=== PATIENT | female | born 2005 | race Caucasian/White ===

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

== ENCOUNTER 2024-05-04 22:59 | Emergency (ER) | payer MEDICAID, SELFPAY ==
[2024-05-04 22:59] VITALS: BP 129/85; PULSE 77; RESP 16; TEMP 37.1; O2SAT 100; BMI 28.5
--- NOTE | 2024-05-04 23:13 | EX.ED.DYSGE1 ---
HPI History of Present Illness Chief Complaint: Wound Check Informant: patient Onset/Context/Timing Onset: Today Context: Sudden Onset Current Severity: Gone Maximum Severity: Mild Narrative Narrative: 19-year-old female history of depression and anxiety. Aerosols to tattoos about 6 hours ago. The first just above her left ankle medially and the other on her medial right thigh. Said later she developed some tremors and just did not feel well. But currently is feeling much better. She denies any recent illness. She denies any fever. No dysuria. No vomiting or diarrhea. No cough. Prior similar symptoms: No Recent Illness/Hospitalization: No PFSH PFSH Medical History Pulmonary infiltrate Single live Second degree perineal laceration (spontaneous vaginal delivery) Bipolar mood disorder Gestational HTN Headache in Depression Home Medications ?Medication ?Instructions ?Recorded ?Last Taken ?Type fluoxetine 40 mg capsule 40 mg PO DAILY 11/22/23 12/19/23 History azithromycin 250 mg tablet See Rx Instructions PO .COMPLEX #6 04/19/24 Unknown Rx tabs benzonatate 100 mg capsule 100 mg PO TID PRN cough #20 caps 04/19/24 Unknown Rx Allergy/AdvReac Type Severity Reaction Status Date / Time No Known Allergies Allergy Verified 05/04/24 22:59 Social History Smoking Status: Current every day smoker tobacco type: e-cigarettes ROS ROS ED ROS Narrative Denies recent illness. No fever. Constitutional Constitutional ED: Denies chills or fever(s) Eyes Eyes: Denies blurry vision ENT ENT ED: Denies ear pain Cardiovascular Cardiovascular: Denies chest pain Respiratory/Chest Respiratory/Chest: Denies cough or dyspnea Gastrointestinal Gastrointestinal: Denies abdominal pain Genitourinary Genitourinary ED: Denies dysuria or hematuria Musculoskeletal Musculoskeletal: Denies arthralgias Integumentary Denies abscess Neurologic Neurologic: Denies headache(s) Psychiatric Psychiatric: Denies anxiety Endocrine Endocrinology: Denies cold intolerance Hematologic/Lymphatic Hematologic/Lymphatic: Reports none Allergic/Immunologic Allergic/Immunologic ED: Denies mouth swelling, tongue swelling or urticaria EXAM Physical Exam Narrative Exam Narrative: Well-appearing 19-year-old female. Vital signs are stable afebrile. She is sitting upright in bed. No distress. No one else present in the room. Pulse ox 100% on room air no signs of hypoxia. H EENT exam unremarkable. Pupils round reactive light. No trauma. Moist with membranes. Neck nontender no JVD. No lymphadenopathy. Lungs clear to auscultation bilaterally. Heart regular rate and rhythm rate about 75 no murmur. Chest wall and ribs nontender. Abdomen soft nontender. Moving all 4 extremities. Nontender no edema no cords. No signs of infection. She has 2 new tattoos. 1 just above her left ankle medially. Does not look infected. There is no bleeding. The second tattoo is on her right medial proximal thigh. Again does not look infected. Both upper and lower extremities are neurovascularly intact. Normal range of motion. No swelling. No rash. Normal strength. Back nontender. Neurologically she is awake and alert. Answering questions and following commands. Acting appropriately. Has a very benign normal exam. Const Vital Signs: 05/04/24 22:59 Temperature 98.8 F Temperature Source Oral Pulse Rate 77 Respiratory Rate 16 Blood Pressure 129/85 H Blood Pressure Mean 99 Pulse Ox 100 Oxygen Delivery Method Room Air Positive well nourished and well developed; Negative for cachectic, contractures or unkempt General Appearance ED: well developed and NAD; Negative for unkempt, cachectic, contractures, cyanotic, diaphoretic or pallor Nutritional Appearance: Negative for cachectic HEENT Reports moist mucous membranes Negative for trauma or tenderness Eyes EOMs intact bilaterally General Eye ED: Negative for pale conjunctiva or scleral icterus Neck no lymphadenopathy, supple and no JVD Chest Wall inspection of chest normal and palpation of chest normal Resp normal respiratory effort and clear to auscultation bilaterally Effort and Inspection: Negative for retractions Auscultation: Negative for rales, rhonchi, wheezes or diminished lung sounds Cardio regular rate, regular rhythm, S1 normal heart sound, S2 normal heart sound and no murmurs Rate: Negative for bradycardia or tachycardic Rhythm: Negative for abnormal rhythm GI normal to inspection, nondistended, normoactive bowel sounds, non-tender, non-distended and no masses Palpation: soft; Negative for tender, guarding or rebound tenderness present Back/Spine no CVA tenderness General Back: Negative for CVA tenderness Cervical Spine: Negative for cervical spine tenderness Thoracic Spine / Upper Back: Negative for thoracic spinal tenderness or paraspinal muscle tenderness Lumbar Spine / Lower Back: Negative for lumbar spinal tenderness Extremity normal to inspection Extremity Narrative: New tattoo just above her left medial malleolus. Dry and clean. No infection. The tattoo is 444. There is another tattoo on her medial right thigh it is a knife. Again clean and dry no infection. No significant redness. General Extremety ED: Negative for edema or tenderness General Extremity: Negative for edema Neuro oriented x3 and CN's II-XII intact bilaterally Sensorium / Orientation: alert; Negative for orientation impaired, lethargic or stuporous Motor Exam: strength 5/5 throughout Psych mental status grossly normal Appearance: Negative for unkempt Attitude: No agitated Mood & Affect: Negative for depressed, anxious or tearful Skin no rashes or lesions noted, no wounds and skin turgor normal General Skin Exam: elasticity normal; Negative for jaundice or pallor Lesions: No lesion noted Rashes: No rashes noted Trauma: Negative for abrasion Wounds: Negative for wounds noted MDM MDM MDM Narrative Medical decision making narrative: Well-appearing 19-year-old. May have had a panic attack. Currently her exam is normal. Both of her new tattoos showed no signs of infection. Her vital signs are stable. Exam is benign. She will be discharged to home. She does not need any lab tests or imaging. Discharge Plan Triage Chief Complaint: Wound Check ED Provider: Prabhakar Toro Dx/Rx/DC Orders Clinical Impression: Visit for wound check, Anxiety Prescriptions: No Action azithromycin 250 mg tablet See Rx Instructions PO .COMPLEX Qty: 6 0RF Rx Instructions: For 250 mg dose pack: take 500 mg today (day 1), then 250 mg for 4 days (days 2-5) PO benzonatate 100 mg capsule 100 mg PO TID PRN (Reason: cough) Qty: 20 0RF fluoxetine 40 mg capsule 40 mg PO DAILY Primary Care Provider: Berenice Martin NP Referrals: Berenice Martin NP, RESIDENTIAL SALES EXECUTIVE-C [Primary Care Provider] - As Needed Activity Restrictions/Additional Instructions: Follow-up with your primary care provider as needed. Your tattoos look okay there is no signs of infection. Your exam is normal. I do not know exactly what happened. Is not going on currently. Your exam is normal and your vital signs are normal there is no other tests or anything we need to do at this time. This may have been an anxiety attack. Print Language: Kyrgyz Disposition Disposition: Home, Self Care
== END 2024-05-04 23:17 | disposition home or self-care (01) ==
LOC: ED 23:15
PROVIDERS: Emergency Provider Emergency Medicine; PCP Nurse Practitioner Family; Visit Provider Emergency Medicine
DX: Z51.89 Encounter for other specified aftercare (principal); F41.9 Anxiety disorder, unspecified; F32.A Depression, unspecified; F17.290 Nicotine dependence, other tobacco product, uncomplicated
CPT/HCPCS: 99282

== ENCOUNTER 2024-05-21 22:58 | Emergency (ER) | payer MEDICAID, SELFPAY ==
[2024-05-21 22:59] VITALS: BP 121/73; PULSE 83; RESP 18; TEMP 36.6; O2SAT 100; BMI 28.3
--- NOTE | 2024-05-22 00:10 | ED.VIS.DENTA ---
HPI History of Present Illness Chief Complaint: Dental Informant: patient and parent Narrative Narrative: 2 and half weeks worsening right lower dental pain. She has wisdom teeth, now on the lower there is a cavity in 1 of 1. She has been having hot and cold sensitivities. Pain is waxing waning. Using Motrin and Tylenol. Since 4 AM however symptoms has been worse. She does have a dentist staying with her insurance there is been difficult to get her into the oral surgeon. Denies fever chills or sweats. Using Orajel. Due to pain mother brought her here. She is currently on day 7 of Augmentin from treatment urgent care for sinusitis. Prior similar symptoms: Yes PFSH PFSH Medical History Pulmonary infiltrate Single live Second degree perineal laceration (spontaneous vaginal delivery) Bipolar mood disorder Gestational HTN Headache in Depression Home Medications ?Medication ?Instructions ?Recorded ?Last Taken ?Type fluoxetine 40 mg capsule 40 mg PO DAILY 11/22/23 12/19/23 History hydrocodone-acetaminophen 5-325mg 1 tab PO Q6H PRN PRN Pain 3 days 05/22/24 Unknown Rx 5mg-325mg #10 TABLETS Allergy/AdvReac Type Severity Reaction Status Date / Time No Known Allergies Allergy Verified 05/21/24 22:59 Social History Smoking Status: Current every day smoker tobacco type: e-cigarettes ROS ROS ED Constitutional Constitutional ED: Denies chills, fever(s) or sweats ENT ENT ED: Reports other Details: Dental pain with hot and cold sensitivities. ; Denies sore throat Cardiovascular Cardiovascular: Denies chest pain Respiratory/Chest Respiratory/Chest: Denies cough Gastrointestinal Gastrointestinal: Denies abdominal pain, diarrhea, nausea or vomiting Musculoskeletal Musculoskeletal: Denies back pain, extremity pain or neck pain Neurologic Neurologic: Denies headache(s) or paresthesias EXAM Physical Exam Const Vital Signs: 05/21/24 22:59 Temperature 97.8 F Temperature Source Temporal Pulse Rate 83 Respiratory Rate 18 Blood Pressure 121/73 H Blood Pressure Mean 89 Pulse Ox 100 Oxygen Delivery Method Room Air Positive well nourished and well developed General Appearance ED: well developed and NAD HEENT Reports moist mucous membranes HEENT Narrative: Dental exam: [place] teeth noted lower with cavity in the right lower. No sublingual edema. No fluctuance. No trismus. normocephalic and atraumatic Eyes General Eye ED: Yes normal appearance of both eyes Neck full ROM Chest Wall Chest: Negative for tenderness Resp normal respiratory effort and normal air movement Effort and Inspection: symmetric chest movement; Negative for respiratory distress Cardio regular rate, regular rhythm and no murmurs Peripheral Pulses: pulses 2+ throughout GI normal to inspection, nondistended, normoactive bowel sounds and non-tender Palpation: Negative for guarding or rebound tenderness present Extremity normal to inspection General Extremety ED: Negative for edema or tenderness General Extremity: Negative for edema Neuro oriented x3 and no sensory deficits noted Sensorium / Orientation: awake and alert Skin no rashes or lesions noted and no wounds MDM MDM MDM Narrative Medical decision making narrative: Interventions / MDM: Differential diagnosis: Dentalgia, dental carry Diagnosis considered but do not suspect: No dental abscess no signs of Yrn angina My EKG interpretation: N/A Imaging independently reviewed and interpreted by myself: N/A External documents reviewed: N/A Test considered but not ordered:N/A ED course: Vital stable nontoxic. Increasing dentalgia dental carry. She is currently on Augmentin day 7 of 10. She will continue this. Failing treatment with Motrin Tylenol reported at home using Orajel. Will write short course for [facility] for pain control she is given dental list to try to call around for dentist for definitive treatment. No signs of abscess. All questions were answered. Re-evaluation: stable Disposition discussed with patient/family/significant other: Patient and mother Case discussed with consulting clinician: N/A This note was generated with [employer] dictation software. It may contain incorrect words, spelling, and punctuation that were not noted in checking the note before signing. Discharge Plan Triage Chief Complaint: Dental ED Provider: Bobby Vazquez Dx/Rx/DC Orders Clinical Impression: Dentalgia, Dental cavities Instructions: ED Dental Pain, ED Dental Cavity Prescriptions: New hydrocodone-acetaminophen 5-325 mg tablet 1 tab PO Q6H PRN PRN (Reason: Pain) 3 Days Qty: 10 0RF No Action fluoxetine 40 mg capsule 40 mg PO DAILY Primary Care Provider: Berenice Martin NP Referrals: Berenice Martin NP, CONTRACT IMPLEMENTATION ANALYST-C [Primary Care Provider] - Activity Restrictions/Additional Instructions: Finish your antibiotic. Continue your ibuprofen and Tylenol. Take hydrocodone as needed. Call dental list to attempt to get into the dentist office for definitive treatment. Print Language: Cook Islander Disposition Disposition: Home, Self Care Discharge Date/Time: 05/22/24 00:27
[2024-05-22] MEDS: HYDROcodone Bitartrate/Apap 5/325 Tablet PO (00:24)
== END 2024-05-22 00:27 | disposition home or self-care (01) ==
PROVIDERS: Emergency Provider Emergency Medicine; PCP Nurse Practitioner Family; Visit Provider Emergency Medicine
DX: K08.89 Other specified disorders of teeth and supporting structures (principal); K02.9 Dental caries, unspecified; F17.290 Nicotine dependence, other tobacco product, uncomplicated
CPT/HCPCS: 99282

== ENCOUNTER 2024-07-09 00:42 | Emergency (ER) | payer MEDICAID, SELFPAY ==
[2024-07-09 00:43] VITALS: BP 159/84; PULSE 113; RESP 18; TEMP 36.3; O2SAT 98; BMI 28.8
[2024-07-09] MEDS: Diphth,Pertuss(Acell),Tet Vac 0.5 ML Vial IM (01:33)
[2024-07-09] MEDS: Lidocaine 1% (20 ml mdv) 20 ML Vial INFILT (01:33)
--- NOTE | 2024-07-09 01:45 | EDS_ITS ---
HPI History of Present Illness Chief Complaint: Laceration Informant: patient Narrative Narrative: Patient sustained an accidental laceration to her left forearm just prior to arrival. She states she was in a shed, the light suddenly went out and then she tripped in the dark and fell, thinking that she cut her arm in the process against some glass. She denies any numbness, weakness, loss of function. No other injuries. Tetanus Immunization: Unknown [facility] Medical History Pulmonary infiltrate Single live Second degree perineal laceration (spontaneous vaginal delivery) Bipolar mood disorder Gestational HTN Headache in Depression Home Medications ?Medication ?Instructions ?Recorded ?Last Taken ?Type fluoxetine 40 mg capsule 40 mg PO DAILY 11/22/2312/09 History hydrocodone-acetaminophen 5-325mg 1 tab PO Q6H PRN PRN Pain 3 days 05/22/24 Unknown Rx 5mg-325mg #10 TABLETS Allergy/AdvReac Type Severity Reaction Status Date / Time No Known Allergies Allergy Verified 07/09/24 00:45 Social History Smoking Status: Current every day smoker tobacco type: e-cigarettes ROS ROS ED Constitutional Constitutional ED: Denies chills or fever(s) Musculoskeletal Musculoskeletal: Reports extremity pain; Denies neck pain Integumentary Reports laceration; Denies Abrasions or rash Neurologic Neurologic: Denies paresthesias or weakness EXAM Physical Exam Const Vital Signs: 07/09/24 00:43 Temperature 97.3 F L Temperature Source Temporal Pulse Rate 113 H Respiratory Rate 18 Blood Pressure 159/84 H Blood Pressure Mean 109 Pulse Ox 98 Oxygen Delivery Method Room Air Positive well nourished and well developed General Appearance ED: well developed and NAD Neck full ROM and supple Back/Spine normal ROM and normal to inspection Extremity full ROM Extremity Narrative: 2 parallel full-thickness lacerations volar left mid forearm, clean appearing noncontaminated no active bleeding. The subcutaneous fat is exposed but not injured on both of them. There is a 5 cm laceration and a 3 cm laceration. All compartment soft and nondistended. Full range of motion all joints above and below including all FDS, FDP, extensor tendon function of all fingers. Neuro oriented x3, no focal motor deficits and no sensory deficits noted Sensorium / Orientation: alert Psych thought process normal Mood & Affect: anxious and tearful Skin Skin Narrative: Lacerations to the volar aspect of the left forearm as above. Rashes: no rashes MDM MDM MDM Narrative Medical decision making narrative: Lacerations were cleansed, repaired see the procedure note, her tetanus was updated. Given appropriate discharge instructions. Patient denies this being a suicidal gesture or self-inflicted injury, confirms it was an accident. Follow- up in 10-14 days for suture removal reevaluation. We discussed care. Procedures Lacerations left volar forearm: Length: 8 cm (total between 2 lacs) Depth: Sub Q Shape: Linear Prep: Sterile Conditions and Chlorhexadine Laceration repair: Irrigated, Lidocaine (1% lido x 12cc), Local and Skin sutures Irrigated (ml): 100 Number of Sutures/[place]: 10 Suture Information: Ethilon, Simple (x 2), Horizontal, Mattress (x 8) and 4-0 Discharge Plan Triage Chief Complaint: Laceration ED Provider: Milan Ackerman Dx/Rx/DC Orders Clinical Impression: Laceration of forearm, left, Immunization, tetanus-diphtheria Instructions: Tdap Vaccine, ED Laceration Extremity Prescriptions: No Action hydrocodone-acetaminophen 5-325 mg tablet 1 tab PO Q6H PRN PRN (Reason: Pain) 3 Days Qty: 10 0RF fluoxetine 40 mg capsule 40 mg PO DAILY Primary Care Provider: Berenice Martin MANAGER LATIN Referrals: Berenice Martin MANAGER LATIN, MANAGER LATIN-C [Primary Care Provider] - 10-14 Days suture removal Print Language: Portuguese Disposition Disposition: Home, Self Care
[2024-07-09 02:39] VITALS: BP 111/69; PULSE 76; RESP 16; TEMP 36.8; O2SAT 99
== END 2024-07-09 02:41 | disposition home or self-care (01) ==
PROVIDERS: Emergency Provider Emergency Medicine; PCP Nurse Practitioner Family; Visit Provider Emergency Medicine
DX: S51.812A Laceration without foreign body of left forearm, initial encounter (principal); F17.290 Nicotine dependence, other tobacco product, uncomplicated; W26.8XXA Contact with other sharp object(s), not elsewhere classified, initial encounter; Z23 Encounter for immunization
CPT/HCPCS: 12004; 90471; 90715; 99283

== ENCOUNTER 2024-10-03 16:40 | Emergency (ER) | payer MEDICAID, SELFPAY ==
[2024-10-03 16:41] VITALS: BP 145/75; PULSE 90; RESP 17; TEMP 36; O2SAT 99; BMI 29.3
--- NOTE | 2024-10-03 16:56 | RAD_ITS ---
PROCEDURE: FOOT MIN 3 VIEWS 10/03/2024 REASON FOR EXAM: PAIN TECHNIQUE: 3 views of the left foot. COMPARISON: None FINDINGS: Bones: No visible fracture. No suspicious bone lesion. Joints: Normal alignment. Soft tissues: Soft tissues are unremarkable. Other: RAD/Foot min 3 Views IMPRESSION: NO ACUTE FRACTURE OR DISLOCATION. Reading Location: [facility]
--- NOTE | 2024-10-03 16:57 | ED.VIS.LOWEX ---
HPI History of Present Illness Chief Complaint: Lower Extremity Injury Informant: patient Narrative Narrative: Walking today felt pain in her foot palpated felt a bump. No direct injuries. No new activities the last 2 days. No previous similar symptoms. Did not take any medications prior to arrival. No allergies. Prior similar symptoms: No PFSH PFSH Medical History Pulmonary infiltrate Single live Second degree perineal laceration (spontaneous vaginal delivery) Bipolar mood disorder Gestational HTN Headache in Depression Home Medications ?Medication ?Instructions ?Recorded ?Last Taken ?Type fluoxetine 40 mg capsule 40 mg PO DAILY 11/22/23 12/19/23 History hydrocodone-acetaminophen 5-325mg 1 tab PO Q6H PRN PRN Pain 3 days 05/22/24 Unknown Rx 5mg-325mg #10 TABLETS Allergy/AdvReac Type Severity Reaction Status Date / Time No Known Allergies Allergy Verified 10/03/24 16:40 Social History Smoking Status: Current every day smoker tobacco type: e-cigarettes ROS ROS ED Constitutional Constitutional ED: Denies fever(s) Cardiovascular Cardiovascular: Denies chest pain Respiratory/Chest Respiratory/Chest: Denies cough Gastrointestinal Gastrointestinal: Denies diarrhea or vomiting Musculoskeletal Musculoskeletal: Reports other Details: Left foot pain Integumentary Denies rash or wounds Neurologic Neurologic: Denies weakness EXAM Physical Exam Const Vital Signs: 10/03/24 16:41 Temperature 96.8 F L Temperature Source Temporal Pulse Rate 90 Respiratory Rate 17 Blood Pressure 145/75 H Blood Pressure Mean 98 Pulse Ox 99 Oxygen Delivery Method Room Air Positive well nourished and well developed General Appearance ED: well developed HEENT normocephalic and atraumatic Eyes General Eye ED: Yes normal appearance of both eyes Neck full ROM Resp normal respiratory effort and normal air movement Cardio regular rate and regular rhythm GI soft to palpation Extremity full ROM Extremity Narrative: Left lower extremity: No ankle tenderness. Left foot tenderness proximal fifth base there was a palpable bump more dorsal fifth metatarsal reproducible. No redness of skin. No swelling. Neuro oriented x3 Skin no rashes or lesions noted and no wounds MDM MDM MDM Narrative Medical decision making narrative: Interventions / MDM: Differential diagnosis: Foot pain, foot sprain, bony spur Diagnosis considered but do not suspect: Fracture however x-ray negative. Nonmovable nodule therefore lower concerns for ganglion cyst My EKG interpretation: N/A Imaging independently reviewed and interpreted by myself: Three-view x-ray left foot: No fracture noted. External documents reviewed: N/A Test considered but not ordered:N/A ED course: Patient pain proximal fifth base with a palpable bump. It was not movable for concerns of cyst. Treated with Motrin three-view x-ray foot for further evaluation. X-ray negative. Patient reassured on findings. Winston wrap postop shoe for comfort. She has ibuprofen at home to use. She is given referral to podiatry as she is concerned with the painful nodule above the foot. All questions were answered. Re-evaluation: stable Disposition discussed with patient/family/significant other: Patient Case discussed with consulting clinician: N/A This note was generated with [employer] software. It may contain incorrect words, spelling, and punctuation that were not noted in checking the note before signing. Radiography Diagnostic Testing: Clinical Impression(s) from Imaging Studies Foot X-Ray 10/03/24 16:56 IMPRESSION: NO ACUTE FRACTURE OR DISLOCATION. Reading Location: [facility] Discharge Plan Triage Chief Complaint: Lower Extremity Injury ED Provider: Bobby Vazquez Dx/Rx/DC Orders Clinical Impression: Foot pain, left Instructions: ED Foot Sprain Prescriptions: No Action hydrocodone-acetaminophen 5-325 mg tablet 1 tab PO Q6H PRN PRN (Reason: Pain) 3 Days Qty: 10 0RF fluoxetine 40 mg capsule 40 mg PO DAILY Primary Care Provider: Berenice Martin NP Referrals: Omar Ward DPM [Med Staff - Active Staff] - 1 Week Berenice Martin NP, BRICKLAYER-C [Primary Care Provider] - Activity Restrictions/Additional Instructions: X-ray foot negative for fracture. Palpable nodule above the proximal fifth base of your foot. Follow-up with podiatry. Continue Motrin up to 600 mg every 6 hours as needed. Winston wrap postop shoe for comfort. Print Language: Maltese Disposition Disposition: Home, Self Care
[2024-10-03] MEDS: Ibuprofen 600 MG Tablet PO (17:26)
[2024-10-03 18:12] VITALS: BP 145/75; PULSE 80; RESP 17; TEMP 36; O2SAT 99
== END 2024-10-03 18:20 | disposition home or self-care (01) ==
PROVIDERS: Emergency Provider Emergency Medicine; PCP Nurse Practitioner Family; Visit Provider Emergency Medicine
DX: M79.672 Pain in left foot (principal); F17.290 Nicotine dependence, other tobacco product, uncomplicated
CPT/HCPCS: 73630; 99283

== ENCOUNTER 2025-04-25 20:42 | Emergency (ER) | payer MEDICAID, SELFPAY ==
[2025-04-25 20:43] VITALS: BP 118/68; PULSE 97; RESP 18; TEMP 37.1; O2SAT 99
--- NOTE | 2025-04-25 21:01 | ED.RN ---
pt states she does not want to wait- will be heading to [facility].
--- OUTSIDE RECORDS SUMMARY | 2025-04-25 21:07 | XMS RPT_ITS | CCD ---
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 40.0 % AO Workflow SS MCH (RBC) [Entitic mass] 30.2 pg Normal 27. 0 - 33.0 pg AO Workflow SS MCHC 33.5 G/dL Normal 32.0 - 36.0 G/dL AO Workflow SS MCV (RBC) [Entitic vol] 90.2 fL Normal 80.0 - 99.0 fL AO Workflow SS Monocyte distribution width Auto (Bld) [Entitic vol] 19.72 1 Normal 0.00 - 20.00 AO Workflow SS Comment on above: Result Comment: For ED adult patients suspected of sepsis, MDW<=20.0 does not rule out sepsis or risk of sepsis Monocytes (Bld) [#/Vol] 0.7 103/mcL Normal 0.1 - 1.4 10^3/mcL AO Workflow SS Monocytes/100 WBC (Bld) 8.0 % Normal 2.0 - 13.0 % AO Workflow SS Neutrophils (Bld) [#/Vol] 5.4 103/mcL Normal 2. 3 - 8.1 10^3/mcL AO Workflow SS Neutrophils/100 WBC (Bld) 61.0 % Normal 50 .0 - 75.0 % AO Workflow SS Platelet mean volume (Bld) [Entitic vol] 9.0 fL Normal 6.6 - 10.5 fL AO Workflow SS Platelets (Bld) [#/Vol] 255 103/mcL Normal 150 - 450 10^3/mcL AO Workflow SS Potassium [Moles/Vol] 3.5 mmol/L Normal 3.5 - 5.1 mmol/L AO ADM SS Protein [Mass/Vol] 7.0 G/dL Normal 6.4 - 8.2 G/dL AO ADM SS PT Coag (PPP) [Time] 11.9 s Normal 9.0 - 1 4.4 seconds AO HemoHub SS RBC (Bld) [#/Vol] 4.18 106/mcL Normal 4.10 - 5.3 0 10^6/mcL AO Workflow SS Sodium [Moles/Vol] 138 mmol/L Normal 136 - 145 mmol/L AO ADM SS Urea nitrogen [Mass/Vol] 10 mg/dL Normal 7 - 18 mg/d L AO ADM SS Urea nitrogen/Creatinine [Mass ratio] 12 ratio Normal 7 - 27 ratio AO ADM SS WBC (Bld) [#/Vol] 8.8 103/mcL Normal 4.5 - 10.8 10^3/mcL AO Workflow SS PROon 03-17-2025 PT Coag (PPP) [Time] 11.9 s Normal 9.0-14.4 [facility] Comment on above: Performed By: #### C MP, CBC, ADIFF, ANEU, APTT, MDW, GFR, PRO #### [id number] [place], [place] [address] PT International Ratio 1.0 Normal [facility] Comment on above: Result Comment: [employer] (CHEST, 1992, 102:312S-25S) recommended therapeutic range for oral anticoagulant therapy is: LOW RISK: Prophylaxis of venous thrombosis INR: 2.0-3.0 Treatment of pulmonary embolism 2.0-3.0 Prevention of systemic embolism 2.0-3.0 HIGH RISK: Mechanical prosthetic valves 2.5-3.5 Performed By: #### C MP, CBC, ADIFF, ANEU, APTT, MDW, GFR, PRO #### [id number] [place], [place] [address] BACTERIAL VAGINOSIS NAATon 1 Lactobacillus crispatus+gasseri+jensenii + Gardnerella vaginalis + Atopobium vaginae rRNA YOHAN+probe Ql (Vag fld) Detected Abnormal Not detected [facility] Comment on above: Order Comment: Speci men Type: SWAB Ordering Facility: [facility] Address: [address] [place] [address] Performed By: #### B VAMP, 86460-7 #### [facility] CLIA [id number] [address] [place] [address] [place] C. trachomatis+N. gonorrhoea e DNA YOHAN+probe Ql (Unsp spec)on 02-23-2025 C. trachomatis rRNA YOHAN+probe Ql (Unsp spec) Not detected Normal Not detected [facility] Comment on above: Order Comment: Speci men Type: SWAB Ordering Facility: [facility] Address: [address] [place] [address] Performed By: #### B VAMP, 46008-6 #### [facility] CLIA [id number] [address] [place] [address] [place] N. gonorrhoeae rRNA YOHAN+probe Ql (Unsp spec) Not detected Normal Not detected [facility] Comment on above: Order Comment: Speci men Type: SWAB Ordering Facility: [facility] Address: [address] [place] [address] Performed By: #### B VAMP, 00771-2 #### [facility] CLIA [id number] [address] [place] [address] [place] LORIE/TRICHOMONAS NAATon 1 C. glabrata RNA YOHAN+probe Ql (Vag fld) Not detected Normal Not detected [facility] Comment on above: Order Comment: Speci men Type: SWABOrdering Facility: [facility] Address: [address] [place] [address] Performed By: #### C VTV ####[facility] [id number] [place] [address] [place] Lorie sp DNA YOHAN+probe Ql (Vag fld) Not detected Normal Not detected [facility] Comment on above: Order Comment: Speci men Type: SWABOrdering Facility: [facility] Address: [address] [place] [address] Performed By: #### C VTV ####[facility] [id number] [place] [address] [place] T. vaginalis DNA YOHAN+probe Ql (Unsp spec) Detected Abnormal Not detected [facility] Comment on above: Order Comment: Speci men Type: SWABOrdering Facility: [facility] Address: [address] [place] [address] Performed By: #### C VTV ####[facility] [id number] [address] [place] CNOVon 02-23-2025 CNOV Office Visit (OBGYWM ) MILES JIMENEZ ([id number]) 3 F T Date Time Provider Department 02/23/25 10:30 AM MEL HESTER OBDESIREEWLila During your visit today, we recorded the following information about you: Blood pressure Weight Last Period 118/76 83 kg 02/07/25 Mel Hester APRN.LUBRICATION SUPERVISOR 02/23/2025 12:40 PM Signed Char Puller offered: Patient declines. Miles Aroldo Jimenez is a 20 year old female who presents for vaginal discharge for 1 day. - Recently took Diflucan in November for a suspected yeast infection based on symptoms during a telehealth visit; no swab was done at that time. - Last STD testing was during with her daughter, who is now 2 years old. Vaginal discharge: large amount, thin, and yellow. Itching: No Dyspareunia: No Fever/chills: No Abdominal pain: Yes, RLQ pelvic pain this morning, after urinating, resolved after urinating Bladder: Negative for dysuria or frequency Bowel: No blood in stool, pain with BM, tarry stool, persitent diarrhea, endorses constipation x2 weeks, last BM 2 days ago, reports liquid formed stool Any new sexual partners or concern for STD exposure: No Any history of STDs: None Does your partner have any new complaints: No Are you currently taking any medications to treat vaginitis: No Do you use feminine sprays, douches or deodorants: No Menstrual cycle: cycles every 14 days and 5 days of heavy flow Contraception: IUD Paragard 09/2024 Last pap: never Past medical, surgical, social history, medications and allergies reviewed and updated. OBJECTIVE: SENSITIVE EXAM: The sensitive examination was discussed with the Patient or Patient's Authorized Suspender Maker. As applicable, any other physician, advance practice provider, medical student, or other health professional student that will be observing or involved in the sensitive examination for educational or training purposes was discussed with the Patient or Authorized Suspender Maker. The Patient or Authorized Suspender Maker has agreed to proceed with the sensitive examination. (Sensitive examination includes inspection and/or palpation of the breasts, pelvis, prostate and anorectal regions). BP 118/76 Wt 183 lb (83.0kg) LMP 02/07/2025 GENERAL: Well developed, well nourished in no apparent distress ABDOMEN: soft, non-tender, and no masses PELVIC: external genitalia normal, normal Bartholin's glands, urethra, [place]'s glands, no vulvar lesions, no cervical lesions, good vaginal support, yellow discharge present, normal appearing perineal body and perianal region, IUD string noted BIMANUAL: uterus normal size, shape and consistency, no adnexal masses, and non-tender. 1. Vaginal discharge (N89.8) 2. Screen for STD (sexually transmitted disease) (Z11.3) - Acute onset of yellow, thin, watery vaginal discharge with moderate volume, no associated pruritus or dysuria; history of recent infidelity by former partner. - Differential includes bacterial vaginosis, candidiasis, and sexually transmitted infections. - Obtained vaginal swabs for chlamydia, gonorrhea, BV, and yeast. - Ordered blood work for HIV, hepatitis B, hepatitis C, and syphilis. - Educated patient on normal vs. abnormal vaginal discharge, potential causes, and the importance of STD screening given recent partner infidelity. - Advised patient that test results are expected by tomorrow morning; will notify patient of results and send prescriptions as indicated. - LORIE/TRICHOMONAS NAAT - GONORRHEA/CHLAMYDIA NAAT - SYPHILIS TREPONEMAL W/REFLEX - HIV 1/2 COMBO WITH REFLEX TO DIFFERENTIATION - HEPATITIS C ANTIBODY IA WITH CONFIRMATION - HEPATITIS B SURFACE ANTIGEN Josie Bender NP Student TEACHING PROVIDER (Physician/PA/RESIDENTIAL FIELD MANAGER) NOTE OF PERSONAL INVOLVEMENT IN CARE: I have personally seen and examined the patient and performed the medical decision-making components. I have reviewed the Advanced Practice Registered Nurse (RESIDENTIAL FIELD MANAGER) Student's documentation and verified the findings in the note as written. Any additions or changes are noted in bold/italics. Signature: Mel Hester Date: 02/23/2025 Time: 12:39 PM Medical Decision Making: Problems: Moderate: New problem with uncertain prognosis Data: Unique test(s) ordered: 3+ Medical Decision Making Level: 4 - Moderate Allergies As of Date: 02/23/2025 (No Known Allergies) Date Reviewed: 02/23/2025 Reviewed by: Mel Hester APRN.LUBRICATION SUPERVISOR - Fully Assessed Reason for Visit: Vaginal Discharge [4161] Primary Visit Diagnosis:Vaginal discharge [N89.8] Other Visit Diagnosis:Screen for STD (sexually transmitted disease) [Z11.3] Order(s):LORIE/TRICH OMONAS NAAT [SQCVTV] Order #: [id number]. #:[id number] BACTERIAL VAGINOSIS NAAT [SQBVAMP] Order #: [id number]. #:[id number] GONORRHEA/CHLAMYDIA NAAT [SQGCCT] Order #: [id number]. #:[id number] (more content not included)... Normal [facility] HBV surface Ag Ser Qlon 02-08 HBV surface Ag Ql (S) Negative Normal Negative [facility] Comment on above: Order Comment: Speci men Type: BLOOD SPECIMEN Ordering Facility: [facility] Address: [address] [place] [address] Performed By: #### 2 704-9, 2319-8 #### [facility] CLIA [id number] [address] [place] [address] [place] HCV Ab Ser Qlon 02-23-2025 HCV Ab Ql (S) Negative Normal Negative [facility] Comment on above: Order Comment: Speci men Type: BLOOD SPECIMEN Ordering Facility: [facility] Address: [address] [place] [address] Result Comment: The result suggests no evidence of infection with Hepatitis C virus. Should recent infection be suspected, repeat testing may be considered 4-6 weeks after this draw. Performed By: #### 2 132-9, 2283-8 #### [facility] CLIA [id number] [address] [place] [address] [place] HIV 1+2 Ab IA Qlon HIV 1 and 2 Ab IA.rapid Nom (S/P/Bld) Normal [facility] Comment on above: Order Comment: Speci men Type: BLOOD SPECIMEN Ordering Facility: [facility] Address: [address] [place] [address] Result Comment: Test not indicated. Performed By: #### 2 132-9, 2283-8 #### [facility] CLIA [id number] [address] [place] [address] [place] HIV 1+2 Ab+HIV1 p24 Ag IA Ql Non-Reactive Normal Nonreactive [facility] Comment on above: Order Comment: Speci men Type: BLOOD SPECIMEN Ordering Facility: [facility] Address: [address] [place] [address] Performed By: #### 2 132-9, 2283-8 #### [facility] CLIA [id number] [address] [place] [address] [place] HIV immunoassay testing algorithm interpretation (S/P/Bld) [Interp] Normal [facility] Comment on above: Order Comment: Speci men Type: BLOOD SPECIMEN Ordering Facility: [facility] Address: [address] [place] [address] Result Comment: No e vidence of HIV-1 or HIV-2 infection. Should recent infection be suspected, repeat testing may be considered 2-3 weeks after this draw. Dent Rev. Code 3701.243(E): This information has been disclosed to you from confidential records protected from disclosure by state law. You shall make no further disclosure of this information without the specific, written, and informed release of the individual to whom it pertains or as otherwise permitted by state law. A general authorization for the release of medical or other information is not sufficient for the purpose of the release of HIV test results or diagnoses. Performed By: #### 2 132-9, 4-8 #### [facility] CLIA [id number] [address] [place] [address] [place] Reagin and Treponema pallidu m IgG and IgM [Interp]on 02-23-2025 T. pallidum IgG+IgM IA Ql (S) Non-Reactive Normal Nonreactive [facility] Comment on above: Order Comment: Speci men Type: BLOOD SPECIMEN Ordering Facility: [facility] Address: [address] [place] [address] Performed By: #### 2 132-9, 8 #### [facility] CLIA [id number] [address] [place] [address] [place] Reagin+T pallidum IgG+IgM Se rPl-Impon 02-23-2025 Reagin and Treponema pallidum IgG and IgM [Interp] Cannot exclude recent Treponemal infection if specimen collected within 7-10 days after appearance of suspect lesions or 2-3 weeks after an exposure. Clinical correlation is required. Normal [facility] Comment on above: Order Comment: Speci men Type: BLOOD SPECIMEN Ordering Facility: [facility] Address: [address] [place] [address] Performed By: #### 2 132-9, 4-8 #### [facility] CLIA [id number] [address] [place] [address] [place] CNCOon 01-19-2025 CNCO Letter Text Normal [facility] CNPAlba 01-19-2025 CNPN Telephone (AGFAMPLE) MILES JIMENEZ ([id number]) 3 F T Date Time Provider Department 01/19/25 BERENICE MARTIN During your visit today, we recorded the following information about you: Ramón Benitez 01/19/2025 12:51 PM Signed No Show Documentation Miles Jimenez no showed for an appointment on 01/19/2025 with Berenice Martin APRN.CNP at 11:20 am. She was scheduled for vaginal issues. I called and spoke with the patient regarding her missed appointment. Miles stated the reason that she missed her appointment was because she forgot she scheduled an appointment for today. Resources discussed/offered to patient: na No show determined to be fault of patient: Yes This is the patients first no show in the last 12 months. Patient was rescheduled for na. [facility] Is [facility] the Third or Fourth No Show? No Ramóntu Benitez January 19, 2025 12:50 PM Allergies As of Date: 01/19/2025 (No Known Allergies) Date Reviewed: 01/10/2025 Reviewed by: Liz Abernathy LPN - Fully Assessed Reason for Visit: Missed Appointment [1304] Cmt: 1st no show in 365 days (1st letter sent) Prescriptions as of 01/19/2025 - fluconazole (DIFLUCAN) 150 mg tablet Take one by mouth at the first sign of a yeast infection, repeat with another tablet in 3 days - metFORMIN ER (GLUCOPHAGE XR) 500 mg 24 hr tablet Take 1 tablet by mouth daily with breakfast. - copper (PARAGARD) 380 square mm intrauterine device 1 Intra Uterine Device by INTRAUTERINE route one time only for 1 dose. - lamoTRIgine (LAMICTAL) 25 mg tablet Take 1 tablet by mouth once daily. - FLUoxetine (PROZAC) 20 mg capsule Take 3 capsules by mouth once daily. - busPIRone (BUSPAR) 5 mg tablet TAKE 1 TABLET BY MOUTH 3 TIMES A DAY NEEDED - Cholecalciferol, Vitamin D3, 125 mcg (5,000 unit) cap Take 1 capsule by mouth once daily. Problem List As Of Date 01/19/2025 Noted Resolved Adjustment disorder with disturbance of [...] syncope [R55] 10/01/2022 Elevated glucose [R73.09] 10/16/2022 Palpitations [R00.2] 11/03/2023 Encounter Status:Closed by RAMÓN BENITEZ on 01/19/25 [facility] CNOVon 01-10-2025 CNOV Office Visit (WOUCA) MILES JIMENEZ ([id number]) 3 F T Date Time Provider Department 01/10/25 1:30 PM RAGHAVENDRA MARC During your visit today, we recorded the following information about you: Temperature Pulse Respiration Blood pressure 99.3 degrees 100/minute 16/minute 118/76 Weight 85.3 kg Raghavendra Marc APRN.LUBRICATION SUPERVISOR 01/10/2025 2:14 PM Signed [facility] Subjective Miles Jimenez is a 20 year old female. Patient presents with: Cough: Cough. ST, bodyaches, BOYCE and hurts to breath x 2 days HPI The patient is a 20-year-old female presenting with headache, myalgias, cough, and chest discomfort. Headache, Myalgias, Cough, and Chest Discomfort: - Headache, myalgias, and cough with associated chest discomfort. - Chest discomfort described as muscle pain. - Reports feeling short of breath similar to previous pneumonia episodes. - Experiencing alternating hot and cold sensations. - Requests viral testing. Review of Systems Constitutional: (+) fever, (+) chills, (+) body aches Head: (+) headache Ears/Nose/Mouth/Throat : (+) ear pain Cardiovascular: (+) chest pain Respiratory: (+) cough, (+) shortness of breath Musculoskeletal: (+) chest wall muscle pain Objective BP 118/76 Pulse 100 Temp 37.4 ?C (99.3 ?F) (Tympanic) Resp 16 Wt 85.3 kg (188 lb 0.8 oz) LMP 02/02/2024 (Approximate) SpO2 99% BMI 29.45 kg/m? Physical Exam General: No acute distress. HEENT: Tympanic membranes normal, oropharynx normal. Resp: Lungs clear to auscultation. { 1. Acute cough (R05.1) 2. URI, acute (J06.9) - Symptoms include headache, myalgias, cough with chest discomfort, and alternating hot and cold sensations. - Lungs clear on auscultation; ears and throat normal on exam. - Chest X-ray negative; etiology believed to be viral. - Viral testing ordered per patient request. - Supportive care recommended; parent advised that acetaminophen is appropriate for symptom relief. - Patient and parent agreeable to care plan. and Recording using ambient AI software for draft documentation of the visit was discussed with the patient/authorized healthcare sales representative; all questions welcomed and answered. Patient/authorized healthcare sales representative agreed to proceed MDM Procedures Allergies As of Date: 01/10/2025 (No Known Allergies) Date Reviewed: 01/10/2025 Reviewed by: Liz Abernathy LPN - Fully Assessed Reason for Visit: Cough [28] Cmt: Cough. ST, bodyaches, BOYCE and hurts to breath x 2 days Primary Visit Diagnosis:Acute cough [R05.1] Other Visit Diagnosis:URI, acute [J06.9] Order(s):COVID AND INFLUENZA A/B AND RSV PCR, ROUTINE [SQCVFLRS] Order #: [id number]. #:[id number] XR CHEST 2V FRONTAL/LAT [[id number]] Order #: [id number] FUTURE Prescriptions as of 01/10/2025 - fluconazole (DIFLUCAN) 150 mg tablet Take one by mouth at the first sign of a yeast infection, repeat with another tablet in 3 days - metFORMIN ER (GLUCOPHAGE XR) 500 mg 24 hr tablet Take 1 tablet by mouth daily with breakfast. - copper (PARAGARD) 380 square mm intrauterine device 1 Intra Uterine Device by INTRAUTERINE route one time only for 1 dose. - lamoTRIgine (LAMICTAL) 25 mg tablet Take 1 tablet by mouth once daily. - FLUoxetine (PROZAC) 20 mg capsule Take 3 capsules by mouth once daily. - busPIRone (BUSPAR) 5 mg tablet TAKE 1 TABLET BY MOUTH 3 TIMES A DAY NEEDED - Cholecalciferol, Vitamin D3, 125 mcg (5,000 unit) cap Take 1 capsule by mouth once daily. Problem List As Of Date 01/10/2025 Noted Resolved Adjustment disorder with disturbance of [...] syncope [R55] 10/01/2022 Elevated glucose [R73.09] 10/16/2022 Palpitations [R00.2] 11/03/2023 Letter Text Encounter Status:Closed by RAGHAVENDRA MARC on 01/10/25 Normal [facility] COVID & INFLUENZA A/B & RSV PCR, ROUTINEon 01-10-2025 FLUAV RNA YOHAN+probe Ql (Unsp spec) Not detected Not Detected [facility] FLUBV RNA YOHAN+probe Ql (Unsp spec) Not detected Not Detected [facility] Interpretation and review of laboratory results Normal [facility] RSV A RNA YOHAN+probe Ql (Unsp spec) Not detected Not Detected [facility] SARS-CoV-2 (COVID-19) RNA YOHAN+probe Ql (Unsp spec) Not detected See comment [facility] Reference Range (the expected result in uninfected individuals): Not detected [facility] XR CHEST 2V FRONTAL/LATon XR CHEST 2V FRONTAL/LAT * * *Final Repor t* * * DATE OF EXAM: Jan 10 2025 1:45PM WOX 5291 - XR CHEST 2V FRONTAL/LAT / PROCEDURE REASON: Acute cough * * * * Physician Interpretation * * * * EXAMINATION: CHEST RADIOGRAPH (2 VIEW FRONTAL and LATERAL) CLINICAL HISTORY: Acute cough MQ: XC2_6 EXAM DATE/TIME: 01/10/2025 1:45 PM COMPARISON: Chest x-ray dated 02/28/2019 RESULT: Lines, tubes, and devices: None. Lungs and pleura: Azygos fissure, a normal anatomic variants. No consolidation. No lung mass. No pleural effusion. No pneumothorax. Cardiomediastinal silhouette: Normal cardiomediastinal silhouette. Bones and soft tissues: Unremarkable. IMPRESSION: No acute radiographic abnormality. [employer] Transcribe Date/Time: Jan 10 2025 1:46P Dictated by : LAYO AREVALO MD This examination was interpreted and the report reviewed and electronically signed by: LAYO AREVALO MD on Jan 10 2025 1:46PM EST [id number] Normal [facility] XR Chest PA and Lateralon Radiology Study observation (narrative) [facility] IMPRESSION: No acute radiographic abnormality. [employer]ing [employer]: [facility] Transcribe Date/Time: Jan 10 2025 1:46P Dictated by : LAYO AREVALO MD This examination was interpreted and the report reviewed and electronically signed by: LAYO AREVALO MD on Jan 10 2025 1:46PM EST DIVISION OF RADIOLOGY * * *Final Report* * * DATE OF EXAM: Jan 10 2025 1:45PM WOX 5291 - XR CHEST 2V FRONTAL/LAT / PROCEDURE REASON: Acute cough * * * * Physician Interpretation * * * * EXAMINATION: CHEST RADIOGRAPH (2 VIEW FRONTAL & LATERAL) CLINICAL HISTORY: Acute cough MQ: XC2_6 EXAM DATE/TIME: 01/10/2025 1:45 PM COMPARISON: Chest x-ray dated 02/28/2019 RESULT: Lines, tubes, and devices: None. Lungs and pleura: Azygos fissure, a normal anatomic variants. No consolidation. No lung mass. No pleural effusion. No pneumothorax. Cardiomediastinal silhouette: Normal cardiomediastinal silhouette. Bones and soft tissues: Unremarkable. DIVISION OF RADIOLOGY Provider, Barbara Davenport - 01/10/2025 * * *Final Report* * * DATE OF EXAM: Jan 10 2025 1:45PM WOX 5291 - XR CHEST 2V FRONTAL/LAT / PROCEDURE REASON: Acute cough * * * * Physician Interpretation * * * * EXAMINATION: CHEST RADIOGRAPH (2 VIEW FRONTAL & LATERAL) CLINICAL HISTORY: Acute cough MQ: XC2_6 EXAM DATE/TIME: 01/10/2025 1:45 PM COMPARISON: Chest x-ray dated 02/28/2019 RESULT: Lines, tubes, and devices: None. Lungs and pleura: Azygos fissure, a normal anatomic variants. No consolidation. No lung mass. No pleural effusion. No pneumothorax. Cardiomediastinal silhouette: Normal cardiomediastinal silhouette. Bones and soft tissues: Unremarkable. IMPRESSION IMPRESSION: No acute radiographic abnormality. [employer]: [employer] Transcribe Date/Time: Jan 10 2025 1:46P Dictated by : LAYO AREVALO MD This examination was interpreted and the report reviewed and electronically signed by: LAYO AREVALO MD on Jan 10 2025 1:46PM EST [facility] XR Chest PA and LateralOrder ed By: [facility] Provider on 01-10-2025 [facility] CNOVon 12-01-2024 CNOV Office Visit ([facility]) MILES JIMENEZ ([id number]) 3 F T Date Time Provider Department 12/01/24 5:30 PM OMAR COLVIN During your visit today, we recorded the following information about you: Temperature Pulse Respiration Blood pressure 99.5 degrees 92/minute 18/minute 121/61 Weight 83.2 kg Omar Colvin APRN.GRAZYNA 12/01/2024 6:33 PM Signed [facility] Subjective Miles Jimenez is a 19 year old female. Patient presents with: Sore Throat: BOYCE, fever x4 days HPI Nontoxic-appearing 19-year-old female presents urgent care chief complaint fever sore throat headache. Duration of symptoms 4 days. Associate symptoms listed above. Most prominent symptom today is pharyngitis. Presents today for evaluation. OTC medications none recently. No difficulty swallowing inspiration decreased range of motion of neck or trismus. Past medical history prescription medications allergies reviewed. Review of Systems Constitutional: Positive for fever. Negative for chills, diaphoresis and fatigue. HENT: Positive for sore throat. Negative for congestion, drooling, ear discharge, ear pain, rhinorrhea, sinus pressure, sinus pain, sneezing and trouble swallowing. Eyes: Negative for pain, discharge, redness, itching and visual disturbance. Respiratory: Negative for cough, chest tightness, shortness of breath and wheezing. Cardiovascular: Negative for chest pain. Gastrointestinal: Negative for abdominal distention, abdominal pain, blood in stool, constipation, diarrhea, nausea and vomiting. Genitourinary: Negative for difficulty urinating and dysuria. Musculoskeletal: Negative for arthralgias, joint swelling, neck pain and neck stiffness. Skin: Negative for rash. Neurological: Positive for headaches. Negative for dizziness, weakness and numbness. Objective BP 121/61 Pulse 92 Temp 37.5 ?C (99.5 ?F) Resp 18 Wt 83.2 kg (183 lb 6.8 oz) LMP 02/02/2024 (Approximate) SpO2 96% BMI 28.73 kg/m? Physical Exam Constitutional: Appearance: Normal appearance. HENT: Head: Normocephalic. Jaw: No trismus, tenderness, swelling or pain on movement. Nose: No congestion. Mouth/Throat: Mouth: Mucous membranes are moist. Pharynx: Oropharynx is clear. Uvula midline. Posterior oropharyngeal erythema present. No oropharyngeal exudate. Tonsils: No tonsillar exudate or tonsillar abscesses. 1+ on the right. 1+ on the left. Eyes: Conjunctiva/sclera: Conjunctivae normal. Cardiovascular: Rate and Rhythm: Normal rate.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 Joints: Normal alignment. Soft tissues: Soft tissues are unremarkable. Other: RAD/Foot min 3 Views IMPRESSION: NO ACUTE FRACTURE OR DISLOCATION. Reading Location: [facility] CC: KAYLEIGH Martin; Dr. Bobby Vazquez DO [employer]: Signed [facility] CNOVon 09-26-2024 CNOV Office Visit (UCWSTR ) MILES [id number]) 3 F CHT Date Time Provider Department 09/26/24 9:45 AM GILL RENTERIA [facility] During your visit today, we recorded the following information about you: Temperature Pulse Respiration Blood pressure 97.4 degrees 100/minute 16/minute 124/72 Weight 85 kg Gill Renteria APRN.[facility] 09/26/2024 11:12 AM Signed [facility] Subjective Miles Jimenez is a 19 year old female. Patient presents with: Derm Problem: ? insect bite on back of right thigh x 2 days HPI Patient is a 19-year-old female with no major medical history she states that she noticed about 2 days ago what she thought was a cyst on the right back of her leg she did try to pop it. She is now concerned that it does look like a bull's-eye and maybe she had a tick previously she is not sure if she had a tick bite or not. She denies any fevers, body aches, joint pain or other symptoms. Review of Systems Constitutional: Negative for fatigue and fever. HENT: Negative for congestion. Respiratory: Negative for shortness of breath. Cardiovascular: Negative for chest pain. Gastrointestinal: Negative for constipation, nausea and vomiting. Musculoskeletal: Negative for joint swelling and myalgias. Skin: Positive for wound. Negative for rash. Neurological: Negative for headaches. Objective BP 124/72 Pulse 100 Temp 36.3 ?C (97.4 ?F) Resp 16 Wt 85 kg (187 lb 6.3 oz) LMP 02/02/2024 (Approximate) SpO2 97% BMI 29.35 kg/m? 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 Anemia Attention deficit hyperactivity disorder Bipolar 1 disorder (HCC) Episodic mood disorder 04/28/2012 Fracture of nasal bone 10/01/2022 Oppositional disorder of childhood or adolescence 08/11/2012 Periapical abscess without sinus 10/06/2012 Right hand pain PAST SURGICAL HISTORY Procedure Laterality Date NEXPLANON INSERTION 2019 removed ALLERGIES Patient has no known allergies. MEDICATIONS copper (PARAGARD) 380 square mm intrauterine device 1 Intra Uterine Device by INTRAUTERINE route one time only for 1 dose. lamoTRIgine (LAMICTAL) 25 mg tablet Take 1 tablet by mouth once daily. FLUoxetine (PROZAC) 20 mg capsule Take 3 capsules by mouth once daily. busPIRone (BUSPAR) 5 mg tablet TAKE 1 TABLET BY MOUTH 3 TIMES A DAY NEEDED Cholecalciferol, Vitamin D3, 125 mcg (5,000 unit) cap Take 1 capsule by mouth once daily. doxycycline (VIBRA-TABS) 100 mg tablet Take 1 tablet by mouth two times a day for 10 days. FAMILY HISTORY Problem Relation Age of Onset No Known Problems Mother No Known Problems Father Asthma Brother Cervical Cancer Maternal Grandmother Bipolar disorder Maternal Grandfather Heart Maternal Grandfather No Known Problems Paternal Grandmother Cancer Paternal Grandfather Social History Tobacco Use Smoking status: Never Smokeless tobacco: Never Tobacco comments: former Vape Vaping Use Vaping status: Former Quit date: 05/09/2022 Substances: Nicotine, Flavoring Substance Use Topics Alcohol use: No Drug use: No Physical Exam Vitals and nursing note reviewed. Constitutional: Appearance: Normal appearance. Cardiovascular: Rate and Rhythm: Normal rate and regular rhythm. Pulses: Normal pulses. Heart sounds: Normal heart sounds. Pulmonary: Effort: Pulmonary effort is normal. Breath sounds: Normal breath sounds. Lymphadenopathy: Cervical: No cervical adenopathy. Skin: Comments: 2cm erythremic non indurated lesion, no erythremic lymphatic streaking Neurological: Mental Status: She is alert. {ASSESSMENT/PLAN: 1. Skin infection - ICD9: 686.9, ICD10: L08.9 - Begin treatment with Doxycycline - No lymphangetic streaking, this was defined for patient to watch for and to seek medical care immediately if appears - Area of cellulitis defined with pen, seek further attention if this area continues to enlarge - Follow up for recheck in three days - Tylenol and Ibuprofen - DOXYCYCLINE HYCLATE 100 MG TABLET Gill Renteria APRN.LUBRICATION SUPERVISOR History and Record Review External record(s) reviewed: prior outpatient record. Findings from review of outpatient records: Previous medical history Disposition The patient was discharged. OTC Medications were advised: Tylenol and Ibuprofen Patient well-appearing nontoxic 19-year-old female presents with most likely infected hair follicle, patient concerned due to the area of possible erythema migrans. Based on presentation today we will treat on doxycycline that was likely secondary cellulitis due to folliculitis. No concerns of lymphatic streaking, abscess, or any neurovascular deficits. Patient started on doxycycline continue warm compresses Tylenol ibuprofen as needed and follow-up with primary care provider patient verbalized understanding and ag (more content not included)... Normal [facility] CNOVon 09-13-2024 CNOV Office Visit (OBGYWM ) MILES JIMENEZ ([id number]) 3 F CHT Date Time Provider Department 09/13/24 2:50 PM DANIA MARC OBDESIREEWLila During your visit today, we recorded the following information about you: Blood pressure Weight 118/80 83.6 kg Dania Marc MD 09/13/2024 3:10 PM Signed Char Puller offered: Patient accepts, visit chaperoned by Jyoti Linda MA. Miles presents today for IUD insertion for contraception. Patient's last menstrual period was 02/02/2024 (approximate). GC/chlamydia: Not done: no risk factors and/or patient declines screening test: negative Side effects including irregular bleeding were discussed with the patient. The patient understands that it should be removed in 10 years or sooner if the patient desires a . IUD source: office provided IUD lot #: [id number] Exp date: 12/08/2026 [facility]: [id number] UNIVERSAL PROTOCOL / SAFETY CHECKLIST Procedure to be Performed: Paragard IUD Insertion Sign In: A Moment of CARE was completed. Appropriate PPE (Personal Protective Equipment) worn by all providers involved with the procedure. Special equipment not required. Patient/Surrogate Stated/Verified: Patient name, Date of , Relevant allergies, and The intended procedure Time Out: Relevant labs, photos, and/or imaging studies are not applicable. Intended patient and procedure match the source document(s) (e.g. consent, HANDP, associated studies [imaging, pathology]) match the intended patient and procedure. Consent obtained and matches the intended procedure. Yes. Correct side/site is not applicable. Medications required for this procedure are not applicable. Fire risk assessed and is not applicable. Implants: Correct implant(s) confirmed including size and side. Expiration date(s) reviewed. Sign Out: Specimens not collected. All instruments, equipment, possible retained foreign bodies are accounted for. Yes. The post-procedure plan of care has been communicated to the patient or surrogate. The cervix was prepped with betadine. The uterus sounded to 8 cm and the uterus is Midposition.. Using sterile technique, the ParaGard IUD was inserted without difficulty and the string was cut to 4cm from the external os of the cervix. Patient tolerated procedure well. PLAN: Patient was advised to observe for signs and symptoms of infection including but not limited to fever, malodorous vaginal discharge and/or pain. The patient was told to check the string monthly for accurate placement. Bleeding expectations were reviewed. Follow up for next annual exam or sooner as needed. Dania Marc MD [place], [place] 09/13/2024 2:40 PM Signed POST IUD INSTRUCTIONS You may have irregular bleeding during the first 3 months of use. You may have mild-severe cramping for the next 48 hours. You may use over the counter medication (Motrin, Tylenol) as needed. Your IUD must be removed or replaced based on the following table: IUD Type Removed or replaced within: Maria Ines 3 years Kyleena 5 years Mirena 8 years Liletta 8 years Paragard 10 years Call the office for signs/symptoms of infection such as severe cramping, fever, or unusual bleeding. Check for string placement as instructed by your doctor. If you have any additional questions, please contact the office. Referring Provider: DANIA MARC [[id number]] Allergies As of Date: 09/13/2024 (No Known Allergies) Date Reviewed: 09/13/2024 Reviewed by: Dania Marc MD - Fully Assessed Reason for Visit: Insertion Of IUD [291] Primary Visit Diagnosis:Encounter for IUD insertion [Z30.430] Order(s):UA DIP,URINE HCG (POC) [[id number]] Order #: [id number]. #:[id number] INTRAUTERINE DEVICE [[id number]] Order #: [id number] [] copper intrauterine device 380 square mm (PARAGARD)Disp: Rfl: copper (PARAGARD) 380 square mm intrauterine device1 Intra Uterine Device by INTRAUTERINE route one time only for 1 dose.Disp: 1 eachRfl: 0 Prescriptions as of 09/13/2024 - copper (PARAGARD) 380 square mm intrauterine device 1 Intra Uterine Device by INTRAUTERINE route one time only for 1 dose. - lamoTRIgine (LAMICTAL) 25 mg tablet Take 1 tablet by mouth once daily. - FLUoxetine (PROZAC) 20 mg capsule Take 3 capsules by mouth once daily. - busPIRone (BUSPAR) 5 mg tablet TAKE 1 TABLET BY MOUTH 3 TIMES A DAY NEEDED - Cholecalciferol, Vitamin D3, 125 mcg (5,000 unit) cap Take 1 capsule by mouth once daily. Problem List As Of Date 09/13/2024 Noted Resolved Adjustment disorder with disturbance of conduct*11/29/2012 Bipolar disorder, unspecified (HCC) [F31.9] 10/19/2015 Attention-deficit hyperactivity disorder, unspe*10/19/2015 Major depressive disorder, single episode [F32.*01/27/2017 Oppositional defiant disorder [F91.3] 08/11/2012 Suicidal ideations [R45.851] 01/27/2017 (more content not included)... Normal [facility] UA DIP,URINE HCG (POC)on Beta HCG ( test) Ql (U) Negative Negative [facility] Comment on above: Location:[facility], [address], [place], [address] Outplacement Consultant (POCT) Internal [facility] Location:[facility], [address], [place], [address] [facility] POINT OF CARE [facility] CNOVon 09-08-2024 CNOV Office Visit (OBGYWM ) MILES JIMENEZ ([id number]) 3 F CHT Date Time Provider Department 09/08/24 9:00 AM DANIA MARC OBGYWM During your visit today, we recorded the following information about you: Blood pressure Weight 110/74 83.6 kg Dania Marc MD 09/08/2024 9:14 AM Signed Miles is a 19 year old who presents for Nexplanon removal for contraception change. UNIVERSAL PROTOCOL / SAFETY CHECKLIST Procedure to be Performed: Nexplanon Removal Sign In: A Moment of CARE was completed. Appropriate PPE (Personal Protective Equipment) worn by all providers involved with the procedure. Special equipment not required. Patient/Surrogate Stated/Verified: Patient name, Date of , Relevant allergies, and The intended procedure Time Out: Relevant labs, photos, and/or imaging studies are not applicable. Intended patient and procedure match the source document(s) (e.g. consent, HANDP, associated studies [imaging, pathology]) match the intended patient and procedure. Consent obtained and matches the intended procedure. Yes. Correct side/site has been marked and visible. Medications required for this procedure are verified. Fire risk assessed and is not applicable. Implants: are not applicable. Sign Out: Specimens not collected. All instruments, equipment, possible retained foreign bodies are accounted for. Yes. The post-procedure plan of care has been communicated to the patient or surrogate. TECHNIQUE: Patient placed in supine position with left arm bent at the elbow and placed over the head. Skin cleansed with betadine. 3mL of 1% lidocaine with epi injected subQ along insertion site. Scalpel used to made a 5mm stab incision superficially at distal end of Nexplanon. Device removed under sterile technique with a small hemostat. Sterile pressure dressing applied. AANDP: 19 year old here for Nexplanon removal Nexplanon removed intact without difficulty. The patient was instructed to remove the dressing after 24 hours. Contraceptive plans Paragard IUD Dania Marc MD Referring Provider: DANIA MARC [[id number]] Allergies As of Date: 09/08/2024 (No Known Allergies) Date Reviewed: 09/08/2024 Reviewed by: Dania Marc MD - Fully Assessed Reason for Visit: nexplanon removal [Other] Primary Visit Diagnosis:Encounter for IUD insertion [Z30.430] Other Visit Diagnosis:Nexplanon removal [Z30.46] Order(s):INSERT INTRAUTERINE DEVICE [[id number]] Order #: [id number] Prescriptions as of 09/08/2024 - lamoTRIgine (LAMICTAL) 25 mg tablet Take 1 tablet by mouth once daily. - FLUoxetine (PROZAC) 20 mg capsule Take 3 capsules by mouth once daily. - busPIRone (BUSPAR) 5 mg tablet TAKE 1 TABLET BY MOUTH 3 TIMES A DAY NEEDED - Cholecalciferol, Vitamin D3, 125 mcg (5,000 unit) cap Take 1 capsule by mouth once daily. - etonogestrel (NEXPLANON) subdermal implant 68 mg 1 Each by SUBDERMAL route as directed. - albuterol HFA (PROVENTIL HFA, VENTOLIN HFA) 90 mcg/actuation inhaler Inhale 2 Puffs as instructed every 4 hours as needed for wheezing/shortness of breath. Problem List As Of Date 09/08/2024 Noted Resolved Adjustment disorder with disturbance of [...] syncope [R55] 10/01/2022 Elevated glucose [R73.09] 10/16/2022 Palpitations [R00.2] 11/03/2023 Encounter Status:Closed by DANIA MARC on 09/08/24 Normal [facility] CNOVon 07-20-2024 CNOV Office Visit (UCWSTR ) MILES JIMENEZ ([id number]) 3 F CHT Date Time Provider Department 07/20/24 1:30 PM YAHIR JONES [facility] During your visit today, we recorded the following information about you: Temperature Pulse Respiration Blood pressure 98 degrees 88/minute 16/minute 120/68 Weight 80.4 kg Yahir Jones APRN.LUBRICATION SUPERVISOR 07/20/2024 4:56 PM Signed [facility] Subjective Miles R Joeydylon is a 19 year old female. HPI Miles Jimenez is a 19 year old female who presents today for CC of left arm suture removal, placed 12 days ago in ER, sutures. Denies redness/warmth. Is a little itchy. 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 MEDICATIONS FLUoxetine (PROZAC) 20 mg capsule Take 3 capsules by mouth once daily. busPIRone (BUSPAR) 5 mg tablet TAKE 1 TABLET BY MOUTH 3 TIMES A DAY NEEDED Cholecalciferol, Vitamin D3, 125 mcg (5,000 unit) cap Take 1 capsule by mouth once daily. etonogestrel (NEXPLANON) subdermal implant 68 mg 1 Each by SUBDERMAL route as directed. albuterol HFA (PROVENTIL HFA, VENTOLIN HFA) 90 mcg/actuation inhaler Inhale 2 Puffs as instructed every 4 hours as needed for wheezing/shortness of breath. (Patient not taking: Reported on 05/15/2024) FAMILY HISTORY Problem Relation Age of Onset No Known Problems Mother No Known Problems Father Asthma Brother Cervical Cancer Maternal Grandmother Bipolar disorder Maternal Grandfather Heart Maternal Grandfather No Known Problems Paternal Grandmother Cancer Paternal Grandfather Social History Tobacco Use Smoking status: Never Smokeless tobacco: Never Tobacco comments: former Vape Vaping Use Vaping status: Former Quit date: 05/09/2022 Substances: Nicotine, Flavoring Substance Use Topics Alcohol use: No Drug use: No Patient presents with: Suture Removal: left forearm [address] 07/09 HPI Review of Systems Objective BP 120/68 Pulse 88 Temp 36.7 ?C (98 ?F) Resp 16 Wt 80.4 kg (177 lb 4 oz) LMP 02/02/2024 (Approximate) SpO2 99% BMI 27.76 kg/m? Physical Exam Constitutional: General: She is not in acute distress. Appearance: She is not toxic-appearing or diaphoretic. HENT: Head: Normocephalic and atraumatic. Pulmonary: Effort: Pulmonary effort is normal. No accessory muscle usage or respiratory distress. Musculoskeletal: Arms: Neurological: Mental Status: She is alert and oriented to person, place, and time. ASSESSMENT/PLAN: 1. Visit for suture removal - ICD9: V58.32, ICD10: Z48.02 10 sutures removed intacxt Wound edges remain well approximated F/u for s/s infection. Yahir Jones APRN.LUBRICATION SUPERVISOR MDM Procedures Allergies As of Date: 07/20/2024 (No Known Allergies) Date Reviewed: 07/20/2024 Reviewed by: Alexsander Manley MA - Fully Assessed Reason for Visit: Suture Removal [105] Cmt: left forearm [address] 07/09 Primary Visit Diagnosis:Visit for suture removal [Z48.02] Prescriptions as of 07/20/2024 - FLUoxetine (PROZAC) 20 mg capsule Take 3 capsules by mouth once daily. - busPIRone (BUSPAR) 5 mg tablet TAKE 1 TABLET BY MOUTH 3 TIMES A DAY NEEDED - Cholecalciferol, Vitamin D3, 125 mcg (5,000 unit) cap Take 1 capsule by mouth once daily. - etonogestrel (NEXPLANON) subdermal implant 68 mg 1 Each by SUBDERMAL route as directed. - albuterol HFA (PROVENTIL HFA, VENTOLIN HFA) 90 mcg/actuation inhaler Inhale 2 Puffs as instructed every 4 hours as needed for wheezing/shortness of breath. Problem List As Of Date 07/20/2024 Noted Resolved Adjustment disorder with disturbance of [...] UTI (urinary tract infection) in , ant*06/10/2022 H (more content not included)... Normal [facility] Flex 07-19-2024 NORBERTO Telephone (OBGYWM) MILES JIMENEZ ([id number]) 3 F CHT Date Time Provider Department 07/19/24 DANIA MARC During your visit today, we recorded the following information about you: Marcela To RN 07/19/2024 2:54 PM Signed ----- Message from Meghan Miranda sent at 07/19/2024 2:23 PM EDT ----- Regarding: Nexplanon Removal - Dania Marc MD Patient has been identified by name and Date of : Yes Patient: Miles Jimenez Date of : 2005 Provider for this encounter : Berenice Martin APRN.CNP Reason for call: Order Request Was an appointment scheduled: No Reason for requesting visit (RFV/signs and symptoms/diagnosis) : Nexplanon Removal Person calling: self Return call to: self Call patient at: at home [phone] (ncle) Payor: [facility] / Plan: [facility] [employer] / Product Type: Medicaid / Meghan Marcela Lo RN 07/19/2024 2:55 PM Signed Please file order. Patient requesting appt to remove Nexplanon. JORDIN Peralta Karmon, MD 07/19/2024 3:10 PM Signed Filed MD Art López Trisha, RN 07/19/2024 3:14 PM Signed Please contact patient to schedule Nexplanon removal. JORDIN Peralta Veronica 07/19/2024 4:26 PM Signed Called pt LVM to call back to reschedule Nexplonon removal Allergies As of Date: 07/19/2024 (No Known Allergies) Date Reviewed: 07/11/2024 Reviewed by: Liz Abernathy LPN - Fully Assessed Reason for Visit: Orders [681] Primary Visit Diagnosis:Nexplanon removal [Z30.46] Order(s):NEXPLANON REMOVAL [[id number]] Order #: [id number] Prescriptions as of 07/19/2024 - FLUoxetine (PROZAC) 20 mg capsule Take 3 capsules by mouth once daily. - busPIRone (BUSPAR) 5 mg tablet TAKE 1 TABLET BY MOUTH 3 TIMES A DAY NEEDED - Cholecalciferol, Vitamin D3, 125 mcg (5,000 unit) cap Take 1 capsule by mouth once daily. - etonogestrel (NEXPLANON) subdermal implant 68 mg 1 Each by SUBDERMAL route as directed. - albuterol HFA (PROVENTIL HFA, VENTOLIN HFA) 90 mcg/actuation inhaler Inhale 2 Puffs as instructed every 4 hours as needed for wheezing/shortness of breath. Problem List As Of Date 07/19/2024 Noted Resolved Adjustment disorder with disturbance of [...] syncope [R55] 10/01/2022 Elevated glucose [R73.09] 10/16/2022 Palpitations [R00.2] 11/03/2023 Encounter Status:Closed by MARCELA TO on 07/19/24 Normal [facility] No Panel InformationOrdered By: Sandro Lundberg on 07-12-2024 Influenza Types A,B Rapid (Clinic) Negative [facility] POC SARS CoV-2 Antigen Negative [facility] Urgent Care Visit Reporton 0 07-12-2024 Urgent Care Visit Report [facility] [address], [address] [place] [address] OFFICE VISIT Date of Service: 07/12/24 MR#: [id number] Acct: [id number] Name: MILES JIMENEZ Rep #: [id number] : 2005 Provider: ISAIAH Cordero Age/Sex: 19/F Location: [facility] Status: Signed Intake Vital Signs 07/09/24 00:43 07/12/24 12:27 Height 5 ft 7 in 5 ft 7 in BP 96/60 Blood Pressure Location Lt brachial Position Sitting Respiration 16 Pulse 106 H Pulse Source Auscultation Temp 100.0 F H Temp Source Oral Pulse Oximetry (%) 99 Oxygen Delivery Method room air Intake Visit Reasons: ST, RN, CONGEST, COUGH Chief Complaint: cough, sore throat, headache Dancing Teacher Required: No Accompanied by: Self Is patient in pain?: Yes Pain scale (1-10): 7 Allergies No Known Allergies Allergy (Verified 07/12/24 12:18) Medications ???Medication ???Instructions ???Recorded ???Confirmed ???Type fluoxetine 40 mg capsule 40 mg PO DAILY 11/22/23 07/12/24 H istory hydrocodone-acetaminop hen 5-325mg 1 tab PO Q6H PRN PRN Pain 3 days 05/22/24 07/12/24 Rx 5mg-325mg #10 TABLETS PFSH Medical History Pulmonary infiltrate Single live Second degree perineal laceration (spontaneous vaginal delivery) Bipolar mood disorder Gestational HTN Headache in Depression Social History Smoking Status: Current every day smoker tobacco type: e-cigarettes HPI HPI Chief Complaint: cough, sore throat, headache Details: MILES JIMENEZ, is a 19 F who presents to the office today for initial evaluation in the [facility] for approximately 3 day history of persistent chills, cough, BOYCE, myalgias, fatigue, congestion/ ru nny nose, and sore throat. Patient notes no complaints of chest pain or shortness of breath or dyspnea on exertion. Several close contacts recently dx???d w/ similar URI complaints. No [id number]-pattddp taken to assist. No other associated symptoms and no other alleviating/aggravatin g factors. ROS Const Constitutional: No other (As above) Exam Const General: cooperative, healthy appearing and no acute distress Orientation: alert, awake and oriented x3 HENMT Head: normal to inspection Ears: hearing grossly normal bilaterally, external ears normal, TM's normal bilaterally and EAC's normal Nose: external nose normal, nares normal, septum normal and clear nasal discharge Face and sinus: normal facial exam, sinuses nontender and face symmetric Mouth: oral mucosae normal, lip normal, tongue normal and oropharynx normal Throat: posterior oropharynx normal, tonsils normal, uvula midline and no postnasal drainage Eyes General: appearance normal, both eyes and all related structures Neck Neck: normal visual inspection, full ROM, no lymphadenopathy, no meningeal signs and supple Neck mass: No Thyroid: thyroid normal Lymphatic: no lymphadenopathy noted Chest Chest palpation inspection: normal inspection of the chest Resp Effort Inspection: normal respiratory effort, able to speak in complete sentences and cough Quality of cough: wet (nonproductive in office today) Auscultation: Bilateral: Clear to Auscultation Cardio Palpation: normal PMI Rate: tachycardic Rhythm: regular rhythm Heart Sounds: S1 normal, S2 normal, no gallops, no murmurs and no rubs Pulses: radial pulses present Skin General: no rashes or lesions noted Neuro General: patient alert, patient awake and patient oriented x3 Cognition: normal cognition Speech: speech normal Psych Appearance: grossly normal Mental Status: mental status grossly normal Mood: congruent mood Affect: normal affect Speech and Movement: speech and movement normal Attitude: cooperative Diagnoses Contact with or exposure to other viral diseases Z20.828 URI (upper respiratory infection) J06.9 Assessment and Plan Assessment and Plan (1) Contact with or exposure to other viral diseases: Status: Acute (2) URI (upper respiratory infection): Status: Acute Plan: See POC results. Medrol and Benzonatate as prescribed today. Work excuse provided. Supportive measures as instructed today. Follow-up with PCP in 5 to 7 days should symptoms not improve, ED sooner should symptoms worsen or any other concerns develop. Pt states acknowledging understanding all the above Results POC SARS AG POC SARS AG Negative Last Edit by Chichi Hines on 07/12/24 12:44 POC FLU A B Office Flu A B Negative FLU A B Last Edit by Chichi Hines on 07/12/24 12:45 Coding Level of Care Code Off vis,est,level 3 Assessment and Plan Assessment and Plan Orders: Orders POC Rapid SARS Antigen Today POC FLU A B Today R0 (more content not included)... [facility] ) MILES JIMENEZ ([id number]) 3 F T Date Time Provider Department 07/11/24 12:30 PM YAHIR JONES [facility] During your visit today, we recorded the following information about you: Temperature Pulse Respiration Blood pressure 97.8 degrees 94/minute 18/minute 122/72 Weight 80.8 kg Yahir Jones APRN.LUBRICATION SUPERVISOR 07/11/2024 2:10 PM Signed Subjective HPI HPI Miles Jimenez is a 19 year old female who presents today for CC of cough, st, runny nose. This started 3 days ago. Has tried otc medication for relief. Symptoms are worsened by nothing. Risk factors sick exposures at home. 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 MEDICATIONS FLUoxetine (PROZAC) 20 mg capsule TAKE 3 CAPSULES BY MOUTH EVERY DAY busPIRone (BUSPAR) 5 mg tablet TAKE 1 TABLET BY MOUTH 3 TIMES A DAY NEEDED Cholecalciferol, Vitamin D3, 125 mcg (5,000 unit) cap Take 1 capsule by mouth once daily. etonogestrel (NEXPLANON) subdermal implant 68 mg 1 Each by SUBDERMAL route as directed. albuterol HFA (PROVENTIL HFA, VENTOLIN HFA) 90 mcg/actuation inhaler Inhale 2 Puffs as instructed every 4 hours as needed for wheezing/shortness of breath. (Patient not taking: Reported on 05/15/2024) FAMILY HISTORY Problem Relation Age of Onset No Known Problems Mother No Known Problems Father Asthma Brother Cervical Cancer Maternal Grandmother Bipolar disorder Maternal Grandfather Heart Maternal Grandfather No Known Problems Paternal Grandmother Cancer Paternal Grandfather Social History Tobacco Use Smoking status: Never Smokeless tobacco: Never Tobacco comments: former Vape Vaping Use Vaping status: Former Quit date: 05/09/2022 Substances: Nicotine, Flavoring Substance Use Topics Alcohol use: No Drug use: No Review of Systems Constitutional: Negative for fever. HENT: Positive for congestion and sore throat. Negative for ear pain and nosebleeds. Respiratory: Positive for cough. Negative for shortness of breath and wheezing. Musculoskeletal: Negative for neck pain. Skin: Negative for itching and rash. Objective Blood pressure 122/72, pulse 94, temperature 36.6 ?C (97.8 ?F), temperature source Tympanic, resp. rate 18, weight 80.8 kg (178 lb 2.1 oz), last menstrual period 02/02/2024, SpO2 97%, not currently . Physical Exam Constitutional: General: She is not [...] of motion and neck supple. Lymphadenopathy: Cervical: No cervical adenopathy. Right cervical: No superficial cervical adenopathy. Left cervical: No superficial cervical adenopathy. Skin: Findings: No rash. Neurological: Mental Status: She is alert and oriented to person, place, and time. ASSESSMENT/PLAN: 1. URI, acute - ICD9: 465.9, ICD10: J06.9 - Discussed viral etiology and rationale for treatment. - Symptomatic treatment with prn analgesia - Supportive care with fluids and rest - Follow up in 3-5 days if symptoms persist or sooner if worsening of symptoms Yahir Jones APRN.LUBRICATION SUPERVISOR Allergies As of Date: 07/11/2024 (No Known Allergies) Date Reviewed: 07/11/2024 Reviewed by: Liz Abernathy LPN - Fully Assessed Reason for Visit: Cough [28] Cmt: Cough, ST and runny nose x 3 days Primary Visit Diagnosis:URI, acute [J06.9] Prescriptions as of 07/11/2024 - FLUoxetine (PROZAC) 20 mg capsule TAKE 3 CAPSULES BY MOUTH EVERY DAY - busPIRone (BUSPAR) 5 mg tablet TAKE 1 TABLET BY MOUTH 3 TIME (more content not included)... Normal [facility] Emergency Department Summary on 07-09-2024 Emergency Department Summary [facility] Medical Records Department [address] [place] [address] Emergency Department Summary 07/09/24 MR#: [id number] Acct: [id number] Name: MILES JIMENEZ Rep #: [id number] : 2005 19 From: Milan Ackerman MD PCP: Berenice Queden, LOSS CONTROL ENGINEER-C Status:REG ER Location: ED HPI History of Present Illness Chief Complaint: Laceration Informant: patient Narrative Narrative: Patient sustained an accidental laceration to her left forearm just prior to arrival. She states she was in a shed, the light suddenly went out and then she tripped in the dark and fell, thinking that she cut her arm in the process against some glass. She denies any numbness, weakness, loss of function. No other injuries. Tetanus Immunization: Unknown [facility] Medical History Pulmonary infiltrate Single live Second degree perineal laceration (spontaneous vaginal delivery) Bipolar mood disorder Gestational HTN Headache in Depression Home Medications ???Medication ???Instructions ???Recorded ???Last Taken ???Type fluoxetine 40 mg capsule 40 mg PO DAILY 11/22/23 0824 H istory hydrocodone-acetaminop hen 5-325mg 1 tab PO Q6H PRN PRN Pain 3 days 05/22/24 Unknown Rx 5mg-325mg #10 TABLETS Allergy/AdvReac Type Severity Reaction Status Date / Time No Known Allergies Allergy Verified 07/09/24 00:45 Social History Smoking Status: Current every day smoker tobacco type: e-cigarettes ROS ROS ED Constitutional Constitutional ED: Denies chills or fever(s) Musculoskeletal Musculoskeletal: Reports extremity pain; Denies neck pain Integumentary Reports laceration; Denies Abrasions or rash Neurologic Neurologic: Denies paresthesias or weakness EXAM Physical Exam Const Vital Signs: 07/09/24 00:43 Temperature 97.3 F L Temperature Source Temporal Pulse Rate 113 H Respiratory Rate 18 Blood Pressure 159/84 H Blood Pressure Mean 109 Pulse Ox 98 Oxygen Delivery Method Room Air Positive well nourished and well developed General Appearance ED: well developed and NAD Neck full ROM and supple Back/Spine normal ROM and normal to inspection Extremity full ROM Extremity Narrative: 2 parallel full-thickness lacerations volar left mid forearm, clean appearing noncontaminated no active bleeding. The subcutaneous fat is exposed but not injured on both of them. There is a 5 cm laceration and a 3 cm laceration. All compartment soft and nondistended. Full range of motion all joints above and below including all FDS, FDP, extensor tendon function of all fingers. Neuro oriented x3, no focal motor deficits and no sensory deficits noted Sensorium / Orientation: alert Psych thought process normal Mood Affect: anxious and tearful Skin Skin Narrative: Lacerations to the volar aspect of the left forearm as above. Rashes: no rashes MDM MDM MDM Narrative Medical decision making narrative: Lacerations were cleansed, repaired see the procedure note, her tetanus was updated. Given appropriate discharge instructions. Patient denies this being a suicidal gesture or self-inflicted injury, confirms it was an accident. Follow-up in 10-14 days for suture removal reevaluation. We discussed care. Procedures Lacerations left volar forearm: Length: 8 cm (total between 2 lacs) Depth: Sub Q Shape: Linear Prep: Sterile Conditions and Chlorhexadine Laceration repair: Irrigated, Lidocaine (1% lido x 12cc), Local and Skin sutures Irrigated (ml): 100 Number of Sutures/Tiana: 10 Suture Information: Ethilon, Simple (x 2), Horizontal, Mattress (x 8) and 4-0 Discharge Plan Triage Chief Complaint: Laceration ED Provider: Milan Ackerman Dx/Rx/DC Orders Clinical Impression: Laceration of forearm, left, Immunization, tetanus-diphtheria Instructions: Tdap Vaccine, ED Laceration Extremity Prescriptions: No Action hydrocodone-acetaminop hen 5-325 mg tablet 1 tab PO Q6H PRN PRN (Reason: Pain) 3 Days Qty: 10 0RF fluoxetine 40 mg capsule 40 mg PO DAILY Primary Care Provider: Berenice Martin NP Referrals: Berenice Martin NP, LOSS CONTROL ENGINEER-C [Primary Care Provider] - 10-14 Days suture removal Print Language: Georgian Disposition Disposition: Home, Self Care What to do if you have Problems For any increased pain, shortness of breath, bleeding, nausea or vomiting, chest pain, or any unexpected problems, contact your Primary Care Provider. Call [facility] ([phone]) or report to the closest Emergency Room. Call 911 if necessary. 07/09/24 9144 Cosigner Signature (if applicable): CC: KAYLEIGH Martin Signed Normal [facility] Emergency Department Summary on 05-22-2024 Emergency Department Summary [facility] Medical Records Department [address] [place] [address] Emergency Department Summary 05/22/24 MR#: [id number] Acct: [id number] Name: MILES JIMENEZ Rep #: [id number] : 2005 19 From: Bobby Mondragon PCP: KAYLEIGH Newman Status:DEP ER Location: ED HPI History of Present Illness Chief Complaint: Dental Informant: patient and parent Narrative Narrative: 2 and half weeks worsening right lower dental pain. She has wisdom teeth, now on the lower there is a cavity in 1 of 1. She has been having hot and cold sensitivities. Pain is waxing waning. Using Motrin and Tylenol. Since 4 AM however symptoms has been worse. She does have a dentist staying with her insurance there is been difficult to get her into the oral surgeon. Denies fever chills or sweats. Using Orajel. Due to pain mother brought her here. She is currently on day 7 of Augmentin from treatment urgent care for sinusitis. Prior similar symptoms: Yes PFSH PFSH Medical History Pulmonary infiltrate Single live Second degree perineal laceration (spontaneous vaginal delivery) Bipolar mood disorder Gestational HTN Headache in Depression Home Medications ???Medication ???Instructions ???Recorded ???Last Taken ???Type fluoxetine 40 mg capsule 40 mg PO DAILY 11/22/23 12/19/23 History hydrocodone-acetaminop hen 5-325mg 1 tab PO Q6H PRN PRN Pain 3 days 05/22/24 Unknown Rx 5mg-325mg #10 TABLETS Allergy/AdvReac Type Severity Reaction Status Date / Time No Known Allergies Allergy Verified 05/21/24 22:59 Social History Smoking Status: Current every day smoker tobacco type: e-cigarettes ROS ROS ED Constitutional Constitutional ED: Denies chills, fever(s) or sweats ENT ENT ED: Reports other Details: Dental pain with hot and cold sensitivities. ; Denies sore throat Cardiovascular Cardiovascular: Denies chest pain Respiratory/Chest Respiratory/Chest: Denies cough Gastrointestinal Gastrointestinal: Denies abdominal pain, diarrhea, nausea or vomiting Musculoskeletal Musculoskeletal: Denies back pain, extremity pain or neck pain Neurologic Neurologic: Denies headache(s) or paresthesias EXAM Physical Exam Const Vital Signs: 05/21/24 22:59 Temperature 97.8 F Temperature Source Temporal Pulse Rate 83 Respiratory Rate 18 Blood Pressure 121/73 H Blood Pressure Mean 89 Pulse Ox 100 Oxygen Delivery Method Room Air Positive well nourished and well developed General Appearance ED: well developed and NAD HEENT Reports moist mucous membranes HEENT Narrative: Dental exam: Barclay teeth noted lower with cavity in the right lower. No sublingual edema. No fluctuance. No trismus. normocephalic and atraumatic Eyes General Eye ED: Yes normal appearance of both eyes Neck full ROM Chest Wall Chest: Negative for tenderness Resp normal respiratory effort and normal air movement Effort and Inspection: symmetric chest movement; Negative for respiratory distress Cardio regular rate, regular rhythm and no murmurs Peripheral Pulses: pulses 2+ throughout GI normal to inspection, nondistended, normoactive bowel sounds and non-tender Palpation: Negative for guarding or rebound tenderness present Extremity normal to inspection General Extremety ED: Negative for edema or tenderness General Extremity: Negative for edema Neuro oriented x3 and no sensory deficits noted Sensorium / Orientation: awake and alert Skin no rashes or lesions noted and no wounds MDM MDM MDM Narrative Medical decision making narrative: Interventions / MDM: Differential diagnosis: Dentalgia, dental carry Diagnosis considered but do not suspect: No dental abscess no signs of Yrn angina My EKG interpretation: N/A Imaging independently reviewed and interpreted by myself: N/A External documents reviewed: N/A Test considered but not ordered:N/A ED course: Vital stable nontoxic. Increasing dentalgia dental carry. She is currently on Augmentin day 7 of 10. She will continue this. Failing treatment with Motrin Tylenol reported at home using Orajel. Will write short course for [place] for pain control she is given dental list to try to call around for dentist for definitive treatment. No signs of abscess. All questions were answered. Re-evaluation: stable Disposition discussed with patient/family/signifi elder other: Patient and mother Case discussed with consulting clinician: N/A This note was generated with [employer] dictation software. It may contain incorrect words, spelling, and punctuation that were not noted in checking the note before signing. Discharge Plan Triage Chief Complaint: Dental ED Provider (more content not included)... Normal [facility] CNOVon 05-15-2024 CNOV Office Visit (UCWSTR ) MILES JIMENEZ ([id number]) 3 F CHT Date Time Provider Department 05/15/24 12:15 PM NAVID MENDIETA WSTR During your visit today, we recorded the following information about you: Temperature Pulse Respiration Blood pressure 98.3 degrees 86/minute 16/minute 120/74 Weight 80.9 kg Navid Mendieta, BERNIE.LUBRICATION SUPERVISOR 05/15/2024 12:36 PM Signed Subjective Sore Throat Associated symptoms include congestion, coughing, headaches and shortness of breath. Pertinent negatives include no diarrhea, ear pain or vomiting. Miles Jimenez is a 19 year old female who presents with sore throat and chest congestion for one week. She has had a productive cough for 2 wekks. Her daughter tested positive for RSV. Review of Systems Constitutional: Negative for chills, fever and malaise/fatigue. HENT: Positive for congestion and sore throat. Negative for ear pain. Respiratory: Positive for cough, sputum production and shortness of breath. Cardiovascular: Positive for chest pain (with cough). Gastrointestinal: Negative for diarrhea, nausea and vomiting. Musculoskeletal: Negative for myalgias. Neurological: Positive for headaches. BP 120/74 Pulse 86 Temp 36.8 ?C (98.3 ?F) Resp 16 Wt 80.9 kg (178 lb 5.6 oz) LMP 02/02/2024 (Approximate) SpO2 97% BMI 27.93 kg/m? 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 Anemia Attention deficit hyperactivity disorder Bipolar 1 disorder (HCC) Episodic mood disorder (HCC) 04/28/2012 Fracture of nasal bone 10/01/2022 Oppositional disorder of childhood or adolescence 08/11/2012 Periapical abscess without sinus 10/06/2012 Right hand pain PAST SURGICAL HISTORY Procedure Laterality Date NEXPLANON INSERTION 2019 removed ALLERGIES Patient has no known allergies. MEDICATIONS FLUoxetine (PROZAC) 20 mg capsule TAKE 3 CAPSULES BY MOUTH EVERY DAY busPIRone (BUSPAR) 5 mg tablet TAKE 1 TABLET BY MOUTH 3 TIMES A DAY NEEDED Cholecalciferol, Vitamin D3, 125 mcg (5,000 unit) cap Take 1 capsule by mouth once daily. etonogestrel (NEXPLANON) subdermal implant 68 mg 1 Each by SUBDERMAL route as directed. albuterol HFA (PROVENTIL HFA, VENTOLIN HFA) 90 mcg/actuation inhaler Inhale 2 Puffs as instructed every 4 hours as needed for wheezing/shortness of breath. (Patient not taking: Reported on 05/15/2024) FAMILY HISTORY Problem Relation Age of Onset No Known Problems Mother No Known Problems Father Asthma Brother Cervical Cancer Maternal Grandmother Bipolar disorder Maternal Grandfather Heart Maternal Grandfather No Known Problems Paternal Grandmother Cancer Paternal Grandfather Social History Tobacco Use Smoking status: Never Smokeless tobacco: Never Tobacco comments: former Vape Vaping Use Vaping status: Former Quit date: 05/09/2022 Substances: Nicotine, Flavoring Substance Use Topics Alcohol use: No Drug use: No Objective Physical Exam Vitals and nursing note reviewed. HENT: Right Ear: Tympanic membrane, ear canal and external ear normal. Left Ear: Tympanic membrane, ear canal and external ear normal. Nose: Mucosal edema, congestion and rhinorrhea present. Mouth/Throat: Mouth: Mucous membranes are moist. Pharynx: Oropharynx is clear. Uvula midline. No oropharyngeal exudate or posterior oropharyngeal erythema. Cardiovascular: Rate and Rhythm: Normal rate and regular rhythm. Heart sounds: Normal heart sounds. Pulmonary: Effort: Pulmonary effort is normal. No respiratory distress. Breath sounds: Wheezing (few, scattered) present. No rales. Musculoskeletal: Cervical back: Neck supple. Lymphadenopathy: Cervical: No cervical adenopathy. Skin: General: Skin is warm and dry. Findings: No erythema or rash. Neurological: Mental Status: She is alert. ASSESSMENT/PLAN: 1. Sore throat - ICD9: 462, ICD10: J02.9 (primary diagnosis) - suspect viral - Group A strep molecular testing negative - Discussed supportive care treatment with fluids, rest and analgesia. - STREP A MOLECULAR (POC) 2. Sinobronchitis - ICD9: 473.9, 490, ICD10: J32.9, J40 - Will begin treatment with as per antibiotic as written, see orders - Supportive care with plenty of fluids, rest, and analgesia prn. - AMOXICILLIN 875 MG-POTASSIUM CLAVULANATE 125 MG TABLET - PREDNISONE 20 MG TABLET - Follow-up with your PCP in 3-5 days if symptoms have not improved or sooner if symptoms worsen - Discussed red flags and need for immediate medical evaluation if any occur. - Discussed supportive care treatment with fluids, rest and analgesia. - Discussed expected course of illness RAGHAVENDRA Dove Kathy, APRN.CNP 05/15/2024 12:35 PM Signed ASSESSMENT/PLAN: 1. Sore throat - ICD9: 462, ICD10: J02.9 (primary diagnosis) - suspect viral - Group A strep (more content not included)... Normal [facility] STREP A MOLECULAR (POC)on Procedural Control Valid [facility] Strep A (POCT) Negative Negative [facility] Emergency Department Summary on 05-04-2024 Emergency Department Summary [facility] Medical Records Department [address] [place] [id number] Emergency Department Summary 05/04/24 MR#: [id number] Acct: [id number] Name: MILES JIMENEZ Rep #: [id number] : 2005 19 From: Prabhakar Toro MD PCP: KAYLEIGH Newman Status:DEP ER Location: ED HPI History of Present Illness Chief Complaint: Wound Check Informant: patient Onset/Context/Timing Onset: Today Context: Sudden Onset Current Severity: Gone Maximum Severity: Mild Narrative Narrative: 19-year-old female history of depression and anxiety. Aerosols to tattoos about 6 hours ago. The first just above her left ankle medially and the other on her medial right thigh. Said later she developed some tremors and just did not feel well. But currently is feeling much better. She denies any recent illness. She denies any fever. No dysuria. No vomiting or diarrhea. No cough. Prior similar symptoms: No Recent Illness/Hospitalizatio n: No PFSH PFSH Medical History Pulmonary infiltrate Single live Second degree perineal laceration (spontaneous vaginal delivery) Bipolar mood disorder Gestational HTN Headache in Depression Home Medications ???Medication ???Instructions ???Recorded ???Last Taken ???Type fluoxetine 40 mg capsule 40 mg PO DAILY 11/22/23 12/19/23 History azithromycin 250 mg tablet See Rx Instructions PO .COMPLEX #6 04/19/24 Unknown Rx tabs benzonatate 100 mg capsule 100 mg PO TID PRN cough #20 caps 04/19/24 Unknown Rx Allergy/AdvReac Type Severity Reaction Status Date / Time No Known Allergies Allergy Verified 05/04/24 22:59 Social History Smoking Status: Current every day smoker tobacco type: e-cigarettes ROS ROS ED ROS Narrative Denies recent illness. No fever. Constitutional Constitutional ED: Denies chills or fever(s) Eyes Eyes: Denies blurry vision ENT ENT ED: Denies ear pain Cardiovascular Cardiovascular: Denies chest pain Respiratory/Chest Respiratory/Chest: Denies cough or dyspnea Gastrointestinal Gastrointestinal: Denies abdominal pain Genitourinary Genitourinary ED: Denies dysuria or hematuria Musculoskeletal Musculoskeletal: Denies arthralgias Integumentary Denies abscess Neurologic Neurologic: Denies headache(s) Psychiatric Psychiatric: Denies anxiety Endocrine Endocrinology: Denies cold intolerance Hematologic/Lymphatic Hematologic/Lymphatic: Reports none Allergic/Immunologic Allergic/Immunologic ED: Denies mouth swelling, tongue swelling or urticaria EXAM Physical Exam Narrative Exam Narrative: Well-appearing 19-year-old female. Vital signs are stable afebrile. She is sitting upright in bed. No distress. No one else present in the room. Pulse ox 100% on room air no signs of hypoxia. H EENT exam unremarkable. Pupils round reactive light. No trauma. Moist with membranes. Neck nontender no JVD. No lymphadenopathy. Lungs clear to auscultation bilaterally. Heart regular rate and rhythm rate about 75 no murmur. Chest wall and ribs nontender. Abdomen soft nontender. Moving all 4 extremities. Nontender no edema no cords. No signs of infection. She has 2 new tattoos. 1 just above her left ankle medially. Does not look infected. There is no bleeding. The second tattoo is on her right medial proximal thigh. Again does not look infected. Both upper and lower extremities are neurovascularly intact. Normal range of motion. No swelling. No rash. Normal strength. Back nontender. Neurologically she is awake and alert. Answering questions and following commands. Acting appropriately. Has a very benign normal exam. Const Vital Signs: 05/04/24 22:59 Temperature 98.8 F Temperature Source Oral Pulse Rate 77 Respiratory Rate 16 Blood Pressure 129/85 H Blood Pressure Mean 99 Pulse Ox 100 Oxygen Delivery Method Room Air Positive well nourished and well developed; Negative for cachectic, contractures or unkempt General Appearance ED: well developed and NAD; Negative for unkempt, cachectic, contractures, cyanotic, diaphoretic or pallor Nutritional Appearance: Negative for cachectic HEENT Reports moist mucous membranes Negative for trauma or tenderness Eyes EOMs intact bilaterally General Eye ED: Negative for pale conjunctiva or scleral icterus Neck no lymphadenopathy, supple and no JVD Chest Wall inspection of chest normal and palpation of chest normal Resp normal respiratory effort and clear to auscultation bilaterally Effort and Inspection: Negative for retractions Auscultation: Negative for rales, rhonchi, wheezes or diminished lung sounds Cardio regular rate, regular rhythm, S1 normal heart sound, S2 normal heart sound and no murmurs Ra (more content not included)... Normal [facility] Urgent Care Visit Reporton 1 06-20-2023 Urgent Care Visit Report [facility] [address], [address] [place] [address] OFFICE VISIT Date of Service: 04/19/24 MR#: [id number] Acct: [id number] Name: MILES JIMENEZ Rep #: [id number] : 2005 Provider: ISAIAH Cordero Age/Sex: 19/F Location: [facility] Status: Signed Intake Vital Signs 12/19/23 22:05 04/19/24 12:01 Height 5 ft 7 in 5 ft 7 in Weight: 181 lb 2 oz BMI 28.3 BP 120/80 Position Sitting Pulse 109 H Temp 98.9 F Temp Source Oral Pulse Oximetry (%) 98 Oxygen Delivery Method room air Intake Visit Reasons: CHEST CONGESTION/SINUS COMPLAINT Accompanied by: Self Allergies No Known Allergies Allergy (Verified 04/19/24 12:02) Medications ???Medication ???Instructions ???Recorded ???Confirmed ???Type fluoxetine 40 mg capsule 40 mg PO DAILY 11/22/23 04/19/24 History azithromycin 250 mg tablet See Rx Instructions PO .COMPLEX #6 04/19/24 04/19/24 Rx tabs benzonatate 100 mg capsule 100 mg PO TID PRN cough #20 caps 04/19/24 04/19/24 Rx Nurse's Note: Patient has chest congestion and migraine, ST this all started this morning. Patient has been having a RN the last couple days. Patient was exposed to Pneumonia. Patient states hurts to breath. Patient did a at home covid test and it was negative. [facility] Medical History (Updated 04/19/24 @ 12:46 by Sandro COLON, PA) Pulmonary infiltrate Single live Second degree perineal laceration (spontaneous vaginal delivery) Bipolar mood disorder Gestational HTN Headache in Depression Social History Smoking Status: Current every day smoker tobacco type: e-cigarettes HPI HPI Details: MILES JIMENEZ, is a 19 F who presents to the office today for initial evaluation of the [facility] for approximately 2 days moist nonproductive cough - worse now w/ fatigue over the last 12 to 24 hours. Several close contacts with similar URI complaints including pneumonia exposure. Non- smoker. No cafv-[id number] products taken to assist. No complaints of chest pressure with shortness of breath or dyspnea on exertion. Requesting POC screening for influenza but not COVID- 19. No other associated symptoms and no other alleviating/aggravatin g factors. ROS Const Constitutional: No other (As above) Exam Const General: cooperative, healthy appearing and no acute distress Nutritional Appearance: average body habitus Orientation: alert and awake [facility] Head: normal to inspection Ears: hearing grossly normal bilaterally, external ears normal, TM's normal bilaterally and EAC's normal Nose: external nose normal, nares normal, septum normal and no nasal discharge Face and sinus: normal facial exam, sinuses nontender and face symmetric Mouth: oral mucosae normal, lip normal, tongue normal, oropharynx normal and moist mucous membranes Throat: posterior oropharynx normal, tonsils normal, uvula midline and postnasal drainage Eyes General: appearance normal, both eyes and all related structures Neck Neck: normal visual inspection, full ROM, no lymphadenopathy, no meningeal signs and supple Neck mass: No Thyroid: thyroid normal Lymphatic: no lymphadenopathy noted Chest Chest palpation inspection: normal inspection of the chest Resp Effort Inspection: normal respiratory effort and able to speak in complete sentences Auscultation: Left: Rhonchi and Right: Clear to Auscultation Cardio Palpation: normal PMI Rate: regular rate Rhythm: regular rhythm Heart Sounds: S1 normal, S2 normal, no gallops, no murmurs and no rubs Pulses: radial pulses present GI Inspection: normal to inspection Skin General: no rashes or lesions noted Neuro General: patient alert, patient awake and patient oriented x3 Cognition: normal cognition Speech: speech normal Psych Appearance: grossly normal Mental Status: mental status grossly normal Mood: congruent mood Affect: normal affect Speech and Movement: speech and movement normal Attitude: cooperative Results POC FLU A B Office Flu A B Negative FLU A B Last Edit by Crissy Harris MA on 04/19/24 12:40 Coding Level of Care Code Off vis,new,level 3 Diagnoses Pulmonary infiltrate R91.8 Assessment and Plan Assessment and Plan (1) Pulmonary infiltrate: Status: Acute Plan: - on exam Azithromycin and benzonatate as prescribed today. Work excuse provided. Supportive measures as instructed today. Follow-up with PCP in 3 to 5 days should symptoms not improve, ED sooner should symptoms worsen or any other concerns develop. Patient states acknowledging understanding all the above. This note was generated with [employer]og[employer] dictation software. It may contain incorrect words, spelling, and punctuation that were not noted in [facility] (more content not included)... Normal [facility] STREP A MOLECULAR (POC)on Procedural Control Valid [facility] Strep A (POCT) Negative Negative [facility]20[facility] MILES JIMENEZ ([id number]) 3 F T Date Time Provider Department 02/02/24 IDA CHAVEZ During your visit today, we recorded the following information about you: Jessica Talbert 02/23/2024 10:19 AM Addendum Called to schedule appointment from the Internal Referral and [facility] Jessica Talbert February 02, 2024 10:02 AM Called to schedule new patient appointment, [facility] Jessica Talbert February 23, 2024 10:19 AM Jessica Talbert 02/08/2024 2:09 PM Signed Awaiting approval from Jessica Talbert February 08, 2024 2:09 PM Allergies As of Date: 02/02/2024 (No Known Allergies) Date Reviewed: 02/01/2024 Reviewed by: Berenice Martin APRN.LUBRICATION SUPERVISOR - Fully Assessed Reason for Visit: Appointment [186] Cmt: Called to schedule appointment from the [facility] Prescriptions as of 02/23/2024 - busPIRone (BUSPAR) 5 mg tablet Take 1 tablet by mouth three times a day as needed. - FLUoxetine (PROZAC) 20 mg capsule Take 3 capsules by mouth once daily. - Cholecalciferol, Vitamin D3, 125 mcg (5,000 unit) cap Take 1 capsule by mouth once daily. - etonogestrel (NEXPLANON) subdermal implant 68 mg 1 Each by SUBDERMAL route as directed. - albuterol HFA (PROVENTIL HFA, VENTOLIN HFA) 90 mcg/actuation inhaler Inhale 2 Puffs as instructed every 4 hours as needed for wheezing/shortness of breath. Problem List As Of Date 02/02/2024 Noted Resolved Adjustment disorder with disturbance of [...] syncope [R55] 10/01/2022 Elevated glucose [R73.09] 10/16/2022 Palpitations [R00.2] 11/03/2023 Encounter Status:Closed by JESSICA TALBERT on 02/02/24 Normal [facility] Alcohol, Blood (Medical)-Ser [facility] 12-19-2023 SERUM ETOH < 3.0 Normal [facility] Comment on above: Result Comment: The serum:whole blood ethanol ratio is approximately 1.14 and varies slightly with hematocrit. Medical Alcohol reference interval and critical value in non-tolerant individuals; 50 - 100 Impairment 100 Intoxication 100 - 250 Severe Poisoning 250 - 400 Deep/possible fatal coma Performed By: #### L 505.5000, L100.0100, L700.6800, L501.9100, L500.2500 #### [facility] [address] [place], [address] Basic Metabolic Profile (BMP )on 12-19-2023 BUN/CRE 11.9 RATIO Normal - [facility] Comment on above: Performed By: #### L 505.5000, L100.0100, L700.6800, L501.9100, L500.2500 #### [facility] [address] [place], [address] CA,Total 9.7 mg/dL Normal 8.5-10.1 [facility] Comment on above: Performed By: #### L 505.5000, L100.0100, L700.6800, L501.9100, L500.2500 #### [facility] [address] [place], [address] Chloride [Moles/Vol] 108 mmol/L High 98-107 [facility] Comment on above: Performed By: #### L 505.5000, L100.0100, L700.6800, L501.9100, L500.2500 #### [facility] [address] [place], [address] CO2 [Moles/Vol] 27.0 mmol/L Normal 21.0-32.0 [facility] Comment on above: Performed By: #### L 505.5000, L100.0100, L700.6800, L501.9100, L500.2500 #### [facility] [address] [place], [address] Creatinine [Mass/Vol] 0.93 mg/dL Normal 0.55-1.02 [facility] Comment on above: Result Comment: The validity of the calculated GFR GFRAA in patients over 70 years has not been determined. Clinical correlation is essential. Performed By: #### L 505.5000, L100.0100, L700.6800, L501.9100, L500.2500 #### [facility] [address] [place], [address] ECRCL 106.99 ml/min Normal [facility] Comment on above: Performed By: #### L 505.5000, L100.0100, L700.6800, L501.9100, L500.2500 #### [facility] [address] [place], [address] EST GFR - AA 99 mL/min Normal >60 [facility] Comment on above: Result Comment: Afri can Nauruan GFR Calc Performed By: #### L 505.5000, L100.0100, L700.6800, L501.9100, L500.2500 #### [facility] [address] [place], [address] GAP 6 Normal 5-15 [facility] Comment on above: Performed By: #### L 505.5000, L100.0100, L700.6800, L501.9100, L500.2500 #### [facility] [address] [place], [address] GFR/1.73 sq M.predicted among non-blacks MDRD (S/P/Bld) [Vol rate/Area] 82 mL/min/{1.73_m2} Normal >60 [facility] Comment on above: Result Comment: Non- GFR Calc Performed By: #### L 505.5000, L100.0100, L700.6800, L501.9100, L500.2500 #### [facility] [address] [place], [address] Glucose [Mass/Vol] 85 mg/dL Normal 74-106 [facility] Comment on above: Performed By: #### L 505.5000, L100.0100, L700.6800, L501.9100, L500.2500 #### [facility] [address] [place], [address] Potassium [Moles/Vol] 3.7 mmol/L Normal 3.5-5.1 [facility] Comment on above: Performed By: #### L 505.5000, L100.0100, L700.6800, L501.9100, L500.2500 #### [facility] [address] [place], [address] Sodium [Moles/Vol] 141 mmol/L Normal 136-145 [facility] Comment on above: Performed By: #### L 505.5000, L100.0100, L700.6800, L501.9100, L500.2500 #### [facility] [address] [place], [address] Urea nitrogen [Mass/Vol] 11 mg/dL Normal 7-18 [facility] Comment on above: Performed By: #### L 505.5000, L100.0100, L700.6800, L501.9100, L500.2500 #### [facility] [address] [place], [address] CBC W/Diff, Automatedon 12-09 0-2023 Absolute Lymph 2.12 X10 3/uL Normal 0.83-4.51 [facility] Comment on above: Performed By: #### L 505.5000, L100.0100, L700.6800, L501.9100, L500.2500 #### [facility] [address] [place], [address] Absolute Neut 8.7 X10 3/uL High 2.0-7.7 [facility] Comment on above: Performed By: #### L 505.5000, L100.0100, L700.6800, L501.9100, L500.2500 #### [facility] [address] [place], [address] Basophils/100 WBC (Bld) 0.4 % Normal 0-1 [facility] Comment on above: Performed By: #### L 505.5000, L100.0100, L700.6800, L501.9100, L500.2500 #### [facility] [address] [place], [address] Eosinophils/100 WBC (Bld) 0.6 % Normal 0-5 [facility] Comment on above: Performed By: #### L 505.5000, L100.0100, L700.6800, L501.9100, L500.2500 #### [facility] [address] [place], [address] Erythrocyte distribution width (RBC) [Ratio] 12.2 % Normal 11.6-14.6 [facility] Comment on above: Performed By: #### L 505.5000, L100.0100, L700.6800, L501.9100, L500.2500 #### [facility] [address] [place], [address] Hematocrit (Bld) [Volume fraction] 43.1 % Normal 37-47 [facility] Comment on above: Performed By: #### L 505.5000, L100.0100, L700.6800, L501.9100, L500.2500 #### [facility] [address] [place], [address] Hemoglobin (Bld) [Mass/Vol] 14.3 g/dL Normal 12.0-15.0 [facility] Comment on above: Performed By: #### L 505.5000, L100.0100, L700.6800, L501.9100, L500.2500 #### [facility] [address] [place], [address] IG% 0.300 Normal 0.0-0.9 [facility] Comment on above: Result Comment: IG% - Immature Granulocytes (promyelocytes, myelocytes and metamyelocytes) > 1% indicates that a LEFT SHIFT is Present. Performed By: #### L 505.5000, L100.0100, L700.6800, L501.9100, L500.2500 #### [facility] [address] [place], [address] Lymphocytes/100 WBC (Bld) 17.8 % Low 19-41 [facility] Comment on above: Performed By: #### L 505.5000, L100.0100, L700.6800, L501.9100, L500.2500 #### [facility] [address] [place], [address] MCH (RBC) [Entitic mass] 29.9 pg Normal 27.0-32.0 [facility] Comment on above: Performed By: #### L 505.5000, L100.0100, L700.6800, L501.9100, L500.2500 #### [facility] [address] [place], [address] MCHC (RBC) [Mass/Vol] 33.2 g/dL Normal 32-36 [facility] Comment on above: Performed By: #### L 505.5000, L100.0100, L700.6800, L501.9100, L500.2500 #### [facility] [address] [place], [address] MCV (RBC) [Entitic vol] 90.0 fL Normal 81-[address] [facility] Comment on above: Performed By: #### L 505.5000, L100.0100, L700.6800, L501.9100, L500.2500 #### [facility] [address] [place], [address] Monocytes/100 WBC (Bld) 7.7 % Normal 0-[address] [facility] Comment on above: Performed By: #### L 505.5000, L100.0100, L700.6800, L501.9100, L500.2500 #### [facility] [address] [place], [address] Neutrophils/100 WBC (Bld) 73.2 % High 47-70 [facility] Comment on above: Performed By: #### L 505.5000, L100.0100, L700.6800, L501.9100, L500.2500 #### [facility] [address] [place], [address] Nucleated RBC (Bld) [#/Vol] 0 10*3/uL Normal 0-5 [facility] Comment on above: Performed By: #### L 505.5000, L100.0100, L700.6800, L501.9100, L500.2500 #### [facility] [address] [place], [address] Platelet mean volume (Bld) [Entitic vol] 11.1 fL Normal 6.2-12.0 [facility] Comment on above: Performed By: #### L 505.5000, L100.0100, L700.6800, L501.9100, L500.2500 #### [facility] [address] [place], [address] Platelets (Bld) [#/Vol] 298 10*3/uL Normal 150-450 [facility] Comment on above: Performed By: #### L 505.5000, L100.0100, L700.6800, L501.9100, L500.2500 #### [facility] [address] [place], [address] RBC (Bld) [#/Vol] 4.79 10*6/uL Normal 4.2-5.4 [facility] Comment on above: Performed By: #### L 505.5000, L100.0100, L700.6800, L501.9100, L500.2500 #### [facility] [address] [place], [address] RDW SD 40.0 fl Normal 35.1-43.9 [facility] Comment on above: Performed By: #### L 505.5000, L100.0100, L700.6800, L501.9100, L500.2500 #### [facility] [address] [place], [address] WBC (Bld) [#/Vol] 11.9 10*3/uL High 4.4-11.0 [facility] Comment on above: Performed By: #### L 505.5000, L100.0100, L700.6800, L501.9100, L500.2500 #### [facility] [address] [place], [address] Emergency Department Summary on 12-19-2023 Emergency Department Summary [facility] Medical Records Department [address] [place] [address] Emergency Department Summary 12/19/23 MR#: [id number] Acct: [id number] Name: MILES JIMENEZ Rep #: [id number] : 2005 18 From: Florian Simmons DO PCP: KAYLEIGH Newman Status:REG ER Location: ED HPI HPI - Psych History of Present Illness Chief Complaint: Mental Health PFSH PFS Medical History Single live Second degree perineal laceration (spontaneous vaginal delivery) Bipolar mood disorder Gestational HTN Headache in Depression Home Medications ???Medication ???Instructions ???Recorded ???Last Taken ???Type fluoxetine 40 mg capsule 40 mg PO DAILY 11/22/23 Unknown History Allergy/AdvReac Type Severity Reaction Status Date / Time No Known Allergies Allergy Verified 12/19/23 22:06 Social History Smoking Status: Current every day smoker tobacco type: e-cigarettes EXAM Physical Exam Const Vital Signs: 12/19/23 22:05 12/19/23 23:15 12/20/23 00:05 Temperature 98.2 F Temperature Source Temporal Pulse Rate 106 H Respiratory Rate 20 H 16 Blood Pressure 146/78 H 131/67 H Blood Pressure Mean 100 88 Pulse Ox 98 Oxygen Delivery Method Room Air MDM MDM MDM Narrative Medical decision making narrative: HISTORY OF PRESENT ILLNESS: 18-year-old female with past medical history significant for bipolar disorder, depression presents with I was told I needed to go myself again 90s 104 better. Patient denies any suicidal ideation at this time. Denies auditory or visual hallucinations. States she just wants to go home to be with her baby. Per pink slip patient endorsed plan to hang her self in the renee. Per pink slip patient sent a video to board her friend with a belt around her neck. REVIEW OF SYSTEMS: Pertinent positives: Suicidal ideation Pertinent negatives: Homicidal ideation, auditory visual hallucination PHYSICAL EXAM: Nursing triage notes reviewed, Vital signs reviewed Constitutional: please see mdm HENT: MMM Eyes: Pupils equal round and reactive to light, Extraocular muscles intact Neck: No stridor, no JVD, full neck ROM, ligature portillo Lungs: Clear to auscultation, No wheezing or rales. No increased work of breathing, no conversational dyspnea, no accessory muscle use, no nasal flaring. No respiratory distress noted Heart: Regular rate and rhythm, No murmurs, No rubs and No gallops, 2+ distal pulses (radial, femoral, posterior tibial) in all extremities Abdomen: Soft, there is no tenderness, rigidity, rebound or guarding, no obvious peritoneal signs, no palpable pulsatile abdominal masses, no auscultated abdominal bruit : No CVAT Extremities: No edema Neuro: No focal neurological deficits, cranial nerves II through XII intact, 5/5 strength in all extremities. Intact sensation to light touch in all extremities, 2+ reflexes bilateral patella tendons. Normal gait. No ataxia. Skin: No rash or lesions noted Psych: Normal affect, goal-directed thought process, does not appear to be responding to internal stimuli MEDICAL DECISION MAKING: Chief Complaint: Suicidal ideation External records reviewed: Reviewed recent crisis evaluation. Patient was evaluate by crisis on 12/16/2023. At this point in time the patient was felt to be safe for discharge with care plan. Factors affecting care: Bipolar disorder, depression Social determinants of health: History mental health disorder MDM Narrative: Patient was initially hemodynamically stable, afebrile and nontoxic-appearing. Patient is at appear psychotic or manic. I obtain medical clearance labs for further behavioral health evaluation. Patient is medically cleared after laboratory analysis showed slight leukocytosis but no anemia, no thrombocytopenia No signs of electrolyte disturbances Urine test was negative Urine drug screen was negative Show alcohol is negative Patient is awaiting crisis evaluation for final disposition. Per crisis evaluation patient will require inpatient mission given multiple recent visits and concerning plan and communication with boyfriend. Awaiting final disposition per crisis. The patient and/or family, caregivers express understanding. The patient and/or family, caregivers agrees with the plan. Shared decision making: I will have a discussion with the patient and or visitors regarding risk/benefits of further testing or admission. They will be made aware of of the risk/benefits inherent in this decision they will be given the opportunity to voice understanding. Total critical care time today provided was at least 0 minutes. This excludes separately billable procedu (more content not included)... Normal [facility] ,Serum,hCG Quali.on 12-19-2023 HCG, SERUM QUAL Negative Normal [facility] Comment on above: Performed By: #### L 505.5000, L100.0100, L700.6800, L501.9100, L500.2500 #### [facility] [address] [place] [address] Urine Drug Screen (VISTA)on 12-19-2023 AMPHETAMINES Negative Normal <1000 ng/mL [facility] Comment on above: Performed By: #### L 505.5000, L100.0100, L700.6800, L501.9100, L500.2500 #### [facility] [address] [place] [address] BARBITIURATES Negative Normal < 200 ng/mL [facility] Comment on above: Performed By: #### L 505.5000, L100.0100, L700.6800, L501.9100, L500.2500 #### [facility] [address] [facility] [address] BENZODIAZIPINE Negative Normal < 200 ng/mL [facility] Comment on above: Performed By: #### L 505.5000, L100.0100, L700.6800, L501.9100, L500.2500 #### [facility] [address] [facility] [address] COCAINE Negative Normal < 300 ng/mL [facility] Comment on above: Performed By: #### L 505.5000, L100.0100, L700.6800, L501.9100, L500.2500 #### [facility] [address] [place], [address] ECSTACY Negative Normal < 500 ng/mL [facility] Comment on above: Performed By: #### L 505.5000, L100.0100, L700.6800, L501.9100, L500.2500 #### [facility] [address] [place], [address] METHADONE Negative Normal < 300 ng/mL [facility] Comment on above: Performed By: #### L 505.5000, L100.0100, L700.6800, L501.9100, L500.2500 #### [facility] [address] [place], [place], [facility] OPIATES Negative Normal < 300 ng/mL [facility] Comment on above: Performed By: #### L 505.5000, L100.0100, L700.6800, L501.9100, L500.2500 #### [facility] [address] [place], [address] PCP Negative Normal < 25 ng/mL [facility] Comment on above: Performed By: #### L 505.5000, L100.0100, L700.6800, L501.9100, L500.2500 #### [facility] [address] [place], [address] THC Negative Normal < 50 ng/mL [facility] Comment on above: Performed By: #### L 505.5000, L100.0100, L700.6800, L501.9100, L500.2500 #### [facility] [address] [place], [address] VISTA UDS PH 5 Normal [facility] Comment on above: Performed By: #### L 505.5000, L100.0100, L700.6800, L501.9100, L500.2500 #### [facility] [address] [place], [address] Alcohol, Blood (Medical)-Ser umon 12-15-2023 SERUM ETOH < 3.0 Normal [facility] Comment on above: Result Comment: The serum:whole blood ethanol ratio is approximately 1.14 and varies slightly with hematocrit. Medical Alcohol reference interval and critical value in non-tolerant individuals; 50 - 100 Impairment 100 Intoxication 100 - 250 Severe Poisoning 250 - 400 Deep/possible fatal coma Performed By: #### L 505.5000, L100.0100, L700.6800, L501.9100, L500.2500 #### [facility] [address] [place], [address] Basic Metabolic Profile (BMP )on 12-15-2023 BUN/CRE 14.1 RATIO Normal 10-20 [facility] Comment on above: Performed By: #### L 505.5000, L100.0100, L700.6800, L501.9100, L500.2500 #### [facility] [address] [place], [address] CA,Total 9.9 mg/dL Normal 8.5-10.1 [facility] Comment on above: Performed By: #### L 505.5000, L100.0100, L700.6800, L501.9100, L500.2500 #### [facility] [address] [place], [address] Chloride [Moles/Vol] 105 mmol/L Normal 98-107 [facility] Comment on above: Performed By: #### L 505.5000, L100.0100, L700.6800, L501.9100, L500.2500 #### [facility] [address] [place], [address] CO2 [Moles/Vol] 25.0 mmol/L Normal 21.0-32.0 [facility] Comment on above: Performed By: #### L 505.5000, L100.0100, L700.6800, L501.9100, L500.2500 #### [facility] [address] [place], [address] Creatinine [Mass/Vol] 0.92 mg/dL Normal 0.55-1.02 [facility] Comment on above: Result Comment: The validity of the calculated GFR GFRAA in patients over 70 years has not been determined. Clinical correlation is essential. Performed By: #### L 505.5000, L100.0100, L700.6800, L501.9100, L500.2500 #### [facility] [address] [place], [address] ECRCL 93.75 ml/min Normal [facility] Comment on above: Performed By: #### L 505.5000, L100.0100, L700.6800, L501.9100, L500.2500 #### [facility] [address] [place], [address] EST GFR - AA 100 mL/min Normal >60 [facility] Comment on above: Result Comment: Afri can Nauruan GFR Calc Performed By: #### L 505.5000, L100.0100, L700.6800, L501.9100, L500.2500 #### [facility] [address] [place], [address] GAP 9 Normal 5-15 [facility] Comment on above: Performed By: #### L 505.5000, L100.0100, L700.6800, L501.9100, L500.2500 #### [facility] [address] [place], [address] GFR/1.73 sq M.predicted among non-blacks MDRD (S/P/Bld) [Vol rate/Area] 83 mL/min/{1.73_m2} Normal >60 [facility] Comment on above: Result Comment: Non- GFR Calc Performed By: #### L 505.5000, L100.0100, L700.6800, L501.9100, L500.2500 #### [facility] [address] [place], [address] Glucose [Mass/Vol] 97 mg/dL Normal 74-106 [facility] Comment on above: Performed By: #### L 505.5000, L100.0100, L700.6800, L501.9100, L500.2500 #### [facility] [address] [place], [address] Potassium [Moles/Vol] 3.9 mmol/L Normal 3.5-5.1 [facility] Comment on above: Performed By: #### L 505.5000, L100.0100, L700.6800, L501.9100, L500.2500 #### [facility] [address] [place], [address] Sodium [Moles/Vol] 139 mmol/L Normal 136-145 [facility] Comment on above: Performed By: #### L 505.5000, L100.0100, L700.6800, L501.9100, L500.2500 #### [facility] [address] [place], [address] Urea nitrogen [Mass/Vol] 13 mg/dL Normal 7-18 [facility] Comment on above: Performed By: #### L 505.5000, L100.0100, L700.6800, L501.9100, L500.2500 #### [facility] [address] [place], [address] CBC W/Diff, Automatedon 08-0 SMEAR COMMENT SCANNED Normal [facility] Comment on above: Performed By: #### L 505.5000, L100.0100, L700.6800, L501.9100, L500.2500 #### [facility] [address] [place], [address] Emergency Department Summary on 12-15-2023 Emergency Department Summary [facility] Medical Records Department [address] [place] [address] Emergency Department Summary 12/15/23 MR#: [id number] Acct: [id number] Name: MILES JIMENEZ Rep #: [id number] : 2005 18 From: Charles Cardona DO PCP: KAYLEIGH Newman Status:REG ER Location: ED ADDENDUM by Hardeep Panchal DO on 12/16/23 at 0418 Patient was signed out to me while awaiting evaluation by crisis center. Crisis center evaluated the patient in the ER and feel that she is appropriate for safety plan as she reports that she only made the gesture out of frustration and anger and has no intent on harming herself as she has a child and needs to take care of her. Therefore at this time as patient is no longer endorsing suicidal ideations and has been evaluated by crisis and they feel she is safe for outpatient treatment should be discharged and can follow-up on an outpatient basis 12/16/23 0418 Cosigner Signature (if applicable): cc: LOSS CONTROL ENGINEER-C Berenice Martin * Signed HPI History of Present Illness Chief Complaint: Mental Health Narrative Narrative: Patient is a 18-year-old female past medical history of bipolar disorder, hypertension, depression who presents to the emergency department with a chief complaint of depression. Patient states that earlier this evening she noted that she lost her boyfriend secondary to accusations of her cheating on him via another family member. She states that she became very depressed and noted that she held a drawing box tender up to her neck and threatened to kill herself although upon arrival here to the emergency department she states that she does not want to she did not want to kill herself. She states that she wants to be alive for her child and care for her daughter. Patient states that she has not tried to harm herself in the past. [facility] Medical History Single live Second degree perineal laceration (spontaneous vaginal delivery) Bipolar mood disorder Gestational HTN Headache in Depression Home Medications ???Medication ???Instructions ???Recorded ???Last Taken ???Type fluoxetine 40 mg capsule 40 mg PO DAILY 11/22/23 Unknown History Allergy/AdvReac Type Severity Reaction Status Date / Time No Known Allergies Allergy Verified 12/15/23 21:04 Social History Smoking Status: Current every day smoker tobacco type: e-cigarettes ROS ROS ED ROS Narrative Constitutional: Denies any fevers, chills, headaches, lightheadedness, dizziness Eyes: Denies double vision blurry vision changes vision Cardiovascular: Denies chest pain or palpitations Respiratory: Denies coughing wheezing shortness of breath Abdomen: Denies abdominal pain nausea vomit diarrhea : Denies urinary symptoms Neurological: Denies numbness, weakness, tingling Musculoskeletal: Denies back pain Skin: Denies rashes or lesions EXAM Physical Exam Narrative Exam Narrative: General: Patient lying in bed rest comfortably did not appear to be in acute distress Head: Atraumatic, normocephalic Eyes: PERRL bilaterally, EOMI bilaterally, no conjunctival injection noted Neck: Soft, supple, trach midline Cardiovascular: Regular rate and rhythm no murmurs gallops rubs noted Respiratory: Clear to auscultation bilaterally Abdomen: Soft, nondistended, nontender to palpation Extremities: +5/5 strength noted in the bilateral upper and lower extremities Neurological: Patient following commands and that she is a [facility] years 2023 Psychiatric: Patient is cooperative during exam Skin: Warm, dry, intact Const Vital Signs: 12/15/23 21:04 Temperature 98.5 F Temperature Source Temporal Pulse Rate 108 H Respiratory Rate 18 Blood Pressure 130/84 H Blood Pressure Mean 99 Pulse Ox 96 Oxygen Delivery Method Room Air MDM MDM MDM Narrative Medical decision making narrative: Patient is a 18-year-old female who presents to the emergency department via police after threatening to kill himself with a drawing box tender by slitting her throat. Patient will work performed here and then be reevaluated. Differential diagnose includes but limited to depression, suicidal ideation. Patient CBC showed a white blood cell count 11,000, hemoglobin is 14.2, platelet count was normal at 178. Patient's sodium normal 139, potassium normal at 3.9, creatinine normal at 0.92. Patient's test was negative, urinalysis did not reveal any evidence infection. Patient drug screen was negative, alcohol level less than 3. Patient will be medically cleared. She will be evaluated by crisis. Patient case will be signed out to oncoming provider to make ultimate disposition when she is advised by crisis see his (more content not included)... Normal [facility] ,Serum,hCG Quali.on 12-15-2023 HCG, SERUM QUAL Negative Normal [facility] Comment on above: Performed By: #### L 505.5000, L100.0100, L700.6800, L501.9100, L500.2500 #### [facility] [address] [place], [address] Urinalysis, Completeon 12-14 BACTERIA 1+ /hpf Normal None Seen [facility] Comment on above: Order Comment: CLEAN CATCH Result Comment: AMENDED REPORT 12/15/23 2242 BACTERIA previously reported as: 0 SEEN /hpf Performed By: #### L 400.0001 #### [facility] [address] [place], [address] Urine Drug Screen (VISTA)on 12-15-2023 AMPHETAMINES Negative Normal <1000 ng/mL [facility] Comment on above: Performed By: #### L 505.5000, L100.0100, L700.6800, L501.9100, L500.2500 #### [facility] [address] [place], [address] BARBITIURATES Negative Normal < 200 ng/mL [facility] Comment on above: Performed By: #### L 505.5000, L100.0100, L700.6800, L501.9100, L500.2500 #### [facility] [address] [place], [address] BENZODIAZIPINE Negative Normal < 200 ng/mL [facility] Comment on above: Performed By: #### L 505.5000, L100.0100, L700.6800, L501.9100, L500.2500 #### [facility] [address] [place], [address] COCAINE Negative Normal < 300 ng/mL [facility] Comment on above: Performed By: #### L 505.5000, L100.0100, L700.6800, L501.9100, L500.2500 #### [facility] [address] [place], [place], [facility] ECSTACY Negative Normal < 500 ng/mL [facility] Comment on above: Performed By: #### L 505.5000, L100.0100, L700.6800, L501.9100, L500.2500 #### [facility] [address] [place], [place], [facility] METHADONE Negative Normal < 300 ng/mL [facility] Comment on above: Performed By: #### L 505.5000, L100.0100, L700.6800, L501.9100, L500.2500 #### [facility] [address] [place], [place], [facility] OPIATES Negative Normal < 300 ng/mL [facility] Comment on above: Performed By: #### L 505.5000, L100.0100, L700.6800, L501.9100, L500.2500 #### [facility] [address] [place], [place], [facility] PCP Negative Normal < 25 ng/mL [facility] Comment on above: Performed By: #### L 505.5000, L100.0100, L700.6800, L501.9100, L500.2500 #### [facility] [address] [place], [place], [facility] THC Negative Normal < 50 ng/mL [facility] Comment on above: Performed By: #### L 505.5000, L100.0100, L700.6800, L501.9100, L500.2500 #### [facility] [address] [place], [address] VISTA UDS PH 5 Normal [facility] Comment on above: Performed By: #### L 505.5000, L100.0100, L700.6800, L501.9100, L500.2500 #### [facility] [address] [place], [address] Abdomen/Pelvis W IV Cont ONL Yon 11-22-2023 Abdomen/Pelvis W IV Cont ONLY [facility] Imaging Services [address] [place] [address] Abdomen/Pelvis W IV Cont ONLY MR#: [id number] Acct: [id number] Name: MILES JIMENEZ Rep #: [id number] : 2005 F 18 From: Bharat Domingo MD PCP: KAYLEIGH Newman Status: REG ER Study: Abdomen/Pelvis W IV Cont ONLY Date of Exam: Exam# [id number] Ordering Dr: Dm Yoon [id number] INDICATION: lower abdominal pain EXAMINATION: CT ABDOMEN AND PELVIS WITH CONTRAST - CT Abdomen And Pelvis W/ Contrast Injection TECHNIQUE: Helically acquired images were obtained of the abdomen and pelvis following IV contrast. A radiation dose optimization technique was used for this scan. IV Contrast dosage and agent: 100 cc Isovue-370 Oral contrast: None. COMPARISON: 02/16/2023 FINDINGS: LOWER CHEST: Lung bases are clear. No cardiomegaly or pericardial effusion. LIVER: Homogeneous. No focal mass. GALLBLADDER AND BILIARY TREE: No calcified gallstones. Gallbladder contracted. No intra- or extrahepatic biliary ductal dilation. PANCREAS: No focal cystic or solid mass. SPLEEN: Normal size without focal cystic or solid mass. ADRENAL GLANDS: No nodules. KIDNEYS AND URETERS: Normal renal size and position. No hydronephrosis. PERITONEUM: No ascites or free air. BOWEL: Normal appendix. No stomach or bowel distension. Diffuse increased colonic fecal burden to the rectum. LYMPH NODES: No enlarged mesenteric or retroperitoneal lymph nodes. VESSELS: Aorta is non-dilated. URINARY BLADDER: Minimally distended. REPRODUCTIVE ORGANS: No pelvic masses. 2.5 cm left ovarian cyst. ABDOMINAL WALL: No discrete abdominal or pelvic wall hernia. BONES: Unremarkable. CT/Abdomen/Pelvis W IV Cont ONLY IMPRESSION: No acute findings in the abdomen or pelvis. Colonic fecal burden consistent with clinical constipation. 2.5 cm left ovarian cyst. Electronically Signed: Bharat Domingo MD at 21:56 EDT , CC: KAYLEIGH Martin; KAYLEIGH Yoon [employer]: Signed Normal [facility] CBC W/Diff, Automatedon 11-08 Absolute Lymph 2.93 X10 3/uL Normal 0.83-4.51 [facility] Comment on above: Performed By: #### L 505.5000, L100.0100, L700.6800, L501.9100, L500.2500 #### [facility] [address] [place], [address] Absolute Neut 6.5 X10 3/uL Normal 2.0-7.7 [facility] Comment on above: Performed By: #### L 505.5000, L100.0100, L700.6800, L501.9100, L500.2500 #### [facility] [address] [place], [address] Basophils/100 WBC (Bld) 0.4 % Normal 0-1 [facility] Comment on above: Performed By: #### L 505.5000, L100.0100, L700.6800, L501.9100, L500.2500 #### [facility] [address] [place], [address] Eosinophils/100 WBC (Bld) 1.4 % Normal 0-5 [facility] Comment on above: Performed By: #### L 505.5000, L100.0100, L700.6800, L501.9100, L500.2500 #### [facility] [address] [place], [address] Erythrocyte distribution width (RBC) [Ratio] 12.4 % Normal 11.6-14.6 [facility] Comment on above: Performed By: #### L 505.5000, L100.0100, L700.6800, L501.9100, L500.2500 #### [facility] [address] [place], [place], [facility] Hematocrit (Bld) [Volume fraction] 39.3 % Normal 37-47 [facility] Comment on above: Performed By: #### L 505.5000, L100.0100, L700.6800, L501.9100, L500.2500 #### [facility] [address] [place], [address] Hemoglobin (Bld) [Mass/Vol] 13.1 g/dL Normal 12.0-15.0 [facility] Comment on above: Performed By: #### L 505.5000, L100.0100, L700.6800, L501.9100, L500.2500 #### [facility] [address] [place], [address] IG% 0.300 Normal 0.0-0.9 [facility] Comment on above: Result Comment: IG% - Immature Granulocytes (promyelocytes, myelocytes and metamyelocytes) > 1% indicates that a LEFT SHIFT is Present. Performed By: #### L 505.5000, L100.0100, L700.6800, L501.9100, L500.2500 #### [facility] [address] [place], [address] Lymphocytes/100 WBC (Bld) 28.0 % Normal 19-41 [facility] Comment on above: Performed By: #### L 505.5000, L100.0100, L700.6800, L501.9100, L500.2500 #### [facility] [address] [place], [address] MCH (RBC) [Entitic mass] 29.8 pg Normal 27.0-32.0 [facility] Comment on above: Performed By: #### L 505.5000, L100.0100, L700.6800, L501.9100, L500.2500 #### [facility] [address] [place], [address] MCHC (RBC) [Mass/Vol] 33.3 g/dL Normal 32-36 [facility] Comment on above: Performed By: #### L 505.5000, L100.0100, L700.6800, L501.9100, L500.2500 #### [facility] [address] [place], [address] MCV (RBC) [Entitic vol] 89.5 fL Normal 81-99 [facility] Comment on above: Performed By: #### L 505.5000, L100.0100, L700.6800, L501.9100, L500.2500 #### [facility] [address] [place], [address] Monocytes/100 WBC (Bld) 8.2 % Normal 0-10 [facility] Comment on above: Performed By: #### L 505.5000, L100.0100, L700.6800, L501.9100, L500.2500 #### [facility] [address] [place], [address] Neutrophils/100 WBC (Bld) 61.7 % Normal 47-70 [facility] Comment on above: Performed By: #### L 505.5000, L100.0100, L700.6800, L501.9100, L500.2500 #### [facility] [address] [place], [address] Nucleated RBC (Bld) [#/Vol] 0 10*3/uL Normal 0-5 [facility] Comment on above: Performed By: #### L 505.5000, L100.0100, L700.6800, L501.9100, L500.2500 #### [facility] [address] [place], [address] Platelet mean volume (Bld) [Entitic vol] 11.0 fL Normal 6.2-12.0 [facility] Comment on above: Performed By: #### L 505.5000, L100.0100, L700.6800, L501.9100, L500.2500 #### [facility] [address] [place], [address] Platelets (Bld) [#/Vol] 238 10*3/uL Normal 150-450 [facility] Comment on above: Performed By: #### L 505.5000, L100.0100, L700.6800, L501.9100, L500.2500 #### [facility] [address] [place], [address] RBC (Bld) [#/Vol] 4.39 10*6/uL Normal 4.2-5.4 [facility] Comment on above: Performed By: #### L 505.5000, L100.0100, L700.6800, L501.9100, L500.2500 #### [facility] [address] [place], [address] RDW SD 40.4 fl Normal 35.1-43.9 [facility] Comment on above: Performed By: #### L 505.5000, L100.0100, L700.6800, L501.9100, L500.2500 #### [facility] [address] [place], [address] WBC (Bld) [#/Vol] 10.5 10*3/uL Normal 4.4-11.0 [facility] Comment on above: Performed By: #### L 505.5000, L100.0100, L700.6800, L501.9100, L500.2500 #### [facility] [address] [place], [address] Comprehensive Metabolic Prof [facility] 11-22-2023 Albumin [Mass/Vol] 3.5 g/dL Normal 3.2-5.0 [facility] Comment on above: Performed By: #### L 505.5000, L100.0100, L700.6800, L501.9100, L500.2500 #### [facility] [address] [place], [address] Albumin/Globulin [Mass ratio] 1.0 {ratio} Normal 0.9-2.4 [facility] Comment on above: Performed By: #### L 505.5000, L100.0100, L700.6800, L501.9100, L500.2500 #### [facility] [address] [place], [address] ALK P 81 U/L Normal 45-117 [facility] Comment on above: Performed By: #### L 505.5000, L100.0100, L700.6800, L501.9100, L500.2500 #### [facility] [address] [place], [address] ALT [Catalytic activity/Vol] 21 U/L Normal 13-56 [facility] Comment on above: Performed By: #### L 505.5000, L100.0100, L700.6800, L501.9100, L500.2500 #### [facility] [address] [place], [address] AST [Catalytic activity/Vol] 17 U/L Normal 15-37 [facility] Comment on above: Performed By: #### L 505.5000, L100.0100, L700.6800, L501.9100, L500.2500 #### [facility] [address] [place], [address] Bilirubin [Mass/Vol] 0.20 mg/dL Normal 0.20-1.00 [facility] Comment on above: Result Comment: For patients on eltrombopag therapy, use of Dimension Ulman TBIL is not recommended. Performed By: #### L 505.5000, L100.0100, L700.6800, L501.9100, L500.2500 #### [facility] [address] [place], [address] BUN/CRE 14.1 RATIO Normal 10-20 [facility] Comment on above: Performed By: #### L 505.5000, L100.0100, L700.6800, L501.9100, L500.2500 #### [facility] [address] [place], [address] CA,Total 9.2 mg/dL Normal 8.5-10.1 [facility] Comment on above: Performed By: #### L 505.5000, L100.0100, L700.6800, L501.9100, L500.2500 #### [facility] [address] [place], [address] Chloride [Moles/Vol] 106 mmol/L Normal 98-107 [facility] Comment on above: Performed By: #### L 505.5000, L100.0100, L700.6800, L501.9100, L500.2500 #### [facility] [address] [place], [address] CO2 [Moles/Vol] 30.0 mmol/L Normal 21.0-32.0 [facility] Comment on above: Performed By: #### L 505.5000, L100.0100, L700.6800, L501.9100, L500.2500 #### [facility] [address] [place], [address] Creatinine [Mass/Vol] 0.92 mg/dL Normal 0.55-1.02 [facility] Comment on above: Result Comment: The validity of the calculated GFR GFRAA in patients over 70 years has not been determined. Clinical correlation is essential. Performed By: #### L 505.5000, L100.0100, L700.6800, L501.9100, L500.2500 #### [facility] [address] [place], [address] ECRCL 110.91 ml/min Normal [facility] Comment on above: Performed By: #### L 505.5000, L100.0100, L700.6800, L501.9100, L500.2500 #### [facility] [address] [place], [address] EST GFR - AA 100 mL/min Normal >60 [facility] Comment on above: Result Comment: Afri can Nauruan GFR Calc Performed By: #### L 505.5000, L100.0100, L700.6800, L501.9100, L500.2500 #### [facility] [address] [place], [address] GAP 2 Low 5-15 [facility] Comment on above: Performed By: #### L 505.5000, L100.0100, L700.6800, L501.9100, L500.2500 #### [facility] [address] [place], [address] GFR/1.73 sq M.predicted among non-blacks MDRD (S/P/Bld) [Vol rate/Area] 83 mL/min/{1.73_m2} Normal >60 [facility] Comment on above: Result Comment: Non- GFR Calc Performed By: #### L 505.5000, L100.0100, L700.6800, L501.9100, L500.2500 #### [facility] [address] [place], [address] Globulin (S) [Mass/Vol] 3.6 g/dL Normal 2.2-4.[address] [facility] Comment on above: Performed By: #### L 505.5000, L100.0100, L700.6800, L501.9100, L500.2500 #### [facility] [address] [place], [address] Glucose [Mass/Vol] 90 mg/dL Normal 74-106 [facility] Comment on above: Performed By: #### L 505.5000, L100.0100, L700.6800, L501.9100, L500.2500 #### [facility] [address] [place], [address] Potassium [Moles/Vol] 3.7 mmol/L Normal 3.5-5.1 [facility] Comment on above: Performed By: #### L 505.5000, L100.0100, L700.6800, L501.9100, L500.2500 #### [facility] [address] [place], [address] Sodium [Moles/Vol] 138 mmol/L Normal 136-145 [facility] Comment on above: Performed By: #### L 505.5000, L100.0100, L700.6800, L501.9100, L500.2500 #### [facility] [address] [place], [address] T PROT 7.1 g/dL Normal 6.4-8.2 [facility] Comment on above: Performed By: #### L 505.5000, L100.0100, L700.6800, L501.9100, L500.2500 #### [facility] [address] [place], [address] Urea nitrogen [Mass/Vol] 13 mg/dL Normal 7-18 [facility] Comment on above: Performed By: #### L 505.5000, L100.0100, L700.6800, L501.9100, L500.2500 #### [facility] [address] [place], [address] Emergency Department Summary on 11-22-2023 Emergency Department Summary [facility] Medical Records Department [address] [place] [address] Emergency Department Summary 11/22/23 MR#: [id number] Acct: [id number] Name: MILES JIMENEZ Rep #: [id number] : 2005 18 From: Dm VICTOR PCP: KAYLEIGH Newman Status:DEP ER Location: ED I have personally performed a face to face assessment of the patient and have reviewed the DEAN Note. Patient presents secondary to lower abdominal pain and spotting. She reports lower abdominal pain which she localizes more to the right lower quadrant. She also noted some spotting in her underwear today. She has not noted any blood with urination or wiping. Last menstrual cycle was 2 weeks ago. She did take a home test that was negative. Patient lying in bed in no acute distress. Head and neck examination unremarkable. Heart is regular rate and rhythm. Lung sounds are clear. Abdomen is soft with lower abdominal tenderness, worse in the midline and left lower quadrant. No guarding or rebound. CBC was normal white count at 10.5 with normal differential. Chemistry studies, LFTs, and lipase are normal. test is negative. Urinalysis does reveal 1+ bacteria, however no other signs of infection and patient has no concerning symptoms for UTI. CT scan abdomen pelvis is obtained that reveals evidence of chronic constipation. She also is a 2.5 cm left ovarian cyst. Test results were discussed with patient and family at bedside. She does feel improved after medication and fluids here. She will be given MiraLAX for home. Return instructions provided. HPI History of Present Illness Chief Complaint: Abd Pain Narrative Narrative: Patient a 18-year-old female that has a history of anxiety, depression that is on Prozac who presents to the emergency department for generalized abdominal pain, vaginal spotting. Patient states her last menstrual cycle was 2 weeks ago, she states she sometimes is irregular. Patient states that she has been having pain to her right lower abdomen, is rating around her right side, she is also been spotting which is abnormal for her. She did take a home test which was negative. She denies any fever chills nausea or vomiting. She is here with her mother. [facility] Medical History Bipolar mood disorder Depression Gestational HTN Headache in Second degree perineal laceration Single live (spontaneous vaginal delivery) Home Medications ???Medication ???Instructions ???Recorded ???Last Taken ???Type naproxen 500 mg tablet 500 mg PO BID PRN #20 tabs 04/03/23 Unknown Rx fluoxetine 40 mg capsule 40 mg PO DAILY 11/22/23 Unknown History polyethylene glycol 3350 17 17 g PO TID #238 grams 11/22/23 Unknown Rx gram/dose oral powder (ClearLax) Allergy/AdvReac Type Severity Reaction Status Date / Time No Known Allergies Allergy Verified 11/22/23 20:05 Social History Smoking Status: Current every day smoker tobacco type: e-cigarettes ROS ROS ED ROS Narrative Constitutional: Negative for fever, chills, weight loss, weakness Eyes: Negative for vision loss, vision change, double vision ENT: Negative for any sore throat, ear pain, congestion Cardiovascular: Negative for any chest pain, tightness, palpitations Respiratory: Negative for any cough, sputum production, hemoptysis, dyspnea, dyspnea on exertion, orthopnea Gastrointestinal: Negative for any nausea, vomiting, diarrhea, constipation, blood in stool, blood in vomit. Positive for abdominal pain : Negative for any urinary frequency, dysuria, retention, blood in urine. Positive for spotting Muscle skeletal: Negative for any neck pain, back pain Neurological: Negative for any headache, syncope. Positive for dizziness Skin: Negative for any rashes, itching, abrasions, lacerations Psychiatric: Negative for any depression, anxiety, stress, suicidal ideation, homicidal ideation Hematologic: Negative for any excessive bruising, easy bleeding EXAM Physical Exam Narrative Exam Narrative: Vital signs reviewed. HEET: Head normocephalic atraumatic, TMs clear bilaterally. Posterior pharynx is clear, moist mucous membranes. Nares clear bilaterally. Neck: Supple with no lymphadenopathy or tenderness. No signs of meningismus. Cardiac: Regular rate and rhythm no murmurs gallops or rubs, equal peripheral pulses bilaterally. Respiratory: Lungs clear to auscultation bilaterally. No chest tenderness. Abdomen: nondistended. No abdominal bruit or pulsatile masses. No hepatosplenomegaly. Patient's abdomen is soft, patient did have pain to the left lower quadrant, suprapubic area as well as right suprapubic area. Patient had no CVA tenderness. Extremities: No peripheral edema, no s (more content not included)... Normal [facility] Lipaseon 11-22-2023 Lipase [Catalytic activity/Vol] 27 U/L Normal 13-75 [facility] Comment on above: Result Comment: Rex holloway note: LIPASE revised reference range effective 22. New Lipase methodology. Expected to produce lower values than the previous assay method. NEW Reference Range: 13 - 75 U/L Performed By: #### L 505.5000, L100.0100, L700.6800, L501.9100, L500.2500 #### [facility] [address] [place], [place], [id number] ,Serum,hCG Quali.on 11-22-2023 HCG, SERUM QUAL Negative Normal [facility] Comment on above: Performed By: #### L 700.6800 #### [facility] [address] [place], [place], [id number] Urinalysis, Completeon 11-21 BACTERIA 1+ /hpf Normal None Seen [facility] Comment on above: Order Comment: COLLE CTOR TO SPECIFY Performed By: #### L 400.0001 #### [facility] [address] [place], [address] EPI,SQUAMOUS 0-5 SEEN Normal 5-10 [facility] Comment on above: Order Comment: COLLE CTOR TO SPECIFY Performed By: #### L 400.0001 #### [facility] [address] [place], [address] RBC 0-5 SEEN Normal 0-5 [facility] Comment on above: Order Comment: COLLE CTOR TO SPECIFY Performed By: #### L 400.0001 #### [facility] [address] [place], [address] WBC 0-5 SEEN Normal 0-5 [facility] Comment on above: Order Comment: COLLE CTOR TO SPECIFY Performed By: #### L 400.0001 #### [facility] [address] [place], [address] Mucus Ql (Urine sed) 0 SEEN Normal [facility] Comment on above: Order Comment: LUIS CTOR TO SPECIFY Performed By: #### L 400.0001 #### [facility] [address] [place], [address] Basophil percentageOrdered B y: Abdiaziz Soriano on 06-26-2023 Basophil percentage 0 SEEN /hpf 0-5 [facility] Bilirubin Test strip Ql (U)O rdered By: Remus Bo on 06-26-2023 Bilirubin Ql (U) Negative Negative [facility] Hyaline casts LM.LPF (Urine sed) [#/Area]Ordered By: Remus Ungjohnie on 06-26-2023 Hyaline casts (Urine sed) [#/Area] 0 /[LPF] 0-5 [facility] Ketones Test strip Ql (U)Ord ered By: Remus Bo on 06-26-2023 Ketones Ql (U) 5 mg/dl Negative [facility] - Chemistry and C hemistry - challengeOrdered By: Abdiaziz Soriano on 06-26-2023 HCG ( test) Ql (U) Negative [facility] Comment on above: Very dilute urine sp ecimens, as indicated by a low specificgravity, may not contain healthcare sales representative levels of hCG. If is still suspected, a first morning urinespecimen should be collected 48 hours later and tested. Mucus LM Ql (Urine sed)Order ed By: Remus Soriano on 06-26-2023 Mucus Ql (Urine sed) 0 SEEN /hpf [facility] Nitrite Test strip Ql (U)Ord ered By: Remus Ungjohnie on 06-26-2023 Nitrite Ql (U) Negative Negative [facility] No Panel InformationOrdered By: Rem Ungjohnie on 06-26-2023 Urine RBC 5-10 SEEN /hpf 0-5 [facility] Comment on above: Previous reported re sult: 0 SEEN /hpfEdited by: LYNSEY on 06/26/23:0401 AMENDED REPORT 06/26/23 0401 RBC-UA previously reported as: 0 SEEN /hpf Protein Test strip Ql (U)Ord ered By: Rem Ungjohnie on 06-26-2023 Protein Ql (U) 100 mg/dl Negative [facility] Squamous epithelial cells de tection in urine sediment by light microscopyOrdered By: Remus Soriano on 06-26-2023 Epithelial cells.squamous LM Ql (Urine sed) 10-25 SEEN /hpf 5-10 [facility] Comment on above: Previous reported re sult: 0 SEEN /hpfEdited by: LYNSEY on 06/26/23:0401 AMENDED REPORT 06/26/23 0401 SQUAM EPI previously reported as: 0 SEEN /hpf Urine blood detectionOrdered By: Remus Ungjohnie on 06-26-2023 RBC Ql (U) 25 /ul Negative [facility] Urine clarityOrdered By: Rem us Ungjohnie on 06-26-2023 Clarity (U) Sl. Cloudy Clear [facility] Urine color determinationOrd ered By: Remus Ungjohnie on 06-26-2023 Color (U) Yellow Yellow [facility] Urine glucose detectionOrder ed By: Remus Ungjohnie on 06-26-2023 Glucose Ql (U) Normal mg/dl Normal [facility] Urine leukocyte esterase det ection by dipstickOrdered By: Remus Ungjohnie on 06-26-2023 Leukocyte esterase Test strip Ql (U) Negative Negative [facility] Urine pHOrdered By: Abdiaziz Un gur on 06-26-2023 pH (U) 5.0 [pH] 5.0 - 8.0 [facility] Urine sediment bacteria coun t by microscopy (number/high power field)Ordered By: Abdiaziz Soriano on 06-26-2023 Bacteria LM.HPF (Urine sed) [#/Area] 2 /[HPF] None Seen [facility] Comment on above: Previous reported re sult: 0 SEEN /hpfEdited by: LYNSEY on 06/26/23:2 AMENDED REPORT 06/26/23401 BACTERIA previously reported as: 0 SEEN /hpf Urine specific gravity measu rementOrdered By: Abdiaziz Soriano on 06-26-2023 Specific gravity (U) [Rel density] 1.025 1.002-1.030 [facility] Urine urobilinogen measureme ntOrdered By: Abdiaziz Soriano on 06-26-2023 Urobilinogen Ql (U) Normal mg/dl Normal [facility] Influenza virus A and B and SARS-CoV-2 (COVID-19) Ag panel - Upper respiratory specimOrdered By: Rupa Schultz on 03-10-2023 SARS-CoV-2 (COVID-19) RNA YOHAN+probe Ql (Resp) [facility] SARS-CoV-2 (COVID-19) RNA YOHAN+probe Ql (Resp) [facility] Throat Streptococcus pyogene s antigen detection by immunofluorescenceOrdered By: Rupa Schultz on 03-10-2023 S. pyogenes Ag IF Ql (Throat) [facility] Upper respiratory specimen i nfluenza A virus, influenza B virus, and severe acute resOrdered By: Rupa Schultz on 03-10-2023 Upper respiratory specimen influenza A virus, influenza B virus, and severe acute res [facility] Absolute lymphocyte countOrd ered By: Nicholas Lee on 02-16-2023 Lymphocytes Auto (Unsp spec) [#/Vol] 2.80 10*3/uL 0.83-4.51 [facility] Basophil percentageOrdered B y: Nicholas Lee on 02-16-2023 Basophil percentage 0-5 SEEN /hpf 0-5 [facility] Basophils/100 WBC (Bld) 0.3 % 0-[address] [facility] Bilirubin [Mass/Vol] 0.30 mg/dL 0.20-1.00 [facility] Comment on above: For patients on eltr ombopag therapy, use of Dimension Ulman TBIL is not recommended. Chloride [Moles/Vol] 107 mmol/L 98-107 [facility] Eosinophils/100 WBC (Bld) 1.9 % 0-5 [facility] Glucose [Mass/Vol] 97 mg/dL 74-106 [facility] Neutrophils (Bld) [#/Vol] 5.0 10*3/uL 2.0-7.7 [facility] Neutrophils/100 WBC (Bld) 55.9 % 47-70 [facility] Potassium [Moles/Vol] 3.8 mmol/L 3.5-5.1 [facility] Protein [Mass/Vol] 6.8 g/dL 6.4-8.2 [facility] Sodium [Moles/Vol] 139 mmol/L 136-145 [facility] WBC (Bld) [#/Vol] 8.9 10*3/uL 4.4-11.0 [facility] Bilirubin Test strip Ql (U)O rdered By: Nicholas Lee on 02-16-2023 Bilirubin Ql (U) Negative Negative [facility] Blood erythrocytes count (nu mber/volume)Ordered By: Nicholas Lee on 02-16-2023 RBC (Bld) [#/Vol] 4.00 10*6/uL 4.2-5.4 [facility] Blood hemoglobin measurement (mass/volume)Ordered By: Nicholas Lee on 02-16-2023 Hemoglobin (Bld) [Mass/Vol] 13.0 g/dL 12.0-15.0 [facility] Blood lymphocytes/100 leukoc ytesOrdered By: Nicholas Lee on 02-16-2023 Lymphocytes/100 WBC (Bld) 31.6 % 19-41 [facility] Blood monocytes/100 leukocyt esOrdered By: Nicholas Lee on 02-16-2023 Monocytes/100 WBC (Bld) 10.2 % 0-[address] [facility] Blood platelet mean volumeOr dered By: Nicholas Lee on 02-16-2023 Platelet mean volume (Bld) [Entitic vol] 10.8 fL 6.2-12.0 [facility] Determination of erythrocyte mean corpuscular volume (MCV)Ordered By: Nicholas Lee on 02-16-2023 MCV (RBC) [Entitic vol] 95.0 fL 81-99 [facility] Hematocrit Auto (Bld) [Volum e fraction]Ordered By: Nicholas Lee on 02-16-2023 Hematocrit (Bld) [Volume fraction] 38.0 % 37-47 [facility] Ketones Test strip Ql (U)Ord ered By: Nicholas Lee on 02-16-2023 Ketones Ql (U) 5 mg/dl Negative [facility] - Chemistry and C hemistry - challengeOrdered By: Nicholas Lee on 02-16-2023 ALP [Catalytic activity/Vol] 89 U/L 45-117 [facility] ALT [Catalytic activity/Vol] 74 U/L 13-56 [facility] CO2 [Moles/Vol] 26.0 mmol/L 21.0-32.0 [facility] Globulin (S) [Mass/Vol] 3.2 g/dL 2.2-4.2 [facility] Urea nitrogen/Creatinine [Mass ratio] 15.1 mg/mg 10-20 [facility] - Hematology and Cell countsOrdered By: Nicholas Lee on 02-16-2023 Erythrocyte distribution width (RBC) [Entitic vol] 41.2 fL 35.1-43.9 [facility] Erythrocyte distribution width (RBC) [Ratio] 11.9 % 11.6-14.6 [facility] Immature granulocytes/100 WBC (Bld) 0.100 % 0.0-0.9 [facility] Comment on above: IG% - Immature Granu locytes (promyelocytes, myelocytes and metamyelocytes) > 1% indicates that a LEFT SHIFT is Present. MCH (RBC) [Entitic mass] 32.5 pg 27.0-32.0 [facility] Nucleated RBC/100 WBC (Bld) [Ratio] 0 % 0-5 [facility] MCHC Auto (RBC) [Mass/Vol]Or dered By: Nicholas Lee on 02-16-2023 MCHC (RBC) [Mass/Vol] 34.2 g/dL 32-36 [facility] Mucus LM Ql (Urine sed)Order ed By: Nicholas Lee on 02-16-2023 Mucus Ql (Urine sed) 0 SEEN /hpf [facility] Nitrite Test strip Ql (U)Ord ered By: Nicholas Lee on 02-16-2023 Nitrite Ql (U) Negative Negative [facility] No Panel InformationOrdered By: Nicholas Lee on 02-16-2023 Estimated Creatinine Clearance Calc 111.38 ml/min [facility] Estimated GFR (MDRD) Amer 120 mL/min >60 [facility] Comment on above: GFR Calc Estimated GFR (MDRD) Non-Af Amer 99 mL/min >60 [facility] Comment on above: Non- GFR Calc Platelets bldOrdered By: Jose Antonio Lee on 02-16-2023 Platelets (Bld) [#/Vol] 211 10*3/uL 150-450 [facility] Protein Test strip Ql (U)Ord ered By: Nicholas Lee on 02-16-2023 Protein Ql (U) 30 mg/dl Negative [facility] Serum or plasma albumin dianna urement (mass/volume)Ordered By: Nicholas Lee on 02-16-2023 Albumin [Mass/Vol] 3.6 g/dL 3.2-5.0 [facility] Serum or plasma albumin/glob ulin mass ratioOrdered By: Nicholas Lee on 02-16-2023 Albumin/Globulin [Mass ratio] 1.1 {ratio} 0.9-2.4 [facility] Serum or plasma calcium dianna urement (mass/volume)Ordered By: Nicholas Lee on 02-16-2023 Calcium [Mass/Vol] 9.3 mg/dL 8.5-10.1 [facility] Serum or plasma creatinine m easurement (mass/volume)Ordered By: Nicholas Lee on 02-16-2023 Creatinine [Mass/Vol] 0.79 mg/dL 0.55-1.02 [facility] Comment on above: The validity of the calculated GFR & GFRAA in patients over 70 years has not been determined. Clinical correlation is essential. Serum or plasma urea nitroge n measurement (mass/volume)Ordered By: Nicholas Lee on 02-16-2023 Urea nitrogen [Mass/Vol] 12 mg/dL 7-18 [facility] Squamous epithelial cells de tection in urine sediment by light microscopyOrdered By: Nicholas Lee on 02-16-2023 Epithelial cells.squamous LM Ql (Urine sed) 0-5 SEEN /hpf 5-10 [facility] Thin prep Papanicolaou smear with manual screeningOrdered By: Nicholas Lee on 02-16-2023 Thin prep Papanicolaou smear with manual screening 47 U/L 15-37 [facility] Thin prep Papanicolaou smear with manual screening 6 5-15 [facility] Urine blood detectionOrdered By: Nicholas Lee on 02-16-2023 RBC Ql (U) 10 /ul Negative [facility] RBC Ql (U) 0-5 SEEN /hpf 0-5 [facility] Urine clarityOrdered By: Jose Antonio Lee on 02-16-2023 Clarity (U) Clear Clear [facility] Urine color determinationOrd ered By: Nicholas Lee on 02-16-2023 Color (U) Yellow Yellow [facility] Urine glucose detectionOrder ed By: Nicholas Lee on 02-16-2023 Glucose Ql (U) Normal mg/dl Normal [facility] Urine leukocyte esterase det ection by dipstickOrdered By: Nicholas Lee on 02-16-2023 Leukocyte esterase Test strip Ql (U) 25 /ul Negative [facility] Urine pHOrdered By: Nicholas tucker on 02-16-2023 pH (U) 6.0 [pH] 5.0 - 8.0 [facility] Urine sediment bacteria coun t by microscopy (number/high power field)Ordered By: Nicholas Lee on 02-16-2023 Bacteria LM.HPF (Urine sed) [#/Area] RARE /hpf None Seen [facility] Urine specific gravity measu rementOrdered By: Nicholas Lee on 02-16-2023 Specific gravity (U) [Rel density] 1.020 1.002-1.030 [facility] Urobilinogen Auto test strip Ql (U)Ordered By: Nicholas Lee on 02-16-2023 Urobilinogen Ql (U) Normal mg/dl Normal [facility] Basophil percentageOrdered B y: Meagan Arana on 01-13-2023 WBC (Bld) [#/Vol] 17.1 10*3/uL 4.4-11.0 [facility] Blood erythrocytes count (nu mber/volume)Ordered By: Meagan Arana on 01-13-2023 RBC (Bld) [#/Vol] 3.19 10*6/uL 4.2-5.4 [facility] Blood hemoglobin measurement (mass/volume)Ordered By: Meagan Arana on 01-13-2023 Hemoglobin (Bld) [Mass/Vol] 10.5 g/dL 12.0-15.0 [facility] Blood platelet mean volumeOr dered By: Meagan Arana on 01-13-2023 Platelet mean volume (Bld) [Entitic vol] 11.4 fL 6.2-12.0 [facility] Determination of erythrocyte mean corpuscular volume (MCV)Ordered By: Meagan Arana on 01-13-2023 MCV (RBC) [Entitic vol] 96.9 fL 81-[address] [facility] Hematocrit Auto (Bld) [Volum e fraction]Ordered By: Meagan Arana on 01-13-2023 Hematocrit (Bld) [Volume fraction] 30.9 % 37-47 [facility] - Hematology and Cell countsOrdered By: Meagan Arana on 01-13-2023 Erythrocyte distribution width (RBC) [Entitic vol] 45.3 fL 35.1-43.9 [facility] Erythrocyte distribution width (RBC) [Ratio] 12.8 % 11.6-14.6 [facility] MCH (RBC) [Entitic mass] 32.9 pg 27.0-32.0 [facility] MCHC Auto (RBC) [Mass/Vol]Or dered By: Meagan Arana on 01-13-2023 MCHC (RBC) [Mass/Vol] 34.0 g/dL 32-36 [facility] Platelets bldOrdered By: Joana Arana on 01-13-2023 Platelets (Bld) [#/Vol] 166 10*3/uL 150-450 [facility] - Chemistry and C hemistry - challengeOrdered By: Lila Solitario on 01-11-2023 ALT [Catalytic activity/Vol] 17 U/L 13-56 [facility] No Panel InformationOrdered By: Lila March on 01-11-2023 Estimated Creatinine Clearance Calc 129.40 ml/min [facility] [facility] Estimated GFR (MDRD) Amer 144 mL/min >60 [facility] Comment on above: GFR Calc Estimated GFR (MDRD) Non-Af Amer 119 mL/min >60 [facility] Comment on above: Non- GFR Calc Vaginal Amniotic Fluid Detection Negative Negative [facility] Comment on above: Amniotic fluid not p resent indicates No Rupture of FetalMembranes at time of specimen collection. Serum Treponema species anti body detectionOrdered By: Lila March on 01-11-2023 Treponema sp Ab Ql (S) Non-Reactive [facility] Serum or plasma creatinine m easurement (mass/volume)Ordered By: Lila March on 01-11-2023 Creatinine [Mass/Vol] 0.68 mg/dL 0.55-1.02 [facility] Comment on above: The validity of the calculated GFR & GFRAA in patients over 70 years has not been determined. Clinical correlation is essential. Serum or plasma uric acid me asurement (mass/volume)Ordered By: Lila March on 01-11-2023 Urate [Mass/Vol] 4.4 mg/dL 2.6-6.0 [facility] Comment on above: The drugs N-Acetylcy steine and Metamizole may falsely depress this assay. Thin prep Papanicolaou smear with manual screeningOrdered By: Lila March on 01-11-2023 Thin prep Papanicolaou smear with manual screening 21 U/L 15-37 [facility] Urine creatinine measurement (mass/volume)Ordered By: Lila March on 01-11-2023 Creatinine (U) [Mass/Vol] 79.30 mg/dL NO RANGE EST. [facility] Urine protein measurement (m ass/volume)Ordered By: Lila March on 01-11-2023 Protein (U) [Mass/Vol] 16.9 mg/dL 0.0-11.8 [facility] Urine protein/creatinine mas s ratioOrdered By: Lila March on 01-11-2023 Protein/Creatinine (U) [Mass ratio] 213 mg/g CRE 0-200 [facility] URINE OB DIP B/Oon 3 Glucose Ql (U) Negative Neg mg/dL [facility] Protein.monoclonal (U) [Mass/Vol] Negative Neg mg/dL [facility] URINE OB DIP B/Oon 3 Glucose Ql (U) Negative Neg mg/dL [facility] Protein.monoclonal (U) [Mass/Vol] Negative Neg mg/dL [facility] URINE OB DIP B/Oon 3 Glucose Ql (U) Negative Neg mg/dL [facility] Protein.monoclonal (U) [Mass/Vol] Negative Neg mg/dL [facility] URINE OB DIP B/Oon 3 Glucose Ql (U) Negative Neg mg/dL [facility] Protein.monoclonal (U) [Mass/Vol] Negative Neg mg/dL [facility] URINE OB DIP B/Oon 3 Glucose Ql (U) Negative Neg mg/dL [facility] Protein.monoclonal (U) [Mass/Vol] trace Neg mg/dL [facility] Culture, urineOrdered By: Kade Ceja on 10-12-2022 Bacteria identified Cx Nom (U) Positive [facility] Basophil percentageOrdered B y: Chichi Ceja on 10-11-2022 Bilirubin [Mass/Vol] 0.20 mg/dL 0.20-1.00 [facility] Comment on above: For patients on eltr ombopag therapy, use of Dimension Ulman TBIL is not recommended. Chloride [Moles/Vol] 105 mmol/L 98-107 [facility] Glucose [Mass/Vol] 97 mg/dL 74-106 [facility] Potassium [Moles/Vol] 3.7 mmol/L 3.5-5.1 [facility] Protein [Mass/Vol] 6.2 g/dL 6.4-8.2 [facility] Sodium [Moles/Vol] 138 mmol/L 136-145 [facility] WBC (Bld) [#/Vol] 12.1 10*3/uL 4.5-13.0 [facility] Basophil percentage 0-5 SEEN /hpf 0-5 [facility] Bilirubin Test strip Ql (U)O rdered By: Chichi Ceja on 10-11-2022 Bilirubin Ql (U) Negative Negative [facility] Blood erythrocytes count (nu mber/volume)Ordered By: Chichi Ceja on 10-11-2022 RBC (Bld) [#/Vol] 3.39 10*6/uL 4.1-4.8 [facility] Blood hemoglobin measurement (mass/volume)Ordered By: Chichi Ceja on 10-11-2022 Hemoglobin (Bld) [Mass/Vol] 11.5 g/dL 12.0-15.0 [facility] Blood platelet mean volumeOr dered By: Chichi Ceja on 10-11-2022 Platelet mean volume (Bld) [Entitic vol] 11.0 fL 6.2-12.0 [facility] Culture, urineOrdered By: Kade Ceja on 10-11-2022 Bacteria identified Cx Nom (U) Positive [facility] Determination of erythrocyte mean corpuscular volume (MCV)Ordered By: Chichi Ceja on 10-11-2022 MCV (RBC) [Entitic vol] 95.3 fL 78-96 [facility] Hematocrit Auto (Bld) [Volum e fraction]Ordered By: Chichi Ceja on 10-11-2022 Hematocrit (Bld) [Volume fraction] 32.3 % 37-46 [facility] Ketones Test strip Ql (U)Ord ered By: Chichi Ceja on 10-11-2022 Ketones Ql (U) Negative Negative [facility] Laboratory - Chemistry and C hemistry - challengeOrdered By: Chichi Ceja on 10-11-2022 ALP [Catalytic activity/Vol] 66 U/L 47-119 [facility] ALT [Catalytic activity/Vol] 20 U/L 13-56 [facility] CO2 [Moles/Vol] 24.0 mmol/L 21.0-32.0 [facility] Globulin (S) [Mass/Vol] 3.3 g/dL 2.2-4.2 [facility] Urea nitrogen/Creatinine [Mass ratio] 15.7 mg/mg 10-20 [facility] Laboratory - Hematology and Cell countsOrdered By: Chichi Ceja on 10-11-2022 Erythrocyte distribution width (RBC) [Entitic vol] 46.2 fL 35.1-43.9 [facility] Erythrocyte distribution width (RBC) [Ratio] 13.2 % 11.6-14.6 [facility] MCH (RBC) [Entitic mass] 33.9 pg 25.0-35.0 [facility] MCHC Auto (RBC) [Mass/Vol]Or dered By: Chichi Ceja on 10-11-2022 MCHC (RBC) [Mass/Vol] 35.6 g/dL 32-36 [facility] Mucus LM Ql (Urine sed)Order ed By: Chichi Ceja on 10-11-2022 Mucus Ql (Urine sed) 0 SEEN /hpf [facility] Nitrite Test strip Ql (U)Ord ered By: Chichi Ceja on 10-11-2022 Nitrite Ql (U) Negative Negative [facility] No Panel InformationOrdered By: Chichi Ceja on 10-11-2022 Estimated Creatinine Clearance Calc 133.45 ml/min [facility] Estimated GFR (MDRD) Amer 155 mL/min >60 [facility] Comment on above: GFR Calc Estimated GFR (MDRD) Non-Af Amer 128 mL/min >60 [facility] Comment on above: Non- GFR Calc Platelets bldOrdered By: Neva Ceja on 10-11-2022 Platelets (Bld) [#/Vol] 191 10*3/uL 150-450 [facility] Protein Test strip Ql (U)Ord ered By: Chichi Ceja on 10-11-2022 Protein Ql (U) 15 mg/dl Negative [facility] Serum or plasma albumin dianna urement (mass/volume)Ordered By: Chichi Ceja on 10-11-2022 Albumin [Mass/Vol] 2.9 g/dL 3.2-5.0 [facility] Serum or plasma albumin/glob ulin mass ratioOrdered By: Chichi Ceja on 10-11-2022 Albumin/Globulin [Mass ratio] 0.9 {ratio} 0.9-2.4 [facility] Serum or plasma calcium dianna urement (mass/volume)Ordered By: Chichi Ceja on 10-11-2022 Calcium [Mass/Vol] 9.3 mg/dL 8.5-10.1 [facility] Serum or plasma creatinine m easurement (mass/volume)Ordered By: Chichi Ceja on 10-11-2022 Creatinine [Mass/Vol] 0.64 mg/dL 0.55-1.02 [facility] Comment on above: The validity of the calculated GFR & GFRAA in patients over 70 years has not been determined. Clinical correlation is essential. Serum or plasma urea nitroge n measurement (mass/volume)Ordered By: Chichi Ceja on 10-11-2022 Urea nitrogen [Mass/Vol] 10 mg/dL 7-18 [facility] Squamous epithelial cells de tection in urine sediment by light microscopyOrdered By: Chichi Ceja on 10-11-2022 Epithelial cells.squamous LM Ql (Urine sed) 5-10 SEEN /hpf 5-10 [facility] Thin prep Papanicolaou smear with manual screeningOrdered By: Chichi Ceja on 10-11-2022 Thin prep Papanicolaou smear with manual screening 19 U/L 15-37 [facility] Thin prep Papanicolaou smear with manual screening 9 5-15 [facility] Urine blood detectionOrdered By: Chichi Ceja on 10-11-2022 RBC Ql (U) 10 /ul Negative [facility] RBC Ql (U) 0 SEEN /hpf 0-5 [facility] Urine clarityOrdered By: Neva Ceja on 10-11-2022 Clarity (U) Sl. Cloudy Clear [facility] Urine color determinationOrd ered By: Chichi Ceja on 10-11-2022 Color (U) Yellow Yellow [facility] Urine glucose detectionOrder ed By: Chichi Ceja on 10-11-2022 Glucose Ql (U) Normal mg/dl Normal [facility] Urine leukocyte esterase det ection by dipstickOrdered By: Chichi Ceja on 10-11-2022 Leukocyte esterase Test strip Ql (U) 100 /ul Negative [facility] Urine pHOrdered By: Chichi Ceja on 10-11-2022 pH (U) 6.5 [pH] 5.0 - 8.0 [facility] Urine sediment bacteria coun t by microscopy (number/high power field)Ordered By: Chichi Ceja on 10-11-2022 Bacteria LM.HPF (Urine sed) [#/Area] 2 /[HPF] None Seen [facility] Urine specific gravity measu rementOrdered By: Chichi Ceja on 10-11-2022 Specific gravity (U) [Rel density] 1.015 1.002-1.030 [facility] Urobilinogen Auto test strip Ql (U)Ordered By: Chichi Ceja on 10-11-2022 Urobilinogen Ql (U) Normal mg/dl Normal [facility] Absolute lymphocyte countOrd ered By: Dr. Ackerman on 09-28-2022 Lymphocytes Auto (Unsp spec) [#/Vol] 1.44 10*3/uL 0.83-4.51 [facility] Basophil percentageOrdered B y: Dr. Ackerman on 09-28-2022 Basophils/100 WBC (Bld) 0.2 % 0-[address] [facility] Chloride [Moles/Vol] 106 mmol/L 98-107 [facility] Eosinophils/100 WBC (Bld) 1.2 % 0-3 [facility] Glucose [Mass/Vol] 85 mg/dL 74-106 [facility] Neutrophils (Bld) [#/Vol] 8.1 10*3/uL 2.0-7.7 [facility] Neutrophils/100 WBC (Bld) 77.4 % 34-64 [facility] Potassium [Moles/Vol] 4.1 mmol/L 3.5-5.1 [facility] Sodium [Moles/Vol] 138 mmol/L 136-145 [facility] WBC (Bld) [#/Vol] 10.4 10*3/uL 4.5-13.0 [facility] Blood erythrocytes count (nu mber/volume)Ordered By: Dr. Ackerman on 09-28-2022 RBC (Bld) [#/Vol] 3.17 10*6/uL 4.1-4.8 [facility] Blood hemoglobin measurement (mass/volume)Ordered By: Dr. Ackerman on 09-28-2022 Hemoglobin (Bld) [Mass/Vol] 10.4 g/dL 12.0-15.0 [facility] Blood lymphocytes/100 leukoc ytesOrdered By: Dr. Ackerman on 09-28-2022 Lymphocytes/100 WBC (Bld) 13.8 % 25-45 [facility] Blood monocytes/100 leukocyt esOrdered By: Dr. Ackerman on 09-28-2022 Monocytes/100 WBC (Bld) 7.1 % 3-6 [facility] Blood platelet mean volumeOr dered By: Dr. Ackerman on 09-28-2022 Platelet mean volume (Bld) [Entitic vol] 11.1 fL 6.2-12.0 [facility] Determination of erythrocyte mean corpuscular volume (MCV)Ordered By: Dr. Ackerman on 09-28-2022 MCV (RBC) [Entitic vol] 96.2 fL 78-96 [facility] Hematocrit Auto (Bld) [Volum e fraction]Ordered By: Dr. Ackerman on 09-28-2022 Hematocrit (Bld) [Volume fraction] 30.5 % 37-46 [facility] Laboratory - Chemistry and C hemistry - challengeOrdered By: Dr. Ackerman on 09-28-2022 CO2 [Moles/Vol] 25.0 mmol/L 21.0-32.0 [facility] Urea nitrogen/Creatinine [Mass ratio] 18.1 mg/mg 10-20 [facility] - Hematology and Cell countsOrdered By: Dr. Ackemran on 09-28-2022 Erythrocyte distribution width (RBC) [Entitic vol] 47.1 fL 35.1-43.9 [facility] Erythrocyte distribution width (RBC) [Ratio] 13.2 % 11.6-14.6 [facility] Immature granulocytes/100 WBC (Bld) 0.300 % 0.0-0.9 [facility] Comment on above: IG% - Immature Granu locytes (promyelocytes, myelocytes and metamyelocytes) > 1% indicates that a LEFT SHIFT is Present. MCH (RBC) [Entitic mass] 32.8 pg 25.0-35.0 [facility] Nucleated RBC/100 WBC (Bld) [Ratio] 0 % 0-5 [facility] Auto (RBC) [Mass/Vol]Or dered By: Dr. Ackerman on 09-28-2022 MCHC (RBC) [Mass/Vol] 34.1 g/dL 32-36 [facility] No Panel InformationOrdered By: Dr. Ackerman on 09-28-2022 D-Dimer Quantitative (PE/DVT) 0.73 FEU/ug/m 0.27-0.49 [facility] Comment on above: D-Dimer ELEVATED (>0 .49): Additional studies and clinicalassessments are indicated to conclude diagnosis of:Deep Vein Thrombosis (DVT) or Pulmonary Embolism (PE)RESULTS CALLED TO JANIYA CHAN RN 09/28/22 2555 Radha Oneill.REPORT READ BACK BY SAME Estimated Creatinine Clearance Calc 155.29 ml/min [facility] Estimated GFR (MDRD) Amer 182 mL/min >60 [facility] Comment on above: GFR Calc Estimated GFR (MDRD) Non-Af Amer 151 mL/min >60 [facility] Comment on above: Non- GFR Calc Troponin I High Sensitivity < 3 pg/mL 3.0-54.0 [facility] Comment on above: Please Note: New Agueda t Units and Gender Specific Reference Ranges. For more information see Policy Stat Procedure Ulman High Sensitivity Troponin (TNIH) and attachments. Platelets bldOrdered By: Dr. Ackerman on 09-28-2022 Platelets (Bld) [#/Vol] 166 10*3/uL 150-450 [facility] Serum or plasma calcium dianna urement (mass/volume)Ordered By: Dr. Ackerman on 09-28-2022 Calcium [Mass/Vol] 9.1 mg/dL 8.5-10.1 [facility] Serum or plasma creatinine m easurement (mass/volume)Ordered By: Dr. Ackerman on 09-28-2022 Creatinine [Mass/Vol] 0.55 mg/dL 0.55-1.02 [facility] Comment on above: The validity of the calculated GFR & GFRAA in patients over 70 years has not been determined. Clinical correlation is essential. Serum or plasma urea nitroge n measurement (mass/volume)Ordered By: Dr. Ackerman on 09-28-2022 Urea nitrogen [Mass/Vol] 10 mg/dL 7-18 [facility] Thin prep Papanicolaou smear with manual screeningOrdered By: Dr. Ackerman on 09-28-2022 Thin prep Papanicolaou smear with manual screening 7 5-15 [facility] Culture, urineOrdered By: Kade Ceja on 09-07-2022 Bacteria identified Cx Nom (U) Positive [facility] Bilirubin Test strip Ql (U)O rdered By: Chichi Ceja on 09-05-2022 Bilirubin Ql (U) Negative Negative [facility] Ketones Test strip Ql (U)Ord ered By: Chichi Ceja on 09-05-2022 Ketones Ql (U) 5 mg/dl Negative [facility] Nitrite Test strip Ql (U)Ord ered By: Chichi Ceja on 09-05-2022 Nitrite Ql (U) Negative Negative [facility] Protein Test strip Ql (U)Ord ered By: Chichi Ceja on 09-05-2022 Protein Ql (U) 15 mg/dl Negative [facility] Urine blood detectionOrdered By: Chichi Ceja on 09-05-2022 RBC Ql (U) 25 /ul Negative [facility] Urine clarityOrdered By: Neva Ceja on 09-05-2022 Clarity (U) Clear Clear [facility] Urine color determinationOrd ered By: Chichi Ceja on 09-05-2022 Color (U) Yellow Yellow [facility] Urine glucose detectionOrder ed By: Chichi Ceja on 09-05-2022 Glucose Ql (U) Normal mg/dl Normal [facility] Urine leukocyte esterase det ection by dipstickOrdered By: Chichi Ceja on 09-05-2022 Leukocyte esterase Test strip Ql (U) Negative Negative [facility] Urine pHOrdered By: Chichi Ceja on 09-05-2022 pH (U) 6.0 [pH] 5.0 - 8.0 [facility] Urine specific gravity measu rementOrdered By: Chichi Ceja on 09-05-2022 Specific gravity (U) [Rel density] 1.025 1.002-1.030 [facility] Urobilinogen Auto test strip Ql (U)Ordered By: Chichi Ceja on 09-05-2022 Urobilinogen Ql (U) Normal mg/dl Normal [facility] OBSTETRIC ULTRASOUND WHIon 0 09-04-2022 [facility] URINE OB DIP B/Oon 3 Glucose Ql (U) Negative Neg mg/dL [facility] Protein.monoclonal (U) [Mass/Vol] Negative Neg mg/dL [facility] URINE OB DIP B/Oon 3 Glucose Ql (U) Negative Neg mg/dL [facility] Protein.monoclonal (U) [Mass/Vol] Negative Neg mg/dL [facility] NUCHAL TRANSLUCENCY WHIon [facility] Absolute lymphocyte countOrd ered By: Dr. Covington on 05-22-2022 Lymphocytes Auto (Unsp spec) [#/Vol] 2.36 10*3/uL 0.83-4.51 [facility] Basophil percentageOrdered B y: Dr. Covington on 05-22-2022 Basophil percentage 0-5 SEEN /hpf 0-5 [facility] Basophils/100 WBC (Bld) 0.4 % 0-[address] [facility] Bilirubin [Mass/Vol] 0.20 mg/dL 0.20-1.00 [facility] Comment on above: For patients on eltr ombopag therapy, use of Dimension Ulman TBIL is not recommended. Chloride [Moles/Vol] 107 mmol/L 98-107 [facility] Eosinophils/100 WBC (Bld) 1.2 % 0-3 [facility] Glucose [Mass/Vol] 99 mg/dL 74-106 [facility] Neutrophils (Bld) [#/Vol] 5.1 10*3/uL 2.0-7.7 [facility] Neutrophils/100 WBC (Bld) 62.1 % 34-64 [facility] Potassium [Moles/Vol] 3.9 mmol/L 3.5-5.1 [facility] Protein [Mass/Vol] 6.6 g/dL 6.4-8.2 [facility] Sodium [Moles/Vol] 138 mmol/L 136-145 [facility] WBC (Bld) [#/Vol] 8.2 10*3/uL 4.5-13.0 [facility] Bilirubin Test strip Ql (U)O rdered By: Dr. Covington on 05-22-2022 Bilirubin Ql (U) Negative Negative [facility] Blood erythrocytes count (nu mber/volume)Ordered By: Dr. Covington on 05-22-2022 RBC (Bld) [#/Vol] 4.02 10*6/uL 4.1-4.8 [facility] Blood hemoglobin measurement (mass/volume)Ordered By: Dr. Covington on 05-22-2022 Hemoglobin (Bld) [Mass/Vol] 12.4 g/dL 12.0-15.0 [facility] Blood lymphocytes/100 leukoc ytesOrdered By: Dr. Covington on 05-22-2022 Lymphocytes/100 WBC (Bld) 28.9 % 25-45 [facility] Blood monocytes/100 leukocyt esOrdered By: Dr. Covington on 05-22-2022 Monocytes/100 WBC (Bld) 7.2 % 3-6 [facility] Blood platelet mean volumeOr dered By: Dr. Covington on 05-22-2022 Platelet mean volume (Bld) [Entitic vol] 11.6 fL 6.2-12.0 [facility] Determination of erythrocyte mean corpuscular volume (MCV)Ordered By: Dr. Covington on 05-22-2022 MCV (RBC) [Entitic vol] 91.8 fL 78-96 [facility] Hematocrit Auto (Bld) [Volum e fraction]Ordered By: Dr. Covington on 05-22-2022 Hematocrit (Bld) [Volume fraction] 36.9 % 37-46 [facility] Ketones Test strip Ql (U)Ord ered By: Dr. Covington on 05-22-2022 Ketones Ql (U) Negative Negative [facility] Laboratory - Chemistry and C hemistry - challengeOrdered By: Dr. Covington on 05-22-2022 ALP [Catalytic activity/Vol] 56 U/L 47-119 [facility] ALT [Catalytic activity/Vol] 25 U/L 13-56 [facility] CO2 [Moles/Vol] 27.0 mmol/L 21.0-32.0 [facility] Globulin (S) [Mass/Vol] 2.9 g/dL 2.2-4.2 [facility] Urea nitrogen/Creatinine [Mass ratio] 9.6 mg/mg 10-20 [facility] - Hematology and Cell countsOrdered By: Dr. Covington on 05-22-2022 Erythrocyte distribution width (RBC) [Entitic vol] 42.0 fL 35.1-43.9 [facility] Erythrocyte distribution width (RBC) [Ratio] 12.6 % 11.6-14.6 [facility] Immature granulocytes/100 WBC (Bld) 0.200 % 0.0-0.9 [facility] Comment on above: IG% - Immature Granu locytes (promyelocytes, myelocytes and metamyelocytes) > 1% indicates that a LEFT SHIFT is Present. MCH (RBC) [Entitic mass] 30.8 pg 25.0-35.0 [facility] Nucleated RBC/100 WBC (Bld) [Ratio] 0 % 0-5 [facility] MCHC Auto (RBC) [Mass/Vol]Or dered By: Dr. Covington on 05-22-2022 MCHC (RBC) [Mass/Vol] 33.6 g/dL 32-36 [facility] Mucus LM Ql (Urine sed)Order ed By: Dr. Covington on 05-22-2022 Mucus Ql (Urine sed) 0 SEEN /hpf [facility] Nitrite Test strip Ql (U)Ord ered By: Dr. Covington on 05-22-2022 Nitrite Ql (U) Positive Negative [facility] No Panel InformationOrdered By: Dr. Covington on 05-22-2022 Estimated Creatinine Clearance Calc 70.98 ml/min [facility] Estimated GFR (MDRD) Amer 72 mL/min >60 [facility] Comment on above: GFR Calc Estimated GFR (MDRD) Non-Af Amer 59 mL/min >60 [facility] Comment on above: Non- GFR Calc Platelets bldOrdered By: Dr. Covington on 05-22-2022 Platelets (Bld) [#/Vol] 253 10*3/uL 150-450 [facility] Protein Test strip Ql (U)Ord ered By: Dr. Covington on 05-22-2022 Protein Ql (U) Negative Negative [facility] Serum or plasma albumin dianna urement (mass/volume)Ordered By: Dr. Covington on 05-22-2022 Albumin [Mass/Vol] 3.7 g/dL 3.2-5.0 [facility] Serum or plasma albumin/glob ulin mass ratioOrdered By: Dr. Covington on 05-22-2022 Albumin/Globulin [Mass ratio] 1.3 {ratio} 0.9-2.4 [facility] Serum or plasma calcium dianna urement (mass/volume)Ordered By: Dr. Covington on 05-22-2022 Calcium [Mass/Vol] 9.0 mg/dL 8.5-10.1 [facility] Serum or plasma creatinine m easurement (mass/volume)Ordered By: Dr. Covington on 05-22-2022 Creatinine [Mass/Vol] 1.25 mg/dL 0.55-1.02 [facility] Comment on above: The validity of the calculated GFR & GFRAA in patients over 70 years has not been determined. Clinical correlation is essential. Serum or plasma urea nitroge n measurement (mass/volume)Ordered By: Dr. Covington on 05-22-2022 Urea nitrogen [Mass/Vol] 12 mg/dL 7-18 [facility] Squamous epithelial cells de tection in urine sediment by light microscopyOrdered By: Dr. Covington on 05-22-2022 Epithelial cells.squamous LM Ql (Urine sed) 5-10 SEEN /hpf 5-10 [facility] Thin prep Papanicolaou smear with manual screeningOrdered By: Dr. Covington on 05-22-2022 Thin prep Papanicolaou smear with manual screening 19 U/L 15-37 [facility] Thin prep Papanicolaou smear with manual screening 4 5-15 [facility] Urine blood detectionOrdered By: Dr. Covington on 05-22-2022 RBC Ql (U) Negative Negative [facility] RBC Ql (U) 0 SEEN /hpf 0-5 [facility] Urine clarityOrdered By: Dr. Covington on 05-22-2022 Clarity (U) Sl. Cloudy Clear [facility] Urine color determinationOrd ered By: Dr. Covington on 05-22-2022 Color (U) Yellow Yellow [facility] Urine glucose detectionOrder ed By: Dr. Covington on 05-22-2022 Glucose Ql (U) Normal mg/dl Normal [facility] Urine leukocyte esterase det ection by dipstickOrdered By: Dr. Covington on 05-22-2022 Leukocyte esterase Test strip Ql (U) 25 /ul Negative [facility] Urine pHOrdered By: Dr. Pramod staples on 05-22-2022 pH (U) 8.0 [pH] 5.0 - 8.0 [facility] Urine sediment bacteria coun t by microscopy (number/high power field)Ordered By: Dr. Covington on 05-22-2022 Bacteria LM.HPF (Urine sed) [#/Area] 1 /[HPF] None Seen [facility] Urine specific gravity measu rementOrdered By: Dr. Covington on 05-22-2022 Specific gravity (U) [Rel density] 1.015 1.002-1.030 [facility] Urobilinogen Auto test strip Ql (U)Ordered By: Dr. Covington on 05-22-2022 Urobilinogen Ql (U) Normal mg/dl Normal [facility] No Panel Informationon 05-15 IMPRESSION: Changes at the left lateral ankle suggestive of acute on chronic injury with no acute fracture. [employer] Transcribe Date/Time: May 15 2022 2:04P Dictated by : FIONA VILLAVICENCIO MD This examination was interpreted and the report reviewed and electronically signed by: FIONA VILLAVICENCIO MD on May 15 2022 2:10PM [facility] DIVISION OF RADIOLOGY Radiology Study observation (narrative) [facility] No Panel InformationOrdered By: [facility] Provider on 05-15-2022 [facility] XR Ankle - left AP and Later al and obliqueon 05-15-2022 * * *Final Report* * * DATE OF EXAM: May 15 2022 2:00PM WOX [id number] - XR ANKLE 3V AP/LAT/OBL LT / PROCEDURE REASON: Acute left ankle pain * * * * Physician Interpretation * [...] There is left lateral soft tissue swelling. DIVISION OF RADIOLOGY Provider, Barbara Lozano [facility] - 05/15/2022 * * *Final Report* * * DATE OF EXAM: May 15 2022 2:00PM WOX 5298 - XR ANKLE 3V AP/LAT/OBL LT / PROCEDURE REASON: Acute left ankle pain * * * * Physician Interpretation * [...] on chronic injury with no acute fracture. [employer]: [facility] Transcribe Date/Time: May 15 2022 2:04P Dictated by : FIONA VILLAVICENCIO MD This examination was interpreted and the report reviewed and electronically signed by: FIONA VILLAVICENCIO MD on May 15 2022 2:10PM [facility] XR Foot - left AP and Latera l and obliqueon 05-15-2022 * * *Final Report* * * DATE OF EXAM: May 15 2022 2:00PM WOX 5336 - XR FOOT 3V AP/LAT/OBL LT / PROCEDURE REASON: Acute left ankle pain * * * * Physician Interpretation * [...] There is left lateral soft tissue swelling. DIVISION OF RADIOLOGY Provider, Cc Marta [facility] - 05/15/2022 * * *Final Report* * * DATE OF EXAM: May 15 2022 2:00PM WOX 5336 - XR FOOT 3V AP/LAT/OBL LT / PROCEDURE REASON: Acute left ankle pain * * * * Physician Interpretation * [...] on chronic injury with no acute fracture. [employer] Transcribe Date/Time: May 15 2022 2:04P Dictated by : FIONA VILLAVICENCIO MD This examination was interpreted and the report reviewed and electronically signed by: FIONA VILLAVICENCIO MD on May 15 2022 2:10PM EST [facility] STREP A MOLECULAR (POC)on Procedural Control Valid [facility] Strep A (POCT) Negative Negative [facility] Basophil percentageOrdered B y: Dr. Ackerman on 03-20-2022 Basophil percentage 0-5 SEEN /hpf 0-5 [facility] Bilirubin Test strip Ql (U)O rdered By: Dr. Ackerman on 03-20-2022 Bilirubin Ql (U) Negative Negative [facility] Ketones Test strip Ql (U)Ord ered By: Dr. Ackerman on 03-20-2022 Ketones Ql (U) 5 mg/dl Negative [facility] Laboratory - Chemistry and C hemistry - challengeOrdered By: Dr. Ackerman on 03-20-2022 HCG ( test) Ql (U) Negative [facility] Comment on above: Very dilute urine sp ecimens, as indicated by a low specificgravity, may not contain healthcare sales representative levels of hCG. If is still suspected, a first morning urinespecimen should be collected 48 hours later and tested. Mucus LM Ql (Urine sed)Order ed By: Dr. Ackerman on 03-20-2022 Mucus Ql (Urine sed) 0 SEEN /hpf [facility] Nitrite Test strip Ql (U)Ord ered By: Dr. Ackerman on 03-20-2022 Nitrite Ql (U) Negative Negative [facility] Protein Test strip Ql (U)Ord ered By: Dr. Ackerman on 03-20-2022 Protein Ql (U) 100 mg/dl Negative [facility] Squamous epithelial cells de tection in urine sediment by light microscopyOrdered By: Dr. Ackerman on 03-20-2022 Epithelial cells.squamous LM Ql (Urine sed) 0-5 SEEN /hpf 5-10 [facility] Urine blood detectionOrdered By: Dr. Ackerman on 03-20-2022 RBC Ql (U) 250 /ul Negative [facility] RBC Ql (U) 50-100 SEEN /hpf 0-5 [facility] Urine clarityOrdered By: Dr. Ackerman on 03-20-2022 Clarity (U) Sl. Cloudy Clear [facility] Urine color determinationOrd ered By: Dr. Ackerman on 03-20-2022 Color (U) Yellow Yellow [facility] Urine glucose detectionOrder ed By: Dr. Ackerman on 03-20-2022 Glucose Ql (U) Normal mg/dl Normal [facility] Urine leukocyte esterase det ection by dipstickOrdered By: Dr. Ackerman on 03-20-2022 Leukocyte esterase Test strip Ql (U) 25 /ul Negative [facility] Urine pHOrdered By: Dr. Renu thomson on 03-20-2022 pH (U) 5.0 [pH] 5.0 - 8.0 [facility] Urine sediment bacteria coun t by microscopy (number/high power field)Ordered By: Dr. Ackerman on 03-20-2022 Bacteria LM.HPF (Urine sed) [#/Area] 1 /[HPF] None Seen [facility] Urine specific gravity measu rementOrdered By: Dr. Ackerman on 03-20-2022 Specific gravity (U) [Rel density] 1.025 1.002-1.030 [facility] Urobilinogen Auto test strip Ql (U)Ordered By: Dr. Ackerman on 03-20-2022 Urobilinogen Ql (U) 1 mg/dl Normal [facility] STREP A MOLECULAR (POC)on Procedural Control Valid [facility] Strep A (POCT) Negative Negative [facility] STREP A MOLECULAR (POC)on Procedural Control Valid [facility] Strep A (POCT) Negative Negative [facility] Comprehensive Panelon 2019 Albumin [Mass/Vol] 5.1 g/dL High 3.4-5.0 [facility] Comment on above: Result Comment: Refe rence ranges for this patient`s age group have not been established. These reference ranges reflect verified or established ranges for the adult population. Interpret ranges with caution using the clinical context and additional reference resources. Performed By: #### L URIN #### [place] [address] ALP [Catalytic activity/Vol] 98 U/L Normal 70-230 [facility] Comment on above: Result Comment: Refe rence ranges for this patient`s age group have not been established. These reference ranges reflect verified or established ranges for the adult population. Interpret ranges with caution using the clinical context and additional reference resources. Performed By: #### L URIN #### [place] [address] ALT-SGPT Blood 26 U/L Normal 14-63 [facility] Comment on above: Result Comment: Refe rence ranges for this patient`s age group have not been established. These reference ranges reflect verified or established ranges for the adult population. Interpret ranges with caution using the clinical context and additional reference resources. Performed By: #### L URIN #### [facility] [address] [place], [place] [address] Anion gap [Moles/Vol] 15 mmol/L Normal 8-20 [facility] Comment on above: Performed By: #### L URIN #### [place] [address] AST-SGOT Blood 25 U/L Normal 15-37 [facility] Comment on above: Result Comment: Refe rence ranges for this patient`s age group have not been established. These reference ranges reflect verified or established ranges for the adult population. Interpret ranges with caution using the clinical context and additional reference resources. Performed By: #### L URIN #### [facility] [address] [place] [address] Bilirubin Ql (U) 0.4 mg/dL Normal 0.2-1.0 [facility] Comment on above: Result Comment: Refe rence ranges for this patient`s age group have not been established. These reference ranges reflect verified or established ranges for the adult population. Interpret ranges with caution using the clinical context and additional reference resources. Use of this assay is not recommended for patients undergoing treatment with eltrombopag due to the potential for falsely elevated results. Performed By: #### L URIN #### [facility] [address] [place] [address] Calcium [Mass/Vol] 10.5 mg/dL High 8.5-10.1 [facility] Comment on above: Result Comment: Refe rence ranges for this patient`s age group have not been established. These reference ranges reflect verified or established ranges for the adult population. Interpret ranges with caution using the clinical context and additional reference resources. Performed By: #### L URIN #### [facility] [address] [place] [address] CO2 Blood 22 mEq/L Normal 21-32 [facility] Comment on above: Result Comment: Refe rence ranges for this patient`s age group have not been established. These reference ranges reflect verified or established ranges for the adult population. Interpret ranges with caution using the clinical context and additional reference resources. Performed By: #### L URIN #### [facility] [address] [place] [address] Creatinine [Mass/Vol] 0.69 mg/dL Normal 0.51-0.95 [facility] Comment on above: Result Comment: Refe rence ranges for this patient`s age group have not been established. These reference ranges reflect verified or established ranges for the adult population. Interpret ranges with caution using the clinical context and additional reference resources. Use of this assay is not recommended for patients undergoing treatment with phenindione, due to the potential for falsely depressed results. Performed By: #### L URIN #### [facility] [address] [place], [place] [address] Glucose [Mass/Vol] 107 mg/dL High 70-99 [facility] Comment on above: Result Comment: Refe rence ranges for this patient`s age group have not been established. These reference ranges reflect verified or established ranges for the adult population. Interpret ranges with caution using the clinical context and additional reference resources. Performed By: #### L URIN #### [facility] [address] [place], [place] [address] Protein [Mass/Vol] 8.4 g/dL High 6.4-8.2 [facility] Comment on above: Result Comment: Refe rence ranges for this patient`s age group have not been established. These reference ranges reflect verified or established ranges for the adult population. Interpret ranges with caution using the clinical context and additional reference resources. Performed By: #### L URIN #### [facility] [address] [place], [place] [address] Urea nitrogen [Mass/Vol] 12 mg/dL Normal 7-18 [facility] Comment on above: Result Comment: Refe rence ranges for this patient`s age group have not been established. These reference ranges reflect verified or established ranges for the adult population. Interpret ranges with caution using the clinical context and additional reference resources. Performed By: #### L URIN #### [facility] [address] [place], [place] [address] Urea nitrogen/Creatinine [Mass ratio] 17 mg/mg Normal 10-20 [facility] Comment on above: Result Comment: Refe rence ranges for this patient`s age group have not been established. These reference ranges reflect verified or established ranges for the adult population. Interpret ranges with caution using the clinical context and additional reference resources. Performed By: #### L URIN #### [facility] [address] [place], [place] [address] Chloride [Moles/Vol] 107 mmol/L Normal 98-109 [facility] Comment on above: Result Comment: Refe rence ranges for this patient`s age group have not been established. These reference ranges reflect verified or established ranges for the adult population. Interpret ranges with caution using the clinical context and additional reference resources. Testing performed on an [employer] i-STAT. Performed By: #### L URIN #### [facility] [address] [place] [address] Potassium [Moles/Vol] 3.6 mmol/L Normal 3.5-4.9 [facility] Comment on above: Result Comment: Refe rence ranges for this patient`s age group have not been established. These reference ranges reflect verified or established ranges for the adult population. Interpret ranges with caution using the clinical context and additional reference resources. Testing performed on an [employer] i-STAT. Performed By: #### L URIN #### [place] [address] Sodium [Moles/Vol] 140 mmol/L Normal 138-146 [facility] Comment on above: Result Comment: Refe rence ranges for this patient`s age group have not been established. These reference ranges reflect verified or established ranges for the adult population. Interpret ranges with caution using the clinical context and additional reference resources. Testing performed on an [employer] i-STAT. Performed By: #### L URIN #### [place] [address] Cult Urineon 08-02-2019 Cult Urine Test performed at [facility] No growth <1,000 CFU/ml. Normal [facility] Comment on above: Performed By: #### L URIN #### [place] [address] Hemogram/Manual Diffon 08-01 Abs. Baso 0.00 thou/cmm Normal 0.00-0.10 [facility] Comment on above: Performed By: #### L URIN #### [facility] [address] [place] [address] Abs. Eosin 0.00 thou/cmm Normal 0.00-0.45 [facility] Comment on above: Performed By: #### L URIN #### [facility] [address] [place] [address] Abs. Lymph 3.36 thou/cmm Normal 1.00-4.00 [facility] Comment on above: Performed By: #### L URIN #### [facility] [address] [place] [address] Abs. Gila 1.42 thou/cmm High 0.00-0.86 [facility] Comment on above: Performed By: #### L URIN #### [facility] [address] [place] [address] Abs. Neut (ANC) 12.92 thou/cmm High 1.45-7.50 [facility] Comment on above: Performed By: #### L URIN #### [facility] [address] [place] [address] Basophil 0.0 % Normal [facility] Comment on above: Performed By: #### L URIN #### [facility] [address] [place] [address] Eosinophil 0.0 % Normal [facility] Comment on above: Performed By: #### L URIN #### [facility] [address] [place] [address] Lymphocyte 19.0 % Normal [facility] Comment on above: Performed By: #### L URIN #### [facility] [address] [place] [address] Metamyelocytes 3.0 % Normal [facility] Comment on above: Performed By: #### L URIN #### [facility] [address] [place] [address] Monocyte 8.0 % Normal [facility] Comment on above: Performed By: #### L URIN #### [facility] [address] [place] [address] Platelets (Bld) [#/Vol] Normal Normal [facility] Comment on above: Performed By: #### L URIN #### [facility] [address] [place] [address] RBC morphology finding Nom (Bld) Normal Normal [facility] Comment on above: Performed By: #### L URIN #### [facility] [address] [place] [address] Seg Neutrophil 70.0 % Normal [facility] Comment on above: Performed By: #### L URIN #### [facility] [address] [place] [address] WBC Morphology see below Normal [facility] Comment on above: Result Comment: Toxi c vacuoles present Performed By: #### L URIN #### [facility] [address] [place] [address] Diff Type Manual Diff Normal [facility] Comment on above: Performed By: #### L URIN #### [facility] [address] [place] [address] Erythrocyte distribution width (RBC) [Ratio] 12.4 % Normal 11.5-15.0 [facility] Comment on above: Performed By: #### L URIN #### [place] [address] Hematocrit (Bld) [Volume fraction] 45.5 % Normal 36.0-46.0 [facility] Comment on above: Performed By: #### L URIN #### [place] [address] Hemoglobin (Bld) [Mass/Vol] 15.7 g/dL High 11.5-15.5 [facility] Comment on above: Performed By: #### L URIN #### [place] [address] MCH (RBC) [Entitic mass] 30.7 pg Normal 26.0-34.0 [facility] Comment on above: Performed By: #### L URIN #### [place] [address] MCHC (RBC) [Mass/Vol] 34.5 % Normal 30.5-36.0 [facility] Comment on above: Performed By: #### L URIN #### [facility] [address] [place] [address] MCV (RBC) [Entitic vol] 88.9 fl Normal 80.0-100.0 [facility] Comment on above: Performed By: #### L URIN #### [place] [address] Platelet mean volume (Bld) [Entitic vol] 11.3 fl Normal 9.0-12.7 [facility] Comment on above: Performed By: #### L URIN #### [facility] [address] [place], [place] [address] Platelets (Bld) [#/Vol] 318 thou/cmm Normal 150-400 [facility] Comment on above: Performed By: #### L URIN #### [facility] [address] [place], [place] [address] RBC (Bld) [#/Vol] 5.12 mil/cmm Normal 3.90-5.20 [facility] Comment on above: Performed By: #### L URIN #### [facility] [address] [place], [place] [address] WBC (Bld) [#/Vol] 17.7 thou/cmm High 3.7-11.0 [facility] Comment on above: Performed By: #### L URIN #### [place] [address] Lipase Bloodon 08-02-2019 Lipase Blood 247 U/L Normal 73-393 [facility] Comment on above: Result Comment: Refe rence ranges for this patient`s age group have not been established. These reference ranges reflect verified or established ranges for the adult population. Interpret ranges with caution using the clinical context and additional reference resources. Performed By: #### L URIN #### [facility] [address] [place] [address] Urinalysis Routineon 020 Appearance (U) 2+ (SLT CLOUDY) Normal [facility] Comment on above: Performed By: #### L URIN #### [facility] [address] [place] [address] Bacteria LM.HPF (Urine sed) [#/Area] FEW Abnormal None [facility] Comment on above: Performed By: #### L URIN #### [facility] [address] [place] [address] Bilirubin Urine Negative Normal Negative [facility] Comment on above: Performed By: #### L URIN #### [place] [address] Color (U) YELLOW Normal [facility] Comment on above: Performed By: #### L URIN #### [facility] [address] [place] [address] Ep Cells Urine 21-35 Abnormal 0-5 [facility] Comment on above: Performed By: #### L URIN #### [facility] [address] [place] [address] Glucose Ql (U) Negative Normal Negative [facility] Comment on above: Performed By: #### L URIN #### [facility] [address] [place] [address] Hemoglobin,Urine Negative Normal Negative [facility] Comment on above: Performed By: #### L URIN #### [facility] [address] [place] [address] Ketone Urine Negative Normal Negative [facility] Comment on above: Performed By: #### L URIN #### [facility] [address] [place] [address] Leukocytes Esterase Negative Normal Negative [facility] Comment on above: Performed By: #### L URIN #### [facility] [address] [place] [address] Mucus Threads MODERATE Normal None [facility] Comment on above: Performed By: #### L URIN #### [facility] [address] [place] [address] Nitrites Urine Negative Normal Negative [facility] Comment on above: Performed By: #### L URIN #### [place] [address] pH (U) 5.5 [pH] Normal 5.0-8.0 [facility] Comment on above: Performed By: #### L URIN #### [facility] [address] [place] [address] Protein (U) [Mass/Vol] 2+ Abnormal Negative [facility] Comment on above: Performed By: #### L URIN #### [facility] [address] [place] [address] RBC LM.HPF (Urine sed) [#/Area] 0-3 Normal 0-3 [facility] Comment on above: Performed By: #### L URIN #### [facility] [address] [place] [address] Specific [place], Ur >=1.030 Normal 1.005-1.030 [facility] Comment on above: Performed By: #### L URIN #### [facility] [address] [place] [address] Urobilinogen,Ur 0.2 EU/dL Normal 0.2-1.0 [facility] Comment on above: Performed By: #### L URIN #### [place] [address] WBC LM.HPF (Urine sed) [#/Area] 2-5 Normal 0-5 [facility] Comment on above: Performed By: #### L URIN #### [place] [address] Urine HCG, Qual.on 0 Beta HCG ( test) Ql (U) Negative Normal Negative [facility] Comment on above: Performed By: #### L URIN #### [place] [address] Rapid Influenza A/Bon 2019 Rapid Influenza A/B See below Normal Negative [facility] Comment on above: Result Comment: Nega tive for influenza A and B. Performed By: #### L RFLU #### [place] [address] XR CERVICAL 4V AP/LAT/OBLon 04-25-2019 XR CERVICAL 4V AP/LAT/OBL * * *Final Rep ort* * * DATE OF EXAM: Apr 25 2019 4:31PM LDX 5311 - XR CERVICAL 4V AP/LAT/OBL / PROCEDURE REASON: Cervical pain (neck) * * * * Physician Interpretation * * * * EXAM: XR CERVICAL 4V AP/LAT/OBL -- TECHNIQUE: AP, lateral and oblique views of the cervical spine were obtained EXAM DATE: 04/25/2019 4:31 PM CLINICAL HISTORY: Cervical pain (neck) COMPARISON: None FINDINGS: Lateral view is degraded by motion artifact. 7 cervical vertebral bodies are seen through T1. Prevertebral soft tissues are within normal limits. No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 described in the note above except for changes as notedby or addition. Management of the patient has been carried out in accordancewith my plans. Plan discussed with caregiver(s) and questions addressed.Triage notes, nursing notes, and vital signs reviewed. Assessment and plandiscussed with family.Vanessa Kennedy MD, FAAPPager: [phone] Normal [facility] Vital Signs Date Time Vital Sign Value Performing Clinician Facility 03-17-2025 20:42-0500 Diastolic Blood Pressure Non-Invasive 65 mm[Hg] LUIS ARMANDO MARQUIS MD [facility] 03-17-2025 20:42-0500 Respiratory rate 16 /min LUIS ARMANDO MARQUIS MD [facility] 03-17-2025 20:42-0500 Systolic Blood Pressure Non-Invasive 106 mm[Hg] LUIS ARMANDO MARQUIS MD [facility] 03-17-2025 19:45-0500 Body temperature 99.32 [degF] LUIS ARMANDO MARQUIS MD [facility] 03-17-2025 19:45-0500 Diastolic Blood Pressure Non-Invasive 67 mm[Hg] LUIS ARMANDO MARQUIS MD [facility] 03-17-2025 19:45-0500 Heart rate 90 /min LUIS ARMANDO MARQUIS MD [facility] 03-17-2025 19:45-0500 Respiratory rate 16 /min LUIS ARMANDO MARQUIS MD [facility] 03-17-2025 19:45-0500 Systolic Blood Pressure Non-Invasive 116 mm[Hg] LUIS ARMANDO MARQUIS MD [facility] 01-10-2025 13:03-0400 Body mass index (BMI) [Ratio] 29.45 kg/m2 Raghavendra Marc APRN.LUBRICATION SUPERVISOR Work Phone: [facility] 01-10-2025 13:03-0400 Body temperature 99.3 [degF] Raghavendra Marc APRN.LUBRICATION SUPERVISOR Work Phone: [facility] 01-10-2025 13:03-0400 Body weight 85.3 kg Raghavendra Marc APRN.LUBRICATION SUPERVISOR Work Phone: [facility] 01-10-2025 13:03-0400 Diastolic blood pressure 76 mm[Hg] Raghavendra Marc APRN.LUBRICATION SUPERVISOR Work Phone: [facility] 01-10-2025 13:03-0400 Heart rate 100 /min Raghavendra Marc APRN.LUBRICATION SUPERVISOR Work Phone: [facility] 01-10-2025 13:03-0400 Respiratory rate 16 /min Raghavendra Marc APRN.LUBRICATION SUPERVISOR Work Phone: [facility] 01-10-2025 13:03-0400 SaO2% (BldA) [Mass fraction] 99 % Raghavendra Marc APRN.LUBRICATION SUPERVISOR Work Phone: [facility] 01-10-2025 13:03-0400 Systolic blood pressure 118 mm[Hg] Raghavendra Marc APRN.LUBRICATION SUPERVISOR Work Phone: [facility] 12-01-2024 17:54-0400 Body mass index (BMI) [Ratio] 28.73 kg/m2 Omar Colvin RESIDENTIAL FIELD MANAGER.LUBRICATION SUPERVISOR Work Phone: [facility] 12-01-2024 17:54-0400 Body temperature 99.5 [degF] Omar Colvin RESIDENTIAL FIELD MANAGER.LUBRICATION SUPERVISOR Work Phone: [facility] 12-01-2024 17:54-0400 Body weight 83.2 kg Omar Colvin APRN.LUBRICATION SUPERVISOR Work Phone: [facility] 12-01-2024 17:54-0400 Diastolic blood pressure 61 mm[Hg] Omar Colvin RESIDENTIAL FIELD MANAGER.LUBRICATION SUPERVISOR Work Phone: [facility] 12-01-2024 17:54-0400 Heart rate 92 /min Omar Colvin RESIDENTIAL FIELD MANAGER.LUBRICATION SUPERVISOR Work Phone: [facility] 12-01-2024 17:54-0400 Respiratory rate 18 /min Omar Colvin RESIDENTIAL FIELD MANAGER.LUBRICATION SUPERVISOR Work Phone: [facility] 12-01-2024 17:54-0400 SaO2% (BldA) [Mass fraction] 96 % Omar Colvin RESIDENTIAL FIELD MANAGER.LUBRICATION SUPERVISOR Work Phone: [facility] 12-01-2024 17:54-0400 Systolic blood pressure 121 mm[Hg] Omar Colvin RESIDENTIAL FIELD MANAGER.LUBRICATION SUPERVISOR Work Phone: [facility] 10-11-2024 13:11-0400 Diastolic blood pressure 82 mm[Hg] Luz Starr RESIDENTIAL FIELD MANAGER.LUBRICATION SUPERVISOR Work Phone: [facility] 10-11-2024 13:11-0400 Heart rate 70 /min Luz Starr RESIDENTIAL FIELD MANAGER.LUBRICATION SUPERVISOR Work Phone: [facility] 10-11-2024 13:11-0400 Respiratory rate 16 /min Luz Starr RESIDENTIAL FIELD MANAGER.LUBRICATION SUPERVISOR Work Phone: [facility] 10-11-2024 13:11-0400 Systolic blood pressure 118 mm[Hg] Lzu Starr RESIDENTIAL FIELD MANAGER.LUBRICATION SUPERVISOR Work Phone: [facility] 10-09-2024 08:48-0400 Body temperature 98.2 [degF] Berenice Queden LOSS CONTROL ENGINEER-C Work Phone: [facility] 10-09-2024 08:48-0400 Diastolic blood pressure 60 mm[Hg] Berenice Queden LOSS CONTROL ENGINEER-C Work Phone: [facility] 10-09-2024 08:48-0400 Heart rate 90 /min Berenice Queden LOSS CONTROL ENGINEER-C Work Phone: [facility] 10-09-2024 08:48-0400 Respiratory rate 16 /min Berenice Queden LOSS CONTROL ENGINEER-C Work Phone: [facility] 10-09-2024 08:48-0400 SaO2% (BldA) [Mass fraction] 98 % Berenice Queden LOSS CONTROL ENGINEER-C Work Phone: [facility] 10-09-2024 08:48-0400 Systolic blood pressure 106 mm[Hg] Berenice Queden LOSS CONTROL ENGINEER-C Work Phone: [facility] 10-03-2024 18:12-0400 Body temperature 96.8 [degF] Berenice Queden LOSS CONTROL ENGINEER-C Work Phone: [facility] 10-03-2024 18:12-0400 Diastolic blood pressure 75 mm[Hg] Berenice Queden LOSS CONTROL ENGINEER-C Work Phone: [facility] 10-03-2024 18:12-0400 Heart rate 80 /min Berenice Queden LOSS CONTROL ENGINEER-C Work Phone: [facility] 10-03-2024 18:12-0400 Respiratory rate 17 /min Berenice Queden LOSS CONTROL ENGINEER-C Work Phone: [facility] 10-03-2024 18:12-0400 SaO2% (BldA) [Mass fraction] 99 % Berenice Queden LOSS CONTROL ENGINEER-C Work Phone: [facility] 10-03-2024 18:12-0400 Systolic blood pressure 145 mm[Hg] Berenice Queden LOSS CONTROL ENGINEER-C Work Phone: [facility] 10-03-2024 16:41-0400 Body height 170.18 cm Berenice Queden LOSS CONTROL ENGINEER-C Work Phone: [facility] 10-03-2024 16:41-0400 Body mass index (BMI) [Ratio] 29.3 kg/m2 Berenice Queden LOSS CONTROL ENGINEER-C Work Phone: [facility] 10-03-2024 16:41-0400 Body weight 85.1 kg Berenice Queden LOSS CONTROL ENGINEER-C Work Phone: [facility] 09-26-2024 09:54-0400 Body mass index (BMI) [Ratio] 29.35 kg/m2 Gill Renteria RESIDENTIAL FIELD MANAGER.LUBRICATION SUPERVISOR Work Phone: [facility] 09-26-2024 09:54-0400 Body temperature 97.39 [degF] Gill Miguelito RESIDENTIAL FIELD MANAGER.LUBRICATION SUPERVISOR Work Phone: [facility] 09-26-2024 09:54-0400 Body weight 85 kg Gill Swank RESIDENTIAL FIELD MANAGER.LUBRICATION SUPERVISOR Work Phone: [facility] 09-26-2024 09:54-0400 Diastolic blood pressure 72 mm[Hg] Gill Swank RESIDENTIAL FIELD MANAGER.LUBRICATION SUPERVISOR Work Phone: [facility] 09-26-2024 09:54-0400 Heart rate 100 /min Gill Swank RESIDENTIAL FIELD MANAGER.LUBRICATION SUPERVISOR Work Phone: [facility] 09-26-2024 09:54-0400 Respiratory rate 16 /min Gill Swank RESIDENTIAL FIELD MANAGER.LUBRICATION SUPERVISOR Work Phone: [facility] 09-26-2024 09:54-0400 SaO2% (BldA) [Mass fraction] 97 % Gill Swank RESIDENTIAL FIELD MANAGER.LUBRICATION SUPERVISOR Work Phone: [facility] 09-26-2024 09:54-0400 Systolic blood pressure 124 mm[Hg] Gill Swank RESIDENTIAL FIELD MANAGER.LUBRICATION SUPERVISOR Work Phone: [facility] 09-13-2024 14:46-0400 Body mass index (BMI) [Ratio] 28.88 kg/m2 Dania Marc MD Work Phone: [facility] 09-13-2024 14:46-0400 Body weight 83.64 kg Dania Marc MD Work Phone: [facility] 09-13-2024 14:46-0400 Diastolic blood pressure 80 mm[Hg] Dania Marc MD Work Phone: [facility] 09-13-2024 14:46-0400 Systolic blood pressure 118 mm[Hg] Dania Marc MD Work Phone: [facility] 09-08-2024 08:49-0400 Body mass index (BMI) [Ratio] 28.85 kg/m2 Dania Marc MD Work Phone: [facility] 09-08-2024 08:49-0400 Body weight 83.55 kg Dania Marc MD Work Phone: [facility] 09-08-2024 08:49-0400 Diastolic blood pressure 74 mm[Hg] Dania Marc MD Work Phone: [facility] 09-08-2024 08:49-0400 Systolic blood pressure 110 mm[Hg] Dania Marc MD Work Phone: [facility] 07-20-2024 13:28-0400 Body mass index (BMI) [Ratio] 27.76 kg/m2 Yahir Jones RESIDENTIAL FIELD MANAGER.LUBRICATION SUPERVISOR Work Phone: [facility] 07-20-2024 13:28-0400 Body temperature 98.01 [degF] Yahir Jones RESIDENTIAL FIELD MANAGER.LUBRICATION SUPERVISOR Work Phone: [facility] 07-20-2024 13:28-0400 Body weight 80.4 kg Yahir Jones APRN.LUBRICATION SUPERVISOR Work Phone: [facility] 07-20-2024 13:28-0400 Diastolic blood pressure 68 mm[Hg] Yahir Jones RESIDENTIAL FIELD MANAGER.LUBRICATION SUPERVISOR Work Phone: [facility] 07-20-2024 13:28-0400 Heart rate 88 /min Yahir Jones APRN.LUBRICATION SUPERVISOR Work Phone: [facility] 07-20-2024 13:28-0400 Respiratory rate 16 /min Yahir Jones APRN.LUBRICATION SUPERVISOR Work Phone: [facility] 07-20-2024 13:28-0400 SaO2% (BldA) [Mass fraction] 99 % Yahir Jones RESIDENTIAL FIELD MANAGER.LUBRICATION SUPERVISOR Work Phone: [facility] 07-20-2024 13:28-0400 Systolic blood pressure 120 mm[Hg] Yahir Jones RESIDENTIAL FIELD MANAGER.LUBRICATION SUPERVISOR Work Phone: [facility] 07-12-2024 12:27-0500 Body temperature 100 [degF] Berenice Martin LOSS CONTROL ENGINEER-C Work Phone: [facility] 07-12-2024 12:27-0500 Diastolic blood pressure 60 mm[Hg] Berenice Martin LOSS CONTROL ENGINEER-C Work Phone: [facility] 07-12-2024 12:27-0500 Heart rate 106 /min Berenice Queden LOSS CONTROL ENGINEER-C Work Phone: [facility] 07-12-2024 12:27-0500 Respiratory rate 16 /min Berenice Queden LOSS CONTROL ENGINEER-C Work Phone: [facility] 07-12-2024 12:27-0500 SaO2% (BldA) [Mass fraction] 99 % Berenice Queden LOSS CONTROL ENGINEER-C Work Phone: [facility] 07-12-2024 12:27-0500 Systolic blood pressure 96 mm[Hg] Berenice Queden LOSS CONTROL ENGINEER-C Work Phone: [facility] 07-11-2024 11:48-0500 Body mass index (BMI) [Ratio] 27.9 kg/m2 Yahir Jones RESIDENTIAL FIELD MANAGER.LUBRICATION SUPERVISOR Work Phone: [facility] 07-11-2024 11:48-0500 Body temperature 97.81 [degF] Yahir Jones RESIDENTIAL FIELD MANAGER.LUBRICATION SUPERVISOR Work Phone: [facility] 07-11-2024 11:48-0500 Body weight 80.8 kg Yahir Jones APRN.LUBRICATION SUPERVISOR Work Phone: [facility] 07-11-2024 11:48-0500 Diastolic blood pressure 72 mm[Hg] Yahir Jones RESIDENTIAL FIELD MANAGER.LUBRICATION SUPERVISOR Work Phone: [facility] 07-11-2024 11:48-0500 Heart rate 94 /min Yahir Jones RESIDENTIAL FIELD MANAGER.LUBRICATION SUPERVISOR Work Phone: [facility] 07-11-2024 11:48-0500 Respiratory rate 18 /min Yahir Jones RESIDENTIAL FIELD MANAGER.LUBRICATION SUPERVISOR Work Phone: [facility] 07-11-2024 11:48-0500 SaO2% (BldA) [Mass fraction] 97 % Yahir Jones RESIDENTIAL FIELD MANAGER.LUBRICATION SUPERVISOR Work Phone: [facility] 07-11-2024 11:48-0500 Systolic blood pressure 122 mm[Hg] Yahir Jones RESIDENTIAL FIELD MANAGER.LUBRICATION SUPERVISOR Work Phone: [facility] 07-09-2024 02:39-0500 Body temperature 98.2 [degF] Berenice Queden LOSS CONTROL ENGINEER-C Work Phone: [facility] 07-09-2024 02:39-0500 Diastolic blood pressure 69 mm[Hg] Berenice Queden LOSS CONTROL ENGINEER-C Work Phone: [facility] 07-09-2024 02:39-0500 Heart rate 76 /min Berenice Queden LOSS CONTROL ENGINEER-C Work Phone: [facility] 07-09-2024 02:39-0500 Respiratory rate 16 /min Berenice Queden LOSS CONTROL ENGINEER-C Work Phone: [facility] 07-09-2024 02:39-0500 SaO2% (BldA) [Mass fraction] 99 % Berenice Queden LOSS CONTROL ENGINEER-C Work Phone: [facility] 07-09-2024 02:39-0500 Systolic blood pressure 111 mm[Hg] Berenice Queden LOSS CONTROL ENGINEER-C Work Phone: [facility] 07-09-2024 00:43-0500 Body mass index (BMI) [Ratio] 28.8 kg/m2 Berenice Queden LOSS CONTROL ENGINEER-C Work Phone: [facility] 07-09-2024 00:43-0500 Body weight 83.6 kg Berenice Queden LOSS CONTROL ENGINEER-C Work Phone: [facility] 05-15-2024 12:20-0500 Body mass index (BMI) [Ratio] 27.93 kg/m2 Navid Lora-Joe RESIDENTIAL FIELD MANAGER.LUBRICATION SUPERVISOR Work Phone: [facility] 05-15-2024 12:20-0500 Body temperature 98.29 [degF] Navid Lora-Joe RESIDENTIAL FIELD MANAGER.LUBRICATION SUPERVISOR Work Phone: [facility] 05-15-2024 12:20-0500 Body weight 80.9 kg Navid Pracristinler-Joe RESIDENTIAL FIELD MANAGER.LUBRICATION SUPERVISOR Work Phone: [facility] 05-15-2024 12:20-0500 Diastolic blood pressure 74 mm[Hg] Navid Praisler-Wood RESIDENTIAL FIELD MANAGER.LUBRICATION SUPERVISOR Work Phone: [facility] 05-15-2024 12:20-0500 Heart rate 86 /min Navid Praisler-Wood RESIDENTIAL FIELD MANAGER.LUBRICATION SUPERVISOR Work Phone: [facility] 05-15-2024 12:20-0500 Respiratory rate 16 /min Navid Praisler-Wood RESIDENTIAL FIELD MANAGER.LUBRICATION SUPERVISOR Work Phone: [facility] 05-15-2024 12:20-0500 SaO2% (BldA) [Mass fraction] 97 % Navid Praisler-Wood RESIDENTIAL FIELD MANAGER.LUBRICATION SUPERVISOR Work Phone: [facility] 05-15-2024 12:20-0500 Systolic blood pressure 120 mm[Hg] Navid Praisler-Wood RESIDENTIAL FIELD MANAGER.LUBRICATION SUPERVISOR Work Phone: [facility] 02-13-2024 13:16-0400 Body mass index (BMI) [Ratio] 28.31 kg/m2 Elsa Van RESIDENTIAL FIELD MANAGER.LUBRICATION SUPERVISOR Work Phone: [facility] 02-13-2024 13:16-0400 Body temperature 99.3 [degF] Elsa Van RESIDENTIAL FIELD MANAGER.LUBRICATION SUPERVISOR Work Phone: [facility] 02-13-2024 13:16-0400 Body weight 82 kg Elsa [place] RESIDENTIAL FIELD MANAGER.LUBRICATION SUPERVISOR Work Phone: [facility] 02-13-2024 13:16-0400 Diastolic blood pressure 64 mm[Hg] Elsa [place] RESIDENTIAL FIELD MANAGER.LUBRICATION SUPERVISOR Work Phone: [facility] 02-13-2024 13:16-0400 Heart rate 112 /min Elsa [place] RESIDENTIAL FIELD MANAGER.LUBRICATION SUPERVISOR Work Phone: [facility] 02-13-2024 13:16-0400 Respiratory rate 18 /min Elsa [place] RESIDENTIAL FIELD MANAGER.LUBRICATION SUPERVISOR Work Phone: [facility] 02-13-2024 13:16-0400 SaO2% (BldA) [Mass fraction] 100 % Elsa Van RESIDENTIAL FIELD MANAGER.LUBRICATION SUPERVISOR Work Phone: [facility] 02-13-2024 13:16-0400 Systolic blood pressure 110 mm[Hg] Elsa Van RESIDENTIAL FIELD MANAGER.LUBRICATION SUPERVISOR Work Phone: [facility] 12-25-2023 16:44-0400 Body height 170.2 cm Berenice Queden RESIDENTIAL FIELD MANAGER.LUBRICATION SUPERVISOR Work Phone: [facility] 12-25-2023 16:44-0400 Body mass index (BMI) [Ratio] 28.04 kg/m2 Berenice Queden RESIDENTIAL FIELD MANAGER.LUBRICATION SUPERVISOR Work Phone: [facility] 12-25-2023 16:44-0400 Body temperature 98.71 [degF] Berenice Queden RESIDENTIAL FIELD MANAGER.[facility] Work Phone: [facility] 12-25-2023 16:44-0400 Body weight 81.19 kg Berenice Queden RESIDENTIAL FIELD MANAGER.LUBRICATION SUPERVISOR Work Phone: [facility] 12-25-2023 16:44-0400 Diastolic blood pressure 62 mm[Hg] Berenice Queden RESIDENTIAL FIELD MANAGER.[facility] Work Phone: [facility] 12-25-2023 16:44-0400 Heart rate 94 /min Berenice Queden RESIDENTIAL FIELD MANAGER.LUBRICATION SUPERVISOR Work Phone: [facility] 12-25-2023 16:44-0400 Respiratory rate 16 /min Berenice Queden RESIDENTIAL FIELD MANAGER.LUBRICATION SUPERVISOR Work Phone: [facility] 12-25-2023 16:44-0400 SaO2% (BldA) [Mass fraction] 97 % Berenice Queden RESIDENTIAL FIELD MANAGER.LUBRICATION SUPERVISOR Work Phone: [facility] 12-25-2023 16:44-0400 Systolic blood pressure 108 mm[Hg] Berenice Queden RESIDENTIAL FIELD MANAGER.LUBRICATION SUPERVISOR Work Phone: [facility] 12-18-2023 10:42-0400 Body height 170.2 cm En Brand MD Work Phone: [facility] 12-18-2023 10:42-0400 Body mass index (BMI) [Ratio] 28.19 kg/m2 En Brand MD Work Phone: [facility] 12-18-2023 10:42-0400 Body temperature 98.2 [degF] En Brand MD Work Phone: [facility] 12-18-2023 10:42-0400 Body weight 81.65 kg En Brand MD Work Phone: [facility] 12-04-2023 13:32-0400 Body height 167.6 cm En Brand MD Work Phone: [facility] 12-04-2023 13:32-0400 Body mass index (BMI) [Ratio] 30.34 kg/m2 En Brand MD Work Phone: [facility] 12-04-2023 13:32-0400 Body weight 85.28 kg En Brand MD Work Phone: [facility] 12-04-2023 13:32-0400 Respiratory rate 18 /min En Brand MD Work Phone: [facility] 10-06-2023 13:55-0400 Body height 167.6 cm Berenice Queden RESIDENTIAL FIELD MANAGER.LUBRICATION SUPERVISOR Work Phone: [facility] 10-06-2023 13:55-0400 Body mass index (BMI) [Ratio] 28.89 kg/m2 Berenice Queden RESIDENTIAL FIELD MANAGER.LUBRICATION SUPERVISOR Work Phone: [facility] 10-06-2023 13:55-0400 Body temperature 98.49 [degF] Berenice Queden RESIDENTIAL FIELD MANAGER.LUBRICATION SUPERVISOR Work Phone: [facility] 10-06-2023 13:55-0400 Body weight 81.19 kg Berenice Queden RESIDENTIAL FIELD MANAGER.LUBRICATION SUPERVISOR Work Phone: [facility] 10-06-2023 13:55-0400 Diastolic blood pressure 70 mm[Hg] Berenice Queden RESIDENTIAL FIELD MANAGER.LUBRICATION SUPERVISOR Work Phone: [facility] 10-06-2023 13:55-0400 Heart rate 94 /min Berenice Queden RESIDENTIAL FIELD MANAGER.LUBRICATION SUPERVISOR Work Phone: [facility] 10-06-2023 13:55-0400 Respiratory rate 18 /min Berenice Queden RESIDENTIAL FIELD MANAGER.LUBRICATION SUPERVISOR Work Phone: [facility] 10-06-2023 13:55-0400 SaO2% (BldA) [Mass fraction] 98 % Berenice Queden RESIDENTIAL FIELD MANAGER.LUBRICATION SUPERVISOR Work Phone: [facility] 10-06-2023 13:55-0400 Systolic blood pressure 118 mm[Hg] Berenice Queden RESIDENTIAL FIELD MANAGER.LUBRICATION SUPERVISOR Work Phone: [facility] 06-26-2023 04:09-0500 Body temperature 98 [degF] [facility] 06-26-2023 04:09-0500 Heart rate 86 /min [facility] 06-26-2023 04:09-0500 Respiratory rate 18 /min [facility] 06-26-2023 04:09-0500 SaO2% (BldA) [Mass fraction] 97 % [facility] 06-26-2023 02:58-0500 Body height 170.18 cm [facility] 06-26-2023 02:58-0500 Body mass index (BMI) [Percentile] Per age and sex 92 % [facility] 06-26-2023 02:58-0500 Body mass index (BMI) [Ratio] 29 kg/m2 [facility] 06-26-2023 02:58-0500 Body weight 84 kg [facility] 06-26-2023 02:58-0500 Diastolic blood pressure 66 mm[Hg] [facility] 06-26-2023 02:58-0500 Systolic blood pressure 118 mm[Hg] [facility] 04-21-2023 12:25-[address] RENNY VELASQUEZ MD [facility] 04-21-2023 12:25-[address] RENNY Cavanaugh MD [facility] 04-21-2023 12:25-0500 Body temperature 98.96 [degF] DR RENNY VELASQUEZ MD [facility] 04-21-2023 12:25-0500 Body weight 77.[address] RENNY VELASQUEZ MD [facility] 04-21-2023 12:25-0500 Diastolic Blood Pressure Non-Invasive 72 mm[Hg] DR RENNY VELASQUEZ MD [facility] 04-21-2023 12:25-0500 Heart rate 88 /min DR RENNY VELASQUEZ MD [facility] 04-21-2023 12:25-0500 Respiratory rate 18 /min DR RENNY VELASQUEZ MD [facility] 04-21-2023 12:25-0500 Systolic Blood Pressure Non-Invasive 111 mm[Hg] DR RENNY VELASQUEZ MD [facility] 04-04-2023 03:44-0500 Heart rate 82 /min [facility] 04-04-2023 03:44-0500 Respiratory rate 18 /min [facility] 04-04-2023 03:44-0500 SaO2% (BldA) [Mass fraction] 96 % [facility] 04-04-2023 01:24-0500 Body height 170.18 cm [facility] 04-04-2023 01:24-0500 Body mass index (BMI) [Percentile] Per age and sex 92.1 % [facility] 04-04-2023 01:24-0500 Body mass index (BMI) [Ratio] 28.9 kg/m2 [facility] 04-04-2023 01:24-0500 Body temperature 97.9 [degF] [facility] 04-04-2023 01:24-0500 Body weight 83.8 kg [facility] 04-04-2023 01:24-0500 Diastolic blood pressure 68 mm[Hg] [facility] 04-04-2023 01:24-0500 Systolic blood pressure 127 mm[Hg] [facility] 04-03-2023 20:29-0500 Body height 170.18 cm [facility] 04-03-2023 20:29-0500 Body mass index (BMI) [Percentile] Per age and sex 91.4 % [facility] 04-03-2023 20:29-0500 Body mass index (BMI) [Ratio] 28.5 kg/m2 [facility] 04-03-2023 20:29-0500 Body temperature 97.6 [degF] [facility] 04-03-2023 20:29-0500 Body weight 82.55 kg [facility] 04-03-2023 20:29-0500 Diastolic blood pressure 81 mm[Hg] [facility] 04-03-2023 20:29-0500 Heart rate 92 /min [facility] 04-03-2023 20:29-0500 Respiratory rate 18 /min [facility] 04-03-2023 20:29-0500 SaO2% (BldA) [Mass fraction] 99 % [facility] 04-03-2023 20:29-0500 Systolic blood pressure 125 mm[Hg] [facility] 03-10-2023 15:19-0400 SaO2% (BldA) [Mass fraction] 99 % [facility] 03-10-2023 14:09-0400 Body height 170.18 cm [facility] 03-10-2023 14:09-0400 Body mass index (BMI) [Percentile] Per age and sex 91.2 % [facility] 03-10-2023 14:09-0400 Body mass index (BMI) [Ratio] 28.4 kg/m2 [facility] 03-10-2023 14:09-0400 Body temperature 97.2 [degF] [facility] 03-10-2023 14:09-0400 Body weight 82.37 kg [facility] 03-10-2023 14:09-0400 Diastolic blood pressure 79 mm[Hg] [facility] 03-10-2023 14:09-0400 Heart rate 97 /min [facility] 03-10-2023 14:09-0400 Respiratory rate 18 /min [facility] 03-10-2023 14:09-0400 Systolic blood pressure 130 mm[Hg] [facility] 02-16-2023 04:47-0400 Diastolic blood pressure 76 mm[Hg] [facility] 02-16-2023 04:47-0400 Heart rate 68 /min [facility] 02-16-2023 04:47-0400 Respiratory rate 16 /min [facility] 02-16-2023 04:47-0400 SaO2% (BldA) [Mass fraction] 100 % [facility] 02-16-2023 04:47-0400 Systolic blood pressure 114 mm[Hg] [facility] 02-16-2023 01:37-0400 Body mass index (BMI) [Percentile] Per age and sex 93.3 % [facility] 02-16-2023 01:37-0400 Body mass index (BMI) [Ratio] 29.6 kg/m2 [facility] 02-16-2023 01:37-0400 Body temperature 97.5 [degF] [facility] 02-16-2023 01:37-0400 Body weight 85.9 kg [facility] 01-14-2023 10:00-0400 Body temperature 98.6 [degF] [facility] 01-14-2023 10:00-0400 Diastolic blood pressure 82 mm[Hg] [facility] 01-14-2023 10:00-0400 Heart rate 81 /min [facility] 01-14-2023 10:00-0400 Respiratory rate 18 /min [facility] 01-14-2023 10:00-0400 SaO2% (BldA) [Mass fraction] 100 % [facility] 01-14-2023 10:00-0400 Systolic blood pressure 125 mm[Hg] [facility] 01-11-2023 20:29-0400 Body height 170.18 cm [facility] 01-11-2023 20:29-0400 Body mass index (BMI) [Percentile] Per age and sex 97 % [facility] 01-11-2023 20:29-0400 Body mass index (BMI) [Ratio] 34 kg/m2 [facility] 01-11-2023 20:29-0400 Body weight 98.61 kg [facility] 01-05-2023 10:29-0400 Body weight 97.07 kg Meagan Arana MD Work Phone: [facility] 01-05-2023 10:29-0400 Diastolic blood pressure 64 mm[Hg] Meagan Arana MD Work Phone: [facility] 01-05-2023 10:29-0400 Systolic blood pressure 118 mm[Hg] Meagan Arana MD Work Phone: [facility] 12-29-2022 10:11-0400 Body weight 93.89 kg Ana Whitlock RESIDENTIAL FIELD MANAGER.CNM Work Phone: [facility] 12-29-2022 10:11-0400 Diastolic blood pressure 68 mm[Hg] Ana Whitlock RESIDENTIAL FIELD MANAGER.CNM Work Phone: [facility] 12-29-2022 10:11-0400 Systolic blood pressure 116 mm[Hg] Ana Whitlock RESIDENTIAL FIELD MANAGER.CNM Work Phone: [facility] 12-27-2022 23:58-0400 Heart rate 102 /min [facility] 12-27-2022 23:58-0400 SaO2% (BldA) [Mass fraction] 100 % [facility] 12-27-2022 23:48-0400 Diastolic blood pressure 76 mm[Hg] [facility] 12-27-2022 23:48-0400 Systolic blood pressure 124 mm[Hg] [facility] 12-27-2022 23:01-0400 Body mass index (BMI) [Percentile] Per age and sex 96.2 % [facility] 12-27-2022 23:01-0400 Body mass index (BMI) [Ratio] 32.5 kg/m2 [facility] 12-27-2022 23:01-0400 Body weight 94.34 kg [facility] 12-22-2022 13:17-0400 Body weight 93.53 kg Ana Miguelalessia RESIDENTIAL FIELD MANAGER.CNM Work Phone: [facility] 12-22-2022 13:17-0400 Diastolic blood pressure 70 mm[Hg] Ana Plotalessia RESIDENTIAL FIELD MANAGER.CNM Work Phone: [facility] 12-22-2022 13:17-0400 Systolic blood pressure 110 mm[Hg] Ana Myriamalessia RESIDENTIAL FIELD MANAGER.CNM Work Phone: [facility] 12-17-2022 16:59-0400 Body temperature 98.6 [degF] Raghavendra Marc APRN.LUBRICATION SUPERVISOR Work Phone: [facility] 12-17-2022 16:59-0400 Body weight 91.72 kg Raghavendra Marc APRN.LUBRICATION SUPERVISOR Work Phone: [facility] 12-17-2022 16:59-0400 Diastolic blood pressure 64 mm[Hg] Raghavendra Marc APRN.LUBRICATION SUPERVISOR Work Phone: [facility] 12-17-2022 16:59-0400 Heart rate 108 /min Raghavendra Marc APRN.LUBRICATION SUPERVISOR Work Phone: [facility] 12-17-2022 16:59-0400 Respiratory rate 21 /min Raghavendra Marc APRN.LUBRICATION SUPERVISOR Work Phone: [facility] 12-17-2022 16:59-0400 SaO2% (BldA) [Mass fraction] 98 % Raghavendra Marc APRN.LUBRICATION SUPERVISOR Work Phone: [facility] 12-17-2022 16:59-0400 Systolic blood pressure 116 mm[Hg] Raghavendra Marc APRN.LUBRICATION SUPERVISOR Work Phone: [facility] 12-15-2022 10:59-0400 Body weight 91.99 kg Ana Whitlock RESIDENTIAL FIELD MANAGER.CNM Work Phone: [facility] 12-15-2022 10:59-0400 Diastolic blood pressure 70 mm[Hg] Ana Whitlock RESIDENTIAL FIELD MANAGER.CNM Work Phone: [facility] 12-15-2022 10:59-0400 Systolic blood pressure 126 mm[Hg] Ana Whitlock RESIDENTIAL FIELD MANAGER.CNM Work Phone: [facility] 12-02-2022 23:29-0400 Body mass index (BMI) [Percentile] Per age and sex 95 % [facility] 12-02-2022 23:29-0400 Body mass index (BMI) [Ratio] 30.9 kg/m2 [facility] 12-02-2022 23:29-0400 Body weight 89.5 kg [facility] 12-02-2022 23:24-0400 Body temperature 99.3 [degF] [facility] 12-02-2022 23:24-0400 Diastolic blood pressure 67 mm[Hg] [facility] 12-02-2022 23:24-0400 Heart rate 94 /min [facility] 12-02-2022 23:24-0400 SaO2% (BldA) [Mass fraction] 99 % [facility] 12-02-2022 23:24-0400 Systolic blood pressure 121 mm[Hg] [facility]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 right hand, unspecified portion of metacarpal, initial encounter (Primary Dx) Start: 12-07-2023 Telephone encounter Berenice Martin RESIDENTIAL FIELD MANAGER.LUBRICATION SUPERVISOR Work Phone: [facility] Comment on above: Results Start: 12-04-2023 End: 12-04-2023 Patient encounter procedure En Brand MD Work Phone: [facility] Comment on above: Closed displaced fra cture of fifth metacarpal bone of right hand, unspecified portion of metacarpal, initial encounter (Primary Dx) Start: 12-04-2023 End: 12-04-2023 Emergency department patient visit Ed Physician Provider Facility:[facility] Start: 11-24-2023 ambulatory Ju Oh [facility] Start: 11-22-2023 End: 11-22-2023 Emergency department patient visit Berenice Martin Facility:[facility] Start: 11-06-2023 ambulatory Berenice rodríguez RESIDENTIAL FIELD MANAGER.LUBRICATION SUPERVISOR Work Phone: [facility] Comment on above: Heart monitor Start: 11-03-2023 End: 11-03-2023 Subsequent hospital visit by physician Card/Pulm Lab [facility]ULMON[facility] Comment on above: Palpitations [R00.2] Start: 10-06-2023 End: 10-06-2023 Patient encounter procedure Berenice Martin RESIDENTIAL FIELD MANAGER.LUBRICATION SUPERVISOR Work Phone: [facility] Comment on above: Moderate episode of recurrent major depressive disorder (HCC) (Primary Dx); Anxiety; Palpitations; Chest pain, unspecified type; Ingrown toenail; Vitamin D deficiency Start: 09-08-2023 ambulatory Berenice A Qued en RESIDENTIAL FIELD MANAGER.LUBRICATION SUPERVISOR Work Phone: [facility] Comment on above: Medication Start: 08-04-2023 Telephone encounter Berenice A Ajitden RESIDENTIAL FIELD MANAGER.LUBRICATION SUPERVISOR Work Phone: [facility] Comment on above: Results; Orders Start: 07-14-2023 ambulatory Berenice A Qued en RESIDENTIAL FIELD MANAGER.LUBRICATION SUPERVISOR Work Phone: [facility] Comment on above: Medication Start: 07-13-2023 End: 07-13-2023 [facility] Berenice A Ajitden RESIDENTIAL FIELD MANAGER.LUBRICATION SUPERVISOR Work Phone: [facility] Comment on above: Moderate episode of recurrent major depressive disorder (HCC) (Primary Dx); Anxiety; Fatigue, unspecified type; Vitamin D deficiency; Insomnia due to medical condition Start: 07-10-2023 Telephone encounter Berenice Ruben Ajitden RESIDENTIAL FIELD MANAGER.LUBRICATION SUPERVISOR Work Phone: [facility] Comment on above: No Show (Pt no showe d for appt on 07/10/23) Start: 07-09-2023 ambulatory Berenice A Qued en RESIDENTIAL FIELD MANAGER.LUBRICATION SUPERVISOR Work Phone: [facility] Comment on above: No energy always tir ed Start: 06-30-2023 ambulatory Susanne Holbrook [facility] Comment on above: ED OUTREACH (ED OUTR 06/26/2023/MALO ) Start: 06-26-2023 End: 06-26-2023 Emergency department patient visit [facility] Work Phone: Start: 06-22-2023 End: 06-22-2023 [facility] Berenice Ruben Queden RESIDENTIAL FIELD MANAGER.LUBRICATION SUPERVISOR Work Phone: [facility] Comment on above: Moderate episode of recurrent major depressive disorder (HCC) (Primary Dx); Anxiety Start: 06-15-2023 ambulatory Berenice A Qued en RESIDENTIAL FIELD MANAGER.LUBRICATION SUPERVISOR Work Phone: [facility] Comment on above: Pain Start: 04-22-2023 ambulatory Berenice A Qued en RESIDENTIAL FIELD MANAGER.LUBRICATION SUPERVISOR Work Phone: [facility] Comment on above: ED OUTREACH ([place] [facility] 04/21/23) Start: 04-21-2023 End: 04-21-2023 Emergency department patient visit DR RENNY VELASQUEZ MD Facility:B Start: 04-21-2023 ambulatory Berenice A Qued en RESIDENTIAL FIELD MANAGER.LUBRICATION SUPERVISOR Work Phone: [facility] Comment on above: Covid Start: 04-21-2023 End: 04-21-2023 Emergency department patient visit DR RENNY VELASQUEZ MD [facility] Start: 04-06-2023 ambulatory Berenice A Qued en RESIDENTIAL FIELD MANAGER.LUBRICATION SUPERVISOR Work Phone: [facility] Comment on above: Medication dose high ered Start: 04-04-2023 End: 04-04-2023 Emergency department patient visit [facility] Work Phone: Start: 04-03-2023 End: 04-03-2023 Emergency department patient visit [facility] Work Phone: Start: 04-02-2023 ambulatory Berenice A Qued en RESIDENTIAL FIELD MANAGER.LUBRICATION SUPERVISOR Work Phone: [facility] Comment on above: Increase anti depres sants Start: 03-17-2023 ambulatory Carmela Galaviz [facility] Start: 03-13-2023 Telephone encounter Berenice Fongden RESIDENTIAL FIELD MANAGER.LUBRICATION SUPERVISOR Work Phone: [facility] Comment on above: No Show (Third no sh ow in 365 days. ) Start: 03-10-2023 End: 03-10-2023 Emergency department patient visit [facility] Work Phone: Start: 02-27-2023 Telephone encounter Berenice Martin RESIDENTIAL FIELD MANAGER.LUBRICATION SUPERVISOR Work Phone: [facility] Comment on above: No Show (Second no s how appointment in 365 days. ) Start: 02-19-2023 ambulatory Carmela Galaviz MA [facility] Start: 02-16-2023 End: 02-16-2023 Emergency department patient visit [facility] Work Phone: Start: 02-05-2023 Telephone encounter Daniella Solitario MD Work Phone: OB/Gynecology Comment on above: Orders Start: 01-15-2023 ambulatory Dania Brooks Work Phone: OB/Gynecology Comment on above: Pain Start: 01-14-2023 ambulatory Daneilla Solitario MD Work Phone: OB/Gynecology Comment on above: Pain Start: 01-11-2023 End: 01-14-2023 [facility] Work [facility]: Start: 01-11-2023 ambulatory Dania Brooks Work Phone: [facility] Start: 01-11-2023 Patient encounter procedure Dania Marc MD Work Phone: OB/Gynecology Comment on above: 39 week appointment this Thursday Start: 2023 Telephone encounter Berenice Martin APRN.LUBRICATION SUPERVISOR Work Phone: [facility] Comment on above: Missed Appointment ( 1st no show in 365 days (1st letter sent)) Start: 01-05-2023 End: 01-05-2023 Patient encounter procedure Meagan Arana MD Work Phone: OB/Gynecology Comment on above: 37 weeks gestation o f (Primary Dx); Encounter for supervision of normal first in third trimester Start: 12-29-2022 End: 12-29-2022 Patient encounter procedure Ana Whitlock APRN.CNM Work Phone: OB/Gynecology Comment on above: 36 weeks gestation o f (Primary Dx); High risk teen in third trimester Start: 12-27-2022 End: 12-28-2022 Patient encounter procedure [facility] Work Phone: Start: 12-22-2022 End: 12-22-2022 Patient encounter procedure Ana Whitlock RESIDENTIAL FIELD MANAGER.CNM Work Phone: OB/Gynecology Comment on above: 35 weeks gestation o f (Primary Dx); High risk teen in third trimester Start: 12-17-2022 End: 12-17-2022 Patient encounter procedure Raghavendra Marc RESIDENTIAL FIELD MANAGER.LUBRICATION SUPERVISOR Work Phone: [facility] Comment on above: Blister (Primary Dx) Start: 12-15-2022 End: 12-15-2022 Patient encounter procedure Ana Whitlock RESIDENTIAL FIELD MANAGER.CNM Work Phone: OB/Gynecology Comment on above: 34 weeks gestation o f (Primary Dx); Excessive weight gain in , third trimester; High risk teen in third trimester Start: 12-02-2022 End: 12-03-2022 Patient encounter procedure [facility] Work Phone: Start: 11-28-2022 Refill Berenice Villatoro en RESIDENTIAL FIELD MANAGER.LUBRICATION SUPERVISOR Work Phone: [facility] Comment on above: Refill Request Start: 11-27-2022 End: 11-27-2022 Patient encounter procedure Dania Marc MD Work Phone: OB/Gynecology Comment on above: 32 weeks gestation o f (Primary Dx); Encounter for supervision of normal first in second trimester; Need for vaccination Start: 11-18-2022 ambulatory Dania Brooks Work Phone: OB/Gynecology Comment on above: 31 weeks Slim jimenez Start: 11-13-2022 End: 11-13-2022 Patient encounter procedure Dania Marc MD Work Phone: OB/Gynecology Comment on above: 30 weeks gestation o f (Primary Dx); Encounter for supervision of normal first in second trimester Start: 10-25-2022 End: 10-25-2022 ambulatory [facility] Work Phone: Start: 10-25-2022 End: 10-25-2022 Patient encounter procedure [facility] Start: 10-16-2022 End: 10-16-2022 Patient encounter procedure Dania Marc MD Work Phone: OB/Gynecology Comment on above: Encounter for superv ision of normal first in second trimester (Primary Dx); 26 weeks gestation of Start: 10-11-2022 End: 10-11-2022 ambulatory [facility] Work Phone: Start: 10-11-2022 End: 10-11-2022 Patient encounter procedure [facility] Start: 10-10-2022 End: 10-10-2022 Patient encounter procedure Berenice Martin RESIDENTIAL FIELD MANAGER.LUBRICATION SUPERVISOR Work Phone: [facility] Comment on above: Anxiety (Primary Dx) ; Moderate episode of recurrent major depressive disorder (HCC) Start: 09-28-2022 End: 09-28-2022 Emergency department patient visit [facility] Start: 09-05-2022 End: 09-05-2022 [facility] Work Phone: Start: 09-05-2022 End: 09-05-2022 Patient encounter procedure [facility] Start: 09-04-2022 End: 09-04-2022 Patient encounter procedure Dania Marc MD Work Phone: OB/Gynecology Comment on above: Encounter for superv ision of normal first in second trimester (Primary Dx); 20 weeks gestation of Encounter for anatomic survey (Primary Dx); Encounter for supervision of normal first in second trimester; 20 weeks gestation of Start: 08-21-2022 Telephone encounter Ana jackson APRN.CNM Work Phone: OB/Gynecology Comment on above: Question (OB Questio n) Start: 08-18-2022 End: 08-18-2022 Patient encounter procedure Berenice Martin RESIDENTIAL FIELD MANAGER.LUBRICATION SUPERVISOR Work Phone: [facility] Comment on above: Anxiety (Primary Dx) ; Moderate episode of recurrent major depressive disorder (HCC); 18 weeks gestation of Start: 08-05-2022 End: 08-05-2022 Patient encounter procedure Elsa Araujo RESIDENTIAL FIELD MANAGER.LUBRICATION SUPERVISOR Work Phone: OB/Gynecology Comment on above: Encounter for superv ision of normal first in second trimester (Primary Dx); 16 weeks gestation of Start: 07-22-2022 ambulatory [facility] Work Phone: Maternal Medicine Comment on above: Results Start: 07-22-2022 E-mail encounter fro m caregiver [facility] Work Phone: [facility] Start: 07-16-2022 ambulatory Berenice Villatoro en RESIDENTIAL FIELD MANAGER.LUBRICATION SUPERVISOR Work Phone: [facility] Start: 07-16-2022 End: 07-16-2022 Patient encounter procedure Hardeep Lopez MD Work Phone: Maternal Medicine Comment on above: Encounter for antena vandana screening for nuchal translucency (Primary Dx); Supervision of normal first , antepartum Start: 07-14-2022 End: 07-14-2022 Emergency department patient visit [facility] Start: 07-08-2022 ambulatory Daniella Solitario MD Work Phone: OB/Gynecology Start: 07-08-2022 E-mail encounter fro m caregiver Daniella Solitario MD Work Phone: [facility] Start: 07-05-2022 End: 07-05-2022 Emergency department patient visit [facility] Start: 06-12-2022 Telephone encounter Chichi Murillo RN Obstetrics/Gynecology Comment on above: Manager Of Network - O ther Start: 06-10-2022 End: 06-10-2022 Nursing evaluation of patient and report Nurse Pnob [facility] Work Phone: OB/Gynecology Comment on above: Encounter for superv ision of normal in teen primigravida, antepartum (Primary Dx); History of depression; UTI (urinary tract infection) in , antepartum; History of nicotine vaping; Patient request for diagnostic testing Start: 06-10-2022 End: 06-10-2022 Patient encounter procedure Dania Marc MD Work Phone: OB/Gynecology Comment on above: Supervision of everett blair first , antepartum (Primary Dx) Start: 06-10-2022 End: 06-10-2022 Patient requested procedure Nurse Pnob [facility] Work Phone: OB/Gynecology Start: 06-03-2022 Telephone encounter Berenice Martin RESIDENTIAL FIELD MANAGER.LUBRICATION SUPERVISOR Work Phone: [facility] Comment on above: Patient Update Future Appointment Start: 05-27-2022 ambulatory Berenice rodríguez RESIDENTIAL FIELD MANAGER.LUBRICATION SUPERVISOR Work Phone: [facility] Start: 05-22-2022 End: 05-22-2022 Emergency department patient visit [facility] Start: 05-20-2022 Telephone encounter Dania pacheco MD Work Phone: OB/Gynecology Comment on above: Appointment Start: 05-15-2022 End: 05-15-2022 Subsequent hospital visit by physician Xr [facility] Work Phone: Radiology Comment on above: Acute left ankle alie n [M25.572] Start: 04-28-2022 Telephone encounter Berenice Martin RESIDENTIAL FIELD MANAGER.LUBRICATION SUPERVISOR Work Phone: [facility] Comment on above: Patient Update Patient Question Start: 04-28-2022 End: 04-28-2022 Emergency department patient visit [facility] Start: 04-22-2022 End: 04-22-2022 Patient encounter procedure Alejandra Sosa RESIDENTIAL FIELD MANAGER.LUBRICATION SUPERVISOR Work Phone: [facility] Comment on above: Viral upper respirat ory tract infection (Primary Dx); Acute pharyngitis, unspecified etiology; Acute cough Start: 04-18-2022 End: 04-18-2022 Patient encounter procedure Yahir Robert RESIDENTIAL FIELD MANAGER.LUBRICATION SUPERVISOR Work Phone: [email or web address] Comment on above: URI, acute (Primary Dx); Sore throat Start: 03-20-2022 End: 03-21-2022 Emergency department patient visit [facility] Start: 03-04-2022 End: 03-04-2022 Patient encounter procedure Omar Colvin RESIDENTIAL FIELD MANAGER.LUBRICATION SUPERVISOR Work Phone: [email or web address] Comment on above: Pharyngitis, unspeci fied etiology (Primary Dx); Viral illness Start: 02-24-2022 End: 02-24-2022 Patient encounter procedure Mel Hester RESIDENTIAL FIELD MANAGER.LUBRICATION SUPERVISOR Work Phone: OB/Gynecology Comment on above: Nexplanon removal (P rimary Dx); Encounter for BCP ( control pills) initial prescription Start: 02-14-2022 Telephone encounter Berenice Martin APRN.LUBRICATION SUPERVISOR Work Phone: [facility] Comment on above: Patient Question Start: 11-01-2021 ambulatory Berenice Villatoro en RESIDENTIAL FIELD MANAGER.LUBRICATION SUPERVISOR Work Phone: [facility] Start: 11-01-2021 Letter encounter Berenice yancey RESIDENTIAL FIELD MANAGER.LUBRICATION SUPERVISOR Work Phone: [facility] Comment on above: Letter for work Start: 10-27-2021 End: 10-27-2021 Patient encounter procedure Natalie Diaz RESIDENTIAL FIELD MANAGER.LUBRICATION SUPERVISOR Work Phone: [email or web address] Comment on above: URI, acute (Primary Dx); Sore throat; Impacted cerumen of right ear Start: 10-07-2021 Refill Jenny blair RESIDENTIAL FIELD MANAGER.LUBRICATION SUPERVISOR Work Phone: [facility] Comment on above: Refill Request Start: 04-17-2018 End: 04-17-2018 Emergency department patient visit [facility] Start: 04-05-2018 End: 04-07-2018 Evaluation and management of inpatient MD NO PRIMARY CARE [facility] Start: 04-04-2018 Patient encounter procedure ALEXSANDER CASTANO [facility] Start: 04-04-2018 End: 04-05-2018 Emergency department patient visit MD JAVIER PRIMARY CARE [facility] Procedures Date Procedure Procedure Detail Performing Clinician Start: 01-10-2025 COVID & INFLUENZA A/ B & RSV PCR, ROUTINE Raghavendra Marc APRN.LUBRICATION SUPERVISOR Work Phone: Start: 01-10-2025 Radiologic exam ches t 2 views Raghaevndra Marc APRN.LUBRICATION SUPERVISOR Work Phone: Start: 12-01-2024 Iadna streptococcus group a amplified probe tq Raghavendra Marc APRN.LUBRICATION SUPERVISOR Work Phone: Start: 10-03-2024 X-ray of foot, three or more views Berenice Martin LOSS CONTROL ENGINEER-C Work Phone: Start: 09-13-2024 UA DIP,URINE HCG (POC) Dania Marc MD Work Phone: Start: 05-15-2024 STREP A MOLECULAR (POC) Navid Mendieta APRN.LUBRICATION SUPERVISOR Work Phone: Start: 02-13-2024 STREP A MOLECULAR (POC) [facility] Provider Start: 04-04-2023 CT of head without contrast Start: 04-03-2023 Plain X-ray of femur Start: 04-03-2023 Plain x-ray of wrist Start: 03-10-2023 Plain chest X-ray Start: 03-10-2023 SARS-CoV-2 & FLU Ant igen (Rapid) Start: 03-10-2023 Streptococcus pyogen es antigen assay Start: 03-10-2023 Viral antigen assay Start: 02-16-2023 Computed tomography of abdomen and pelvis with intravenous contrast Start: 01-05-2023 URINE OB DIP B/O Harlan Arana MD Work Phone: Start: 12-29-2022 URINE OB DIP B/O Antonia Whitlock APRN.CNM Work Phone: Start: 11-27-2022 URINE OB DIP B/O Dania Marc MD Work Phone: Start: 11-13-2022 URINE OB DIP B/O Dania Marc MD Work Phone: Start: 10-16-2022 URINE OB DIP B/O Dania Marc MD Work Phone: Start: 10-11-2022 Urine culture Start: 09-28-2022 CT angiography of ch est with contrast Start: 09-04-2022 URINE OB DIP B/O Dania Marc MD Work Phone: Start: 09-04-2022 Us preg uterus after 1st trimest 05/11 gestation Elsa Araujo RESIDENTIAL FIELD MANAGER.LUBRICATION SUPERVISOR Work Phone: Start: 08-05-2022 URINE OB DIP B/O Dania Marc MD Work Phone: Start: 07-16-2022 Us nuchal translucency 1st gestation Dania Marc MD Work Phone: Start: 05-15-2022 Radex ankle complete minimum 3 views Raghavendra Marc APRN.LUBRICATION SUPERVISOR Work Phone: Start: 04-18-2022 STREP A MOLECULAR (POC) [facility] Provider Start: 03-20-2022 CT of abdomen and pe lvis without contrast Start: 03-04-2022 STREP A MOLECULAR (POC) Omar Colvin RESIDENTIAL FIELD MANAGER.LUBRICATION SUPERVISOR Work Phone: Start: 10-27-2021 STREP A MOLECULAR (POC) Natalie Diaz RESIDENTIAL FIELD MANAGER.LUBRICATION SUPERVISOR Work Phone: Start: 01-23-2020 Adult depression scr eening assessment Jenny Peterson RESIDENTIAL FIELD MANAGER.LUBRICATION SUPERVISOR Work Phone: Start: 01-18-2019 Throat culture Comment on above: Performed By: #### C THRT #### [address] [address] Start: 04-05-2018 Blood count hemoglobin NO PRIMARY CARE Comment on above: Performed By: #### U ACOM ####[address] [id number] Urine culture Urine culture Plan of Treatment Date Care Activity Detail Author Start: 07-09-2034 Urine microalbumin profile DTaP,Tdap,Td Vaccine (9 - Td or Tdap) [facility] Start: 11-27-2032 Urine microalbumin profile [facility] Start: 03-29-2025 Urine microalbumin profile DTAP,TDAP,TD (7 - Td or Tdap) [facility] Start: 01-19-2025 End: 01-19-2025 Patient encounter procedure 01/19/2025 11:20 AM EDT Office Visit [facility] [address] [place] [address] Berenice Martin APRN.LUBRICATION SUPERVISOR [address] [place] [address] Vaginal disease testing [facility] Comment on above: Vaginal disease test [facility] Start: 01-09-2025 Influenza vaccination [facility] Start: 01-05-2025 Screening for malign ant neoplasm of cervix Cervical Cancer Screening [facility] Start: 10-27-2024 End: 01-26-2025 Comprehensive metabolic 2000 panel - Serum or Plasma COMPREHENSIVE METABOLIC PANEL Lab Routine Weight gain Overweight with body mass index (BMI) of 29 to 29.9 in adult Expected: 10/27/2024, Expires: 01/26/2025 [facility] Work Phone: Comment on above: Expected: 10/27/2024 , Expires: 01/26/2025 Start: 10-27-2024 End: 01-26-2025 Hemoglobin A1c in Blood HEMOGLOBIN A1C Lab Routine Weight gain Overweight with body mass index (BMI) of 29 to 29.9 in adult Expected: 10/27/2024, Expires: 01/26/2025 [facility] Comment on above: Expected: 10/27/2024 , Expires: 01/26/2025 Start: 10-27-2024 End: 01-26-2025 Insulin [Units/volume] in Serum or Plasma INSULIN, TOTAL, SERUM Lab Routine Weight gain Overweight with body mass index (BMI) of 29 to 29.9 in adult Expected: 10/27/2024, Expires: 01/26/2025 [facility] Comment on above: Expected: 10/27/2024 , Expires: 01/26/2025 Start: 10-27-2024 End: 04-25-2025 TSH W/REFLEX FT4 TSH W/REFLEX FT4 Lab Routine Weight gain Overweight with body mass index (BMI) of 29 to 29.9 in adult Expected: 10/27/2024, Expires: 04/25/2025 [facility] Comment on above: Expected: 10/27/2024 , Expires: 04/25/2025 Start: 10-14-2024 End: 10-14-2024 Patient encounter procedure 10/14/2024 10:45 AM EDT Office Visit OB/Gynecology [address] [place] [address] Marlen Chavira APRN.LUBRICATION SUPERVISOR [address] [place] [address] possbile neg and pos home test OB/Gynecology Comment on above: possbile n eg and pos home test Start: 10-11-2024 End: 10-11-2024 Patient encounter procedure 10/11/2024 2:00 PM EDT Office Visit Neurology [address] [place] [address] Excessive daytime sleepiness [G47.19] Neurology Comment on above: Excessive daytime sl eepiness [G47.19] Start: 10-03-2024 [facility] Start: 09-13-2024 End: 09-13-2024 Patient encounter procedure 09/13/2024 2:50 PM EDT Office Visit OB/Gynecology [address] [place] [address] Dania Marc MD [address] [place] [address] IUD Insert OB/Gynecology Comment on above: IUD Insert Start: 07-26-2024 End: 07-26-2024 Patient encounter procedure 07/26/2024 2:00 PM EDT Office Visit OB/Gynecology [address] [place], [place] [id number] Dania Marc MD [address] [place] [address] Nexplanon removal [Z30.46] OB/Gynecology Comment on above: Nexplanon removal [Z 30.46] Start: 07-09-2024 Simple rpr scalp/neck/ax/genit/trun k 7.6-12.5cm RPR S/N/AX/GEN/TRK7.6-12.5CM [facility] Start: 07-09-2024 [facility] Start: 02-11-2024 End: 05-12-2024 25-hydroxyvitamin D3 [Mass/volume] in Serum or Plasma VITAMIN D 25 HYDROXY Lab Routine Vitamin D deficiency Fatigue, unspecified type Expected: 02/11/2024, Expires: 05/12/2024 [facility] Comment on above: Expected: 02/11/2024 , Expires: 05/12/2024 Start: 02-11-2024 End: 05-12-2024 CBC W Auto Differential panel - Blood COMPLETE BLOOD COUNT AND DIFFERENTIAL Lab Routine Fatigue, unspecified type Expected: 02/11/2024, Expires: 05/12/2024 [facility] Comment on above: Expected: 02/11/2024 , Expires: 05/12/2024 Start: 02-11-2024 End: 02-10-2025 Cobalamin (Vitamin B12) [Mass/volume] in Serum or Plasma VITAMIN B12 Lab Routine Fatigue, unspecified type Expected: 02/11/2024, Expires: 02/10/2025 [facility] Comment on above: Expected: 02/11/2024 , Expires: 02/10/2025 Start: 02-11-2024 End: 05-12-2024 Comprehensive metabolic 2000 panel - Serum or Plasma COMPREHENSIVE METABOLIC PANEL Lab Routine Fatigue, unspecified type Expected: 02/11/2024, Expires: 05/12/2024 [facility] Comment on above: Expected: 02/11/2024 , Expires: 05/12/2024 Start: 02-11-2024 End: 02-10-2025 Ferritin [Mass/volume] in Serum or Plasma FERRITIN Lab Routine Fatigue, unspecified type Expected: 02/11/2024, Expires: 02/10/2025 [facility] Comment on above: Expected: 02/11/2024 , Expires: 02/10/2025 Start: 02-11-2024 End: 02-10-2025 Folate [Mass/volume] in Serum or Plasma FOLATE, SERUM Lab Routine Fatigue, unspecified type Expected: 02/11/2024, Expires: 02/10/2025 [facility] Comment on above: Expected: 02/11/2024 , Expires: 02/10/2025 Start: 02-11-2024 End: 02-10-2025 Iron and Iron binding capacity panel - Serum or Plasma IRON AND TIBC Lab Routine Fatigue, unspecified type Expected: 02/11/2024, Expires: 02/10/2025 [facility] Work Phone: Comment on above: Expected: 02/11/2024 , Expires: 02/10/2025 Start: 02-11-2024 End: 05-12-2024 Thyrotropin [Units/volume] in Serum or Plasma THYROID STIMULATING HORMONE Lab Routine Fatigue, unspecified type Expected: 02/11/2024, Expires: 05/12/2024 [facility] Comment on above: Expected: 02/11/2024 , Expires: 05/12/2024 Start: 02-05-2024 End: 02-05-2024 Patient encounter procedure 02/05/2024 4:00 PM EDT Office Visit [facility] [address] [place] [address] Berenice Martin, RESIDENTIAL FIELD MANAGER.[facility] [address] [place] [address] 6 week follow [facility] Comment on above: 6 week follow Start: 01-10-2024 Covid-19 Vaccine ( season) Covid-19 Vaccine () [facility] Start: 01-10-2024 Covid-19 Vaccine () Covid-19 Vaccine ( season) [facility] Start: 01-10-2024 Influenza vaccination [facility] Start: 01-07-2024 End: 01-07-2024 Patient encounter procedure 01/07/2024 1:40 PM EDT Office Visit [facility] [address] [place] [address] Berenice Martin APRN.LUBRICATION SUPERVISOR [address] [place] [address] 3 MTH F/U Anxiety and Depression [facility] Comment on above: 3 MTH F/U Anxiety an d Depression Start: 12-18-2023 End: 12-18-2023 Patient encounter procedure 12/18/2023 2:30 PM EDT Office Visit [facility] [address] [place], [place] [id number] En Brand MD [address] [place] [address] RT HAND displaced fracture F/U [facility] Comment on above: RT HAND displaced fr acture F/U Start: 12-18-2023 End: 12-18-2023 Patient encounter procedure 12/18/2023 10:45 AM EDT Office Visit [facility] [address] [place], [place] [id number] En Brand MD [address] [place] [address] RT HAND displaced fracture F/U [facility] Comment on above: RT HAND displaced fr acture F/U Start: 11-03-2023 End: 11-03-2023 Patient encounter procedure 11/03/2023 10:00 AM EDT Appointment [facility] [address] [place] [address] 48 holter [facility] Comment on above: 48 holter Start: 10-06-2023 End: 01-05-2024 25-hydroxyvitamin D3 [Mass/volume] in Serum or Plasma VITAMIN D 25 HYDROXY Lab Routine Moderate episode of recurrent major depressive disorder (HCC) Expected: 10/06/2023, Expires: 01/05/2024 [facility] Work Phone: Comment on above: Expected: 10/06/2023 , Expires: 01/05/2024 Start: 10-06-2023 End: 10-06-2023 Patient encounter procedure 10/06/2023 2:00 PM EDT Office Visit [facility] [address] [place] [address] Berenice Martin, RESIDENTIAL FIELD MANAGER.LUBRICATION SUPERVISOR [address] [place] [address] f/u after increasing meds [facility] Comment on above: f/u after increasing meds Start: 08-19-2023 COVID-19 VACCINE (2 - Pfizer series) COVID-19 VACCINE (2 - Pfizer series) [facility] Comment on above: Postponed from 06/05 (Declined at this time) Postponed from 07/10 (Declined at this time) Start: 07-13-2023 End: 10-12-2023 25-hydroxyvitamin D3 [Mass/volume] in Serum or Plasma VITAMIN D 25 HYDROXY Lab Routine Vitamin D deficiency Expected: 07/13/2023, Expires: 10/12/2023 [facility] Work Phone: Comment on above: Expected: 07/13/2023 , Expires: 10/12/2023 Start: 07-13-2023 End: 10-12-2023 CBC W Auto Differential panel - Blood CBC + DIFF Lab Routine Fatigue, unspecified type Expected: 07/13/2023, Expires: 10/12/2023 [facility] Work Phone: Comment on above: Expected: 07/13/2023 , Expires: 10/12/2023 Start: 07-13-2023 End: 10-12-2023 Comprehensive metabolic 2000 panel - Serum or Plasma COMP METABOLIC PANEL Lab Routine Anxiety Fatigue, unspecified type Expected: 07/13/2023, Expires: 10/12/2023 [facility] Work Phone: Comment on above: Expected: 07/13/2023 , Expires: 10/12/2023 Start: 07-13-2023 End: 10-12-2023 Iron and Iron binding capacity panel - Serum or Plasma IRON + TIBC Lab Routine Fatigue, unspecified type Expected: 07/13/2023, Expires: 10/12/2023 [facility] Work Phone: Comment on above: Expected: 07/13/2023 , Expires: 10/12/2023 Start: 07-13-2023 End: 10-12-2023 Thyrotropin [Units/volume] in Serum or Plasma TSH BLD Lab Routine Anxiety Fatigue, unspecified type Expected: 07/13/2023, Expires: 10/12/2023 [facility] Work Phone: Comment on above: Expected: 07/13/2023 , Expires: 10/12/2023 Start: 06-26-2023 [facility] Start: 06-10-2023 CHLAMYDIA SCREENING (18-24) CHLAMYDIA SCREENING (18-24) [facility] Start: 06-10-2023 GC (GONORRHEA) SCREE JOB (18-24) GC (GONORRHEA) SCREENING (18-24) [facility] Start: 06-10-2023 Screening for Chlamy mirta trachomatis Chlamydia Screening (18) [facility] Start: 04-04-2023 [facility] Start: 04-03-2023 [facility] Start: 03-10-2023 [facility] Start: 03-10-2023 Streptococcus pyogen es antigen assay Group A Streptococcus Rapid Screen [facility] Start: 02-16-2023 End: 02-16-2023 [facility] Start: 01-14-2023 Patient discharge [facility] Start: 01-14-2023 Consultation [facility] Start: 01-12-2023 Administration of medication [facility] Start: 01-12-2023 Application of ice collar, cap or bag [facility] Start: 01-12-2023 Catheterization of vein [facility] Start: 01-12-2023 Introduction of urin obdulia catheter [facility] Start: 01-12-2023 Measuring intake and output [facility] Start: 01-12-2023 Notification of physician [facility] Start: 01-12-2023 Procedure discontinued [facility] Start: 01-12-2023 Provision of activit y privileges [facility] Start: 01-12-2023 Vital signs measurements [facility] Start: 01-12-2023 End: 01-12-2023 [facility] Start: 01-11-[address] [facility] Start: 01-09-2023 Covid-19 Vaccine () Covid-19 Vaccine () [facility] Start: 01-09-2023 Influenza vaccination [facility] Start: 12-27-2022 Nonstress test [facility] Start: 12-27-2022 Obstetric monitoring [facility] Start: 12-27-2022 Vital signs measurements [facility] Start: 12-27-2022 [facility] Start: 12-02-2022 Nonstress test [facility] Start: 12-02-2022 Obstetric monitoring [facility] Start: 12-02-2022 Vital signs measurements [facility] Start: 12-02-2022 [facility] Start: 12-02-2022 Patient discharge [facility] Start: 10-25-2022 Nonstress test [facility] Start: 10-25-2022 Obstetric monitoring [facility] Start: 10-25-2022 Vital signs measurements [facility] Start: 10-25-2022 [facility] Start: 10-25-2022 Patient discharge [facility] Start: 10-11-2022 End: 10-11-2022 [facility] Start: 10-11-2022 Nonstress test [facility] Start: 10-11-2022 Obstetric monitoring [facility] Start: 10-11-2022 Vital signs measurements [facility] Start: 10-11-2022 Iv infusion hydratio n each additional hour HYDRATE IV INFUSION ADD-ON [facility] Start: 10-11-2022 Ther proph/dx njx iv push single/1st sbst/drug THER/PROPH/DIAG INJ IV PUSH [facility] Start: 10-11-2022 Patient discharge [facility] Start: 09-05-2022 [facility] Start: 09-05-2022 Nonstress test [facility] Start: 09-05-2022 Obstetric monitoring [facility] Start: 09-05-2022 Vital signs measurements [facility] Start: 09-05-2022 [facility] Start: 09-05-2022 Patient discharge [facility] Start: 08-05-2022 End: 10-05-2022 ALPHA FETOPRO MATERNAL [facility] Work Phone: Comment on above: Expected: 08/05/2022 , Expires: 10/05/2022 Start: 08-05-2022 End: 08-06-2023 OBSTETRIC ULTRASOUND WHI OBSTETRIC ULTRASOUND WHI Anc Imaging Routine Encounter for supervision of normal first in second trimester Expected: 08/05/2022, Expires: 08/06/2023 [facility] Work Phone: Comment on above: Expected: 08/05/2022 , Expires: 08/06/2023 Start: 06-10-2022 End: 08-10-2022 CBC panel - Blood by Automated count CBC Lab Routine Supervision of normal first , antepartum Expected: 06/10/2022, Expires: 08/10/2022 [facility] Work Phone: Comment on above: Expected: 06/10/2022 , Expires: 08/10/2022 Start: 06-10-2022 End: 08-10-2022 Hepatitis B virus surface Ag [Presence] in Serum HEP B SURF AG SCRN Lab Routine Supervision of normal first , antepartum Expected: 06/10/2022, Expires: 08/10/2022 [facility] Work Phone: Comment on above: Expected: 06/10/2022 , Expires: 08/10/2022 Start: 06-10-2022 End: 08-10-2022 Hepatitis C virus Ab [Presence] in Serum HEP C AB IA W/CONF SCRN Lab Routine Supervision of normal first , antepartum Expected: 06/10/2022, Expires: 08/10/2022 [facility] Work Phone: Comment on above: Expected: 06/10/2022 , Expires: 08/10/2022 Start: 06-10-2022 End: 08-10-2022 HIV 1+2 Ab [Presence] in Serum or Plasma by Immunoassay HIV 1 2 COMBO(AG/AB),WITH REFLEX TO DIFFERENTIATION Lab Routine Supervision of normal first , antepartum Expected: 06/10/2022, Expires: 08/10/2022 [facility] Work Phone: Comment on above: Expected: 06/10/2022 , Expires: 08/10/2022 Start: 06-10-2022 End: 06-10-2023 NUCHAL TRANSLUCENCY WHI NUCHAL TRANSLUCENCY WHI Anc Imaging Routine Supervision of normal first , antepartum Expected: 06/10/2022, Expires: 06/10/2023 [facility] Work Phone: Comment on above: Expected: 06/10/2022 , Expires: 06/10/2023 Start: 06-10-2022 End: 08-10-2022 RUBELLA IGG AB RUBELLA IGG AB Lab Routine Supervision of normal first , antepartum Expected: 06/10/2022, Expires: 08/10/2022 [facility] Work Phone: Comment on above: Expected: 06/10/2022 , Expires: 08/10/2022 Start: 06-10-2022 End: 08-10-2022 SYPHILIS TOTAL W/REFLEX SYPHILIS TOTAL W/REFLEX Lab Routine Supervision of normal first , antepartum Expected: 06/10/2022, Expires: 08/10/2022 [facility] Work Phone: Comment on above: Expected: 06/10/2022 , Expires: 08/10/2022 Start: 06-10-2022 End: 08-10-2022 TYPE + SCREEN TYPE + SCREEN Blood Bank Routine Supervision of normal first , antepartum Expected: 06/10/2022, Expires: 08/10/2022 [facility] Work Phone: Comment on above: Expected: 06/10/2022 , Expires: 08/10/2022 Start: 03-04-2022 End: 03-18-2022 Influenza virus A and B RNA and SARS-CoV-2 (COVID-19) N gene panel - Respiratory specimen by YOHAN with probe detection [facility] Work Phone: Comment on above: Expected: 03/04/2022 , Expires: 03/18/2022 Start: 01-09-2022 CHLAMYDIA SCREENING (<18) CHLAMYDIA SCREENING (<18) [facility] Comment on above: Postponed from 05/19 (Postponed - Not Clinically Indicated) Start: 01-09-2022 GC (GONORRHEA) SCREE JOB (<18) GC (GONORRHEA) SCREENING (<18) [facility] Comment on above: Postponed from 01/05 (Postponed - Not Clinically Indicated) Start: 01-09-2022 Influenza vaccination [facility] Start: 01-05-2022 CHLAMYDIA SCREENING (18-24) CHLAMYDIA SCREENING (18-24) [facility] Start: 01-05-2022 GC (GONORRHEA) SCREE JOB (18-24) GC (GONORRHEA) SCREENING (18-24) [facility] Start: 01-05-2022 HEPATITIS C SCREENING HEPATITIS C SC REENING [facility] Start: 01-05-2022 HIV SCREENING HIV SCREENING [facility] Start: 06-05-2021 COVID-19 VACCINE (2 - Pfizer series) COVID-19 VACCINE (2 - Pfizer series) [facility] Start: 01-22-2021 Adult depression screening assessment DEPRESSION SCREENING [facility] Start: 2020 Meningococcal B Vacc ine (1 of 2 - Standard) Meningococcal B Vaccine (1 of 2 - Standard) [facility] Start: 2020 Meningococcal B Vacc ine: Consider Based On Risk (1 of 2 - Patient Seeks Protection) Meningococcal B Vaccine: Consider Based On Risk (1 of 2 - Patient Seeks Protection) [facility] Start: 2020 MENINGOCOCCAL B: Consider based on risk (1 of 2 - Patient Seeks Protection) MENINGOCOCCAL B: Consider based on risk (1 of 2 - Patient Seeks Protection) [facility] Start: 2020 MENINGOCOCCAL CONJUG ATE (2 - 2-dose series) MENINGOCOCCAL CONJUGATE (2 - 2-dose series) [facility] Start: 01-05-2018 PEDS TO ADULT TRANSI TION ANNUAL ASSESSMENT PEDS TO ADULT TRANSITION ANNUAL ASSESSMENT [facility] Start: 01-05-2014 MENINGOCOCCAL B: Consider based on risk (1 of 2 - Risk Bexsero 2-dose series) MENINGOCOCCAL B: Consider based on risk (1 of 2 - Risk Bexsero 2-dose series) [facility] ALERE STREP A TEST (AG) ALERE ST REP A TEST (AG) Lab Routine Sore throat Ordered: 04/18/2022 [facility] Work Phone: Comment on above: Ordered: 04/18/2022 ALERE STREP A TEST (AG) ALERE ST REP A TEST (AG) Lab Routine Sore throat Acute cough Ordered: 02/13/2024 [facility] Work Phone: Comment on above: Ordered: 02/13/2024 Bacteria identified in Urine by Culture URINE CULTURE Microbiology Routine Supervision of normal first , antepartum 06/10/2022 3:32 PM EST [facility] Work Phone: Bacteria identified in Urine by Culture Urine Culture [facility] Chlamydia trachomatis+Neisseria gonorrhoeae DNA [Presence] in Unspecified specimen by YOHAN with probe detection GC/CHLAMYDIA DNA DET Lab Routine Supervision of normal first , antepartum 06/10/2022 3:32 PM [facility] Work Phone: COVID & INFLUENZA A/ B & RSV PCR, ROUTINE COVID & INFLUENZA A/B & RSV PCR, ROUTINE Microbiology Routine Sore throat Acute cough Ordered: 02/13/2024 [facility] Comment on above: Ordered: 02/13/2024 COVID, FLU A/B + RSV , ROUTINE COVID, FLU A/B + RSV, ROUTINE Microbiology Routine Sore throat Ordered: 10/27/2021 [facility] Work Phone: Comment on above: Ordered: 10/27/2021 End: 10-05-2024 EXTENDED WEAR RECORDS SUPERVISOR PATCH EXTENDED WEAR RECORDS SUPERVISOR PATCH ECG Routine Palpitations 1 Occurrences starting 10/06/2023 until 10/05/2024 [facility] Comment on above: 1 Occurrences starti ng 10/06/2023 until 10/05/2024 End: 09-05-2025 HOME SLEEP APNEA TEST (HSAT) HOME SLEEP APNEA TEST (HSAT) Procedures Routine Excessive daytime sleepiness Loud snoring 1 Occurrences starting 09/05/2024 until 09/05/2025 [facility] Work Phone: Comment on above: 1 Occurrences starti ng 09/05/2024 until 09/05/2025 Influenza virus A an d B RNA and SARS-CoV-2 (COVID-19) N gene panel - Respiratory specimen by YOHAN with probe detection COVID WITH FLUA+B, ROUTINE Microbiology Routine URI, acute Ordered: 04/18/2022 [facility] Work Phone: Comment on above: Ordered: 04/18/2022 Insertion intrauteri ne device iud INSERT INTRAUTERINE DEVICE Procedures Routine Encounter for IUD insertion Ordered: 09/08/2024 [facility] Work Phone: Comment on above: Ordered: 09/08/2024 Insertion intrauteri ne device iud INSERT INTRAUTERINE DEVICE Procedures Routine Encounter for IUD insertion Ordered: 09/13/2024 [facility] Work Phone: Comment on above: Ordered: 09/13/2024 Microscopic urinalysis [facility] NEXPLANON INSERTION NEXPLANON IN SERTION Procedures Routine Encounter for initial prescription of implantable subdermal contraceptive Ordered: 02/10/2023 [facility] Work Phone: Comment on above: Ordered: 02/10/2023 Organism count, microscopic method [facility] Patient Education [facility] Work Phone: Patient referral [facility] Work Phone: ROUTINE FLU A/B + RSV ROUTINE FL U A/B + RSV Lab Routine Sore throat Ordered: 10/27/2021 [facility] Work Phone: Comment on above: Ordered: 10/27/2021 ROUTINE, GR OUP B STREP PCR ROUTINE, GROUP B STREP PCR Microbiology Routine 36 weeks gestation of High risk teen in third trimester 12/29/2022 10:37 AM EDT [facility] Work Phone: SARS-CoV-2 (COVID-19 ) RNA [Presence] in Respiratory specimen by YOHAN with probe detection 2019 CORONAVIRUS Microbiology Routine Sore throat Ordered: 10/27/2021 [facility] Work Phone: Comment on above: Ordered: 10/27/2021 T VAGINALIS AMPLIFICATION T VAGINALIS AMPLIFICATION Lab Routine Supervision of normal first , antepartum 06/10/2022 3:32 PM EST [facility] Work Phone: Urinalysis, blood, qualitative [facility] Urine microscopy: epithelial cells [facility] URINE OB DIP B/O URINE OB DIP B/ O Lab Routine 34 weeks gestation of Ordered: 12/15/2022 [facility] Work Phone: Comment on above: Ordered: 12/15/2022 URINE OB DIP B/O URINE OB DIP B/ O Lab Routine 35 weeks gestation of High risk teen in third trimester Ordered: 12/22/2022 [facility] Work Phone: Comment on above: Ordered: 12/22/2022 White blood cell count [facility] XR Hand - right PA a nd Lateral and Oblique XR HAND GENERAL 3V PA/LAT/OBL RIGHT Radiology Routine Closed displaced fracture of fifth metacarpal bone of right hand, unspecified portion of metacarpal, initial encounter Ordered: 12/06/2023 [facility] Work Phone: Comment on above: Ordered: 12/06/2023 XR Hand - right PA a nd Lateral and Oblique XR HAND GENERAL 3V PA/LAT/OBL RIGHT Radiology Routine Closed displaced fracture of fifth metacarpal bone of right hand with routine healing, unspecified portion of metacarpal, subsequent encounter Ordered: 12/18/2023 [facility] Work Phone: Comment on above: Ordered: 12/18/2023 [facility] Immunizations Immunization Date Immunization Notes Care Provider Corona castillo 07-09-2024 tetanus toxoid, redu tatiana diphtheria toxoid, and acellular pertussis vaccine, adsorbed Berenice Martin LOSS CONTROL ENGINEER-C Work Phone: [facility] 11-27-2022 tetanus toxoid, redu tatiana diphtheria toxoid, and acellular pertussis vaccine, adsorbed Dania Marc MD Work Phone: [facility] 05-15-2021 COVID-19 original vaccine, age 12+ yr, monovalent (PFIZER-BIONTAsicAhead - PURPLE TOP) Berenice Martin RESIDENTIAL FIELD MANAGER.LUBRICATION SUPERVISOR Work Phone: [facility] Work Phone: 12-17-2015 human papilloma viru s vaccine, bivalent Jenny Trill RESIDENTIAL FIELD MANAGER.LUBRICATION SUPERVISOR Work Phone: [facility] 09-13-2015 human papilloma viru s vaccine, bivalent Jenny Trill RESIDENTIAL FIELD MANAGER.LUBRICATION SUPERVISOR Work Phone: [facility] 03-29-2015 human papilloma viru s vaccine, bivalent Jenny Trill RESIDENTIAL FIELD MANAGER.LUBRICATION SUPERVISOR Work Phone: [facility] 03-29-2015 human papilloma viru s vaccine, quadrivalent Berenice Queden RESIDENTIAL FIELD MANAGER.LUBRICATION SUPERVISOR Work Phone: [facility] 03-29-2015 meningococcal polysaccharide (groups A, C, Y and W-135) diphtheria toxoid conjugate vaccine (MCV4P) Jenny Peterson RESIDENTIAL FIELD MANAGER.LUBRICATION SUPERVISOR Work Phone: [facility] 03-29-2015 tetanus toxoid, redu tatiana diphtheria toxoid, and acellular pertussis vaccine, adsorbed Jenny Trill RESIDENTIAL FIELD MANAGER.LUBRICATION SUPERVISOR Work Phone: [facility] 01-16-2010 hepatitis A vaccine, pediatric/adolescent dosage, 2 dose schedule Jenny Triyoandy RESIDENTIAL FIELD MANAGER.LUBRICATION SUPERVISOR Work Phone: [facility] Work Phone: 01-16-2010 hepatitis A vaccine, unspecified formulation Jenny Trill RESIDENTIAL FIELD MANAGER.LUBRICATION SUPERVISOR Work Phone: [facility] 01-16-2010 poliovirus vaccine, inactivated Jenny Trill RESIDENTIAL FIELD MANAGER.LUBRICATION SUPERVISOR Work Phone: [facility] 03-20-2008 diphtheria, tetanus toxoids and acellular pertussis vaccine Jenny Trill RESIDENTIAL FIELD MANAGER.LUBRICATION SUPERVISOR Work Phone: [facility] Work Phone: 03-20-2008 diphtheria, tetanus toxoids and acellular pertussis vaccine, 5 pertussis antigens Jenny Trill RESIDENTIAL FIELD MANAGER.LUBRICATION SUPERVISOR Work Phone: [facility] 03-20-2008 hepatitis A vaccine, pediatric/adolescent dosage, 2 dose schedule Jenny Trill RESIDENTIAL FIELD MANAGER.LUBRICATION SUPERVISOR Work Phone: [facility] Work Phone: 03-20-2008 hepatitis A vaccine, unspecified formulation Jenny Trill RESIDENTIAL FIELD MANAGER.LUBRICATION SUPERVISOR Work Phone: [facility] 03-20-2008 measles, mumps and rubella virus vaccine Jenny Trill RESIDENTIAL FIELD MANAGER.LUBRICATION SUPERVISOR Work Phone: [facility] 03-20-2008 varicella virus vaccine Jhon jillian Trill RESIDENTIAL FIELD MANAGER.LUBRICATION SUPERVISOR Work Phone: [facility] 03-11-2006 diphtheria, tetanus toxoids and acellular pertussis vaccine Jenny Trill RESIDENTIAL FIELD MANAGER.LUBRICATION SUPERVISOR Work Phone: [facility] Work Phone: 03-11-2006 diphtheria, tetanus toxoids and acellular pertussis vaccine, 5 pertussis antigens Jenny Trill RESIDENTIAL FIELD MANAGER.LUBRICATION SUPERVISOR Work Phone: [facility] 03-11-2006 measles, mumps, rube lla, and varicella virus vaccine Jenny Trill RESIDENTIAL FIELD MANAGER.LUBRICATION SUPERVISOR Work Phone: [facility] 01-09-2005 haemophilus influenz ae type b vaccine, conjugate unspecified formulation Berenice Martin RESIDENTIAL FIELD MANAGER.LUBRICATION SUPERVISOR Work Phone: [facility] 01-09-2005 haemophilus influenz ae type b vaccine, HbOC conjugate Jenny Trill RESIDENTIAL FIELD MANAGER.LUBRICATION SUPERVISOR Work Phone: [facility] 01-09-2005 haemophilus influenz ae type b vaccine, PRP-T conjugate Jenny Trill RESIDENTIAL FIELD MANAGER.LUBRICATION SUPERVISOR Work Phone: [facility] Work Phone: 01-09-2005 hepatitis B vaccine, pediatric or pediatric/adolescent dosage Jenny Trill RESIDENTIAL FIELD MANAGER.LUBRICATION SUPERVISOR Work Phone: [facility] 01-09-2005 pneumococcal conjuga te vaccine, 13 valent Jenny Trill RESIDENTIAL FIELD MANAGER.LUBRICATION SUPERVISOR Work Phone: [facility] 01-09-2005 pneumococcal conjuga te vaccine, 7 valent Jenny Trill RESIDENTIAL FIELD MANAGER.[facility] Work Phone: [facility] Work Phone: 2004 diphtheria, tetanus toxoids and acellular pertussis vaccine Jenny Trill RESIDENTIAL FIELD MANAGER.LUBRICATION SUPERVISOR Work Phone: [facility] Work Phone: 2004 diphtheria, tetanus toxoids and acellular pertussis vaccine, 5 pertussis antigens Jenny Trill RESIDENTIAL FIELD MANAGER.LUBRICATION SUPERVISOR Work Phone: [facility] 2004 diphtheria, tetanus toxoids and acellular pertussis vaccine, unspecified formulation Berenice Queden RESIDENTIAL FIELD MANAGER.LUBRICATION SUPERVISOR Work Phone: [facility] 2004 haemophilus influenz ae type b vaccine, conjugate unspecified formulation Berenice Queden RESIDENTIAL FIELD MANAGER.LUBRICATION SUPERVISOR Work Phone: [facility] 2004 haemophilus influenz ae type b vaccine, HbOC conjugate Jenny Trill RESIDENTIAL FIELD MANAGER.LUBRICATION SUPERVISOR Work Phone: [facility] 2004 haemophilus influenz ae type b vaccine, PRP-T conjugate Jenny Trill RESIDENTIAL FIELD MANAGER.LUBRICATION SUPERVISOR Work Phone: [facility] Work Phone: 2004 pneumococcal conjuga te vaccine, 13 valent Jenny Trill RESIDENTIAL FIELD MANAGER.LUBRICATION SUPERVISOR Work Phone: [facility] 2004 pneumococcal conjuga te vaccine, 7 valent Jenny Trill RESIDENTIAL FIELD MANAGER.[facility] Work Phone: [facility] Work Phone: 2004 poliovirus vaccine, inactivated Jenny Trill RESIDENTIAL FIELD MANAGER.LUBRICATION SUPERVISOR Work Phone: [facility] 2004 diphtheria, tetanus toxoids and acellular pertussis vaccine Jenny Trill RESIDENTIAL FIELD MANAGER.LUBRICATION SUPERVISOR Work Phone: [facility] Work Phone: 2004 diphtheria, tetanus toxoids and acellular pertussis vaccine, 5 pertussis antigens Jenny Trill RESIDENTIAL FIELD MANAGER.[facility] Work Phone: [facility] 2004 diphtheria, tetanus toxoids and acellular pertussis vaccine, unspecified formulation Berenice Queden RESIDENTIAL FIELD MANAGER.[facility] Work Phone: [facility] 2004 haemophilus influenz ae type b vaccine, conjugate unspecified formulation Berenice Queden RESIDENTIAL FIELD MANAGER.[facility] Work Phone: [facility] 2004 haemophilus influenz ae type b vaccine, HbOC conjugate Jenny Trill RESIDENTIAL FIELD MANAGER.LUBRICATION SUPERVISOR Work Phone: [facility] 2004 haemophilus influenz ae type b vaccine, PRP-T conjugate Jenny Trill RESIDENTIAL FIELD MANAGER.LUBRICATION SUPERVISOR Work Phone: [facility] Work Phone: 2004 pneumococcal conjuga te vaccine, 13 valent Jenny Trill RESIDENTIAL FIELD MANAGER.LUBRICATION SUPERVISOR Work Phone: [facility] 2004 pneumococcal conjuga te vaccine, 7 valent Jenny Trill RESIDENTIAL FIELD MANAGER.LUBRICATION SUPERVISOR Work Phone: [facility] Work Phone: 2004 poliovirus vaccine, inactivated Jenny Trill RESIDENTIAL FIELD MANAGER.LUBRICATION SUPERVISOR Work Phone: [facility] 2004 diphtheria, tetanus toxoids and acellular pertussis vaccine Jenny Trill RESIDENTIAL FIELD MANAGER.LUBRICATION SUPERVISOR Work Phone: [facility] Work Phone: 2004 diphtheria, tetanus toxoids and acellular pertussis vaccine, 5 pertussis antigens Jenny Trill RESIDENTIAL FIELD MANAGER.LUBRICATION SUPERVISOR Work Phone: [facility] 2004 diphtheria, tetanus toxoids and acellular pertussis vaccine, unspecified formulation Berenice Queden RESIDENTIAL FIELD MANAGER.LUBRICATION SUPERVISOR Work Phone: [facility] 2004 haemophilus influenz ae type b vaccine, conjugate unspecified formulation Berenice Queden RESIDENTIAL FIELD MANAGER.LUBRICATION SUPERVISOR Work Phone: [facility] 2004 haemophilus influenz ae type b vaccine, HbOC conjugate Jenny Trill RESIDENTIAL FIELD MANAGER.[facility] Work Phone: [facility] 2004 haemophilus influenz ae type b vaccine, PRP-T conjugate Jenny Trill RESIDENTIAL FIELD MANAGER.LUBRICATION SUPERVISOR Work Phone: [facility] Work Phone: 2004 poliovirus vaccine, inactivated Jenny Trill RESIDENTIAL FIELD MANAGER.LUBRICATION SUPERVISOR Work Phone: [facility] 2004 pneumococcal conjuga te vaccine, 13 valent Jenny Trill RESIDENTIAL FIELD MANAGER.LUBRICATION SUPERVISOR Work Phone: [facility] 2004 pneumococcal conjuga te vaccine, 7 valent Jenny Trill RESIDENTIAL FIELD MANAGER.LUBRICATION SUPERVISOR Work Phone: [facility] Work Phone: 2004 hepatitis B vaccine, pediatric or pediatric/adolescent dosage Jenny Trill RESIDENTIAL FIELD MANAGER.LUBRICATION SUPERVISOR Work Phone: [facility] 2004 hepatitis B vaccine, pediatric or pediatric/adolescent dosage Jenny Trill RESIDENTIAL FIELD MANAGER.LUBRICATION SUPERVISOR Work Phone: [facility] Payers Date Payer Category Payer Self-pay [id number] 2022 Unknown [id number] 2017 Medicaid [facility] MEDICAID [id number] 2017-Present [phone] [address] [place] [address] Medicaid [id number] 2017 Medicaid [id number] 2004 Unknown [id number] 2004 Unknown [id number] 1988 Unknown [id number] 1988 Unknown [id number] 1988 Unknown [id number] Unknown [id number] Unknown [id number] Unknown [id number] Unknown [id number] Unknown [id number] Unknown [id number] Unknown [id number] Unknown [id number] Unknown [id number] Unknown [id number] Unknown [id number] Unknown [id number] Social History Date Type Detail Facility Start: 08-01-2019 End: 02-24-2022 Tobacco smoking status NHIS Never smoked tobacco [facility] Start: 08-01-2019 End: 02-24-2022 Tobacco use and exposure Smokeless tobacco non-user [facility] Start: 08-01-2021 End: 01-10-2025 Alcohol intake Current non-drinker of alcohol (finding) [facility] Start: 08-01-2021 End: 02-24-2022 Tobacco Comment former Vape [facility] Start: 2004 Sex Assigned At Not on file [facility] Start: 10-17-2021 End: 03-04-2022 Exposure to SARS-CoV-2 (event) Not sure [facility] Start: 03-20-2022 End: 06-26-2023 Tobacco smoking status NHIS Unknown if ever smoked [facility] Start: 07-24-2020 None [facility] Start: 07-24-2020 With Family [facility] Start: 2005 Sex Assigned At Female W [facility] Start: 06-10-2022 Education 11 [facility] Start: 04-29-2022 [facility] Start: 11-13-2022 End: 01-19-2025 History of Social function [facility] Start: 11-13-2022 End: 01-19-2025 Tobacco use panel [facility] Start: 11-22-2014 End: 03-17-2025 Adult Depression Screening Assessment 0 [facility] Tobacco smoking status [facility] Start: 10-03-2024 Tobacco smoking stat us NHIS Smokes tobacco daily (finding) [facility] Tobacco Nicotine Use: Va ping Product in Last 90 Days. [facility] Start: 04-21-2023 Sex Female (finding) [facility] NEGATED: Highlighted row [facility] Goals Date Patient Goal Desired Activity /State Personal health goal Functional Status Date Assessment Result Facility 03-17-2025 Functional Status ID band on, Call device within reach, Bed in low position, Wheels locked, Upper/Half-Length side-rails up, Bedside Cart Locked, Safety level maintained [facility] 03-17-2025 [facility] Mental Status Date Assessment Result Facility 03-17-2025 Mental Status Oriented x 4 [facility] 03-10-2023 Cognitive function Level Of Cons ciousness Awake;Alert;Appropriate;Follow s Commands [facility] Work Phone: 09-28-2022 Cognitive function Level Of Cons ciousness Awake;Alert;Appropriate;Follow s Commands [facility] Work Phone: 07-14-2022 Cognitive function Voice/Name [facility] Work Phone: 05-22-2022 Cognitive function Level Of Cons ciousness Awake;Alert;Appropriate;Follow s Commands [facility] Work Phone: 04-28-2022 Cognitive function Level Of Cons ciousness Awake;Alert;Appropriate;Follow s Commands [facility] Work Phone: Clinical Notes 01-09-2021 to 03-17-2025 Telephone Encounter - Ramón Benitez - 01/19/2025 12:49 PM EDTTelephone Encounter - Ramón Benitez - 01/19/2025 12:49 PM EDTTelephone Encounter - Alexsander Manley MA - 01/10/2025 4:11 PM EDT Note Date & Type Note Facility 03-17-2025 Hospital Discharg e instructions Patient Education 03/17/2025 20:31:14 Anal Fissure (Child) Anal Fissure (Child) The anal canal is the end portion of the intestinal tract. It includes the rectum and anus. Stool is passed through the anus. Sometimes a crack or tear develops in the lining of the anal canal. This condition is called an anal fissure. Anal fissures are caused by trauma or stretching of the anal canal. This is most often due to constipation (having hard, wmswgcmmh-bg-kwmf stools). Severe diarrhea or insertion of an object into the anal canal may also cause a fissure. Symptoms include pain and bleeding, especially during a bowel movement. Sometimes there is swelling, itching, and skin irritation. The area may spasm, causing more pain and skin separation. The most common complication is infection, which may lead to an abscess (pocket of pus). When this happens, there may also be discharge from the fissure. An anal fissure usually heals on its own with no special treatment. Home care instructions to help prevent constipation and relieve symptoms may be given. Once the area has healed, follow-up tests may be needed. In some cases, a fissure does not heal on its own. Surgery may then be needed to close the tear. Home care Medicines Your child may be prescribed medicines, such as pain relievers, stool softeners, or laxatives. Make sure to follow all instructions when giving any of these medicines to your child. Note: Do not give your child japb-lcn-uoffmjw medicines without talking to the healthcare provider first. General care To help ease constipation, you may be told to: oIncrease the fiber in your child s diet. This includes foods such as whole grains, fresh fruits, and vegetables. Fiber adds bulk to stool and absorbs water to soften stool. This helps stool pass through the colon more easily. If needed, a fiber supplement may also be prescribed. oEncourage your child to drink lots of water. This can also help soften stool. To help relieve pain and relax the muscles in the anus, have your child soak in a bath with a few inches of warm water. This is a called a sitz bath. Your child should do this for 10 to 15 minutes at a time, a few times a day, or as advised. Keep a careful record of when your child has a bowel movement and the type of stool that was passed. This may help the healthcare provider determine future care for your child. Older children should be encouraged to keep their own record. Check your child s anus for bleeding or signs of infection. Older children may be asked to monitor their own symptoms. Follow-up care Follow up with your child s healthcare provider as advised. If testing was done, you ll be told the results and any new findings that may affect your child s care. When to seek medical advice Unless your child s healthcare provider advises otherwise, call the healthcare provider right away if: Your child symptoms worsen, or they don t improve with home care measures. Your child has signs of infection such as increased redness, swelling, or foul-smelling drainage in the area around the fissure. Your child has ongoing constipation or explosive diarrhea. 0738-3772 [employer] [address]. [address] [place], [place] [id number]. All rights reserved. This information is not intended as a substitute for professional medical care. Always follow your healthcare professional's instructions. 03/17/2025 20:31:03 Understanding Rectal Bleeding Understanding Rectal Bleeding Rectal bleeding is when blood passes through your rectum and anus. It can happen with or without a bowel movement. Rectal bleeding may be a sign of a serious problem in your rectum, colon, or upper GI tract. Call your healthcare provider right away if you have any rectal bleeding. The GI Tract The gastrointestinal (GI) tract includes the mouth, esophagus, stomach, small intestine, large intestine (colon), rectum, and anus. The food you eat is digested as it passes through the GI tract. Solid waste leaves the body through the rectum. Rectal bleeding and GI problems The cause of rectal bleeding may be found in any region of the GI tract. The colon or rectum may be the site of your bleeding problem. Or, bleeding may be due to problems farther up the GI tract, such as in the small intestine, duodenum, or stomach. Causes of rectal bleeding Rectal bleeding causes include the following: Hemorrhoids (swollen veins in the rectum and anus) Fissures (tears in or near the anus) Diverticulosis (inflamed pockets in the colon wall) Infection Ischemia (low blood flow) Radiation damage Inflammatory bowel disease (Crohn's disease or ulcerative colitis) Ulcers in the upper GI tract and inflammation of the large intestine Abnormal tissue growths (tumors or polyps) in the GI tract A bulging rectum (also called a rectal prolapse) Abnormal blood vessels in the small intestine or in the colon Common symptoms Common symptoms include the following: Rectal pain, itching, or soreness Belly pain or epigastric pain Minor occasional drops of blood that appear on the stool or toilet paper, to greater amounts of stool that appear black or tarry Rectal bleeding can also happen without pain. 1702-8085 [employer] [address]. [address] [place] [address], [place] [address]. All rights reserved. This information is not intended as a substitute for professional medical care. Always follow your healthcare professional's instructions. Follow Up Care 03/17/2025 19:40:31 With:ALESSANDRO GUADARRAMA Address: [address] [place] [address] [address] [place] [address] [phone] Business (1) When:2-4 days Comments:Schedule appointment as soon as possibleReturn to ED if symptoms worsenTake cyzl-iuw-ijhgboe Colace twice daily and a fiber supplement like Metamucil Benefiber or MiraLAX twice dailyFollow-up for recheck and possible colonoscopy With:BERENICE MARTIN Address: [address] [place] [phone] Business (1) When:2-4 days Comments:Schedule appointment as soon as possibleReturn to ED if symptoms worsenTake arhb-eep-wtbfngk Colace twice daily and add fiber supplement like Metamucil MiraLAX or Benefiber twice dailyAvoid medications like Aleve ibuprofen and aspirinFollow-up for recheck and with gastroenterology for possible colonoscopy [facility] 03-17-2025 Note Discharge Instructions Thank you for allowing [place] to assist you with your healthcare needs. The following is important discharge information regarding your hospital visit. What to Do Next Instructions from Your Care Team No qualifying data available. Post Acute Orders No qualifying data available. You Need to Schedule the Following Appointments Follow Up with ALESSANDRO GUADARRAMA When:Within 2-4 days Where:[address] [facility] [address] [place] [address] [phone] Business (1) Additional Information: Schedule appointment as soon as possible Return to ED if symptoms worsen Take xwzs-vdd-ghmxrex Colace twice daily and a fiber supplement like Metamucil Benefiber or MiraLAX twice daily Follow-up for recheck and possible colonoscopy Follow Up with BERENICE MARTIN When:Within 2-4 days Where:[address] [place] [phone] Business (1) Additional Information: Schedule appointment as soon as possible Return to ED if symptoms worsen Take ejxb-xkb-yftboiq Colace twice daily and add fiber supplement like Metamucil MiraLAX or Benefiber twice daily Avoid medications like Aleve ibuprofen and aspirin Follow-up for recheck and with gastroenterology for possible colonoscopy Allergies No Known Medication Allergies Medications Please ask your primary doctor or pharmacist before taking any other medication not listed, including over the counter drugs, herbal medications, vitamins and or supplements as they may interact with your home medications. Please take this list to your next doctor s visit. Bring all medications you take, including over the counter medications, herbals and other supplements with you to your doctor s visit. Patients and families are reminded to discard old lists and to update any records with all medication providers or retail pharmacies. Education Materials Anal Fissure (Child) The anal canal is the end portion of the intestinal tract. It includes the rectum and anus. Stool is passed through the anus. Sometimes a crack or tear develops in the lining of the anal canal. This condition is called an anal fissure. Anal fissures are caused by trauma or stretching of the anal canal. This is most often due to constipation (having hard, ygmupurjc-wa-vvgm stools). Severe diarrhea or insertion of an object into the anal canal may also cause a fissure. Symptoms include pain and bleeding, especially during a bowel movement. Sometimes there is swelling, itching, and skin irritation. The area may spasm, causing more pain and skin separation. The most common complication is infection, which may lead to an abscess (pocket of pus). When this happens, there may also be discharge from the fissure. An anal fissure usually heals on its own with no special treatment. Home care instructions to help prevent constipation and relieve symptoms may be given. Once the area has healed, follow-up tests may be needed. In some cases, a fissure does not heal on its own. Surgery may then be needed to close the tear. Home care Medicines Your child may be prescribed medicines, such as pain relievers, stool softeners, or laxatives. Make sure to follow all instructions when giving any of these medicines to your child. Note: Do not give your child hsmi-myf-bfgjzvk medicines without talking to the healthcare provider first. General care To help ease constipation, you may be told to: oIncrease the fiber in your child s diet. This includes foods such as whole grains, fresh fruits, and vegetables. Fiber adds bulk to stool and absorbs water to soften stool. This helps stool pass through the colon more easily. If needed, a fiber supplement may also be prescribed. oEncourage your child to drink lots of water. This can also help soften stool. To help relieve pain and relax the muscles in the anus, have your child soak in a bath with a few inches of warm water. This is a called a sitz bath. Your child should do this for 10 to 15 minutes at a time, a few times a day, or as advised. Keep a careful record of when your child has a bowel movement and the type of stool that was passed. This may help the healthcare provider determine future care for your child. Older children should be encouraged to keep their own record. Check your child s anus for bleeding or signs of infection. Older children may be asked to monitor their own symptoms. Follow-up care Follow up with your child s healthcare provider as advised. If testing was done, you ll be told the results and any new findings that may affect your child s care. When to seek medical advice Unless your child s healthcare provider advises otherwise, call the healthcare provider right away if: Your child symptoms worsen, or they don t improve with home care measures. Your child has signs of infection such as increased redness, swelling, or foul-smelling drainage in the area around the fissure. Your child has ongoing constipation or explosive diarrhea. 9675-9243 [employer] [address]. [address] [place], [place] [address]. All rights reserved. This information is not intended as a substitute for professional medical care. Always follow your healthcare professional's instructions. Understanding Rectal Bleeding Rectal bleeding is when blood passes through your rectum and anus. It can happen with or without a bowel movement. Rectal bleeding may be a sign of a serious problem in your rectum, colon, or upper GI tract. Call your healthcare provider right away if you have any rectal bleeding. The GI Tract The gastrointestinal (GI) tract includes the mouth, esophagus, stomach, small intestine, large intestine (colon), rectum, and anus. The food you eat is digested as it passes through the GI tract. Solid waste leaves the body through the rectum. Rectal bleeding and GI problems The cause of rectal bleeding may be found in any region of the GI tract. The colon or rectum may be the site of your bleeding problem. Or, bleeding may be due to problems farther up the GI tract, such as in the small intestine, duodenum, or stomach. Causes of rectal bleeding Rectal bleeding causes include the following: Hemorrhoids (swollen veins in the rectum and anus) Fissures (tears in or near the anus) Diverticulosis (inflamed pockets in the colon wall) Infection Ischemia (low blood flow) Radiation damage Inflammatory bowel disease (Crohn's disease or ulcerative colitis) Ulcers in the upper GI tract and inflammation of the large intestine Abnormal tissue growths (tumors or polyps) in the GI tract A bulging rectum (also called a rectal prolapse) Abnormal blood vessels in the small intestine or in the colon Common symptoms Common symptoms include the following: Rectal pain, itching, or soreness Belly pain or epigastric pain Minor occasional drops of blood that appear on the stool or toilet paper, to greater amounts of stool that appear black or tarry Rectal bleeding can also happen without pain. 4650-3840 [employer] [address]. [address] [place] [address]. All rights reserved. This information is not intended as a substitute for professional medical care. Always follow your healthcare professional's instructions. Additional Information VACCINATE! IT SAVES LIVES! Members of the community who have not yet received the COVID-19 vaccine and would like to receive it can visit one of [facility] vaccine clinics. There are many vaccine clinic locations within the [facility]. For locations and available times, please visit [email or web address] [email or web address] It is important to note that some COVID mobile vaccine clinics are held outdoors and may be canceled in rainy or stormy conditions. To learn more about pediatric vaccinations (ages 5-11), we invite you to visit the [facility] webpage. [email or web address] [email or web address]-Sjwngfnxlfd-Freq dltgtl-[email or web address]-Cgvmdsbkf.[email or web address] To learn more about the COVID-19 vaccine, we invite you to visit the CDC website for a list of frequently asked questions. https://www.cdc.gov/coronavirus/ 2019-ncov/vaccines/faq.html [facility] Patient Portal Access Instructions: Stay connected with your healthcare team and access your personal medical information anytime with the [facility] Patient Portal. If you would like a full copy of your medical records please contact the [facility] Medical Records Department Thursday through Thursday between 8a.m. and 4:30p.m. Please follow the directions below to access the portal: 1.Access the email account you provided upon registration to the [facility].2.Look for an invitation email from [facility].3.Open the email and access the invitation link: Accept Invitation to [facility]4.Fill in the required juarez to create your account. To access your account, visit [employer] or scan the Mobile [employer]ie code above. Click the blue button labeled Access Patient Portal and then log in with the username and password that you created in the steps above. You can then view a summary of results, a summary of your visits, and the ability to download your summaries to your computer or send the information securely to a physician. Remember that your healthcare information is confidential, so carefully consider who you will allow to register on the [facility] [employer] Patient Portal for access to your information. You can also access the [employer] Patient Portal on the [employer]. Simply click on Health Records under Health Data and then click on the Elsa logo. HOW TO SAFELY DISPOSE OF PRESCRIPTION MEDICATIONS Please use one of the following methods to safely dispose of your unused medications. 1.Use a drug disposal kit: the drug disposal pouch allows you to safely discard your old and unused drugs. Ask your nurse to give you one when you are discharged.2.Visit a local take-back location: Many local pharmacies and police departments have programs that collect old and unwanted prescription drugs. Call your local pharmacy or go to http://bit.ly/4Z9Fc5r to find one close to you.3.Make use of household items: Use cat litter or old coffee grounds to dispose medications if other options are not available. Mix your drugs with these household products, seal them in an airtight container and throw it into the garbage. Call [facility]: [phone] to be sure your drugs can be disposed of in this way. Some medicines may require a different approach.4.Never flush your medications down the toilet. IF YOU HAVE BEEN PRESCRIBED AN OPIOIDS FOR PAIN If you have been prescribed an opioid (such as hydrocodone, oxycodone or morphine), it is critical to understand the possible side effects and risks of opioid pain medications. Even when taken as directed, opioids can have several side effects including: Tolerance, meaning you might need to take more of a medication for the same pain relief. Nausea, vomiting and/or constipation. Sleepiness, dizziness, dry mouth, confusion, depression or itching. Physical dependence, meaning you have withdrawal symptoms when a medication is stopped ? this can develop within a few days. KNOW YOUR RESPONSIBILITIES It is important to know exactly how much and how often to take the opioid pain medications you are prescribed. Never take opioids in higher amounts or more often than prescribed. Do not combine opioids with alcohol or other drugs that cause drowsiness, such as benzodiazepines, also known as benzos, including diazepam and alprazolam, muscle relaxants or sleep aids. Never sell or share prescription opioids. This is illegal. Store opioids in a secure place and out of reach of others (including children, family, friends and visitors). The last page(s) of this document has been signed and retained as a CHART COPY Signatures Patient Education Materials Anal Fissure (Child) Understanding Rectal Bleeding Medication Leaflets My discharge plan and instructions have been reviewed and explained to me and I,MILES JIMENEZ understand my current condition and have read and understand these discharge instructions. I have received a written copy of the plan/instructions. If I have questions, I am aware that I should contact my doctor. Patient/Suspender Maker Signature: Date/Time: Relationship to Patient: Witness Name/Signature: Date/Time: [facility] 02-23-2025 Note HNO ID: [id number] Author: MEL HESTER APRN.LUBRICATION SUPERVISOR Service: ? Author Type: Nurse Practitioner Type: Progress Notes Filed: 02/23/2025 12:40 Note Text: Char Puller offered: Patient declines. Miles Jimenez is a 20 year old female who presents for vaginal discharge for 1 day. - Recently took Diflucan in November for a suspected yeast infection based on symptoms during a telehealth visit; no swab was done at that time. - Last STD testing was during with her daughter, who is now 2 years old. Vaginal discharge: large amount, thin, and yellow. Itching: No Dyspareunia: No Fever/chills: No Abdominal pain: Yes, RLQ pelvic pain this morning, after urinating, resolved after urinating Bladder: Negative for dysuria or frequency Bowel: No blood in stool, pain with BM, tarry stool, persitent diarrhea, endorses constipation x2 weeks, last BM 2 days ago, reports liquid formed stool Any new sexual partners or concern for STD exposure: No Any history of STDs: None Does your partner have any new complaints: No Are you currently taking any medications to treat vaginitis: No Do you use feminine sprays, douches or deodorants: No Menstrual cycle: cycles every 14 days and 5 days of heavy flow Contraception: IUD Paragard 09/2024 Last pap: never Past medical, surgical, social history, medications and allergies reviewed and updated. OBJECTIVE: SENSITIVE EXAM: The sensitive examination was discussed with the Patient or Patient's Authorized Suspender Maker. As applicable, any other physician, advance practice provider, medical student, or other health professional student that will be observing or involved in the sensitive examination for educational or training purposes was discussed with the Patient or Authorized Suspender Maker. The Patient or Authorized Suspender Maker has agreed to proceed with the sensitive examination. (Sensitive examination includes inspection and/or palpation of the breasts, pelvis, prostate and anorectal regions). BP 118/76 Wt 183 lb (83.0kg) LMP 02/07/2025 GENERAL: Well developed, well nourished in no apparent distress ABDOMEN: soft, non-tender, and no masses PELVIC: external genitalia normal, normal Bartholin's glands, urethra, [place]'s glands, no vulvar lesions, no cervical lesions, good vaginal support, yellow discharge present, normal appearing perineal body and perianal region, IUD string noted BIMANUAL: uterus normal size, shape and consistency, no adnexal masses, and non-tender. 1. Vaginal discharge (N89.8) 2. Screen for STD (sexually transmitted disease) (Z11.3) - Acute onset of yellow, thin, watery vaginal discharge with moderate volume, no associated pruritus or dysuria; history of recent infidelity by former partner. - Differential includes bacterial vaginosis, candidiasis, and sexually transmitted infections. - Obtained vaginal swabs for chlamydia, gonorrhea, BV, and yeast. - Ordered blood work for HIV, hepatitis B, hepatitis C, and syphilis. - Educated patient on normal vs. abnormal vaginal discharge, potential causes, and the importance of STD screening given recent partner infidelity. - Advised patient that test results are expected by tomorrow morning; will notify patient of results and send prescriptions as indicated. - LORIE/TRICHOMONAS NAAT - GONORRHEA/CHLAMYDIA NAAT - SYPHILIS TREPONEMAL W/REFLEX - HIV 1/2 COMBO WITH REFLEX TO DIFFERENTIATION - HEPATITIS C ANTIBODY IA WITH CONFIRMATION - HEPATITIS B SURFACE ANTIGEN Josie Bender NP Student TEACHING PROVIDER (Physician/PA/RESIDENTIAL FIELD MANAGER) NOTE OF PERSONAL INVOLVEMENT IN CARE: I have personally seen and examined the patient and performed the medical decision-making components. I have reviewed the Advanced Practice Registered Nurse (RESIDENTIAL FIELD MANAGER) Student's documentation and verified the findings in the note as written. Any additions or changes are noted in bold/italics. Signature: Mel Hester Date: 02/23/2025 Time: 12:39 PM Medical Decision Making: Problems: Moderate: New problem with uncertain prognosis Data: Unique test(s) ordered: 3+ Medical Decision Making Level: 4 - Moderate [facility] 01-19-2025 Telephone encounter Note No Show Documentation Miles Jimenez no showed for an appointment on 01/19/2025 with Berenice Martin APRN.LUBRICATION SUPERVISOR at 11:20 am. She was scheduled for vaginal issues. I called and spoke with the patient regarding her missed appointment. Miles stated the reason that she missed her appointment was because she forgot she scheduled an appointment for today. Resources discussed/offered to patient: na No show determined to be fault of patient: Yes This is the patients first no show in the last 12 months. Patient was rescheduled for na. Letter sent thru [employer] : Yes Is this the Third or Fourth No Show? No Ramón Benitez January 19, 2025 12:50 PM [facility] 01-19-2025 Miscellaneous Notes No Show Documentation Miles Jimenez no showed for an appointment on 01/19/2025 with Berenice Martin APRN.GRAZYNA at 11:20 am. She was scheduled for vaginal issues. I called and spoke with the patient regarding her missed appointment. Miles stated the reason that she missed her appointment was because she forgot she scheduled an appointment for today. Resources discussed/offered to patient: na No show determined to be fault of patient: Yes This is the patients first no show in the last 12 months. Patient was rescheduled for na. [facility] : Yes Is this the Third or Fourth No Show? No Ramón Benitez January 19, 2025 12:50 PM documented in this encounter [facility] 01-10-2025 Telephone encounter Note PATIENT NOTIFIED OF INFORMATION [facility] 01-10-2025 Miscellaneous Notes PATIENT NOTIFIED OF INFORMATION Left message for patient to return call. Alexsander Manley MA ----- Message from Raghavendra Marc APRN.LUBRICATION SUPERVISOR sent at 01/10/2025 1:52 PM EDT ----- ----- Message ----- From: Radiology, Oru In Sent: 01/10/2025 1:49 PM EDT To: [facility] Provider Pool Please call patient let her know chest x-ray is negative. Just supportive therapies at this time. If symptoms worsen after 7 to 10 days please follow-up documented in this encounter [facility] 01-10-2025 Telephone encounter Note Left message for patient to return call. Alexsander Manley MA [facility] 01-10-2025 Telephone encounter Note ----- Message from Raghavendra Marc APRN.LUBRICATION SUPERVISOR sent at 01/10/2025 1:52 PM EDT ----- ----- Message ----- From: Radiology, Oru In Sent: 01/10/2025 1:49 PM EDT To: [facility] [place] Provider Pool [facility] 01-10-2025 Note SARS-COV-2 (AGENT OF COVID-19) RNA: Not detected INFLUENZA A RNA: Not detected INFLUENZA B RNA: Not detected RESPIRATORY SYNCYTIAL VIRUS (RSV) RNA: Not detected [facility] Comment on above: Performed By: #### [id number] ####[facility] [id number] [address] [facility] 01-10-2025 Note HNO ID: [id number] Author: RAGHAVENDRA MARC APRN.GRAZYNA Service: ? Author Type: Nurse Practitioner Type: Progress Notes Filed: 01/10/2025 14:14 Note Text: [facility] Jimmy Jimenez is a 20 year old female. Patient presents with: Cough: Cough. ST, bodyaches, BOYCE and hurts to breath x 2 days HPI The patient is a 20-year-old female presenting with headache, myalgias, cough, and chest discomfort. Headache, Myalgias, Cough, and Chest Discomfort: - Headache, myalgias, and cough with associated chest discomfort. - Chest discomfort described as muscle pain. - Reports feeling short of breath similar to previous pneumonia episodes. - Experiencing alternating hot and cold sensations. - Requests viral testing. Review of Systems Constitutional: (+) fever, (+) chills, (+) body aches Head: (+) headache Ears/Nose/Mouth/Throat: (+) ear pain Cardiovascular: (+) chest pain Respiratory: (+) cough, (+) shortness of breath Musculoskeletal: (+) chest wall muscle pain Objective BP 118/76 Pulse 100 Temp 37.4 ?C (99.3 ?F) (Tympanic) Resp 16 Wt 85.3 kg (188 lb 0.8 oz) LMP 02/02/2024 (Approximate) SpO2 99% BMI 29.45 kg/m? Physical Exam General: No acute distress. HEENT: Tympanic membranes normal, oropharynx normal. Resp: Lungs clear to auscultation. { 1. Acute cough (R05.1) 2. URI, acute (J06.9) - Symptoms include headache, myalgias, cough with chest discomfort, and alternating hot and cold sensations. - Lungs clear on auscultation; ears and throat normal on exam. - Chest X-ray negative; etiology believed to be viral. - Viral testing ordered per patient request. - Supportive care recommended; parent advised that acetaminophen is appropriate for symptom relief. - Patient and parent agreeable to care plan. and Recording using PatientKeeper software for draft documentation of the visit was discussed with the patient/authorized healthcare sales representative; all questions welcomed and answered. Patient/authorized healthcare sales representative agreed to proceed MDM Procedures [facility] 01-10-2025 History of Presen t illness Narrative [facility] Marquez Miles Jimenez is a 20 year old female. Patient presents with: Cough: Cough. ST, bodyaches, BOYCE and hurts to breath x 2 days HPI The patient is a 20-year-old female presenting with headache, myalgias, cough, and chest discomfort. Headache, Myalgias, Cough, and Chest Discomfort: - Headache, myalgias, and cough with associated chest discomfort. - Chest discomfort described as muscle pain. - Reports feeling short of breath similar to previous pneumonia episodes. - Experiencing alternating hot and cold sensations. - Requests viral testing. Review of Systems Constitutional: (+) fever, (+) chills, (+) body aches Head: (+) headache Ears/Nose/Mouth/Throat: (+) ear pain Cardiovascular: (+) chest pain Respiratory: (+) cough, (+) shortness of breath Musculoskeletal: (+) chest wall muscle pain Objective BP 118/76 Pulse 100 Temp 37.4 C (99.3 F) (Tympanic) Resp 16 Wt 85.3 kg (188 lb 0.8 oz) LMP 02/02/2024 (Approximate) SpO2 99% BMI 29.45 kg/m Physical Exam General: No acute distress. HEENT: Tympanic membranes normal, oropharynx normal. Resp: Lungs clear to auscultation. { 1. Acute cough (R05.1) 2. URI, acute (J06.9) - Symptoms include headache, myalgias, cough with chest discomfort, and alternating hot and cold sensations. - Lungs clear on auscultation; ears and throat normal on exam. - Chest X-ray negative; etiology believed to be viral. - Viral testing ordered per patient request. - Supportive care recommended; parent advised that acetaminophen is appropriate for symptom relief. - Patient and parent agreeable to care plan. and Recording using PatientKeeper software for draft documentation of the visit was discussed with the patient/authorized healthcare sales representative; all questions welcomed and answered. Patient/authorized healthcare sales representative agreed to proceed MDM Procedures documented in this encounter [facility] 01-10-2025 Telephone encounter Note Please call patient let her know chest x-ray is negative. Just supportive therapies at this time. If symptoms worsen after 7 to 10 days please follow-up [facility] Work Phone: 01-10-2025 History of Presen t illness Narrative Radiology Service Progress Note PATIENT NAME: Miles Jimenez DATE OF SERVICE: January 10, 2025 TIME: 1:36 PM PATIENT IDENTITY VERIFICATION COMPLETED USING TWO (2) IDENTIFIERS: Name and Date of confirmed by patient verbally. FALL SCREENING: Has the patient had 2 falls in the last year or 1 fall with injury or currently using an Ambulatory Assistive Device (Walker, Cane, Wheelchair, Crutches, etc.)? No PATIENT GENDER DATA: Assigned female at . status: : No status: NO. PATIENT RELEVANT IMPLANT DATA REVIEWED: Yes PATIENT PRESENTS WITH AN IMPLANTABLE OR ATTACHED EXTRACTOR AND WRINGER OPERATOR: No RADIOLOGY DEPARTMENT: General X-ray: Exam(s) Completed: Chest X-Ray PERIPHERAL IV DATA: Not applicable SIGNED BY: RT Syed(Aroldo) January 10, 2025 1:36 PM documented in this encounter [facility] 01-10-2025 Note HNO ID: [id number] Author: DESIRE RUIZ RT(R) Service: ? Author Type: Technologist Type: Progress Notes Filed: 01/10/2025 13:44 Note Text: Radiology Service Progress Note PATIENT NAME: Miles Jimenez DATE OF SERVICE: January 10, 2025 TIME: 1:36 PM PATIENT IDENTITY VERIFICATION COMPLETED USING TWO (2) IDENTIFIERS: Name and Date of confirmed by patient verbally. FALL SCREENING: Has the patient had 2 falls in the last year or 1 fall with injury or currently using an Ambulatory Assistive Device (Walker, Cane, Wheelchair, Crutches, etc.)? No PATIENT GENDER DATA: Assigned female at . status: : No status: NO. PATIENT RELEVANT IMPLANT DATA REVIEWED: Yes PATIENT PRESENTS WITH AN IMPLANTABLE OR ATTACHED EXTRACTOR AND WRINGER OPERATOR: No RADIOLOGY DEPARTMENT: General X-ray: Exam(s) Completed: Chest X-Ray PERIPHERAL IV DATA: Not applicable SIGNED BY: RT Syed(Aroldo) January 10, 2025 1:36 PM [facility] 12-01-2024 Note HNO ID: [id number] Author: OMAR COLVIN APRN.LUBRICATION SUPERVISOR Service: ? Author Type: Nurse Practitioner Type: Progress Notes Filed: 12/01/2024 18:33 Note Text: [facility] Subjective Miles Jimenez is a 19 year old female. Patient presents with: Sore Throat: BOYCE, fever x4 days HPI Nontoxic-appearing 19-year-old female presents urgent care chief complaint fever sore throat headache. Duration of symptoms 4 days. Associate symptoms listed above. Most prominent symptom today is pharyngitis. Presents today for evaluation. OTC medications none recently. No difficulty swallowing inspiration decreased range of motion of neck or trismus. Past medical history prescription medications allergies reviewed. Review of Systems Constitutional: Positive for fever. Negative for chills, diaphoresis and fatigue. HENT: Positive for sore throat. Negative for congestion, drooling, ear discharge, ear pain, rhinorrhea, sinus pressure, sinus pain, sneezing and trouble swallowing. Eyes: Negative for pain, discharge, redness, itching and visual disturbance. Respiratory: Negative for cough, chest tightness, shortness of breath and wheezing. Cardiovascular: Negative for chest pain. Gastrointestinal: Negative for abdominal distention, abdominal pain, blood in stool, constipation, diarrhea, nausea and vomiting. Genitourinary: Negative for difficulty urinating and dysuria. Musculoskeletal: Negative for arthralgias, joint swelling, neck pain and neck stiffness. Skin: Negative for rash. Neurological: Positive for headaches. Negative for dizziness, weakness and numbness. Objective BP 121/61 Pulse 92 Temp 37.5 ?C (99.5 ?F) Resp 18 Wt 83.2 kg (183 lb 6.8 oz) LMP 02/02/2024 (Approximate) SpO2 96% BMI 28.73 kg/m? Physical Exam Constitutional: Appearance: Normal appearance. HENT: Head: Normocephalic. Jaw: No trismus, tenderness, swelling or pain on movement. Nose: No congestion. Mouth/Throat: Mouth: Mucous membranes are moist. Pharynx: Oropharynx is clear. Uvula midline. Posterior oropharyngeal erythema present. No oropharyngeal exudate. Tonsils: No tonsillar exudate or tonsillar abscesses. 1+ on the right. 1+ on the left. Eyes: Conjunctiva/sclera: Conjunctivae normal. Cardiovascular: Rate and Rhythm: Normal rate. Pulmonary: Effort: Pulmonary effort is normal. Breath sounds: Normal breath sounds. No wheezing, rhonchi or rales. Abdominal: Palpations: Abdomen is soft. Tenderness: There is no abdominal tenderness. There is no guarding or rebound. Musculoskeletal: General: Normal range of motion. Cervical back: Normal range of motion and neck supple. No edema, erythema or rigidity. No pain with movement. Normal range of motion. Lymphadenopathy: Cervical: Cervical adenopathy present. Skin: General: Skin is warm. Findings: No rash. Neurological: General: No focal deficit present. Mental Status: She is alert and oriented to person, place, and time. Mental status is at baseline. {ASSESSMENT/PLAN: 1. Sore throat - ICD9: 462, ICD10: J02.9 (primary diagnosis) - STREP A MOLECULAR (POC) 2. Viral illness - ICD9: 079.99, ICD10: B34.9 - Discussed viral etiology and rationale for treatment. - Rapid strep negative in office today - Symptomatic treatment with prn analgesia - Supportive care with fluids and rest Strep test negative. Treat as viral pharyngitis. Patient was educated on supportive therapies. Patient will follow up with primary care provider as needed. Patient was instructed to immediately proceed to emergency room for any new, worsening, or symptoms lasting longer than anticipated. The patient's clinical presentation is otherwise unremarkable at this time. Based on exam and clinical finding, the patient is stable for discharge. Plan of care was discussed with patient. Patient verbalizes understanding and agrees to plan of care. This note was generated using CogMetal software. It may contain errors in wording, punctuation, or spelling. Omar Colvin APRN.LUBRICATION SUPERVISOR MDM Procedures [facility] 12-01-2024 History of Presen t illness Narrative [facility] Subjective Miles Jimenez is a 19 year old female. Patient presents with: Sore Throat: BOYCE, fever x4 days HPI Nontoxic-appearing 19-year-old female presents urgent care chief complaint fever sore throat headache. Duration of symptoms 4 days. Associate symptoms listed above. Most prominent symptom today is pharyngitis. Presents today for evaluation. OTC medications none recently. No difficulty swallowing inspiration decreased range of motion of neck or trismus. Past medical history prescription medications allergies reviewed. Review of Systems Constitutional: Positive for fever. Negative for chills, diaphoresis and fatigue. HENT: Positive for sore throat. Negative for congestion, drooling, ear discharge, ear pain, rhinorrhea, sinus pressure, sinus pain, sneezing and trouble swallowing. Eyes: Negative for pain, discharge, redness, itching and visual disturbance. Respiratory: Negative for cough, chest tightness, shortness of breath and wheezing. Cardiovascular: Negative for chest pain. Gastrointestinal: Negative for abdominal distention, abdominal pain, blood in stool, constipation, diarrhea, nausea and vomiting. Genitourinary: Negative for difficulty urinating and dysuria. Musculoskeletal: Negative for arthralgias, joint swelling, neck pain and neck stiffness. Skin: Negative for rash. Neurological: Positive for headaches. Negative for dizziness, weakness and numbness. Objective BP 121/61 Pulse 92 Temp 37.5 C (99.5 F) Resp 18 Wt 83.2 kg (183 lb 6.8 oz) LMP 02/02/2024 (Approximate) SpO2 96% BMI 28.73 kg/m Physical Exam Constitutional: Appearance: Normal appearance. HENT: Head: Normocephalic. Jaw: No trismus, tenderness, swelling or pain on movement. Nose: No congestion. Mouth/Throat: Mouth: Mucous membranes are moist. Pharynx: Oropharynx is clear. Uvula midline. Posterior oropharyngeal erythema present. No oropharyngeal exudate. Tonsils: No tonsillar exudate or tonsillar abscesses. 1+ on the right. 1+ on the left. Eyes: Conjunctiva/sclera: Conjunctivae normal. Cardiovascular: Rate and Rhythm: Normal rate. Pulmonary: Effort: Pulmonary effort is normal. Breath sounds: Normal breath sounds. No wheezing, rhonchi or rales. Abdominal: Palpations: Abdomen is soft. Tenderness: There is no abdominal tenderness. There is no guarding or rebound. Musculoskeletal: General: Normal range of motion. Cervical back: Normal range of motion and neck supple. No edema, erythema or rigidity. No pain with movement. Normal range of motion. Lymphadenopathy: Cervical: Cervical adenopathy present. Skin: General: Skin is warm. Findings: No rash. Neurological: General: No focal deficit present. Mental Status: She is alert and oriented to person, place, and time. Mental status is at baseline. {ASSESSMENT/PLAN: 1. Sore throat - ICD9: 462, ICD10: J02.9 (primary diagnosis) - STREP A MOLECULAR (POC) 2. Viral illness - ICD9: 079.99, ICD10: B34.9 - Discussed viral etiology and rationale for treatment. - Rapid strep negative in office today - Symptomatic treatment with prn analgesia - Supportive care with fluids and rest Strep test negative. Treat as viral pharyngitis. Patient was educated on supportive therapies. Patient will follow up with primary care provider as needed. Patient was instructed to immediately proceed to emergency room for any new, worsening, or symptoms lasting longer than anticipated. The patient's clinical presentation is otherwise unremarkable at this time. Based on exam and clinical finding, the patient is stable for discharge. Plan of care was discussed with patient. Patient verbalizes understanding and agrees to plan of care. This note was generated using CogMetal software. It may contain errors in wording, punctuation, or spelling. Omar Colvin APRN.GRAZYNA MDM Procedures documented in this encounter [facility] 11-08-2024 Note HNO ID: [id number] Author: ?, ?, ? Service: ? Author Type: ? Type: Progress Notes Filed: 11/08/2024 11:18 Note Text: Sleep Study Check-In Documentation Date: November 08, 2024 Name: Miles Jimenez Comments: HST was returned in work order. Study did not occur. Unable to redeploy. Patient was messaged in [employer]. Jairon Rea [facility] 11-08-2024 History of Presen t illness Narrative Sleep Study Check-In Documentation Date: November 08, 2024 Name: Miles Jimenez Comments: HST was returned in work order. Study did not occur. Unable to redeploy. Patient was messaged in [employer]. Jairon Rea Will allow 1 more day to see if scanned in. Per [employer] tracking return they are unable to find tracking number in system Contacted patient regarding HSAT billing. She confirms she does have kit and can get it to [employer] only tomorrow. Sent myc as a reminder message. Awaiting return of hsat kit. Nomad # [id number] , date shipped out 10-10-24 [employer] ONLY Tracking mailout: [id number] Tracking return: [id number] [id number] October 06, 2024 Standing PSG Orders signed in the last 90 days None Future PSG Orders signed in the last 90 days Ordered Auth. provider HOME SLEEP APNEA TEST (HSAT) [[id number]] 09/05/24 Berenice Martin APRN.LUBRICATION SUPERVISOR Assoc. diagnoses: Excessive daytime sleepiness [G47.19], Loud snoring [R06.83] Q: Indications: A: Obstructive sleep apnea Q: STOP-BANG conditions - Select All That Apply: A: SNORING that is loud or disruptive A2: TIREDNESS, fatigue or sleepiness during the day Q: Current use of supplemental oxygen during sleep period?: A: No All Prior Sleep Studies (past 365 days) 09/05/2024 17:14 Sleep Studies HOME SLEEP APNEA TEST (HSAT) HOME SLEEP APNEA TEST (HSAT) Order Status: Ordered, Future Expires: 09/05/25 BMI Readings from Last 2 Encounters: 09/26/24 : 29.35 kg/m 09/13/24 : 28.88 kg/m 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 Indications for study: ESPERANZA suspected without comorbid medical or sleep disorders Sleep study to be performed: Home Sleep Apnea Test (HSAT) Special instructions: None-follow laboratory protocol Zohreh Presley - Sleep Medicine Staff Note: I have read the above protocol, edited as needed, and agree to the plan. Marcia Poe APRN.CNP 12:47 PM, 10/07/2024 October 05, 2024 An order has been received for Home Sleep Apnea Test (HSAT) from Berenice Kelley [facility] Staff. Visit prep complete. Comments :No The sleep study is scheduled for 10/11. Insurance: Payor: [employer]ICA[employer] / Plan: [employer]ICA[employer] / Product Type: Medicaid / Payer/Plan Subscr Sex Relation Sub. Ins. ID Effective Group Num 1. [employer] [place]* JOEYMILES OSBORNE Aroldo 3 Female Self [id number] 06/11[birth year]22 [facility] [address] Jairon Rea documented in this encounter [facility] 11-02-2024 Note HNO ID: [id number] Author: ?, ?, ? Service: ? Author Type: ? Type: Progress Notes Filed: 11/08/2024 11:18 Note Text: Will allow 1 more day to see if scanned in. Per [employer] tracking return they are unable to find tracking number in system [facility] 11-01-2024 Note HNO ID: [id number] Author: ?, ?, ? Service: ? Author Type: ? Type: Progress Notes Filed: 11/08/2024 11:18 Note Text: Contacted patient regarding HSAT billing. She confirms she does have kit and can get it to [employer]ex only tomorrow. Sent myc as a reminder message. Awaiting return of hsat kit. 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 This can lead to prediabetes or diabetes. This could also be the reason why you have been tired and gained weight. I would like to start you on a medication called Metformin to help your body use it's insulin correctly and efficiently. We will start you on 500 mg once a day in the morning with food. We will recheck your level again in 3 months. The rest of your labs looked good. [facility] 11-01-2024 Miscellaneous Notes Labs confirm you have insulin resistance which means your body's cells are not responding well to insulin which is a hormone made to regulate your blood sugar. This can lead to prediabetes or diabetes. This could also be the reason why you have been tired and gained weight. I would like to start you on a medication called Metformin to help your body use it's insulin correctly and efficiently. We will start you on 500 mg once a day in the morning with food. We will recheck your level again in 3 months. The rest of your labs looked good. documented in this encounter [facility] 10-27-2024 Instructions Berenice Martin APRN.CNP - 10/27/2024 5:55 PM EDT CHOOSING PROTEIN Basic protein needs each day. (1 gm/kg) If competing in sports you can increase this: 100 grams of protein each day (1.2-1.7 grams/kg) Protein foods include both animal (meat, poultry, seafood, and eggs) and plant (beans, peas, soy products, nuts, and seeds) sources. We all need protein to build lean muscle mass -- and there is some evidence that eating protein several times a day will make amino acids available during your workout. Vary your protein food choices: Eat a variety of foods from the protein group each week. [place] with main dishes made with beans or peas, nuts, soy and seafood. Eat seafood in place of meat or poultry twice a week. Include some fish that are higher in oils and low in mercury, such as salmon, trout and salazar. Milk (8 grams), yogurt (12 grams) and Surinamese yogurt (18 grams) contain protein. Choose lean or low-fat cuts of meat like round or sirloin and ground beef that is at least 90% lean. Trim or drain fat from meat and remove poultry skin. 3 ounces of meat, fish, poultry (about the size of a deck of cards) contains about 24 grams of protein. Have an egg: One egg a day, on average doesn't increase risk for heart disease, so make eggs a part of your weekly choices. One medium egg contains 6 grams of protein. Only the egg yolk contains cholesterol and satruated fat, so have as many egg whites as you want. Eating a healthy breakfast, especially one high in protein, increases satiety and reduces hunger throughout the day. Try a hard-boiled egg, peanut butter on whole grain toast, or add some nuts to your oatmeal or cereal. (2 tbsp of peanut butter is about 8 grams of protein) Eat plant protein foods more often. Try beans and peas (kidney, navy, black, hawley, or white beans; splt peas; chickpeas; hummus), soy products (tofu, tempeh, veggie burgers), nuts and seeds. They are naturally low in saturated fat and high in fiber. (1/2 cup of beans is about 8 grams of protein) Choose unsalted nuts and seeds as a snack, on salads or in main dished to replace meat or poultry. Small portions of nuts will do - they are a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 match the source document(s) (e.g. consent, HANDP, associated studies [imaging, pathology]) match the intended patient and procedure. Consent obtained and matches the intended procedure. Yes. Correct side/site has been marked and visible. Medications required for this procedure are verified. Fire risk assessed and is not applicable. Implants: are not applicable. Sign Out: Specimens not collected. All instruments, equipment, possible retained foreign bodies are accounted for. Yes. The post-procedure plan of care has been communicated to the patient or surrogate. TECHNIQUE: Patient placed in supine position with left arm bent at the elbow and placed over the head. Skin cleansed with betadine. 3mL of 1% lidocaine with epi injected subQ along insertion site. Scalpel used to made a 5mm stab incision superficially at distal end of Nexplanon. Device removed under sterile technique with a small hemostat. Sterile pressure dressing applied. AANDP: 19 year old here for Nexplanon removal Nexplanon removed intact without difficulty. The patient was instructed to remove the dressing after 24 hours. Contraceptive plans Paragard IUD Dania Marc [facility]05-01-2025 History of Present illness Narrative* Dania Marc MD - 09/08/2024 8:48 AM EDT Miles is a 19 year old who presents for Nexplanon removal for contraception change. UNIVERSAL PROTOCOL / SAFETY CHECKLIST Procedure to be Performed: Nexplanon Removal Sign In: A Moment of CARE was completed. Appropriate PPE (Personal Protective Equipment) worn by all providers involved with the procedure. Special equipment not required. Patient/Surrogate Stated/Verified: Patient name, Date of , Relevant allergies, and The intended procedure Time Out: Relevant labs, photos, and/or imaging studies are not applicable. Intended patient and procedure match the source document(s) (e.g. consent, H&P, associated studies [imaging, pathology]) match the intended patient and procedure. Consent obtained and matches the intended procedure. Yes. Correct side/site has been marked and visible. Medications required for this procedure are verified. Fire risk assessed and is not applicable. Implants: are not applicable. Sign Out: Specimens not collected. All instruments, equipment, possible retained foreign bodies are accounted for. Yes. The post-procedure plan of care has been communicated to the patient or surrogate. TECHNIQUE: Patient placed in supine position with left arm bent at the elbow and placed over the head. Skin cleansed with betadine. 3mL of 1% lidocaine with epi injected subQ along insertion site. Scalpel used to made a 5mm stab incision superficially at distal end of Nexplanon. Device removed under sterile technique with a small hemostat. Sterile pressure dressing applied. A&P: 19 year old here for Nexplanon removal Nexplanon removed intact without difficulty. The patient was instructed to remove the dressing after 24 hours. Contraceptive plans Paragard IUD Dania Marc MD documented in this encounterUniversity [facility]04[facility] Telephone encounter Note * Telephone Encounter - Susanne Holbrook MA - 08/15/2024 8:16 AM EDT Patient requesting refills: Last office visit 02/01/2024. Last refill 07/11/2024 .nov none NEEDS APT. Requested Prescriptions Pending Prescriptions Disp Refills FLUoxetine (PROZAC) 20 mg capsule 90 capsule 2 Sig: Take 3 capsules by mouth once daily. Please review and advise. Susanne Holbrook MA [facility]04-07-2025 Miscellaneous Notes* Telephone Encounter - Susanne Holbrook MA - 08/15/2024 8:16 AM EDT Patient requesting refills: Last office visit 02/01/2024. Last refill 07/11/2024 .nov none NEEDS APT. Requested Prescriptions Pending Prescriptions Disp Refills FLUoxetine (PROZAC) 20 mg capsule 90 capsule 2 Sig: Take 3 capsules by mouth once daily. Please review and advise. Susanne Holbrook MA documented in this encounterUniversity Hospitals [facility]03-12-2025 NoteHNO ID: [id number] Author: YAHIR JONES APRN.LUBRICATION SUPERVISOR Service: ? Author Type: Nurse Practitioner Type: Progress Notes Filed: 07/20/2024 16:56 Note Text: [facility] Subjective Miles Jimenez is a 19 year old female. HPI Miles Jimenez is a 19 year old female who presents today for CC of left arm suture removal, placed 12 days ago in ER, sutures. Denies redness/warmth. Is a little itchy. 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 MEDICATIONS FLUoxetine (PROZAC) 20 mg capsule Take 3 capsules by mouth once daily. busPIRone (BUSPAR) 5 mg tablet TAKE 1 TABLET BY MOUTH 3 TIMES A DAY NEEDED Cholecalciferol, Vitamin D3, 125 mcg (5,000 unit) cap Take 1 capsule by mouth once daily. etonogestrel (NEXPLANON) subdermal implant 68 mg 1 Each by SUBDERMAL route as directed. albuterol HFA (PROVENTIL HFA, VENTOLIN HFA) 90 mcg/actuation inhaler Inhale 2 Puffs as instructed every 4 hours as needed for wheezing/shortness of breath. (Patient not taking: Reported on 05/15/2024) FAMILY HISTORY Problem Relation Age of Onset No Known Problems Mother No Known Problems Father Asthma Brother Cervical Cancer Maternal Grandmother Bipolar disorder Maternal Grandfather Heart Maternal Grandfather No Known Problems Paternal Grandmother Cancer Paternal Grandfather Social History Tobacco Use Smoking status: Never Smokeless tobacco: Never Tobacco comments: former Vape Vaping Use Vaping status: Former Quit date: 05/09/2022 Substances: Nicotine, Flavoring Substance Use Topics Alcohol use: No Drug use: No Patient presents with: Suture Removal: left forearm [address] 07/09 HPI Review of Systems Objective BP 120/68 Pulse 88 Temp 36.7 ?C (98 ?F) Resp 16 Wt 80.4 kg (177 lb 4 oz) LMP 02/02/2024 (Approximate) SpO2 99% BMI 27.76 kg/m? Physical Exam Constitutional: General: She is not in acute distress. Appearance: She is not toxic-appearing or diaphoretic. HENT: Head: Normocephalic and atraumatic. Pulmonary: Effort: Pulmonary effort is normal. No accessory muscle usage or respiratory distress. Musculoskeletal: Arms: Neurological: Mental Status: She is alert and oriented to person, place, and time. ASSESSMENT/PLAN: 1. Visit for suture removal - ICD9: V58.32, ICD10: Z48.02 10 sutures removed intacxt Wound edges remain well approximated F/u for s/s infection. Yahir Jones APRN.LUBRICATION SUPERVISOR [facility] History of Present illness Narrative* Yahir Jones APRN.GRAZYNA - 07/20/2024 1:38 PM EDT Images from the original note were not included. [facility] Subjective Miles Jimenez is a 19 year old female. HPI Miles Jimenez is a 19 year old female who presents today for CC of left arm suture removal, placed 12 days ago in ER, sutures. Denies redness/warmth. Is a little itchy. 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 MEDICATIONS FLUoxetine (PROZAC) 20 mg capsule Take 3 capsules by mouth once daily. busPIRone (BUSPAR) 5 mg tablet TAKE 1 TABLET BY MOUTH 3 TIMES A DAY NEEDED Cholecalciferol, Vitamin D3, 125 mcg (5,000 unit) cap Take 1 capsule by mouth once daily. etonogestrel (NEXPLANON) subdermal implant 68 mg 1 Each by SUBDERMAL route as directed. albuterol HFA (PROVENTIL HFA, VENTOLIN HFA) 90 mcg/actuation inhaler Inhale 2 Puffs as instructed every 4 hours as needed for wheezing/shortness of breath. (Patient not taking: Reported on 05/15/2024) FAMILY HISTORY Problem Relation Age of Onset No Known Problems Mother No Known Problems Father Asthma Brother Cervical Cancer Maternal Grandmother Bipolar disorder Maternal Grandfather Heart Maternal Grandfather No Known Problems Paternal Grandmother Cancer Paternal Grandfather Social History Tobacco Use Smoking status: Never Smokeless tobacco: Never Tobacco comments: former Vape Vaping Use Vaping status: Former Quit date: 05/09/2022 Substances: Nicotine, Flavoring Substance Use Topics Alcohol use: No Drug use: No Patient presents with: Suture Removal: left forearm [address] 07/09 HPI Review of Systems Objective BP 120/68 Pulse 88 Temp 36.7 C (98 F) Resp 16 Wt 80.4 kg (177 lb 4 oz) LMP 02/02/2024 (Approximate) SpO2 99% BMI 27.76 kg/m Physical Exam Constitutional: General: She is not in acute distress. Appearance: She is not toxic-appearing or diaphoretic. HENT: Head: Normocephalic and atraumatic. Pulmonary: Effort: Pulmonary effort is normal. No accessory muscle usage or respiratory distress. Musculoskeletal: Arms: Neurological: Mental Status: She is alert and oriented to person, place, and time. ASSESSMENT/PLAN: 1. Visit for suture removal - ICD9: V58.32, ICD10: Z48.02 10 sutures removed intacxt Wound edges remain well approximated F/u for s/s infection. Yahir Jones APRN.GRAZYNA MDM Procedures documented in this encounterUniversity Hospitals [facility]03-06-2025 NoteHNO ID: [id number] Author: SUSANNE HOLBROOK MA Service: ? Author Type: Rhinologist Type: Progress Notes Filed: 07/14/2024 12:00 Note Text: ED Follow Up: Patient discharged from [facility] ED on 07/09/2024. 1. How are you feeling since your ED visit? na Have your symptoms improved or resolved? Not applicable 2. Were you prescribed any medications while in the ED or advised to stop any medication? Not applicable - If yes, were you able to fill your prescriptions? Not applicable -if stopped medication, what was the medication? na 3. Were you advised to schedule a follow up appointment with your provider? Not applicable - If no, Do you feel like you need an appointment scheduled? Not applicable - If yes, Do you need this scheduled now or has this already been scheduled? Not applicable 4. Were you able to contact the office or television tube inspector provider prior to your ED visit? Not applicable 5. Is there anything else I can do for you today? Not applicable Tried contacting patient . Her vm is full . Contacting patient mother she will notified her to call if she needs anything. [facility] History of Present illness Narrative* Susanne Holbrook MA - 07/14/2024 11:46 AM EST ED Follow Up: Patient discharged from [facility] ED on 07/09/2024. 1. How are you feeling since your ED visit? na Have your symptoms improved or resolved? Not applicable 2. Were you prescribed any medications while in the ED or advised to stop any medication? Not applicable - If yes, were you able to fill your prescriptions? Not applicable -if stopped medication, what was the medication? na 3. Were you advised to schedule a follow up appointment with your provider? Not applicable - If no, Do you feel like you need an appointment scheduled? Not applicable - If yes, Do you need this scheduled now or has this already been scheduled? Not applicable 4. Were you able to contact the office or television tube inspector provider prior to your ED visit? Not applicable 5. Is there anything else I can do for you today? Not applicable Tried contacting patient . Her vm is full . Contacting patient mother she will notified her to callif she needs anything. Susanne Holbrook MA documented in this encounterUniversity Hospitals Port[facility] Center03-06-2025 NotePatient Outreach (AGFAMPLE) MILES JIMENEZ ([id number]) 3 F CHT Date Time Provider Department 07/14/24 ANANDBENNIESUSANNE TORO FLORIDALMA During your visit today, we recorded the following information about you: Susanne Holbrook MA 07/14/2024 12:00 PM Signed ED Follow Up: Patient discharged from [facility] ED on 07/09/2024. 1. How are you feeling since your ED visit? na Have your symptoms improved or resolved? Not applicable 2. Were you prescribed any medications while in the ED or advised to stop any medication? Not applicable - If yes, were you able to fill your prescriptions? Not applicable -if stopped medication, what was the medication? na 3. Were you advised to schedule a follow up appointment with your provider? Not applicable - If no, Do you feel like you need an appointment scheduled? Not applicable - If yes, Do you need this scheduled now or has this already been scheduled? Not applicable 4. Were you able to contact the office or television tube inspector provider prior to your ED visit? Not applicable 5. Is there anything else I can do for you today? Not applicable Tried contacting patient . Her vm is full . Contacting patient mother she will notified her to call if she needs anything. Susanne Holbrook MA Allergies As of Date: 07/14/2024 (No Known Allergies) Date Reviewed: 07/11/2024 Reviewed by: Liz Abernathy LPN - Fully Assessed Reason for Visit: ED OUTREACH [Other] Cmt: ED OUTREACH MALO 07/09/2024 Prescriptions as of 07/14/2024 - FLUoxetine (PROZAC) 20 mg capsule Take 3 capsules by mouth once daily. - busPIRone (BUSPAR) 5 mg tablet TAKE 1 TABLET BY MOUTH 3 TIMES A DAY NEEDED - Cholecalciferol, Vitamin D3, 125 mcg (5,000 unit) cap Take 1 capsule by mouth once daily. - etonogestrel (NEXPLANON) subdermal implant 68 mg 1 Each by SUBDERMAL route as directed. - albuterol HFA (PROVENTIL HFA, VENTOLIN HFA) 90 mcg/actuation inhaler Inhale 2 Puffs as instructed every 4 hours as needed for wheezing/shortness of breath. Problem List As Of Date 07/14/2024 Noted Resolved Adjustment disorder with disturbance of [...] syncope [R55] 10/01/2022 Elevated glucose [R73.09] 10/16/2022 Palpitations [R00.2] 11/03/2023 Encounter Status:Closed by SUSANNE HOLBROOK on 07/14/24[facility] Telephone encounter Note* Telephone Encounter - Kaley Garcia MA - 07/11/2024 4:17 PM EST patient electronically requesting refills as follows: Last seen 02/01/24 [facility] . Last refill 04/20/24 . Requested Prescriptions Pending Prescriptions Disp Refills FLUoxetine (PROZAC) 20 mg capsule 90 capsule 2 Sig: Take 3 capsules by mouth once daily. Please review and advise. Kaley Garcia MA [facility]03-03-2025 Miscellaneous Notes* Telephone Encounter - Kaley Garcia MA - 07/11/2024 4:17 PM EST patient electronically requesting refills as follows: Last seen 02/01/24 [facility] . Last refill 04/20/24 . Requested Prescriptions Pending Prescriptions Disp Refills FLUoxetine (PROZAC) 20 mg capsule 90 capsule 2 Sig: Take 3 capsules by mouth once daily. Please review and advise. Kaley Garcia MA documented in this encounterUniversity Hospitals Portage Medical Center03-03-2025 NoteHNO ID: [id number] Author: YAHIR JONES APRN.LUBRICATION SUPERVISOR Service: ? Author Type: Nurse Practitioner Type: Progress Notes Filed: 07/11/2024 14:10 Note Text: Subjective HPI HPI Miles Jimenez is a 19 year old female who presents today for CC of cough, st, runny nose. This started 3 days ago. Has tried otc medication for relief. Symptoms are worsened by nothing. Risk factors sick exposures at home. 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 MEDICATIONS FLUoxetine (PROZAC) 20 mg capsule TAKE 3 CAPSULES BY MOUTH EVERY DAY busPIRone (BUSPAR) 5 mg tablet TAKE 1 TABLET BY MOUTH 3 TIMES A DAY NEEDED Cholecalciferol, Vitamin D3, 125 mcg (5,000 unit) cap Take 1 capsule by mouth once daily. etonogestrel (NEXPLANON) subdermal implant 68 mg 1 Each by SUBDERMAL route as directed. albuterol HFA (PROVENTIL HFA, VENTOLIN HFA) 90 mcg/actuation inhaler Inhale 2 Puffs as instructed every 4 hours as needed for wheezing/shortness of breath. (Patient not taking: Reported on 05/15/2024) FAMILY HISTORY Problem Relation Age of Onset No Known Problems Mother No Known Problems Father Asthma Brother Cervical Cancer Maternal Grandmother Bipolar disorder Maternal Grandfather Heart Maternal Grandfather No Known Problems Paternal Grandmother Cancer Paternal Grandfather Social History Tobacco Use Smoking status: Never Smokeless tobacco: Never Tobacco comments: former Vape Vaping Use Vaping status: Former Quit date: 05/09/2022 Substances: Nicotine, Flavoring Substance Use Topics Alcohol use: No Drug use: No Review of Systems Constitutional: Negative for fever. HENT: Positive for congestion and sore throat. Negative for ear pain and nosebleeds. Respiratory: Positive for cough. Negative for shortness of breath and wheezing. Musculoskeletal: Negative for neck pain. Skin: Negative for itching and rash. Objective Blood pressure 122/72, pulse 94, temperature 36.6 ?C (97.8 ?F), temperature source Tympanic, resp. rate 18, weight 80.8 kg (178 lb 2.1 oz), last menstrual period 02/02/2024, SpO2 97%, not currently . Physical Exam Constitutional: General: She is not [...] of motion and neck supple. Lymphadenopathy: Cervical: No cervical adenopathy. Right cervical: No superficial cervical adenopathy. Left cervical: No superficial cervical adenopathy. Skin: Findings: No rash. Neurological: Mental Status: She is alert and oriented to person, place, and time. ASSESSMENT/PLAN: 1. URI, acute - ICD9: 465.9, ICD10: J06.9 - Discussed viral etiology and rationale for treatment. - Symptomatic treatment with prn analgesia - Supportive care with fluids and rest - Follow up in 3-5 days if symptoms persist or sooner if worsening of symptoms Yahir Jones APRN.[facility]03-03-2025 History of Present illness Narrative* Yahir Jones APRN.LUBRICATION SUPERVISOR - 07/11/2024 12:13 PM EST Subjective HPI HPI Miles Jimenez is a 19 year old female who presents today for CC of cough, st, runny nose. This started 3 days ago. Has tried otc medication for relief. Symptoms are worsened by nothing. Risk factors sick exposures at home. 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 MEDICATIONS FLUoxetine (PROZAC) 20 mg capsule TAKE 3 CAPSULES BY MOUTH EVERY DAY busPIRone (BUSPAR) 5 mg tablet TAKE 1 TABLET BY MOUTH 3 TIMES A DAY NEEDED Cholecalciferol, Vitamin D3, 125 mcg (5,000 unit) cap Take 1 capsule by mouth once daily. etonogestrel (NEXPLANON) subdermal implant 68 mg 1 Each by SUBDERMAL route as directed. albuterol HFA (PROVENTIL HFA, VENTOLIN HFA) 90 mcg/actuation inhaler Inhale 2 Puffs as instructed every 4 hours as needed for wheezing/shortness of breath. (Patient not taking: Reported on 05/15/2024) FAMILY HISTORY Problem Relation Age of Onset No Known Problems Mother No Known Problems Father Asthma Brother Cervical Cancer Maternal Grandmother Bipolar disorder Maternal Grandfather Heart Maternal Grandfather No Known Problems Paternal Grandmother Cancer Paternal Grandfather Social History Tobacco Use Smoking status: Never Smokeless tobacco: Never Tobacco comments: former Vape Vaping Use Vaping status: Former Quit date: 05/09/2022 Substances: Nicotine, Flavoring Substance Use Topics Alcohol use: No Drug use: No Review of Systems Constitutional: Negative for fever. HENT: Positive for congestion and sore throat. Negative for ear pain and nosebleeds. Respiratory: Positive for cough. Negative for shortness of breath and wheezing. Musculoskeletal: Negative for neck pain. Skin: Negative for itching and rash. Objective Blood pressure 122/72, pulse 94, temperature 36.6 C (97.8 F), temperature source Tympanic, resp. rate 18, weight 80.8 kg (178 lb 2.1 oz), last menstrual period 02/02/2024, SpO2 97%, not currently . Physical Exam Constitutional: General: She is not [...] of motion and neck supple. Lymphadenopathy: Cervical: No cervical adenopathy. Right cervical: No superficial cervical adenopathy. Left cervical: No superficial cervical adenopathy. Skin: Findings: No rash. Neurological: Mental Status: She is alert and oriented to person, place, and time. ASSESSMENT/PLAN: 1. URI, acute - ICD9: 465.9, ICD10: J06.9 - Discussed viral etiology and rationale for treatment. - Symptomatic treatment with prn analgesia - Supportive care with fluids and rest - Follow up in 3-5 days if symptoms persist or sooner if worsening of symptoms Yahir Jones APRN.GRAZYNA documented in this encounterUniversity Hospitals Portage Medical Center02-10-2025 NoteHNO ID: [id number] Author: RERE LARSEN OTR/Narinder Service: ? Author Type: Occupational Therapist Type: Progress Notes Filed: 06/20/2024 13:20 Note Text: 06/20/2024 [facility] OCCUPATIONAL THERAPY DISCONTINUANCE OF CARE Plan of Care Period: Start of Care Date: 12/18/23 Last Visit Date: 12/18/2023 Therapy Program: Patient did not return for follow up care as planned. Please refer to last visit note for interventions provided for this episode of care. Assessment: Unable to formally assess goal achievement. Reason for Discontinuation of Care: Patient has not returned to therapy or scheduled additional follow-up appointments. GERA Colon/[facility]01-05-2025 Instructions * Patient Instructions* Navid Mendieta APRN.CNP - 05/15/2024 12:35 PM EST ASSESSMENT/PLAN: 1. Sore throat - ICD9: 462, ICD10: J02.9 (primary diagnosis) - suspect viral - Group A strep molecular testing negative - Discussed supportive care treatment with fluids, rest and analgesia. - STREP A MOLECULAR (POC) 2. Sinobronchitis - ICD9: 473.9, 490, ICD10: J32.9, J40 - Will begin treatment with as per antibiotic as written, see orders - Supportive care with plenty of fluids, rest, and analgesia prn. - AMOXICILLIN 875 MG-POTASSIUM CLAVULANATE 125 MG TABLET - PREDNISONE 20 MG TABLET - Follow-up with your PCP in 3-5 days if symptoms have not improved or sooner if symptoms worsen - Discussed red flags and need for immediate medical evaluation if any occur. - Discussed supportive care treatment with fluids, rest and analgesia. - Discussed expected course of illness Navid Mendieta APRN.CNP documented in this encounterUniversity Hospitals Portage Medical Center01-05-2025 NoteHNO ID: [id number] Author: NAVID MENDIETA APRN.GRAZYNA Service: ? Author Type: Nurse Practitioner Type: Progress Notes Filed: 05/15/2024 12:36 Note Text: Subjective Sore Throat Associated symptoms include congestion, coughing, headaches and shortness of breath. Pertinent negatives include no diarrhea, ear pain or vomiting. Miles Jimenez is a 19 year old female who presents with sore throat and chest congestion for one week. She has had a productive cough for 2 wekks. Her daughter tested positive for RSV. Review of Systems Constitutional: Negative for chills, fever and malaise/fatigue. HENT: Positive for congestion and sore throat. Negative for ear pain. Respiratory: Positive for cough, sputum production and shortness of breath. Cardiovascular: Positive for chest pain (with cough). Gastrointestinal: Negative for diarrhea, nausea and vomiting. Musculoskeletal: Negative for myalgias. Neurological: Positive for headaches. BP 120/74 Pulse 86 Temp 36.8 ?C (98.3 ?F) Resp 16 Wt 80.9 kg (178 lb 5.6 oz) LMP 02/02/2024 (Approximate) SpO2 97% BMI 27.93 kg/m? 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 night). Negative for leg swelling. Gastrointestinal: Negative. Neurological: Negative for dizziness, light-headedness (with palpitations) and headaches. BP 118/70 Pulse 94 Temp 98.5 Resp 18 Ht 5' 6 (1.68m) Wt 179 lb (81.2kg) SpO2 98% [facility]06[facility]16[facility]21 BMI 28.91 kg/(m^2). Physical Exam Vitals and nursing note reviewed. Constitutional: Appearance: Normal appearance. HENT: Mouth/Throat: Mouth: Mucous membranes are moist. Eyes: Pupils: Pupils are equal, round, and reactive to light. Cardiovascular: Rate and Rhythm: Normal rate and regular rhythm. Heart sounds: Normal heart sounds. Pulmonary: Effort: Pulmonary effort is normal. Breath sounds: Normal breath sounds. Musculoskeletal: Cervical back: Neck supple. Feet: Feet: Right foot: Skin integrity: Erythema present. Skin: General: Skin is warm and dry. Neurological: Mental Status: She is alert and oriented to person, place, and time. Psychiatric: Mood and Affect: Mood normal. Behavior: Behavior normal. Cognition and Memory: Cognition normal. No visits with results within 1 Day(s) from this visit. Latest known visit with results is: Appointment on 07/14/2023 Component Date Value Ref Range Status WBC 07/14/2023 8.68 3.70 - 11.00 k/uL Final RBC 07/14/2023 4.46 3.90 - 5.20 m/uL Final Hemoglobin 07/14/2023 13.3 11.5 - 15.5 g/dL Final Hematocrit 07/14/2023 39.2 36.0 - 46.0 % Final MCV 07/14/2023 87.9 80.0 - 100.0 fL Final MCH 07/14/2023 29.8 26.0 - 34.0 pg Final MCHC 07/14/2023 33.9 30.5 - 36.0 g/dL Final RDW-CV 07/14/2023 12.9 11.5 - 15.0 % Final Platelet Count 07/14/2023 286 150 - 400 k/uL Final MPV 07/14/2023 10.6 9.0 - 12.7 fL Final Neutrophils % 07/14/2023 63.1 % Final Abs Neut 07/14/2023 5.48 1.45 - 7.50 k/uL Final Lymphocytes % 07/14/2023 28.0 % Final Abs Lymph 07/14/2023 2.43 1.00 - 4.00 k/uL Final Monocytes % 07/14/2023 6.9 % Final Abs Gila 07/14/2023 0.60 <0.87 k/uL Final Eosinophils % 07/14/2023 1.3 % Final Abs Eosin 07/14/2023 0.11 <0.46 k/uL Final Basophils % 07/14/2023 0.5 % Final Abs Baso 07/14/2023 0.04 <0.11 k/uL Final Immature Granulocytes % 07/14/2023 0.2 % Final Abs Immature Gran 07/14/2023 <0.03 <0.10 k/uL Final NRBC 07/14/2023 0.0 /100 WBC Final Absolute nRBC 07/14/2023 <0.01 <0.01 k/uL Final Diff Type 07/14/2023 Auto Final Iron 07/14/2023 84 41 - 186 ug/dL Final TIBC 07/14/2023 286 232 - 386 ug/dL Final Transferrin Saturation 07/14/2023 29.4 15.0 - 57.0 % Final Protein, Total 07/14/2023 7.4 6.3 - 8.0 g/dL Final Albumin 07/14/2023 4.4 3.9 - 4.9 g/dL Final Calcium, Total 07/14/2023 10.1 8.5 - 10.2 mg/dL Final Bilirubin, Total 07/14/2023 0.4 0.2 - 1.3 mg/dL Final Alkaline Phosphatase 07/14/2023 79 34 - 123 U/L Final AST 07/14/2023 17 13 - 35 U/L Final ALT 07/14/2023 15 7 - 38 U/L Final Glucose 07/14/2023 95 74 - 99 mg/dL Final The [place] Diabetes Association (ADA) provides guidance for cutoff values for fasting glucose andrandom glucose. The ADA defines fasting as no caloric intake for at least 8 hours. Fasting plasma glucose results between 100 to 125 mg/dL indicate increased risk for diabetes (prediabetes). Fasting plasma glucose results greater than or equal to 126 mg/dL meet the criteria for diagnosis of diabetes. In the absence of unequivocal hyperglycemia, results should be confirmed by repeat testing. In a patient with classic symptoms of hyperglycemia or hyperglycemic crisis, random plasma glucose results greater than or equal to 200 mg/dL meet the criteria for diagnosis of diabetes. Reference: Standards of Medical Care in Diabetes 2016, [place] Diabetes Association. Diabetes Care. 2016.39(Suppl 1). BUN 07/14/2023 9 7 - 21 mg/dL Final Creatinine 07/14/2023 0.73 0.58 - 0.96 mg/dL Final Sodium 07/14/2023 138 136 - 144 mmol/L Final Potassium 07/14/2023 4.1 3.7 - 5.1 mmol/L Final Chloride 07/14/2023 105 97 - 105 mmol/L Final CO2 07/14/2023 24 22 - 30 mmol/L Final Anion Gap 07/14/2023 9 9 - 18 mmol/L Final Estimated Glomerular Filtration Ra* 07/14/2023 122 >=60 mL/min/1.73m Final Estimated Glomerular Filtration Rate (eGFR) is calculated using the 2020 CKD-EPI creatinine equation. This equation utilizes serum creatinine, sex, and age as parameters. The creatinine assay has traceable calibration to isotope dilution- mass spectrometry. Refer to KDIGO guidelines for clinical interpretation. In patients with unstable renal function, e.g. those with acute kidney injury, the eGFRmay not accurately reflect actual GFR. Vitamin D 25 Hydroxy 07/14/2023 24.2 (L) 31.0 - 80.0 ng/mL Final TSH 07/14/2023 1.070 0.510 - 4.300 mIU/L Final If the patient is , TSH reference range varies by gestational period: First Trimester (weeks 9-12): 0.180-2.990 mIU/L Second Trimester: 0.110-3.980 mIU/L Third Trimester: 0.480-4.710 mIU/L Santi Blair et al. A Practical Approach for the Verifications and Determination of Site- and Trimester-Specific Reference Intervals for Thyroid Function tests in . Thyroid, 2019:29:3:412-420.Jude E, et al. 2017 Guidelines of the [place] Thyroid Association for the Diagnosis and Management of Thyroid Disease during and the . Thyroid, 2017:27:3:315-389. Reference ranges were not locally established for this patient's age group. The normal values are based on the following source: Bang Storey V. Reference Ranges for Adults and Children: Pre-analytical Considerations. [facility] ASSESSMENT/PLAN: 1. Moderate episode of recurrent major depressive disorder (HCC) - ICD9: 296.32, ICD10: F33.1 (primary diagnosis) - She reports she has been doing well on current dose of Prozac. Continue at 40 mg daily. - F/U in 3 months or sooner. - VITAMIN D 25 HYDROXY 2. Anxiety - ICD9: 300.00, ICD10: F41.9 - Continue on current dose of Prozac 3. Palpitations - ICD9: 785.1, ICD10: R00.2 - EXTENDED WEAR RECORDS SUPERVISOR PATCH 4. Chest pain, unspecified type - ICD9: 786.50, ICD10: R07.9 Atypical chest pain, symptoms are not consistent with cardiac ischemia due to nonexertional nature of symptom, pleuritic nature of pain, and localization of the pain possible etiology include Costochondritis/chest wall pain, musculoskeletal, and Anxiety -Will obtain 7 day monitor 5. Ingrown toenail - ICD9: 703.0, ICD10: L60.0 - Epsom salt soaks - Do not cut the nail too short - If pain persists, will refer to podiatry - CEPHALEXIN 500 MG CAPSULE 6. Vitamin D deficiency - ICD9: 268.9, ICD10: E55.9 - Recheck vitamin D level New medication(s) prescribed today: Yes: Keflex. Discussed new medication dosage, usage, goals of [...] patient. Berenice Martin APRN.CNP documented in this encounterUniversity Hospitals Portage Medical Center03-26-2024 Miscellaneous Notes* Telephone Encounter - Susanne Holbrook MA - 08/04/2023 2:50 PM EDT Left message on patients voicemail with all information. Susanne Holbrook MA * Telephone Encounter - Berenice Martin APRN.CNP - 08/04/2023 12:31 PM EDT Vitamin D was low- starting her on daily 5,000 international unit(s) replacement Remaining labs were all WNL documented in this encounterUniversity Hospitals Portage Medical Center03-04-2024 History of Present illness Narrative* Berenice Martin APRN.CNP - 07/13/2023 1:01 PM EST VIRTUAL VISIT PROGRESS NOTE This is a virtual visit using [email or web address] Zoom Video Visit. It required patient- provider interaction for the medical decision making as documented below. I have communicated my name and active licensure. The patient's identity and physical location wereverified at the time of this visit. Either the patient or their legal healthcare sales representative has been informed of the risks and benefits of -- and alternatives to -- treatment through a remote evaluation andconsents to proceed with the evaluation remotely. Miles Jimenez is a 18 year old female seen for fatigue. She was started on Wellbutrin on 06/22/23 and since then has felt very fatigued since then. She stopped taking it a week ago. She took some [place] gummies yesterday and felt better. They have 18 mg of iron in them. She is unable to fall asleep at night but will sleep all day if she could. She does have a 5 month baby at home too. HISTORY REVIEWED (electronic chart updated): PAST MEDICAL [...] wheezing/shortness of breath. No current facility-administered medications for this visit. ALLERGIES No Known Allergies REVIEW OF SYSTEMS: GENERAL: no recent change in weight, no fever, admits to fatigue RESPIRATORY: no cough, no wheezing or shortness of breath CARDIOVASCULAR: no chest pain, no palpitations GI: normal appetite, tolerating PO well, BMs normal, and no abdominal pain PSYCH: See HPI ENDOCRINE: denies cold/heat intolerance, denies polyuria or polydipsia NEURO: no headache PHYSICAL EXAMINATION: VIDEO EXAM: (if completed, performed via video enabled technology) GENERAL: well-hydrated, well nourished, appears tired, and flat affect RESPIRATORY: breathing non-labored CHEST: equal chest rise with normal respiratory effort NEUROLOGIC: no obvious deficit ASSESSMENT: (F33.1) Moderate episode of recurrent major depressive disorder (HCC) (primary encounter diagnosis) (F41.9) Anxiety (R53.83) Fatigue, unspecified type (E55.9) Vitamin D deficiency (G47.01) Insomnia due to medical condition PLAN: 1. Moderate episode of recurrent major depressive disorder (HCC) - ICD9: 296.32, ICD10: F33.1 (primary diagnosis) - She is not interested in trying a new medication at this time. Has been on Zoloft, Prozac, and Wellbutrin. 2. Anxiety - ICD9: 300.00, ICD10: F41.9 - COMP METABOLIC PANEL - TSH BLD 3. Fatigue, unspecified type - ICD9: 780.79, ICD10: R53.83 - Multifactorial, will check labs - CBC + DIFF - IRON + TIBC - COMP METABOLIC PANEL - TSH BLD 4. Vitamin D deficiency - ICD9: 268.9, ICD10: E55.9 - VITAMIN D 25 HYDROXY 5. Insomnia due to medical condition - ICD9: 327.01, ICD10: G47.01 I spent a total of 18 minutes on the date of the service which included preparing to see the patient, [id number] patient care, completing clinical documentation, obtaining and/or reviewing separately obtained history, counseling and educating the patient/family/caregiver, and ordering medications, tests, or procedures Berenice Martin APRN.GRAZYNA documented in this encounterUniversity Hospitals Portage Medical Center03-01-2024 Miscellaneous Notes* Telephone Encounter - Stephani Avalos - 07/10/2023 2:11 PM EST No Show Documentation Miles Aroldo Jimenez no showed for an appointment on 07/10/23 with Berenice Martin APRN.CNP at 1:00 pm. She was scheduled for fatigue. Pt mother made the appt through [employer] and confirmed the appt.. Resources discussed/offered to patient: sent letter No show determined to be fault of patient: Yes This is the patients fourth no show in the last 12 months. Patient was rescheduled for NA. Letter sent through [employer] Is this the Third or Fourth No Show? No Stephani Avalos July 10, 2023 2:12 PM documented in this encounterUniversity Hospitals Portage [facility] Center03-01-2024 Miscellaneous Notes* Telephone Encounter - Berenice Martin APRN.CNP - 07/10/2023 8:10 AM EST Will address in office visit today. documented in this encounterUniversity Hospitals Portage Medical Center02-20-2024 History of Present illness Narrative* Susanne Holbrook MA - 06/30/2023 9:26 AM EST ED Follow Up: Patient discharged from [facility] ED on 06/26/2023. 1. How are you feeling since your ED visit? NA Have your symptoms improved or resolved? Not [...] you able to contact the office or television tube inspector provider prior to your ED visit? Not applicable 5. Is there anything else I can do for you today? Not applicable Left message on patients voicemail to contact office if she needs anything or would like to make a follow up apt. Susanne Holbrook MA documented in this encounterUniversity Hospitals Portage Medical Center02-12-2024 History of Present illness Narrative* Berenice Martin APRN.CNP - 06/22/2023 1:02 PM EST VIRTUAL VISIT PROGRESS NOTE This is a virtual visit using [employer] Zoom Video Visit. It required patient- provider interaction for the medical decision making as documented below. I have communicated my name and active licensure. The patient's identity and physical location wereverified at the time of this visit. Either the patient or their legal healthcare sales representative has been informed of the risks and benefits of -- and alternatives to -- treatment through a remote evaluation andconsents to proceed with the evaluation remotely. Miles [...] which included preparing to see the patient, [id number] patient care, completing clinical documentation, performing a medically appropriate examination, counseling and educating the patient/family/caregiver, and ordering medications, tests,or procedures Berenice Martin APRN.LUBRICATION SUPERVISOR documented in this encounterUniversity Hospitals Portage Medical Center12-13-2023 History of Present illness Narrative* Nay Vinson MA - 04/22/2023 11:24 AM EST ED Follow Up: Patient discharged from [facility] ED on 04/21/23. 1. How are [...] you able to contact the office or television tube inspector provider prior to your ED visit? Not applicable 5. Is there anything else I can do for you today? Not applicable Nay Vinson MA documented in this encounterUniversity Hospitals Portage Medical Center11-07-2023 History of Present illness Narrative* Carmela Galaviz MA - 03/17/2023 8:57 AM EST ED Follow Up: Patient discharged from [facility] ED on 03/10/23. 1. How are you feeling since your ED visit? Called pt left for her to call the office if she hasany questions or concerns Have your symptoms improved or resolved? Called pt left for her to call the office if she has any questions or concerns 2. Were you prescribed any medications while in the ED or advised to stop any medication? [facility] if she has any questions or concerns - If yes, were you able to fill your prescriptions? Called pt left for her to call the office ifshe has any questions or concerns -if stopped [...] you able to contact the office or television tube inspector provider prior to your ED visit? Called pt left for her to call the office if she has any questions or concerns 5. Is there anything else I can do for you today? Called pt left for her to call the office if she has any questions or concerns documented in this encounterUniversity Hospitals Portage Medical Center11-03-2023 Miscellaneous Notes* Telephone Encounter - Jessica Vasquez - 03/13/2023 3:09 PM EDT No Show Documentation Miles Jimenez no showed [...] Is this the Third or Fourth No Show? No Jessica Vasquez March 13, 2023 3:09 PM documented in this encounterUniversity Hospitals Portage Medical Center10-20-2023 Miscellaneous Notes* Telephone Encounter - Jessica Vasquez - 02/27/2023 3:09 PM EDT No Show Documentation Miles Jimenez no showed [...] Is this the Third or Fourth No Show? No Jessica Vasquez February 27, 2023 3:09 PM documented in this encounterUniversity Hospitals Portage Medical Center10-12-2023 History of Present illness Narrative* Carmela Galaviz MA - 02/19/2023 10:52 AM EDT ED Follow Up: Patient discharged from [facility] ED on 02/16/23. 1. How are you [...] you able to contact the office or television tube inspector provider prior to your ED visit? No 5. Is there anything else I can do for you today? No documented in this encounterUniversity Hospitals Portage Medical Center10-03-2023 Miscellaneous Notes* Telephone Encounter - Rupa Whitehead RN - 02/10/2023 3:37 PM EDT Please schedule patient appointment for nexplanon insertion. Can't be done at her PP visit. Thank you. Rupa Whitehead RN * Telephone Encounter - Daniella Solorzano MD - 02/10/2023 3:31 PM EDT She needs separate appt. * Telephone Encounter - Ni Anne LPN - 02/05/2023 1:19 PM EDT Please see pended order below. Pt will then be assisted to schedule. Can this be done at her upcoming post appointment or do you want separate appointment? Ni Anne LPN * Telephone Encounter - Gaby Fonseca - 02/05/2023 12:16 PM EDT Patient calling requesting order for Nexplanon. documented in this encounterUniversity Hospitals Portage Medical Center09-07-2023 Miscellaneous Notes* Telephone Encounter - Yue Pierson MD - 01/15/2023 12:37 PM EDT Uterine cramping can be normal . Agree with Ibuprofen and heat PRN for this. Vaginal discomfort can be normal as well as it looks like she has 2nd degree perineal laceration. Can use ice packs, dermoplast spray, witch luly or tucks pads PRN. To be evaluated for worsening or severe pain, fever 100.4 or greater, malaise, foul smelling discharge. * Telephone Encounter - Marcela To RN - 01/15/2023 11:54 AM EDT by 01/12/23. Marcela To RN documented in this encounterUniversity Hospitals Portage Medical Center09-06-2023 Progress note Author Ana Whitlock [facility] January 14, 2023 8:48am Note Date/Time January 14, 2023 8:46am [facility] Medical Records Department [address] [place] [address] Progress Note - OBGYN 01/14/23 0843 MR#: [id number] Acct: [id number] Name: MILES JIMENEZ Rep #:[id number] : 2005 18 From: Ana Whitlock CNM PCP: KAYLEIGH Newman Status:ADM I N Location: [place] [address]-1 Subjective Subjective Patient seen at bedside. Denies headache, vision changes, SOB, or CP. Bottle feeding. Desires discharge with hotel status. Objective Data Objective Data Vital Signs: Vital Signs Temp Pulse Resp BP Pulse Ox O2 Del Method 97.7 F L 80 15 136/72 H 99 Room Air 01/13/23 19:35 01/14/23 02:11 01/14/23 02:11 01/14/23 02:11 01/13/23 19:35 01/14/23 02:11 Oxygen Delivery Method Room Air Weight: 217 lb 6.4 oz Body Mass Index (BMI) 34.0 Intake & Output: Intake and Output for Last 24 Hours 01/12/23 01/13/23 01/14/23 23:59 23:59 23:59 Intake Total 4436.67 / 4436.67 Output Total 1900 / 1900 200 / 200 Balance 2536.67 / 2536.67 -200 / -200 Lab / Micro Data 01/13/23 05:12 01/11/23 21:45 Labs: Laboratory Results - last 24 hr 01/11/23 21:45: Syphilis Total Ab Non-reactive ROS Eyes Eyes: Denies blurry vision, change in vision or spots in vision ENT HEENT: Denies dizziness or headache(s) Cardiovascular Cardiovascular: Denies abdominal pain, chest pain or dyspnea Respiratory/Chest Respiratory/Chest: Denies cough, dyspnea, shortness of breath at rest or shortness of breath with exertion Gastrointestinal Gastrointestinal: Denies abdominal pain, diarrhea or vomiting Genitourinary Genitourinary: Denies change in urinary stream, difficulty urinating or dysuria Musculoskeletal Musculoskeletal: Reports none Integumentary Integumentary: Denies rash Neurologic Neurologic: Denies dizziness, headache(s), memory loss or weakness Assessment & Plan (1) Single live : (2) Second degree perineal laceration: (3) (spontaneous vaginal delivery): PLAN: Plan PPD 2 Baby in SCN-stable BP stable Pain controlled Routine care Continue Zoloft 75 mg PO daily D/C home with follow up in office 01/14/23 0848 <Electronically signed by Ana Whitlock CNM> Cosigner Signature (if applicable): CC: ~ Signed [facility] Work Phone: 1(601) 195-972409-06-2023 Discharge summary Author Ana Whitlock [facility] January 14, 2023 8:47am Note Date/Time January 14, 2023 8:46am [facility] Medical Records Department [address] [place] [id number] Instructions for Home/Discharge Instructions 01/14/2346 MR#: [id number] Acct: [id number] Name: MILES IJMENEZ Rep #:[id number] : 2005 18 From: Ana Whitlock CNM PCP: KAYLEIGH Newman Status:ADM I N Discharge Instructions Diet Discharge Diet: No restrictions Activity Discharge Activity: Return to Normal Activity, May Shower and May Take a Tub Bath May resume sexual activity in: 4-6 weeks Weight Bearing Status: Weight bearing as tolerated Dressing / Incision Call your doctor if you observe: Fever of 101 or Higher, Inability to urinate, Using more than 1 pad per hour, Shortness of breath, Dizziness, Swelling in the ankles, Chest pain, Calf discomfort and Uncontrolled pain Follow Up Care Please Follow Up With: Ana Whitlock CNM When: Within 10 days Test Results: Test results from this visit will be discussed in further detail at your follow- up appointment, if applicable. Discharge Plan Admission Admit Date/Time: 01/11/23 22:35 Primary Reason for Your Visit: Labor and Delivery Attending Provider: Meagan Arana Primary Care Provider: Berenice Martin NP Discharge Orders/Prescriptions Prescriptions: Continued sertraline 50 mg tablet 75 mg PO DAILY Patient Comments: TAKE 1/2 (ONE-HALF) OF A TABLET BY MOUTH DAILY FOR 7 DAYS, THEN TAKE 1 TABLETDAILY One A Day Women's DHA 28 mg iron- 800 mcg combo pack 1 pkg PO DAILY Patient Comments: Take 2 tablets by mouth once daily. Referrals / Follow Up: Berenice Martin NP, LOSS CONTROL ENGINEER-C [Primary Care Provider] - Disposition Disposition (needs filled in before D/C Order can be placed): Home, Self Care 01/14/23 0847<Electronically signed by Ana Whitlock CNM>Ana Whitlock CNM CC: LOSS CONTROL ENGINEER-C Berenice Martin ~ Signed [facility] Work Phone: 1(762) 548-890809-05-2023 Progress note Author Dania Marc [facility] January 13, 2023 8:43am Note Date/Time January 13, 2023 8:43am [facility] Medical Records Department [address] [place] [address] Progress Note - OBGYN 01/13/23 0842 MR#: [id number] Acct: [id number] Name: MILES JIMENEZ Rep #:[id number] : 2005 18 From: Dania Marc MD PCP: Berenice Martin LOSS CONTROL ENGINEER-C Status:ADM I N Location: [place] [address] Subjective Subjective Denies headache or blurry vision. Objective Data Objective Data Vital Signs: Vital Signs Temp Pulse Resp BP Pulse Ox 98.0 F 105 H 16 141/65 H 99 01/13/23 04:03 01/13/23 04:03 01/13/23 04:03 01/13/23 04:03 01/12/23 09:08 Weight: 217 lb 6.4 oz Body Mass Index (BMI) 34.0 Intake & Output: Intake and Output for Last 24 Hours 01/11/23 01/12/23 01/13/23 23:59 23:59 23:59 Intake Total 4436.67 / 4436.67 Output Total 1900 / 1900 Balance 2536.67 / 2536.67 Lab / Micro Data 01/13/23 05:12 01/11/23 21:45 Labs: Laboratory Results - last 24 hr 01/13/23 05:12: WBC 17.1 H, RBC 3.19 L, Hgb 10.5 L, Hct 30.9 L, MCV 96.9, MCH 32.9 H, MCHC 34.0, RDW Std Deviation 45.3 H, RDW Coeff of Maximo 12.8, Plt Count 166, MPV 11.4 Physical Exam Const alert, oriented x3 and no apparent distress HEENT normocephalic GI soft to palpation, non-tender and non-distended GI Narrative: fundus firm, mid & below umbilicus Extremity normal to inspection and no calf tenderness Assessment & Plan (1) Gestational HTN: QUALIFIERS: Trimester: third trimester Qualified Code(s): O13.3 -Gestational [-induced] hypertension without significant proteinuria, third trimester COMMENT: PPD#1 (2) (spontaneous vaginal delivery): PLAN: Plan BP's normal to systolic of 141. Await 8am vitals and will monitor BP closely. Routine care 01/13/23 0843 <Electronically signed by Dania Marc MD> Cosigner Signature (if applicable): CC: ~ Signed [facility] Work Phone: 1(959) 530-452709-04-2023 Procedure [facility] 01-12-2023 History and physical note Author Lila stokes [facility] January 12, 2023 8:16am Note Date/Time January 12, 2023 8:14am [facility] Medical Records Department [address] [place] [address] H&P Exam - ASSOCIATE ACCOUNT DIRECTOR 01/12/23 0807 MR#: [id number] Acct: [id number] Name: MILES JIMENEZ Rep #:[id number] : 2005 18 From: Daniella Solitario MD PCP: KAYLEIGH Newman Status:ADM I N Location: [address] HPI - General General Date of Admission: 01/11/23 HPI Narrative MILES JIMENEZ, is a 18 F @ 38.5 weeks who presents c/o ? SROM and contractions. pt denies BOYCE, visual changes. upon arrival patient was found to be.5/50/-4 however BP were mildly elevated on arrival- PREECLAMPSIA labs were normal. based on elevated BPs pt was kept for IOL for GEST HTN. Maternal Data Information ASIA Calculator Estimated Delivery Date Method Current WG Current Estimate 01/20/23 Manual 38w 6d PFSH PFSH Medical History (Updated 01/12/23 @ 08:[address] Daniella March MD) Depression Gestational HTN Headache in Home Medications vits 75-iron 28 mg-folic acid 800 mcg-omega-3 oral combo pack (One A Day Women's DHA) 1 pkg PO DAILY 07/14/22 [History Last Taken 01/11/23 09:00] sertraline 50 mg tablet 75 mg PO DAILY depression 07/14/22 [History Last Taken 01/11/23 09:00] Allergy/AdvReac Type Severity Reaction Status Date / Time No Known Allergies Allergy Verified 01/11/23 23:06 Surgical History no surgical history Social History Smoking Status: Former smoker History Elective abortions Hx Para 0 Spontaneous abortions Hx # Term Pregnancies Ectopic pregnancies Hx # Pregnancies Multiple births # of living children NST FHR Rate Baby A Baseline: 130 Variability:: Moderate Accelerations:: 15 x 15 Decelerations:: None NST Reactive:: Yes FHR Category:: Category I Uterine Activity:: 2-5min Vital Signs Vital Signs Vital Signs: 01/11/23 20:23 01/11/23 20:23 01/11/23 20:23 Temperature Temperature Source Pulse Rate 120 H 112 H Blood Pressure 144/79 H BP Systolic 144 BP Diastolic 79 Pulse Ox 01/11/23 20:23 01/11/23 20:23 01/11/23 20:23 Temperature 98.4 F Temperature Source Temporal Pulse Rate Blood Pressure BP Systolic BP Diastolic Pulse Ox 97 01/11/23 20:33 01/11/23 20:33 01/11/23 21:17 Temperature Temperature Source Pulse Rate 112 H Blood Pressure 140/74 H 141/70 H BP Systolic 140 141 BP Diastolic 74 70 Pulse Ox 01/11/23 21:17 01/11/23 21:17 01/11/23 21:17 Temperature 99.0 F Temperature Source Temporal Pulse Rate 102 H Blood Pressure BP Systolic BP Diastolic Pulse Ox 01/11/23 21:39 01/11/23 21:39 01/11/23 21:55 Temperature Temperature Source Pulse Rate 98 Blood Pressure 138/80 H 141/75 H BP Systolic 138 141 BP Diastolic 80 75 Pulse Ox 01/11/23 21:55 01/11/23 22:10 01/11/23 22:10 Temperature Temperature Source Pulse Rate 101 H 96 Blood Pressure 150/74 H BP Systolic 150 BP Diastolic 74 Pulse Ox 01/11/23 22:24 01/11/23 22:24 01/11/23 22:25 Temperature Temperature Source Temporal Pulse Rate 99 Blood Pressure 153/73 H BP Systolic 153 BP Diastolic 73 Pulse Ox 01/11/23 22:25 01/11/23 22:39 01/11/23 22:39 Temperature 99.0 F Temperature Source Pulse Rate 100 Blood Pressure 152/74 H BP Systolic 152 BP Diastolic 74 Pulse Ox 01/11/23 23:24 01/11/23 23:24 01/11/23 23:40 Temperature Temperature Source Pulse Rate 100 Blood Pressure 145/88 H 156/85 H BP Systolic 145 156 BP Diastolic 88 85 Pulse Ox 01/11/23 23:40 01/11/23 23:42 01/11/23 23:42 Temperature 98.3 F Temperature Source Temporal Pulse Rate 96 Blood Pressure BP Systolic BP Diastolic Pulse Ox 01/12/23 00:14 01/12/23 00:15 01/12/23 00:15 Temperature Temperature Source Temporal Pulse Rate 96 Blood Pressure 142/86 H BP Systolic 142 BP Diastolic 86 Pulse Ox 01/12/23 00:14 01/12/23 00:14 01/12/23 01:32 Temperature 98.0 F Temperature Source Temporal Pulse Rate Blood Pressure BP Systolic BP Diastolic Pulse Ox 98 01/12/23 01:32 01/12/23 01:32 01/12/23 01:32 Temperature 99.3 F H Temperature Source Pulse Rate 86 Blood Pressure 138/69 H BP Systolic 138 BP Diastolic 69 Pulse Ox 01/12/23 02:10 01/12/23 02:10 01/12/23 02:11 Temperature Temperature Source Temporal Pulse Rate 83 Blood Pressure 131/66 H BP Systolic 131 BP Diastolic 66 Pulse Ox 01/12/23 02:11 01/12/23 02:59 01/12/23 02:59 Temperature 98.4 F Temperature Source Pulse Rate 83 Blood Pressure 142/70 H BP Systolic 142 BP Diastolic 70 Pulse Ox 01/12/23 02:59 01/12/23 02:59 01/12/23 02:59 Temperature 99.1 F Temperature Source Temporal Pulse Rate Blood Pressure BP Systolic BP Diastolic Pulse Ox 99 01/12/23 03:44 01/12/23 03:44 01/12/23 03:44 Temperature Temperature Source Temporal Pulse Rate 90 Blood Pressure 130/68 H BP Systolic 130 BP Diastolic 68 Pulse Ox 01/12/23 03:44 01/11/23 23:42 01/11/23 23:42 Temperature 99.3 F H 98.3 F Temperature Source Temporal Pulse Rate Blood Pressure BP Systolic BP Diastolic Pulse Ox 01/12/23 05:04 01/12/23 05:04 01/12/23 05:03 Temperature 98.7 F Temperature Source Pulse Rate 80 Blood Pressure 131/58 H BP Systolic 131 BP Diastolic 58 Pulse Ox 01/12/23 06:06 01/12/23 06:07 01/12/23 06:07 Temperature Temperature Source Temporal Pulse Rate 85 Blood Pressure 125/72 H BP Systolic 125 BP Diastolic 72 Pulse Ox 01/12/23 06:07 01/12/23 06:06 01/12/23 06:45 Temperature 98.3 F Temperature Source Pulse Rate Blood Pressure 171/92 H BP Systolic 171 BP Diastolic 92 Pulse Ox 98 01/12/23 06:45 01/12/23 06:45 01/12/23 06:45 Temperature Temperature Source Pulse Rate 100 101 H Blood Pressure BP Systolic BP Diastolic Pulse Ox 100 01/12/23 06:50 01/12/23 06:50 01/12/23 06:50 Temperature Temperature Source Pulse Rate 93 Blood Pressure 160/84 H BP Systolic 160 BP Diastolic 84 Pulse Ox 100 01/12/23 06:55 01/12/23 06:55 01/12/23 06:55 Temperature Temperature Source Pulse Rate 92 Blood Pressure 143/77 H BP Systolic 143 BP Diastolic 77 Pulse Ox 100 01/12/23 07:01 01/12/23 07:01 01/12/23 07:00 Temperature Temperature Source Pulse Rate 95 Blood Pressure 131/93 H BP Systolic 131 BP Diastolic 93 Pulse Ox 99 01/12/23 07:07 01/12/23 07:07 01/12/23 07:06 Temperature Temperature Source Pulse Rate 90 Blood Pressure 153/70 H BP Systolic 153 BP Diastolic 70 Pulse Ox 96 01/12/23 07:10 01/12/23 07:10 01/12/23 07:11 Temperature Temperature Source Pulse Rate 93 92 Blood Pressure 156/69 H BP Systolic 156 BP Diastolic 69 Pulse Ox 01/12/23 07:11 01/12/23 07:16 01/12/23 07:16 Temperature Temperature Source Pulse Rate 96 Blood Pressure 135/60 H BP Systolic 135 BP Diastolic 60 Pulse Ox 99 01/12/23 07:16 01/12/23 07:20 01/12/23 07:20 Temperature Temperature Source Pulse Rate 92 Blood Pressure 124/57 H BP Systolic 124 BP Diastolic 57 Pulse Ox 99 01/12/23 07:20 01/12/23 07:21 01/12/23 07:21 Temperature 98.0 F Temperature Source Pulse Rate 88 Blood Pressure BP Systolic BP Diastolic Pulse Ox 100 01/12/23 07:26 01/12/23 07:26 01/12/23 07:26 Temperature Temperature Source Pulse Rate 84 Blood Pressure 122/72 H BP Systolic 122 BP Diastolic 72 Pulse Ox 100 01/12/23 07:30 01/12/23 07:30 01/12/23 07:31 Temperature Temperature Source Pulse Rate 87 89 Blood Pressure 120/69 BP Systolic 120 BP Diastolic 69 Pulse Ox 01/12/23 07:31 01/12/23 07:35 01/12/23 07:35 Temperature Temperature Source Pulse Rate 92 Blood Pressure 127/69 H BP Systolic 127 BP Diastolic 69 Pulse Ox 100 01/12/23 07:36 01/12/23 07:36 01/12/23 07:41 Temperature Temperature Source Pulse Rate 82 92 Blood Pressure BP Systolic BP Diastolic Pulse Ox 99 01/12/23 07:41 01/12/23 07:45 01/12/23 07:45 Temperature Temperature Source Pulse Rate 80 Blood Pressure 152/103 H BP Systolic 152 BP Diastolic 103 Pulse Ox 99 01/12/23 07:46 01/12/23 07:46 01/12/23 07:50 Temperature Temperature Source Pulse Rate 83 Blood Pressure 128/67 H BP Systolic 128 BP Diastolic 67 Pulse Ox 100 01/12/23 07:50 01/12/23 07:51 01/12/23 07:51 Temperature Temperature Source Pulse Rate 84 81 Blood Pressure BP Systolic BP Diastolic Pulse Ox 100 01/12/23 07:55 01/12/23 07:55 01/12/23 07:56 Temperature Temperature Source Pulse Rate 83 82 Blood Pressure 122/59 H BP Systolic 122 BP Diastolic 59 Pulse Ox 01/12/23 07:56 01/12/23 08:00 01/12/23 08:00 Temperature Temperature Source Pulse Rate 89 Blood Pressure 121/58 H BP Systolic 121 BP Diastolic 58 Pulse Ox 99 01/12/23 08:01 01/12/23 08:01 01/12/23 08:02 Temperature Temperature Source Temporal Pulse Rate 86 Blood Pressure BP Systolic BP Diastolic Pulse Ox 99 01/12/23 08:02 Temperature 97.1 F L Temperature Source Pulse Rate Blood Pressure BP Systolic BP Diastolic Pulse Ox Weight Weight: 98.611 kg Body Mass Index (BMI) 34.0 Physical Exam Narrative .5/50/-4 Const alert and oriented x3 General Appearance: cooperative HEENT normocephalic GI GI Narrative: Gravid, non tender to palpation. OB / External & Speculum: external exam normal Extremity normal to inspection Skin no rashes or lesions noted Neuro oriented x3 and CN's II-XII intact bilaterally Psych Appearance: grossly normal Labs Labs Labs: Blood Type O POSITIVE Antibody Screen NEGATIVE Hct 35.8 % (37-47) L Hgb 12.3 g/dL (12.0-15.0) Syphilis Total Ab Pending Assessment & Plan (1) 38 weeks gestation of : (2) Bipolar mood disorder: (3) Gestational HTN: PLAN: Plan Admit to L&D Montior FHR/TOCO Epidural if requested for pain Monitor VS Anticipate Pitocin failed 1hr gct, passed 3hr gtt gbs negative 01/12/23815 <Electronically signed by Daniella March MD> Cosigner Signature (if applicable): CC: M Dr. Daniella March; LOSS CONTROL ENGINEER-C Berenice Martin~ Signed [facility] Work Phone: 1(288) 559-551509-04-2023 Progress note Author Lila stokes [facility] January 12, 2023 8:16am Note Date/Time January 12, 2023 8:16am [facility] Medical Records Department [address] [place] [id number] Progress Note 01/12/23812 MR#: [id number] Acct: [id number] Name: MILES JIMENEZ Rep #:[id number] : 2005 18 From: Daniella Solitario MD PCP: KAYLEIGH Newman Status:ADM I N Location: [place] [address] Progress Note examined in morning- Epidural in place and patient is comfortable. VE: 3/80/-3 AROM performed- clear fluid. IUPC placed. Pt denies BOYCE, visual changes. Continue Pitocin. 01/12/23815 <Electronically signed by Daniella March MD> Daniella March MD Cosigner Signature (if applicable): CC: ~ Signed [facility] Work Phone: 1(750) 805-959508-29-2023 Miscellaneous Notes* Telephone Encounter - Ramón Benitez - 2023 12:44 PM EDT No Show Documentation Miles R Dorko no showed for an appointment on 2023 with Berenice Martin APRN.CNP at 11:20 am. She was scheduled for [...] Is this the Third or Fourth No Show? No Ramón Benitez 2023 12:44 PM documented in this encounterUniversity Hospitals Portage [facility] Center08-28-2023 Miscellaneous Notes* Quick Notes - Meagan Arana MD - 01/05/2023 10:47 AM EDT RR- VB No. LOF No. CTXS irreg [...] reach on exam due to patient discomfort Meagan Arana M.D. documented in this encounterUniversity Hospitals Portage Medical Center08-28-2023 Instructions* Patient Instructions* Rachelle Corea Ma - 01/05/2023 10:28 AM EDT SEQUENTIAL SCREENINGS [facility] offers sequential screenings for women who are [...] testing. It will require an appointment withour telecasting technician. This is not an ultrasound performed [...] the above symptoms, contact our office at [phone] and ask to speak with anurse. After hours, you can call doctors registry at [phone] OR call [facility] at [phone] ask to have the doctor television tube inspector paged. If you consider this an emergency, dial 9--1 or go to your nearest emergency department. NEED HELP? Are you dealing with a violent or abusive relationship? Are you a victim of rape or sexual assult? Call [facility] ([place]) 24 hour Crisis Hotline: 966.573.3318 or 786-659-8401. MANUAL Your Guide to a Healthy manual is now on-line. Visit [email or web address] to download your free copy documented in this encounterUniversity Hospitals Portage Medical Center08-21-2023 Miscellaneous Notes* Quick Notes - Ana Whitolck APRN.WILLIAM - 12/29/2022 10:23 AM EDT S: Miles Jimenez is a 17 year [...] week Ana Whitlock APRN.CNM documented in this encounterUniversity Hospitals Portage Medical Center08-21-2023 Instructions* Patient Instructions* Gil Jacome Cma - 12/29/2022 10:12 AM EDT SEQUENTIAL SCREENINGS [facility] offers sequential screenings for women who are [...] testing. It will require an appointment withour telecasting technician. This is not an ultrasound performed [...] the above symptoms, contact our office at [phone] and ask to speak with anurse. After hours, you can call doctors registry at [phone] OR call [facility] at [phone] ask to have the doctor television tube inspector paged. If you consider this an emergency, dial 9-1-1 or go to your nearest emergency department. NEED HELP? Are you dealing with a violent or abusive relationship? Are you a victim of rape or sexual assult? Call [facility] ([place]) 24 hour Crisis Hotline: 970.723.4458 or 088-480-3029. MANUAL Your Guide to a Healthy manual is now on-line. Visit [email or web address] to download your free copy documented in this encounterUniversity Hospitals Portage Medical Center08-14-2023 Miscellaneous Notes* Quick Notes - Ana Whitlock APRN.CNM - 12/22/2022 1:30 PM EDT S: Miles Jimenez is a 17 year old female who presents at 35.6 for a routine visit. Denies headache, visual changes, chest pain, shortness of breath, vaginal bleeding, leakage of fluid, or dysuria.Feeling well, no complaints. O: See flow sheet [...] today) Ana Whitlock APRN.CNM documented in this encounterUniversity Hospitals Portage Medical Center08-14-2023 Instructions* Patient Instructions* Gil Jacome Cma - 12/22/2022 1:16 PM EDT SEQUENTIAL SCREENINGS [facility] offers sequential screenings for women who are [...] testing. It will require an appointment withour telecasting technician. This is not an ultrasound performed [...] the above symptoms, contact our office at [phone] and ask to speak with anurse. After hours, you can call doctors registry at [phone] OR call [facility] at [phone] ask to have the doctor television tube inspector paged. If you consider this an emergency, dial 91-3 or go to your nearest emergency department. NEED HELP? Are you dealing with a violent or abusive relationship? Are you a victim of rape or sexual assult? Call [facility] ([place]) 24 hour Crisis Hotline: 557.540.4546 or 470-064-4315. MANUAL Your Guide to a Healthy manual is now on-line. Visit [email or web address] to download your free copy documented in this encounterUniversity Hospitals Portage Medical Center08-09-2023 History of Present illness Narrative* Raghavendra Marc APRN.LUBRICATION SUPERVISOR - 12/17/2022 5:04 PM EDT Images from the original note were not included. Subjective She came in with complaints of pain on the inside of her right cheek. Patient says she is seeing some kind of blistering there. Patient says she noticed it over the last couple days. Patient wanted to make sure it was not an infection. The history is provided by the patient. No assembler and tester electronics was used. Abscess Review of Systems Constitutional: [...] hours as needed for wheezing/shortness of breath. [id number] fum-folic ac-om3 (ONE A DAY WOMEN'S DHA) [...] getting worse not better she should follow-up. Butit should heal on its own. Raghavendra Marc APRN.GRAZYNA documented in this encounterUniversity Hospitals Portage Medical Center08-07-2023 Miscellaneous Notes* Quick Notes - Ana Whitlock APRN.CNM - 12/15/2022 11:16 AM EDT S: Miles Jimenez is a 17 year [...] sodium intake, decreasing carbohydrate and sugar intake. Recommendedno processed foods and trying to eat fresh fruits, vegetables and lean meats. Patient agrees with plan of care P: 1) PTL precautions reviewed and when to call 2) RTO 2 weeks for LUIS MANUEL with GBS Ana Whitlock APRN.CNM documented in this encounterUniversity Hospitals Portage Medical Center08-07-2023 Instructions* Patient Instructions* Gil Jacome Cma - 12/15/2022 10:57 AM EDT SEQUENTIAL SCREENINGS [facility] offers sequential screenings for women who are [...] testing. It will require an appointment withour telecasting technician. This is not an ultrasound performed [...] the above symptoms, contact our office at [phone] and ask to speak with anurse. After hours, you can call doctors registry at [phone] OR call [facility] at [phone] ask to have the doctor television tube inspector paged. If you consider this an emergency, dial 0-8-6 or go to your nearest emergency department. NEED HELP? Are you dealing with a violent or abusive relationship? Are you a victim of rape or sexual assult? Call [facility] ([place]) 24 hour Crisis Hotline: 296.289.3946 or 150-360-3378. MANUAL Your Guide to a Healthy manual is now on-line. Visit [email or web address] to download your free copy documented in this encounterUniversity Hospitals Portage Medical Center07-24-2023 Miscellaneous Notes* Telephone Encounter - Kaley Garcia MA - 12/01/2022 8:30 AM EDT Patient electronically requesting refills as follows: Last seen 10/10/22 . Last refill 08/18/22 . Requested Prescriptions Pending Prescriptions Disp Refills sertraline (ZOLOFT) 50 mg tablet 45 tablet 2 Sig: Take 1.5 tablets by mouth once daily. Please review and advise. Kaley Garcia MA documented in this encounterUniversity Hospitals Portage Medical Center07-20-2023 Miscellaneous Notes* Quick Notes - Dania Marc MD - 11/27/2022 1:32 PM EDT KJ - VB No. LOF No. CTXS No. Movement: present. Other c/o: No. Medication list reviewed. Physical Exam See Flow Sheet Gen: no accute distress, well appearing Abd: soft, nontender, gravid A/P 32w2d Estimated Date of Delivery: 01/20/23 Tdap today Bipolar - doing well on zoloft PTL precautions reviewed, Kick counts reviewed. Dania Marc MD documented in this encounterUniversity Hospitals Portage Medical Center07-20-2023 History of Present illness Narrative* Jyoti Linda MA - 11/27/2022 1:25 PM EDT Patient identified by name and date of [...] severely ill: Yes Patient denies history of Guillain-Halifax Syndrome (a severe paralytic illness): Yes Tdap Adacel injection was given without incident. See immunizations for details of immunizations administered today. VIS sheet provided: Yes Provider Dania Marc MD was present in office at time of injection. Jyoti Linda MA documented in this encounterUniversity Hospitals Portage Medical Center07-20-2023 Instructions* Patient Instructions* Jyoti Linda MA - 11/27/2022 1:18 PM EDT SEQUENTIAL SCREENINGS [facility] offers sequential screenings for women who are [...] testing. It will require an appointment withour telecasting technician. This is not an ultrasound performed [...] the above symptoms, contact our office at [phone] and ask to speak with anurse. After hours, you can call doctors registry at [phone] OR call [facility] at [phone] ask to have the doctor television tube inspector paged. If you consider this an emergency, dial 8-9-2 or go to your nearest emergency department. NEED HELP? Are you dealing with a violent or abusive relationship? Are you a victim of rape or sexual assult? Call [facility] ([place]) 24 hour Crisis Hotline: 684.321.3947 or 680-830-4308. MANUAL Your Guide to a Healthy manual is now on-line. Visit [email or web address] to download your free copy documented in this encounterUniversity Hospitals Portage Medical Center07-11-2023 Miscellaneous Notes* Telephone Encounter - Dania Marc MD - 11/18/2022 4:50 PM EDT Noted. Thanks! Dania Marc MD * Telephone Encounter - Rupa Whitehead RN - 11/18/2022 10:12 AM EDT Attempted to contact patient. No answer and unable to leave a message. Rupa Whitehead RN * Telephone Encounter - Dania Marc MD - 11/18/2022 9:40 AM EDT Please call & talk to patient. If needs visit can schedule in open spot. Dania Marc MD * Telephone Encounter - Ni Anne LPN - 11/18/2022 7:10 AM EDT Please see pt's Nerd Attackt message and advise. Ni Anne LPN documented in this encounterUniversity Hospitals Portage Medical Center07-06-2023 Miscellaneous Notes* Quick Notes - Dania Marc MD - 11/13/2022 11:45 AM EDT KJ - VB No. LOF No. CTXS No. Movement: present. Other c/o: No. Medication list reviewed. Physical Exam See Flow Sheet Gen: no accute distress, well appearing Abd: soft, nontender, gravid A/P 30w2d Estimated Date of Delivery: 01/20/23 Normal 3hr GTT Tdap at next visit PTL precautions reviewed, Kick counts reviewed. Dania Marc MD documented in this encounterUniversity Hospitals Portage Medical Center07-06-2023 Instructions* Patient Instructions* Jyoti Linda MA - 11/13/2022 11:39 AM EDT SEQUENTIAL SCREENINGS [facility] offers sequential screenings for women who are [...] testing. It will require an appointment withour telecasting technician. This is not an ultrasound performed [...] the above symptoms, contact our office at [phone] and ask to speak with anurse. After hours, you can call doctors registry at [phone] OR call [facility] at [phone] ask to have the doctor television tube inspector paged. If you consider this an emergency, dial 91-9 or go to your nearest emergency department. NEED HELP? Are you dealing with a violent or abusive relationship? Are you a victim of rape or sexual assult? Call [facility] ([place]) 24 hour Crisis Hotline: 738.852.1527 or 536-178-8206. MANUAL Your Guide to a Healthy manual is now on-line. Visit [email or web address] to download your free copy documented in this encounterUniversity Hospitals Port[facility] Center06-08-2023 Miscellaneous Notes* Quick Notes - Dania Marc MD - 10/16/2022 11:44 AM EDT KJ - VB No. LOF [...] PP visit PTL & FM precautions reviewed Dania Marc MD documented in this encounterUniversity Hospitals Port[facility] Center06-08-2023 Instructions* Patient Instructions* Vanessa Crane Ma - 10/16/2022 11:31 AM EDT SEQUENTIAL SCREENINGS [facility] offers sequential screenings for women who are [...] testing. It will require an appointment withour telecasting technician. This is not an ultrasound performed [...] the above symptoms, contact our office at [phone] and ask to speak with anurse. After hours, you can call doctors registry at [phone] OR call [facility] at [phone] ask to have the doctor television tube inspector paged. If you consider this an emergency, dial 9-4-6 or go to your nearest emergency department. NEED HELP? Are you dealing with a violent or abusive relationship? Are you a victim of rape or sexual assult? Call [facility] ([facility] 24 hour Crisis Hotline: 684.193.5095 or 036-079-2321. MANUAL Your Guide to a Healthy manual is now on-line. Visit [email or web address] to download your free copy documented in this encounterUniversity Hospitals Portage Medical Center06-02-2023 History of Present illness Narrative* Berenice Ruben Martin, RESIDENTIAL FIELD MANAGER.LUBRICATION SUPERVISOR - 10/10/2022 1:56 PM EDT CHIEF COMPLAINT: Miles Jimenez is [...] on the current dose. She is tolerating itfine without side effects. She was recently ill with an URI. Requesting refill on her Albuterol inhaler due to having SOB withallergies. The history is provided by the patient. No assembler and tester electronics was used. PAST MEDICAL HISTORY Diagnosis Date [...] by mouth once daily. 45 tablet 2 [id number]-yfct fum-folic ac-om3 (ONE A DAY WOMEN'S DHA) 28 mg iron- 800 mcg cmpk Take 2 tablets by mouth once daily. 120 Each 2 albuterol HFA (PROVENTIL HFA, VENTOLIN HFA) 90 mcg/actuation inhaler Inhale 2 Puffs as instructed every 4 hours as needed for wheezing/shortness of breath. 18 g 2 COMPLETE DHA 48-7-915-200 mg cmpk Take 2 tablets by mouth [...] patient. Berenice Martin APRN.GRAZYNA documented in this encounterUniversity Hospitals Portage Medical Center05-24-2023 History of Past illness Narrative* Problem Noted Date Resolved Date 20 weeks gestation of 10/01/2022 10/02/2022 Upper back pain 01/09/2021 06/10/2022 Pain in pelvis 01/08/2021 06/10/2022 Dysmenorrhea 02/17/2018 06/10/2022 documented as of this encounter (statuses as of 10/10/2022) [facility] History of Past illness Narrative* Problem Noted Date Resolved Date 20 weeks gestation of 10/01/2022 10/02/2022 Upper back pain 01/09/2021 06/10/2022 Pain in pelvis 01/08/2021 06/10/2022 Dysmenorrhea 02/17/2018 06/10/2022 documented as of this encounter (statuses as of 10/16/2022) [facility] History of Past illness Narrative* Problem Noted Date Resolved Date 20 weeks gestation of 10/01/2022 10/02/2022 Upper back pain 01/09/2021 06/10/2022 Pain in pelvis 01/08/2021 06/10/2022 Dysmenorrhea 02/17/2018 06/10/2022 documented as of this encounter (statuses as of 11/13/2022) [facility] History of Past illness Narrative* Problem Noted Date Diagnosed Date Resolved Date 20 weeks gestation of 10/01/2022 10/02/2022 Upper back pain 01/09/2021 06/10/2022 Pain in pelvis 01/08/2021 06/10/2022 Dysmenorrhea 02/17/2018 06/10/2022 documented as of this encounter (statuses as of 11/19/2022) [facility] History of Past illness Narrative* Problem Noted Date Diagnosed Date Resolved Date 20 weeks gestation of 10/01/2022 10/02/2022 Upper back pain 01/09/2021 06/10/2022 Pain in pelvis 01/08/2021 06/10/2022 Dysmenorrhea 02/17/2018 06/10/2022 documented as of this encounter (statuses as of 11/28/2022) [facility] History of Past illness Narrative* Problem Noted Date Diagnosed Date Resolved Date 20 weeks gestation of 10/01/2022 10/02/2022 Upper back pain 01/09/2021 06/10/2022 Pain in pelvis 01/08/2021 06/10/2022 Dysmenorrhea 02/17/2018 06/10/2022 documented as of this encounter (statuses as of 12/01/2022) [facility] History of Past illness Narrative* Problem Noted Date Diagnosed Date Resolved Date 20 weeks gestation of 10/01/2022 10/02/2022 Upper back pain 01/09/2021 06/10/2022 Pain in pelvis 01/08/2021 06/10/2022 Dysmenorrhea 02/17/2018 06/10/2022 documented as of this encounter (statuses as of 12/15/2022) [facility] History of Past illness Narrative* Problem Noted Date Diagnosed Date Resolved Date 20 weeks gestation of 10/01/2022 10/02/2022 Upper back pain 01/09/2021 06/10/2022 Pain in pelvis 01/08/2021 06/10/2022 Dysmenorrhea 02/17/2018 06/10/2022 documented as of this encounter (statuses as of 12/18/2022) [facility] History of Past illness Narrative* Problem Noted Date Diagnosed Date Resolved Date 20 weeks gestation of 10/01/2022 10/02/2022 Upper back pain 01/09/2021 06/10/2022 Pain in pelvis 01/08/2021 06/10/2022 Dysmenorrhea 02/17/2018 06/10/2022 documented as of this encounter (statuses as of 12/23/2022) [address]24-2023 History of Past illness Narrative* Problem Noted Date Diagnosed Date Resolved Date 20 weeks gestation of 10/01/2022 10/02/2022 Upper back pain 01/09/2021 06/10/2022 Pain in pelvis 01/08/2021 06/10/2022 Dysmenorrhea 02/17/2018 06/10/2022 documented as of this encounter (statuses as of 12/29/2022) [address]24-2023 History of Past illness Narrative* Problem Noted Date Diagnosed Date Resolved Date 20 weeks gestation of 10/01/2022 10/02/2022 Upper back pain 01/09/2021 06/10/2022 Pain in pelvis 01/08/2021 06/10/2022 Dysmenorrhea 02/17/2018 06/10/2022 documented as of this encounter (statuses as of 01/05/2023) [address]24-2023 History of Past illness Narrative* Problem Noted Date Diagnosed Date Resolved Date 20 weeks gestation of 10/01/2022 10/02/2022 Upper back pain 01/09/2021 06/10/2022 Pain in pelvis 01/08/2021 06/10/2022 Dysmenorrhea 02/17/2018 06/10/2022 documented as of this encounter (statuses as of 2023) [facility] History of Past illness Narrative* Problem Noted Date Diagnosed Date Resolved Date 20 weeks gestation of 10/01/2022 10/02/2022 Upper back pain 01/09/2021 06/10/2022 Pain in pelvis 01/08/2021 06/10/2022 Dysmenorrhea 02/17/2018 06/10/2022 documented as of this encounter (statuses as of 01/13/2023) [address]24-2023 History of Past illness Narrative* Problem Noted Date Diagnosed Date Resolved Date 20 weeks gestation of 10/01/2022 10/02/2022 Upper back pain 01/09/2021 06/10/2022 Pain in pelvis 01/08/2021 06/10/2022 Dysmenorrhea 02/17/2018 06/10/2022 documented as of this encounter (statuses as of 01/15/2023) [address]24-2023 History of Past illness Narrative* Problem Noted Date Diagnosed Date Resolved Date 20 weeks gestation of 10/01/2022 10/02/2022 Upper back pain 01/09/2021 06/10/2022 Pain in pelvis 01/08/2021 06/10/2022 Dysmenorrhea 02/17/2018 06/10/2022 documented as of this encounter (statuses as of 02/13/2023) [address]24-2023 History of Past illness Narrative* Problem Noted Date Diagnosed Date Resolved Date 20 weeks gestation of 10/01/2022 10/02/2022 Upper back pain 01/09/2021 06/10/2022 Pain in pelvis 01/08/2021 06/10/2022 Dysmenorrhea 02/17/2018 06/10/2022 documented as of this encounter (statuses as of 02/19/2023) [address]24-2023 History of Past illness Narrative* Problem Noted Date Diagnosed Date Resolved Date 20 weeks gestation of 10/01/2022 10/02/2022 Upper back pain 01/09/2021 06/10/2022 Pain in pelvis 01/08/2021 06/10/2022 Dysmenorrhea 02/17/2018 06/10/2022 documented as of this encounter (statuses as of 02/27/2023) [facility] History of Past illness Narrative* Problem Noted Date Diagnosed Date Resolved Date 20 weeks gestation of 10/01/2022 10/02/2022 Upper back pain 01/09/2021 06/10/2022 Pain in pelvis 01/08/2021 06/10/2022 Dysmenorrhea 02/17/2018 06/10/2022 documented as of this encounter (statuses as of 03/14/2023) [address]24-2023 History of Past illness Narrative* Problem Noted Date Diagnosed Date Resolved Date 20 weeks gestation of 10/01/2022 10/02/2022 Upper back pain 01/09/2021 06/10/2022 Pain in pelvis 01/08/2021 06/10/2022 Dysmenorrhea 02/17/2018 06/10/2022 documented as of this encounter (statuses as of 03/18/2023) [address]24-2023 History of Past illness Narrative* Problem Noted Date Diagnosed Date Resolved Date 20 weeks gestation of 10/01/2022 10/02/2022 Upper back pain 01/09/2021 06/10/2022 Pain in pelvis 01/08/2021 06/10/2022 Dysmenorrhea 02/17/2018 06/10/2022 documented as of this encounter (statuses as of 04/06/2023) [facility] History of Past illness Narrative* Problem Noted Date Diagnosed Date Resolved Date 20 weeks gestation of 10/01/2022 10/02/2022 Upper back pain 01/09/2021 06/10/2022 Pain in pelvis 01/08/2021 06/10/2022 Dysmenorrhea 02/17/2018 06/10/2022 documented as of this encounter (statuses as of 04/22/2023) [facility] History of Past illness Narrative* Problem Noted Date Diagnosed Date Resolved Date 20 weeks gestation of 10/01/2022 10/02/2022 Upper back pain 01/09/2021 06/10/2022 Pain in pelvis 01/08/2021 06/10/2022 Dysmenorrhea 02/17/2018 06/10/2022 documented as of this encounter (statuses as of 04/23/2023) [facility] History of Past illness Narrative* Problem Noted Date Diagnosed Date Resolved Date 20 weeks gestation of 10/01/2022 10/02/2022 Upper back pain 01/09/2021 06/10/2022 Pain in pelvis 01/08/2021 06/10/2022 Dysmenorrhea 02/17/2018 06/10/2022 documented as of this encounter (statuses as of 06/16/2023) [address]24-2023 History of Past illness Narrative* Problem Noted Date Diagnosed Date Resolved Date 20 weeks gestation of 10/01/2022 10/02/2022 Upper back pain 01/09/2021 06/10/2022 Pain in pelvis 01/08/2021 06/10/2022 Dysmenorrhea 02/17/2018 06/10/2022 documented as of this encounter (statuses as of 06/23/2023) [address]24-2023 History of Past illness Narrative* Problem Noted Date Diagnosed Date Resolved Date 20 weeks gestation of 10/01/2022 10/02/2022 Upper back pain 01/09/2021 06/10/2022 Pain in pelvis 01/08/2021 06/10/2022 Dysmenorrhea 02/17/2018 06/10/2022 documented as of this encounter (statuses as of 06/30/2023) [facility] History of Past illness Narrative* Problem Noted Date Diagnosed Date Resolved Date 20 weeks gestation of 10/01/2022 10/02/2022 Upper back pain 01/09/2021 06/10/2022 Pain in pelvis 01/08/2021 06/10/2022 Dysmenorrhea 02/17/2018 06/10/2022 documented as of this encounter (statuses as of 07/10/2023) [facility] History of Past illness Narrative* Problem Noted Date Diagnosed Date Resolved Date 20 weeks gestation of 10/01/2022 10/02/2022 Upper back pain 01/09/2021 06/10/2022 Pain in pelvis 01/08/2021 06/10/2022 Dysmenorrhea 02/17/2018 06/10/2022 documented as of this encounter (statuses as of 07/10/2023) [facility] History of Past illness Narrative* Problem Noted Date Diagnosed Date Resolved Date 20 weeks gestation of 10/01/2022 10/02/2022 Upper back pain 01/09/2021 06/10/2022 Pain in pelvis 01/08/2021 06/10/2022 Dysmenorrhea 02/17/2018 06/10/2022 documented as of this encounter (statuses as of 07/14/2023) [address]24-2023 History of Past illness Narrative* Problem Noted Date Diagnosed Date Resolved Date 20 weeks gestation of 10/01/2022 10/02/2022 Upper back pain 01/09/2021 06/10/2022 Pain in pelvis 01/08/2021 06/10/2022 Dysmenorrhea 02/17/2018 06/10/2022 documented as of this encounter (statuses as of 07/15/2023) [facility] History of Past illness Narrative* Problem Noted Date Diagnosed Date Resolved Date 20 weeks gestation of 10/01/2022 10/02/2022 Upper back pain 01/09/2021 06/10/2022 Pain in pelvis 01/08/2021 06/10/2022 Dysmenorrhea 02/17/2018 06/10/2022 documented as of this encounter (statuses as of 08/04/2023) [facility]04-27-2023 Miscellaneous Notes* Quick Notes - Dania Marc MD - 09/04/2022 9:32 AM EDT KJ - VB No. LOF No. CTXS No. Movement: present. Other c/o: No. Medication list reviewed. Physical Exam See Flow Sheet Gen: no accute distress, well appearing A/P 20w2d Estimated Date of Delivery: 01/20/23 Anatomy US today Dania Marc MD documented in this encounterUniversity Hospitals [facility]04-27-2023 Instructions* Patient Instructions* Vanessa Crane Ma - 09/04/2022 8:35 AM EDT SEQUENTIAL SCREENINGS The [facility] offers sequential screenings for women who are [...] testing. It will require an appointment withour telecasting technician. This is not an ultrasound performed [...] the above symptoms, contact our office at [phone] and ask to speak with anurse. After hours, you can call doctors registry at [phone] OR call [facility] at [phone] ask to have the doctor television tube inspector paged. If you consider this an emergency, dial 9-- or go to your nearest emergency department. NEED HELP? Are you dealing with a violent or abusive relationship? Are you a victim of rape or sexual assult? Call [facility] ([place]) 24 hour Crisis Hotline: 588.414.3894 or 805-497-7146. MANUAL Your Guide to a Healthy manual is now on-line. Visit [email or web address] to download your free copy documented in this encounterUniversity Hospitals [facility]04-13-2023 Miscellaneous Notes* Telephone Encounter - Ana Whitlock [...] recommendations? Rupa Whitehead RN documented in this encounterCleveland [id number] Instructions* Patient Instructions* Berenice Martin APRN.LUBRICATION SUPERVISOR - 08/19/2022 12:38 PM EDT GET HELP [...] provider preference: Central/Multiple Locations: [facility]: [address] [facility] - [phone] Erick Palma: [address] [facility] - [phone] [facility]: [address] [facility] - [phone] [facility]: [address] [facility] [place] - [phone] [place] [facility]: [address] [place] [address] - [phone] (Medicaid only) [facility] Center for Geriatric Medicine: Multiple Locations - [phone] [facility] Department of Psychiatry & Psychology at [phone] (select Option 1) or [phone] (select Option 1) Connections: Multiple Locations - [phone] (Medicaid only) Yu Mahmood [facility] - Multiple Locations - [phone] (Medicaid only) [facility] Multiple Locations - [phone] [facility] Consultants: Multiple Locations - [phone] [facility]: Multiple Locations - [phone] [facility] Locations: [facility]: [address] [facility] - [phone] [facility]: [address] [facility] - [phone] Ariane Villasenor PhD and Associates: [address] [facility] - [phone] [facility] - [address] [facility] [address] [place] - [phone] Bethany Medrano MD: [address] [facility] - [phone] [facility] [address], [place] - [phone] [facility]: [address], [place] - [phone] [facility] Counseling[facility], [address] [facility] - [phone] [place] Locations: Lindy [place] [facility]: [address] [address], [place] - [phone] Ariane Villasenor PhD [facility] Associates: [address] [facility] - [phone] [facility]: [address] [facility] - [phone] [facility] [address] [facility] - [phone] [facility], [address] [facility], [address] - [phone] [facility], [address] [facility] - [phone] [facility]: [address] [facility] [phone] [place] Locations: [facility] Psychological and Counseling Services [facility] mental [facility] facility [address] [facility] -[phone] [facility] L Tiffany Mehta, [facility] - [phone] [facility] Psychiatry: 1 [facility] - [phone] [facility]: [address] [facility] - [phone] [facility] - [address] [facility] - [phone] [place] Locations: [facility] - Vidal Rea MD Psychiatry, Sleep Medicine - [address] [facility] - [phone] or [phone] Arlen Rosas MD - [address] [facility] - [phone] [facility] - DINA Mehta, DCSW - [address] - [phone] [facility] - [address] [facility] - [phone] [facility] (NO Commercial Insurance accepted) - [address] [phone] [facility] - Elliot Camacho, PCC, [facility] - [address] [phone] Rupa Handley, [facility] - [address] [phone] Shilpi Najera, [facility] - [address] [phone] Sandro Shepard, PhD - [address] [phone] Patt Barfield, [facility] - [address] [phone] Carmela Forte, PCCS, [facility] (No Medicare, [place], [employer]) - [address] [phone] Jacobo Don, [facility] - [address], [place] [phone] Honorio Dobson, [facility] - [address] [phone] For additional resources and information please call 06-11-1 or review the website: [email or web address] If you are feeling suicidal, please call Press About Us, , or the National Suicide Hotline , Call 141, or go to your nearest emergency room documented in this [facility]04-10-2023 History of Present illness Narrative* Berenice Martin APRN.CNP - 08/18/2022 1:58 PM EDT CHIEF COMPLAINT: [...] Current Outpatient Medications Medication Sig Dispense Refill [id number] fum-folic ac-om3 (ONE A DAY WOMEN'S DHA) [...] (1.68m) Wt 149 lb (67.6kg) SpO2 98% [facility]06[facility]16[facility]2021 BMI 24.06 kg/(m^2). Physical Exam Vitals and [...] Received 08/05/2022 08/06/22 Final Sample #1 08/05/2022 [id number] Final Previous NTD 08/05/2022 None Final Insulin [...] patient. Berenice Martin APRN.CNP documented in this encounterUniversity Hospitals Portage Medical Center03-28-2023 Miscellaneous Notes* Quick Notes - Elsa Araujo APRN.CNP - 08/05/2022 4:40 PM EDT RM-Pt doing well. Denies vaginal Bleeding, Leaking fluid, or regular Contractions. Pt reports starting to feel light movement. Physical Exam: Gen: no apparent distress Abd: soft, Gravid. Non tender to palpation. See flow sheet Stop at lab today for AFP RTO 4 weeks for OB appt and anatomy scan. Elsa Araujo APRN.CNP documented in this encounterUniversity Hospitals Portage Medical Center03-28-2023 Instructions* Patient Instructions* Vanessa Crane Ma - 08/05/2022 4:18 PM EDT SEQUENTIAL SCREENINGS The [facility] offers sequential screenings for women who are [...] testing. It will require an appointment withour telecasting technician. This is not an ultrasound performed [...] the above symptoms, contact our office at [phone] and ask to speak with anurse. After hours, you can call doctors registry at [phone] OR call [facility] at [phone] ask to have the doctor television tube inspector paged. If you consider this an emergency, dial 9-1-9 or go to your nearest emergency department. NEED HELP? Are you dealing with a violent or abusive relationship? Are you a victim of rape or sexual assult? Call [facility] ([place]) 24 hour Crisis Hotline: 201.755.5692 or 994-624-0258. MANUAL Your Guide to a Healthy manual is now on-line. Visit [email or web address] to download your free copy documented in this encounterUniversity Hospitals [facility] Medical Center03-14-2023 Miscellaneous Notes* Telephone Encounter - Vaishali Stephens MA - 07/22/2022 10:43 AM EDT Attempted to call patient regarding [id number] results. Both home and cell phone numbers do not appear to be working. Asked patient to call so we may go over results. Vaishali Stephens MA documented in this encounterUniversity Hospitals Portage Medical Center03-08-2023 History of Present illness Narrative* Nay Vinson MA - 07/16/2022 12:37 PM EST ED Follow Up: Patient discharged from [facility] ED on 07/14/22. 1. How are you [...] you able to contact the office or television tube inspector provider prior to your ED visit? Not applicable 5. Is there anything else I can do for you today? Not applicable Nay Vinson MA documented in this encounterUniversity Hospitals Portage Medical Center02-28-2023 Miscellaneous Notes* Telephone Encounter - Kaylie Sorto Ma - 07/08/2022 1:34 PM EST Adam De Jesus, Our ultrasound schedule has an opening at 2pm today. We were trying to reach out to see if you wanted the NT testing but the number we have on file is a nonworking number. Please call the office at [phone] and ask to speak with someone in Dr Solitario office. Thank you documented in this encounterUniversity Hospitals Portage Medical Center02-02-2023 Miscellaneous Notes* Telephone Encounter - Chichi Murillo RN - 06/12/2022 1:47 PM EST Initial risk assessment form submitted June 12, 2022 @ 1:48 PM. Chichi Murillo RN documented in this encounterUniversity Hospitals Portage Medical Center01-31-2023 History of Present illness Narrative* Dania Marc MD - 06/10/2022 2:39 PM EST INITIAL OB ASSESSMENT Obstetric History T0 L0 SAB0 IAB0 Ectopic0 Multiple0 Live Births0 Name of Baby 1: Not recorded Date: Not recorded GA: Not recorded Delivery: Not recorded Apgar1: Not recorded Apgar5: Not recorded Living: Not recorded Char Puller offered: Patient declines. 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 [...] up in 4 weeks or sooner prn. Dania Marc MD documented in this encounterUniversity Hospitals Portage Medical Center01-31-2023 Instructions* Patient Instructions* Vanessa Crane Ma - 06/10/2022 2:39 PM EST Please select the following link to access the [facility] Your Guide to a Healthy . [email or web address] documented in this encounterUniversity Hospitals Portage Medical Center01-31-2023 Miscellaneous Notes* Quick Notes - Susi Bell [...] testing. Susi Bell RN documented in this encounterUniversity Hospitals Portage Medical Center01-30-2023 Miscellaneous Notes* Telephone Encounter - Ni Anne [...] week. Pt'sNOB appt 06/10 documented in this encounterUniversity Hospitals Portage Medical Center01-24-2023 Miscellaneous Notes* Telephone Encounter - Berenice Martin APRN.CNP - 06/03/2022 2:30 PM EST Received MyChart message from patient's mother about her antidepressant medication while Mlies is 7 weeks . She was on Prozac but hasn't been taking it the last 3 weeks. She has been on Zoloft in the past and tolerated it fine. I would recommend restarting her on this at 50 mg daily. Also advised the patient's mother for them to let her OB know she is taking this. documented in this encounterUniversity Hospitals Portage Medical Center01-17-2023 History of Present illness Narrative* Nay Vinson MA - 05/27/2022 11:31 AM EST ED Follow Up: Left message Patient discharged from [facility] ED on 05/22/22. 1. How are you [...] you able to contact the office or television tube inspector provider prior to your ED visit? Not applicable 5. Is there anything else I can do for you today? Not applicable Nay Vinson MA documented in this encounterUniversity Hospitals Portage Medical Center01-12-2023 Miscellaneous Notes* Telephone Encounter - Ni Anne LPN - 05/22/2022 2:45 PM EST Spoke with pt and appt given for PNOB. Ni Anne LPN * Telephone Encounter - Jyoti Linda MA - 05/20/2022 8:59 AM EST LM for patient to call back to schedule PNOB. Jyoti Linda MA documented in this encounterUniversity Hospitals Portage Medical Center12-19-2022 Miscellaneous Notes* Telephone Encounter - Evelia Winslow - 04/28/2022 11:25 AM EST Called Miles but no answer and unable to leave VM. Patient is now 17 and there is [...] a call back. Was Patient Referred to [facility]/Seek Emergency Treatment (Y/N): n Did Patient Agree (Y/N): n/a Was An Attempt Made To Transfer The Patient To The Office (Y/N): y Were You Able To Reach Someone At The Office (Y/N): n If Yes - Patient Was Transferred To (Caregivers Name): n/a If No - Which [facility] Leadership Boat Designer Did You Speak With Regarding This Patient: n/a Was an appointment scheduled (Y/N): n. Reason patient was requesting visit (RFV/signs and symptoms/diagnosis) : broken nose, needs referral Person calling if other than patient: self Return call to if other than patient: self Best contact number: [phone] Thank you, Allie Singleton April 28, 2022 9:27 AM documented in this encounterUniversity Hospitals Portage Medical Center12-19-2022 Miscellaneous Notes* Telephone Encounter - Nay Vinson MA - 04/28/2022 11:11 AM EST Patient called in to get an appointment to get a referral for a broken nose. [place] when [place] broke her nose and was seen by an out of state hospital. This happened on 04/26 and she was told she would need a referral from her doctor to continue getting help Nay Vinson MA * Telephone Encounter - Nay Vinson MA - 04/28/2022 11:11 AM EST ----- Message from Stephani Avalos sent at 04/28/2022 10:01 AM EST ----- Regarding: FW: Librado blair Triage Needed ----- Message ----- From: Allie Areli Sent: 04/28/2022 9:31 AM EST To: [facility] Triage Pool Subject: Librado blair Triage Needed Subject Line Format: Medicine / [Provider Name] / [Issue] Patient has been identified by name and Date of (Y/N): y Patient: Miles Jimenez Date of : 2005 Provider for this encounter: Berenice Martin APRN.LUBRICATION SUPERVISOR Reason for the call/escalation: Patient called in [...] a call back. Was Patient Referred to [facility]/Seek Emergency Treatment (Y/N): n Did Patient Agree (Y/N): n/a Was An Attempt Made To Transfer The Patient To The Office (Y/N): y Were You Able To Reach Someone At The Office (Y/N): n If Yes - Patient Was Transferred To (Caregivers Name): n/a If No - Which [facility] Leadership Boat Designer Did You Speak With Regarding This Patient: n/a Was an appointment scheduled (Y/N): n. Reason patient was requesting visit (RFV/signs and symptoms/diagnosis) : broken nose, needs referral Person calling if other than patient: self Return call to if other than patient: self Best contact number: [phone] Thank you, Allie Singleton April 28, 2022 9:27 AM documented in this encounterUniversity Hospitals Portage Medical Center12-13-2022 Instructions* Patient Instructions* Alejandra Sosa APRN.LUBRICATION SUPERVISOR - 04/22/2022 2:10 PM EST Colds What [...] of rest. Do not smoke. Developed by [employer]. Adult Advisor 2013.1 published by [employer]. Last modified: 2013-03-16 Last reviewed: 2013-01-11 This content is reviewed periodically and is subject to change as new health information becomes available. The information is intended to inform and educate and is not a replacement for medical evaluation, advice, diagnosis or treatment by a healthcare professional. References Adult Advisor 2013.1 Index Copyright 2014 [employer] and/or one of its subsidiaries. All rights reserved. documented in this encounterUniversity Hospitals Portage Medical Center12-13-2022 History of Present illness Narrative* Alejandra Sosa APRN.GRAZYNA - 04/22/2022 1:50 PM EST This note was created using NoteWriter. 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 [...] HISTORY Procedure Laterality Date NEXPLANON INSERTION 2018 Social History Tobacco Use Smoking status: Never [...] (Oral) Resp 18 Ht 167.6 cm (5' 6) Wt 64 kg (141 lb) LMP (LMP [...] tenderness or frontal sinus tenderness. Mouth/Throat: Lips: [place]. Mouth: Mucous membranes are moist. Pharynx: Pharyngeal [...] - BENZONATATE 100 MG CAPSULE Alejandra Sosa APRN.GRAZYNA documented in this encounterUniversity Hospitals Portage Medical Center12-09-2022 History of Present illness Narrative* Yahir Jones APRN.GRAZYNA - 04/18/2022 12:24 PM EST Subjective HPI [...] THROAT, PHENOL,) 1.4 % spra Use 1 [place] as instructed every 2 hours as needed. [...] worsen - ALERE STREP A TEST (AG) Yahir Jones APRN.GRAZYNA documented in this encounterUniversity Hospitals Portage Medical Center10-25-2022 Instructions* Patient Instructions* Omar Colvin APRN.CNP - 03/04/2022 11:38 AM EDT How to [...] or concerning to you. documented in this encounterUniversity Hospitals Portage Medical Center10-25-2022 History of Present illness Narrative* Omar Colvin [...] THROAT, PHENOL,) 1.4 % spra Use 1 [place] as instructed every 2 hours as needed. [...] ear normal. Nose: Congestion present. Mouth/Throat: Lips: [place]. Mouth: Mucous membranes are moist. Pharynx: Uvula [...] of care. This note was generated using [employer]ogMet[employer] software. It may contain errors in wording, punctuation, or spelling. Omar Colvin APRN.GRAZYNA documented in this encounterUniversity Hospitals Portage Medical Center10-17-2022 Instructions* Patient Instructions* Mel Hester APRN.CNP - 02/24/2022 11:46 AM EDT Oral Contraceptives: [...] pills. Theseare formulated to give you a child day care provider period. Unless otherwise instructed, you should start [...] less iron deficiency anemia in pill users. terminal computer operator use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 rules restrict any use of the information to criminally investigate or prosecute any alcohol or drug abuse patient.[facility] CenterIn the event this information is protected by the Federal Confidentiality of Alcohol and Drug Abuse Patient Records regulations: The Federal rules restrict any use of the information to criminally investigate or prosecute any alcohol or drug abuse patient.[facility] CenterIn the event this information is protected by the Federal Confidentiality of Alcohol and Drug Abuse Patient Records regulations: The Federal rules restrict any use of the information to criminally investigate or prosecute any alcohol or drug abuse patient.[facility] CenterIn the event this information is protected by the Federal Confidentiality of Alcohol and Drug Abuse Patient Records regulations: The Federal rules restrict any use of the information to criminally investigate or prosecute any alcohol or drug abuse patient.[facility] CenterIn the event this information is protected by the Federal Confidentiality of Alcohol and Drug Abuse Patient Records regulations: The Federal rules restrict any use of the information to criminally investigate or prosecute any alcohol or drug abuse patient.[facility] CenterIn the event this information is protected by the Federal Confidentiality of Alcohol and Drug Abuse Patient Records regulations: The Federal rules restrict any use of the information to criminally investigate or prosecute any alcohol or drug abuse patient.[facility] CenterIn the event this information is protected by the Federal Confidentiality of Alcohol and Drug Abuse Patient Records regulations: The Federal rules restrict any use of the information to criminally investigate or prosecute any alcohol or drug abuse patient.[facility] CenterIn the event this information is protected by the Federal Confidentiality of Alcohol and Drug Abuse Patient Records regulations: The Federal rules restrict any use of the information to criminally investigate or prosecute any alcohol or drug abuse patient.[facility] CenterIn the event this information is protected by the Federal Confidentiality of Alcohol and Drug Abuse Patient Records regulations: The Federal rules restrict any use of the information to criminally investigate or prosecute any alcohol or drug abuse patient.[facility] CenterIn the event this information is protected by the Federal Confidentiality of Alcohol and Drug Abuse Patient Records regulations: The Federal rules restrict any use of the information to criminally investigate or prosecute any alcohol or drug abuse patient.[facility] CenterIn the event this information is protected by the Federal Confidentiality of Alcohol and Drug Abuse Patient Records regulations: The Federal rules restrict any use of the information to criminally investigate or prosecute any alcohol or drug abuse patient.[facility] CenterIn the event this information is protected by the Federal Confidentiality of Alcohol and Drug Abuse Patient Records regulations: The Federal rules restrict any use of the information to criminally investigate or prosecute any alcohol or drug abuse patient.[facility] CenterIn the event this information is protected by the Federal Confidentiality of Alcohol and Drug Abuse Patient Records regulations: The Federal rules restrict any use of the information to criminally investigate or prosecute any alcohol or drug abuse patient.[facility] CenterIn the event this information is protected by the Federal Confidentiality of Alcohol and Drug Abuse Patient Records regulations: The Federal rules restrict any use of the information to criminally investigate or prosecute any alcohol or drug abuse patient.[facility] CenterIn the event this information is protected by the Federal Confidentiality of Alcohol and Drug Abuse Patient Records regulations: The Federal rules restrict any use of the information to criminally investigate or prosecute any alcohol or drug abuse patient.[facility] CenterIn the event this information is protected by the Federal Confidentiality of Alcohol and Drug Abuse Patient Records regulations: The Federal rules restrict any use of the information to criminally investigate or prosecute any alcohol or drug abuse patient.[facility] CenterIn the event this information is protected by the Federal Confidentiality of Alcohol and Drug Abuse Patient Records regulations: The Federal rules restrict any use of the information to criminally investigate or prosecute any alcohol or drug abuse patient.[facility] CenterIn the event this information is protected by the Federal Confidentiality of Alcohol and Drug Abuse Patient Records regulations: The Federal rules restrict any use of the information to criminally investigate or prosecute any alcohol or drug abuse patient.[facility] CenterIn the event this information is protected by the Federal Confidentiality of Alcohol and Drug Abuse Patient Records regulations: The Federal rules restrict any use of the information to criminally investigate or prosecute any alcohol or drug abuse patient.[facility] CenterIn the event this information is protected by the Federal Confidentiality of Alcohol and Drug Abuse Patient Records regulations: The Federal rules restrict any use of the information to criminally investigate or prosecute any alcohol or drug abuse patient.[facility] CenterIn the event this information is protected by the Federal Confidentiality of Alcohol and Drug Abuse Patient Records regulations: The Federal rules restrict any use of the information to criminally investigate or prosecute any alcohol or drug abuse patient.[facility] CenterIn the event this information is protected by the Federal Confidentiality of Alcohol and Drug Abuse Patient Records regulations: The Federal rules restrict any use of the information to criminally investigate or prosecute any alcohol or drug abuse patient.[facility] CenterIn the event this information is protected by the Federal Confidentiality of Alcohol and Drug Abuse Patient Records regulations: The Federal rules restrict any use of the information to criminally investigate or prosecute any alcohol or drug abuse patient.[facility] CenterIn the event this information is protected by the Federal Confidentiality of Alcohol and Drug Abuse Patient Records regulations: The Federal rules restrict any use of the information to criminally investigate or prosecute any alcohol or drug abuse patient.[facility] CenterIn the event this information is protected by the Federal Confidentiality of Alcohol and Drug Abuse Patient Records regulations: The Federal rules restrict any use of the information to criminally investigate or prosecute any alcohol or drug abuse patient.[facility] CenterIn the event this information is protected by the Federal Confidentiality of Alcohol and Drug Abuse Patient Records regulations: The Federal rules restrict any use of the information to criminally investigate or prosecute any alcohol or drug abuse patient.[facility] CenterIn the event this information is protected by the Federal Confidentiality of Alcohol and Drug Abuse Patient Records regulations: The Federal rules restrict any use of the information to criminally investigate or prosecute any alcohol or drug abuse patient.[facility] CenterIn the event this information is protected by the Federal Confidentiality of Alcohol and Drug Abuse Patient Records regulations: The Federal rules restrict any use of the information to criminally investigate or prosecute any alcohol or drug abuse patient.[facility] CenterIn the event this information is protected by the Federal Confidentiality of Alcohol and Drug Abuse Patient Records regulations: The Federal rules restrict any use of the information to criminally investigate or prosecute any alcohol or drug abuse patient.[facility] CenterIn the event this information is protected by the Federal Confidentiality of Alcohol and Drug Abuse Patient Records regulations: The Federal rules restrict any use of the information to criminally investigate or prosecute any alcohol or drug abuse patient.[facility] CenterIn the event this information is protected by the Federal Confidentiality of Alcohol and Drug Abuse Patient Records regulations: The Federal rules restrict any use of the information to criminally investigate or prosecute any alcohol or drug abuse patient.[facility] CenterIn the event this information is protected by the Federal Confidentiality of Alcohol and Drug Abuse Patient Records regulations: The Federal rules restrict any use of the information to criminally investigate or prosecute any alcohol or drug abuse patient.[facility] CenterIn the event this information is protected by the Federal Confidentiality of Alcohol and Drug Abuse Patient Records regulations: The Federal rules restrict any use of the information to criminally investigate or prosecute any alcohol or drug abuse patient.[facility] CenterIn the event this information is protected by the Federal Confidentiality of Alcohol and Drug Abuse Patient Records regulations: The Federal rules restrict any use of the information to criminally investigate or prosecute any alcohol or drug abuse patient.[facility] CenterIn the event this information is protected by the Federal Confidentiality of Alcohol and Drug Abuse Patient Records regulations: The Federal rules restrict any use of the information to criminally investigate or prosecute any alcohol or drug abuse patient.[facility] CenterIn the event this information is protected by the Federal Confidentiality of Alcohol and Drug Abuse Patient Records regulations: The Federal rules restrict any use of the information to criminally investigate or prosecute any alcohol or drug abuse patient.[facility] CenterIn the event this information is protected by the Federal Confidentiality of Alcohol and Drug Abuse Patient Records regulations: The Federal rules restrict any use of the information to criminally investigate or prosecute any alcohol or drug abuse patient.[facility] CenterIn the event this information is protected by the Federal Confidentiality of Alcohol and Drug Abuse Patient Records regulations: The Federal rules restrict any use of the information to criminally investigate or prosecute any alcohol or drug abuse patient.[facility] CenterIn the event this information is protected by the Federal Confidentiality of Alcohol and Drug Abuse Patient Records regulations: The Federal rules restrict any use of the information to criminally investigate or prosecute any alcohol or drug abuse patient.[facility] CenterIn the event this information is protected by the Federal Confidentiality of Alcohol and Drug Abuse Patient Records regulations: The Federal rules restrict any use of the information to criminally investigate or prosecute any alcohol or drug abuse patient.[facility] CenterIn the event this information is protected by the Federal Confidentiality of Alcohol and Drug Abuse Patient Records regulations: The Federal rules restrict any use of the information to criminally investigate or prosecute any alcohol or drug abuse patient.[facility] CenterIn the event this information is protected by the Federal Confidentiality of Alcohol and Drug Abuse Patient Records regulations: The Federal rules restrict any use of the information to criminally investigate or prosecute any alcohol or drug abuse patient.[facility] CenterIn the event this information is protected by the Federal Confidentiality of Alcohol and Drug Abuse Patient Records regulations: The Federal rules restrict any use of the information to criminally investigate or prosecute any alcohol or drug abuse patient.[facility] CenterIn the event this information is protected by the Federal Confidentiality of Alcohol and Drug Abuse Patient Records regulations: The Federal rules restrict any use of the information to criminally investigate or prosecute any alcohol or drug abuse patient.[facility] CenterIn the event this information is protected by the Federal Confidentiality of Alcohol and Drug Abuse Patient Records regulations: The Federal rules restrict any use of the information to criminally investigate or prosecute any alcohol or drug abuse patient.[facility] CenterIn the event this information is protected by the Federal Confidentiality of Alcohol and Drug Abuse Patient Records regulations: The Federal rules restrict any use of the information to criminally investigate or prosecute any alcohol or drug abuse patient.[facility] CenterIn the event this information is protected by the Federal Confidentiality of Alcohol and Drug Abuse Patient Records regulations: The Federal rules restrict any use of the information to criminally investigate or prosecute any alcohol or drug abuse patient.[facility] CenterIn the event this information is protected by the Federal Confidentiality of Alcohol and Drug Abuse Patient Records regulations: The Federal rules restrict any use of the information to criminally investigate or prosecute any alcohol or drug abuse patient.[facility] CenterIn the event this information is protected by the Federal Confidentiality of Alcohol and Drug Abuse Patient Records regulations: The Federal rules restrict any use of the information to criminally investigate or prosecute any alcohol or drug abuse patient.[facility] CenterIn the event this information is protected by the Federal Confidentiality of Alcohol and Drug Abuse Patient Records regulations: The Federal rules restrict any use of the information to criminally investigate or prosecute any alcohol or drug abuse patient.[facility] CenterIn the event this information is protected by the Federal Confidentiality of Alcohol and Drug Abuse Patient Records regulations: The Federal rules restrict any use of the information to criminally investigate or prosecute any alcohol or drug abuse patient.[facility] CenterIn the event this information is protected by the Federal Confidentiality of Alcohol and Drug Abuse Patient Records regulations: The Federal rules restrict any use of the information to criminally investigate or prosecute any alcohol or drug abuse patient.[facility] CenterIn the event this information is protected by the Federal Confidentiality of Alcohol and Drug Abuse Patient Records regulations: The Federal rules restrict any use of the information to criminally investigate or prosecute any alcohol or drug abuse patient.[facility] CenterIn the event this information is protected by the Federal Confidentiality of Alcohol and Drug Abuse Patient Records regulations: The Federal rules restrict any use of the information to criminally investigate or prosecute any alcohol or drug abuse patient.[facility] CenterIn the event this information is protected by the Federal Confidentiality of Alcohol and Drug Abuse Patient Records regulations: The Federal rules restrict any use of the information to criminally investigate or prosecute any alcohol or drug abuse patient.[facility] CenterIn the event this information is protected by the Federal Confidentiality of Alcohol and Drug Abuse Patient Records regulations: The Federal rules restrict any use of the information to criminally investigate or prosecute any alcohol or drug abuse patient.[facility] CenterIn the event this information is protected by the Federal Confidentiality of Alcohol and Drug Abuse Patient Records regulations: The Federal rules restrict any use of the information to criminally investigate or prosecute any alcohol or drug abuse patient.[facility] CenterIn the event this information is protected by the Federal Confidentiality of Alcohol and Drug Abuse Patient Records regulations: The Federal rules restrict any use of the information to criminally investigate or prosecute any alcohol or drug abuse patient.[facility] CenterIn the event this information is protected by the Federal Confidentiality of Alcohol and Drug Abuse Patient Records regulations: The Federal rules restrict any use of the information to criminally investigate or prosecute any alcohol or drug abuse patient.[facility] CenterIn the event this information is protected by the Federal Confidentiality of Alcohol and Drug Abuse Patient Records regulations: The Federal rules restrict any use of the information to criminally investigate or prosecute any alcohol or drug abuse patient.[facility] CenterIn the event this information is protected by the Federal Confidentiality of Alcohol and Drug Abuse Patient Records regulations: The Federal rules restrict any use of the information to criminally investigate or prosecute any alcohol or drug abuse patient.[facility] CenterIn the event this information is protected by the Federal Confidentiality of Alcohol and Drug Abuse Patient Records regulations: The Federal rules restrict any use of the information to criminally investigate or prosecute any alcohol or drug abuse patient.[facility] CenterIn the event this information is protected by the Federal Confidentiality of Alcohol and Drug Abuse Patient Records regulations: The Federal rules restrict any use of the information to criminally investigate or prosecute any alcohol or drug abuse patient.[facility] CenterIn the event this information is protected by the Federal Confidentiality of Alcohol and Drug Abuse Patient Records regulations: The Federal rules restrict any use of the information to criminally investigate or prosecute any alcohol or drug abuse patient.[facility] CenterIn the event this information is protected by the Federal Confidentiality of Alcohol and Drug Abuse Patient Records regulations: The Federal rules restrict any use of the information to criminally investigate or prosecute any alcohol or drug abuse patient.[facility] CenterIn the event this information is protected by the Federal Confidentiality of Alcohol and Drug Abuse Patient Records regulations: The Federal rules restrict any use of the information to criminally investigate or prosecute any alcohol or drug abuse patient.[facility] CenterIn the event this information is protected by the Federal Confidentiality of Alcohol and Drug Abuse Patient Records regulations: The Federal rules restrict any use of the information to criminally investigate or prosecute any alcohol or drug abuse patient.[facility] CenterIn the event this information is protected by the Federal Confidentiality of Alcohol and Drug Abuse Patient Records regulations: The Federal rules restrict any use of the information to criminally investigate or prosecute any alcohol or drug abuse patient.[facility] CenterIn the event this information is protected by the Federal Confidentiality of Alcohol and Drug Abuse Patient Records regulations: The Federal rules restrict any use of the information to criminally investigate or prosecute any alcohol or drug abuse patient.[facility] CenterIn the event this information is protected by the Federal Confidentiality of Alcohol and Drug Abuse Patient Records regulations: The Federal rules restrict any use of the information to criminally investigate or prosecute any alcohol or drug abuse patient.[facility] CenterIn the event this information is protected by the Federal Confidentiality of Alcohol and Drug Abuse Patient Records regulations: The Federal rules restrict any use of the information to criminally investigate or prosecute any alcohol or drug abuse patient.[facility] CenterIn the event this information is protected by the Federal Confidentiality of Alcohol and Drug Abuse Patient Records regulations: The Federal rules restrict any use of the information to criminally investigate or prosecute any alcohol or drug abuse patient.[facility] CenterIn the event this information is protected by the Federal Confidentiality of Alcohol and Drug Abuse Patient Records regulations: The Federal rules restrict any use of the information to criminally investigate or prosecute any alcohol or drug abuse patient.[facility] CenterIn the event this information is protected by the Federal Confidentiality of Alcohol and Drug Abuse Patient Records regulations: The Federal rules restrict any use of the information to criminally investigate or prosecute any alcohol or drug abuse patient.[facility] CenterIn the event this information is protected by the Federal Confidentiality of Alcohol and Drug Abuse Patient Records regulations: The Federal rules restrict any use of the information to criminally investigate or prosecute any alcohol or drug abuse patient.[facility] CenterIn the event this information is protected by the Federal Confidentiality of Alcohol and Drug Abuse Patient Records regulations: The Federal rules restrict any use of the information to criminally investigate or prosecute any alcohol or drug abuse patient.[facility] CenterIn the event this information is protected by the Federal Confidentiality of Alcohol and Drug Abuse Patient Records regulations: The Federal rules restrict any use of the information to criminally investigate or prosecute any alcohol or drug abuse patient.[facility] CenterIn the event this information is protected by the Federal Confidentiality of Alcohol and Drug Abuse Patient Records regulations: The Federal rules restrict any use of the information to criminally investigate or prosecute any alcohol or drug abuse patient.[facility] CenterIn the event this information is protected by the Federal Confidentiality of Alcohol and Drug Abuse Patient Records regulations: The Federal rules restrict any use of the information to criminally investigate or prosecute any alcohol or drug abuse patient.[facility] CenterIn the event this information is protected by the Federal Confidentiality of Alcohol and Drug Abuse Patient Records regulations: The Federal rules restrict any use of the information to criminally investigate or prosecute any alcohol or drug abuse patient.[facility] CenterIn the event this information is protected by the Federal Confidentiality of Alcohol and Drug Abuse Patient Records regulations: The Federal rules restrict any use of the information to criminally investigate or prosecute any alcohol or drug abuse patient.[facility] CenterIn the event this information is protected by the Federal Confidentiality of Alcohol and Drug Abuse Patient Records regulations: The Federal rules restrict any use of the information to criminally investigate or prosecute any alcohol or drug abuse patient.[facility] CenterIn the event this information is protected by the Federal Confidentiality of Alcohol and Drug Abuse Patient Records regulations: The Federal rules restrict any use of the information to criminally investigate or prosecute any alcohol or drug abuse patient.[facility] CenterIn the event this information is protected by the Federal Confidentiality of Alcohol and Drug Abuse Patient Records regulations: The Federal rules restrict any use of the information to criminally investigate or prosecute any alcohol or drug abuse patient.[facility] CenterIn the event this information is protected by the Federal Confidentiality of Alcohol and Drug Abuse Patient Records regulations: The Federal rules restrict any use of the information to criminally investigate or prosecute any alcohol or drug abuse patient.[facility] CenterIn the event this information is protected by the Federal Confidentiality of Alcohol and Drug Abuse Patient Records regulations: The Federal rules restrict any use of the information to criminally investigate or prosecute any alcohol or drug abuse patient.[facility] CenterIn the event this information is protected by the Federal Confidentiality of Alcohol and Drug Abuse Patient Records regulations: The Federal rules restrict any use of the information to criminally investigate or prosecute any alcohol or drug abuse patient.[facility] CenterIn the event this information is protected by the Federal Confidentiality of Alcohol and Drug Abuse Patient Records regulations: The Federal rules restrict any use of the information to criminally investigate or prosecute any alcohol or drug abuse patient.[facility] CenterIn the event this information is protected by the Federal Confidentiality of Alcohol and Drug Abuse Patient Records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 [id number] Mental Health Provider Psych/Mental Health 04/17/18 Boat Designer Relationship Specialty Start Date End Date Berenice Martin, RESIDENTIAL FIELD MANAGER.LUBRICATION SUPERVISOR [address] [place] [address] PCP - General Family Medicine 02/17/[address] [id number] Mental Health Provider Psych/Mental Health 04/17/18 Team Status: Active Member Role Status Dates Berenice Martin LOSS CONTROL ENGINEER, LOSS CONTROL ENGINEER-C Primary Care Provider Active Team Status: Inactive Member Role Status Dates Berenice Martin LOSS CONTROL ENGINEER, LOSS CONTROL ENGINEER-C Primary Care Provider Active Start: July 09, 2024 End: July 09, 2024 Dr. Milan Ackerman MD Attending Provider Active Start: July 09, 2024 End: July 09, 2024 Dr. Milan Ackerman MD Emergency Provider Active Start: July 09, 2024 End: July 09, 2024 Team Status: Inactive Member Role Status Dates Berenice Martin LOSS CONTROL ENGINEER, LOSS CONTROL ENGINEER-C Primary Care Provider Active Start: July 12, 2024 End: July 12, 2024 Berenice Martin LOSS CONTROL ENGINEER, LOSS CONTROL ENGINEER-C Referring Provider Active Start: July 12, 2024 End: July 12, 2024 Sandro Lundberg PA, PA Attending Provider Active Start: July 12, 2024 End: July 12, 2024 Team Status: Inactive Member Role Status Dates Berenice Martin LOSS CONTROL ENGINEER, LOSS CONTROL ENGINEER-C Primary Care Provider Active Start: October 03, 2024 End: October 03, 2024 Dr. Bobby Vazquez , Emergency Provider Active Start : October 03, 2024 End: October 03, 2024 Boat Designer Relationship Specialty Start Date End Date Berenice Martin RESIDENTIAL FIELD MANAGER.LUBRICATION SUPERVISOR [address] [place], [place] [id number] PCP - General Family Medicine 02/17/[address] [address] Mental Health Provider Psych/Mental Health 04/17/18 Team Status: Inactive Member Role Status Dates Berenice Martin LOSS CONTROL ENGINEER, LOSS CONTROL ENGINEER-C Primary Care Provider Active Start: October 03, 2024 End: October 03, 2024 Dr. Bobby Vazquez DO Attending Provider Active Start : October 03, 2024 End: October 03, 2024 Dr. Bobby Vazquez , Emergency Provider Active Start : October 03, 2024 End: October 03, 2024 Team Status: Inactive Member Role Status Dates Berenice Martin LOSS CONTROL ENGINEER, LOSS CONTROL ENGINEER-C Primary Care Provider Active Start: October 09, 2024 End: October 09, 2024 Berenice Martin LOSS CONTROL ENGINEER, LOSS CONTROL ENGINEER-C Referring Provider Active Start: October 09, 2024 End: October 09, 2024 Aaron Haque LOSS CONTROL ENGINEER, LOSS CONTROL ENGINEER-C Attending Provider Active S tart: October 09, 2024 End: October 09, 2024 Boat Designer Relationship Specialty Start Date End Date Berenice Martin RESIDENTIAL FIELD MANAGER.LUBRICATION SUPERVISOR [address] [place], [place] [id number] PCP - General Family Medicine 02/17/[address] [address] Mental Health Provider Psych/Mental Health 04/17/18 Boat Designer Relationship Specialty Start Date End Date Berenice Martin APRN.LUBRICATION SUPERVISOR [address] [place] [place] [address] PCP - General Family Medicine 02/17/[address] [address] Mental Health Provider Psych/Mental Health 04/17/18 Goals (unrecognized section and content) Goals may be documented in a n alternate sectionGoals may be documented in an alternate sectionGoals may be documented in an alternate sectionGoals may be documented in an alternate sectionGoals may be documented in an alternate sectionGoals may be documented in an alternate sectionGoals may be documented in an alternate sectionGoals may be documented in an alternate section No data available for this sectionGoals may be documented in an alternate sectionGoals may be documented in an alternate sectionGoals may be documented in an alternate section No data available for this section FOR RECORDS PERTAINING TO PATIENTS WHO ARE [...] BE BASED ON THE PRIMARY CLINICAL RECORDS. [facility] [facility]. provides no warranty or guarantee of the accuracy or completeness of information in this document.
== END 2025-04-25 20:58 | disposition left against medical advice (07) ==
LOC: ED 21:04
PROVIDERS: PCP Nurse Practitioner Family
DX: Z53.21 Procedure and treatment not carried out due to patient leaving prior to being seen by health care provider (principal)